=== PATIENT | male | born 1980 | race Caucasian/White ===

== ENCOUNTER 2017-02-04 03:51 | Inpatient (IN) | payer OTHER ==
[2017-02-04] VITALS (7 sets, daily range): BP systolic 127–146; BP diastolic 63–91; PULSE 65–96; TEMP 36.3–37; O2SAT 94–98; Ht 180.3 cm; Wt 119.0 kg
[~2017-02-04] VITALS: Ht 180.3 cm; Wt 119.0 kg
[~2017-02-04 03:51] MED LIST: IBUP-1050 PO; OXYC1TAB3 PO; TAMS0.4C38 PO
[2017-02-04] MEDS ORDERED: LORAZEPAM 2 MG/ML 1 ML VIAL IV STA (04:11)
[2017-02-04] MEDS ORDERED: DILTIAZEM HCL 5 MG/ML 5 ML VIAL ONE (04:11)
[2017-02-04] MEDS ORDERED: ONDANSETRON INJ 2 MG/ML 2 ML VIAL ONE (04:12)
[2017-02-04] MEDS ORDERED: LORAZEPAM 2 MG/ML 1 ML VIAL ONE (04:13)
[2017-02-04 04:16] LABS: BASO % 0.5 %; BASO ABS # 0.04 K/uL (0-0.2); COMPLETE YES; EOS % 4.8 %; HEMATOCRIT 48.2 % (42-52); IG% 0.6 %; LYMPH % 31.3 %; MEAN CELL VOLUME 85.2 fL (80-100); MEAN CORPUSCULAR HEMOGLOBIN 29.2 pg (25-34); MEAN CORPUSCULAR HGB CONC 34.2 g/dl (32-36); MEAN PLATELET VOLUME 8.9 fL (7.4-10.4); MONO % 10.7 %; NEUT % 52.1 %; PLATELET COUNT 325 K/uL (130-400); RED BLOOD COUNT 5.66 M/uL (4.7-6.1); WHITE BLOOD COUNT 8.62 K/uL (4.8-10.8)
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
[2017-02-04] MEDS ORDERED: CETI10TA84 PO (04:32)
[2017-02-04 04:44] LABS: ALT/SGPT 50 U/L (12-78); AST/SGOT 26 U/L (15-37); BLOOD UREA NITROGEN 15 mg/dl (7-18); BUN/CREATININE RATIO 13.8 (10-20); CALCIUM 9.1 mg/dl (8.5-10.1); CARBON DIOXIDE 26 mmol/L (21-32); CHLORIDE 108 mmol/L (98-107); GLUCOSE 101 mg/dl (70-99); POTASSIUM 3.6 mmol/L (3.5-5.1); SODIUM 144 mmol/L (136-145)
[2017-02-04 04:54] LABS: ALB/GLOB RATIO 1.2 (0.9-2); ALKALINE PHOSPHATASE 68 U/L (45-117); CKMB/CK RATIO 0.5 (0-3.0); PARTIAL THROMBOPLASTIN RATIO 1.3; PROTHROMBIN TIME (PATIENT) 10.2 SECONDS (9.0-12.0)
[2017-02-04] MEDS ORDERED: HEPARIN 25000 UNIT/500 ML D5W ONE (05:31)
[2017-02-04] MEDS ORDERED: HEPARIN SOD 5000 UNIT/0.5 ML CARP ONE (05:31)
[2017-02-04] MEDS ORDERED: DILTIAZEM HCL 5 MG/ML 5 ML VIAL IV STA (06:24)
[2017-02-04] MEDS ORDERED: SODIUM CHLORIDE 0.9% 1000ML 1,000 ML IV SCH (06:25)
[2017-02-04] MEDS ORDERED: NITROGLYCERIN 0.4 MG SL PER TAB CHARGE SL PRN (06:30)
[2017-02-04] MEDS ORDERED: POLYETHYLENE (MIRALAX) 17 GM PACK PO PRN (06:30)
[2017-02-04] MEDS ORDERED: ONDANSETRON INJ 2 MG/ML 2 ML VIAL IV PRN (06:30)
[2017-02-04] MEDS ORDERED: POTASSIUM CHLORIDE 10 MEQ TABCR PO STA (06:34)
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
[2017-02-04 06:58] LABS: MAGNESIUM 2.1 mg/dl (1.8-2.4); PHOSPHORUS 1.9 mg/dl (2.5-4.9)
--- NOTE | 2017-02-04 07:14 | DIAGNOSTIC IMAGING REPORT ---
CHEST ONE VIEW PORTABLE CLINICAL HISTORY: a-fib/sob COMPARISON STUDY: 08/22/2015 FINDINGS: The heart remains enlarged. There is no failure. There is no focal pulmonary consolidation. There are no pleural effusions.[ IMPRESSION: Mild cardiomegaly. No evidence of focal pulmonary consolidation Electronically signed by: Juan Carlos Mcfarlane M.D. 02/04/2017 7:13 AM Dictated Date/Time: 02/04/2017 7:12 AM
[2017-02-04] MEDS ORDERED: HEPARIN 25,000 UNIT/500ML D5W 500 ML IV PRN ×2 (08:00→10:00)
[2017-02-04] MEDS ORDERED: HEPARIN IV BOLUS 7,000 UNIT in SYRINGE 0 ML IV SCH (08:00)
[2017-02-04] MEDS ORDERED: NURSING VERBAL MED ORDER ONE (09:45)
[2017-02-04] MEDS ORDERED: METOPROLOL SUCC 50MG EXT REL TAB PO STA (10:08)
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
--- NOTE | 2017-02-04 11:02 | Cardiology Consultation ---
Cardiology Consultation Date of Consultation: Feb 04, 2017. Reason for Consultation: Chest Pain, Palpitation Pt evaluation today including: conversation w/ patient, conversation w/ family , physical exam, chart review, lab review, review of studies, review of inpatient medication list History of Present Illness This is 36 yo previously healthy male presenting with Hx of Chest Pain and Palpitation. Around 1 AM this morning , Patient reports he awoke with intermittent sharp 8/10 Chest pain radiating to his Left arm and the left side of his neck. Chest pain was associated with palpitation and was come and go last a few minutes at a time. Patient denies any alleviating or aggravating factors. He did not take any medication to relieve his symptoms. Patient also reports subsequent development progressive dyspnea, presyncope, nausea, diaphoresis. He denies syncope, orthopnea, PND, calf tenderness, claudication. He subsequently contacted his brother who works as a fresh work inspector who advised him he should go to the Emergency Dept. Patent drive himself to hospital. Patient has never experienced chest pain such as this before, but did have palpitation within the last 2 mos after which he was seen by his PCP, Dr. Green.He reports he got an ECG at the time and was told it was normal and sent home. In the ED , patient had EKG consistent with Atrial Fibrillation with RVR with a rate of 169. He was placed on a Cardizem drip and started on Heparin. Initial troponin, POC troponin was negative, CK was 312. CXR showed mild cardiomegaly. He was also found to have an elevated TSH although his T3, T4 levels were wnl. Patient has no known hx of CAD, HTN, Hyperlipidemia, DM, Cardiomyopathy. He is a former smoker, and currently chews tobacco and rarely drinks alcohol. He denies recreational drug use. Patient does report hx of snoring and possible hx of Sleep Apnea although he apparently had 2 sleep studies one at an outside facility in which he was told he did have did not have Sleep Apnea and a subsequent sleep study within the [facility] which he reports confirmed a Sleep Apnea diagnosis. He has not used a CPAP regularly since his diagnosis because he feels he cannot tolerate it. Currently patient reports his chest pain has resolved although he still has palpitation, occasional dizziness and SOB. Past Medical/Surgical History Past Medical Hx: Kidney Stones Pat Surgical Hx: [place] teeth Extraction Family History No pertinent family history GM and GF : CAD s/p stenting M: Hyperthyroidism Social History Smoking Status: Former Smoker History of Alcohol Use: Yes (once a month) chewing tobacco x 10 yrs Review of Systems Constitutional: + sweats, + fatigue, No fever, No chills, No weakness Respiratory: + shortness of breath, No cough, No sputum Cardiac: + chest pain, + palpitations, No orthopnea, No PND, No edema, No claudication Abdomen: + nausea, No pain, No vomiting Male : No dysuria, No urinary frequency, No hematuria Neurologic: No weakness, No numbness/tingling Endo: + fatigue, + problem reported (cold intolerance x months long) Skin: No rash, No itch Allergies Coded Allergies: Morphine (Verified Allergy, Mild, altered mental status, 02/04/17) Medications Current Inpatient Medications Medications (Trade) Dose Ordered Sig/Laverne Route Start Time Stop Time Status Last Admin Dose Admin Sodium Chloride 1,000 ml @ 100 mls/hr Q10H IV 02/04/17 06:25 03/06/17 06:24 Acetaminophen (Tylenol Tab) 650 mg Q4H PRN PO 02/04/17 06:30 03/06/17 06:29 Ondansetron HCl (Zofran Inj) 4 mg Q6H PRN IV 02/04/17 06:30 03/06/17 06:29 Nitroglycerin (Nitrostat Tab) 0.4 mg UD PRN SL 02/04/17 06:30 03/06/17 06:29 Polyethylene (Miralax Powder Packet) 17 gm DAILY PRN PO 02/04/17 06:30 03/06/17 06:29 Heparin Sodium/ Dextrose 500 ml @ 33 mls/hr [id number] PRN IV 02/04/17 10:00 03/06/17 09:59 Metoprolol Succinate (Toprol Xl Tab) 50 mg NOW STAT PO 02/04/17 10:08 02/04/17 10:09 UNV Physical Exam Vital Signs Past 12 Hours Date Time Temp Pulse Resp B/P (MAP) Pulse Ox O2 Delivery O2 Flow Rate FiO2 02/04/17 07:48 98 Room Air 02/04/17 07:30 36.3 91 20 143/91 02/04/17 06:55 96 02/04/17 06:29 135 20 117/96 99 Nasal Cannula 2.0 02/04/17 05:29 119 20 121/94 98 Nasal Cannula 2.0 02/04/17 04:22 96 18 123/89 98 Nasal Cannula 2.0 02/04/17 04:13 83 02/04/17 04:10 119 02/04/17 04:02 171 02/04/17 03:55 161 27 148/121 94 Room Air Constitutional: General Apperance: heathly-appearing, obese (BMI: 36) Level of Distress: mild distress Head: normocephalic Eyes: Pupils: PERRLA EOM: EOMI ENMT: hearing grossly normal Neck: supple, trachea midline, no masses Lungs: Respiratory effort: no dyspnea, good air movement Auscultation: breath sounds normal, no wheezing, no rales/crackles, no rhonchi Cardiovascular: Heart Auscultation: no murmurs, no rubs, no gallops, irregular rate rhythm Abdomen: Bowel Sounds: normal Inspection & Palpation: soft, non-distended, no tenderness, guarding & rebound, no masses Liver: non-tender, no hepatomegaly Extremities: no cyanosis, no edema, no clubbing Neurologic: Cranial Nerves: grossly intact Sensation: grossly intact Data Laboratory Results: Last 24 Hours Test 02/04/17 04:00 02/04/17 04:05 02/04/17 08:25 White Blood Count 8.62 K/uL Red Blood Count 5.66 M/uL Hemoglobin 16.5 g/dL Hematocrit 48.2 % Mean Corpuscular Volume 85.2 fL Mean Corpuscular Hemoglobin 29.2 pg Mean Corpuscular Hemoglobin Concent 34.2 g/dl Platelet Count 325 K/uL Mean Platelet Volume 8.9 fL Neutrophils (%) (Auto) 52.1 % Lymphocytes (%) (Auto) 31.3 % Monocytes (%) (Auto) 10.7 % Eosinophils (%) (Auto) 4.8 % Basophils (%) (Auto) 0.5 % Neutrophils # (Auto) 4.50 K/uL Lymphocytes # (Auto) 2.70 K/uL Monocytes # (Auto) 0.92 K/uL Eosinophils # (Auto) 0.41 K/uL Basophils # (Auto) 0.04 K/uL RDW Standard Deviation 39.4 fL RDW Coefficient of Variation 12.7 % Immature Granulocyte % (Auto) 0.6 % Immature Granulocyte # (Auto) 0.05 K/uL Prothrombin Time 10.2 SECONDS Prothromb Time International Ratio 1.0 Activated Partial Thromboplast Time 32.5 SECONDS Partial Thromboplastin Ratio 1.3 D-Dimer < 190 ug/L FEU Sodium Level 144 mmol/L Potassium Level 3.6 mmol/L Chloride Level 108 mmol/L Carbon Dioxide Level 26 mmol/L Anion Gap 10.0 mmol/L Blood Urea Nitrogen 15 mg/dl Creatinine 1.10 mg/dl Est Creatinine Clear Calc Drug Dose 120.7 ml/min Estimated GFR () 98.9 Estimated GFR (Non- 85.3 BUN/Creatinine Ratio 13.8 Random Glucose 101 mg/dl Calcium Level 9.1 mg/dl Phosphorus Level 1.9 mg/dl Magnesium Level 2.1 mg/dl Total Bilirubin 0.4 mg/dl Aspartate Amino Transf (AST/SGOT) 26 U/L Alanine Aminotransferase (ALT/SGPT) 50 U/L Alkaline Phosphatase 68 U/L Total Creatine Kinase 312 U/L Creatine Kinase MB 1.7 ng/ml Creatine Kinase MB Ratio 0.5 Troponin I < 0.015 ng/ml Pro-B-Type Natriuretic Peptide 144 pg/ml Total Protein 7.9 gm/dl Albumin 4.3 gm/dl Globulin 3.6 gm/dl Albumin/Globulin Ratio 1.2 Thyroid Stimulating Hormone (TSH) 10.100 uIu/ml Free Thyroxine 0.87 ng/dl Free Triiodothyronine 3.88 pg/ml Bedside Troponin I 0.000 ng/ml Imaging: EKG: Telemetry reviewed: Assessment & Plan This is a previously Healthy 36 yo M presenting with Chest pain, palpitation with associated presyncope, diaphoresis, nausea, EKG confirming Atrial Fibrillation with RVR s/p Cardizem drip in ED, with negative troponin, elevated currently afebrile, stable on a Heparin drip for anticoagulation. ChadsVasc score of 0. Etiology of his Atrial Fibrillation is unclear at this point. Certainly if patient has confirmed history of sleep apnea, that could certainly be a contributor. While Hypothyroidism can be a factor, given, that his thyroid hormone levels are wnl despite the elevated TSH, it is unclear how significant this finding may be. Anatomical Heart abnormality have yet to be ruled out as well. While EKG, and cardiazc enzymes have not shown evidence of ACS as of yet, patient will need outpatient Stress test to rule out exertional angina. New onset Atrial Fibrillation with RVR - Give 50 mg dose of Metoprolol - Continue Heparin drip - Follow up Echo report - Consider antiarrhythmic trial of Corvert if no abnormalities found on Echo - If patient does not convert to sinus rhythm either spontaneously or with Corvert, will consider electrical cardioversion tmr - Patient will need Stress Test outpatient following discharge - Will likely need anticoagulation with Eliquis on discharge for at least a month Thank you for allowing us to participate in this patient's care. Sid Espino, PGY1
--- NOTE | 2017-02-04 11:16 | Cardiology Consultation ---
Cardiology Consultation Date of Consultation: Feb 04, 2017. Requesting Physician: Dr Johnson Reason for Consultation: Atrial fibrillation Pt evaluation today including: conversation w/ patient, conversation w/ family , physical exam, chart review, lab review, review of studies, review of inpatient medication list History of Present Illness This is a 36-year-old gentleman with a history of obesity and sleep apnea who presents with chest discomfort and rapid atrial fibrillation. He had a prior episode of chest discomfort and palpitations several months ago, evidently had an electrocardiogram done which did not show any abnormality but he is unclear as to the duration of that episode and it was not as severe as the current one. He is confident that he felt well yesterday, he woke up at around 1 AM this morning with chest discomfort radiating to his left arm and left neck. This discomfort occurred at rest and was associated with palpitations. When he stood up he felt quite lightheaded and nauseous and had to sit back down. He therefore came to the emergency room when this did not resolve. In the emergency room at about 3 AM he was noted to be in atrial fibrillation with a rapid ventricular response. He was treated with intravenous heparin and intravenous Cardizem. The chest discomfort resolved fairly quickly, he is not clear exactly when that occurred but it occurred while he was in the emergency room. He has had no further chest discomfort. He has been evaluated for sleep apnea both here and elsewhere, he was supposed to wear mask but has difficulty with it. He does not drink alcohol, he does not use illicit drugs. Other than the episode occurring several months ago he does not recall ever having these symptoms before. He notes no change in his exercise ability. Past Medical/Surgical History (1) Head injury (2) Finger fracture (3) Ribs, multiple fractures (4) Left varicocele Family History No pertinent family history Social History Smoking Status: Former Smoker History of Alcohol Use: Yes (once a month) Review of Systems Constitutional: No fever, No weight loss, No weakness Respiratory: + see HPI, + shortness of breath, No cough, No sputum Cardiac: + see HPI, + chest pain, + palpitations, No orthopnea, No PND, No edema, No claudication Abdomen: No pain, No nausea, No vomiting, No diarrhea, No GI bleeding Male : No urinary frequency, No nocturia more than once/night, No slowing stream, No sexual dysfunction Neurologic: No paralysis, No weakness, No numbness/tingling, No balance problems Heme: No abnormal bleeding/bruising, No clotting problems Endo: No fatigue Skin: No problem reported All Other Systems: Reviewed and Negative Allergies Coded Allergies: Morphine (Verified Allergy, Mild, altered mental status, 02/04/17) Medications Current Inpatient Medications Medications (Trade) Dose Ordered Sig/Laverne Route Start Time Stop Time Status Last Admin Dose Admin Sodium Chloride 1,000 ml @ 100 mls/hr Q10H IV 02/04/17 06:25 03/06/17 06:24 Acetaminophen (Tylenol Tab) 650 mg Q4H PRN PO 02/04/17 06:30 03/06/17 06:29 Ondansetron HCl (Zofran Inj) 4 mg Q6H PRN IV 02/04/17 06:30 03/06/17 06:29 Nitroglycerin (Nitrostat Tab) 0.4 mg UD PRN SL 02/04/17 06:30 03/06/17 06:29 Polyethylene (Miralax Powder Packet) 17 gm DAILY PRN PO 02/04/17 06:30 03/06/17 06:29 Heparin Sodium/ Dextrose 500 ml @ 33 mls/hr [id number] PRN IV 02/04/17 10:00 03/06/17 09:59 Physical Exam Vital Signs Past 12 Hours Date Time Temp Pulse Resp B/P (MAP) Pulse Ox O2 Delivery O2 Flow Rate FiO2 02/04/17 07:48 98 Room Air 02/04/17 07:30 36.3 91 20 143/91 02/04/17 06:55 96 02/04/17 06:29 135 20 117/96 99 Nasal Cannula 2.0 02/04/17 05:29 119 20 121/94 98 Nasal Cannula 2.0 02/04/17 04:22 96 18 123/89 98 Nasal Cannula 2.0 02/04/17 04:13 83 02/04/17 04:10 119 02/04/17 04:02 171 02/04/17 03:55 161 27 148/121 94 Room Air Constitutional: General Apperance: heathly-appearing Level of Distress: NAD Psychiatric: Mental Status: active & alert Head: normocephalic Eyes: EOM: EOMI ENMT: normal ENT inspection, hearing grossly normal Neck: supple, no masses Lungs: Respiratory effort: no dyspnea, good air movement Auscultation: breath sounds normal, no wheezing Cardiovascular: Heart Auscultation: no murmurs, no rubs, no gallops, irregular rate rhythm Peripheral Pulses: Bruits: none appreciated Abdomen: Bowel Sounds: normal Inspection & Palpation: soft, no tenderness, guarding & rebound, no masses Musculoskeletal: normal strength (5/5 throughout) Extremities: no edema Neurologic: Cranial Nerves: grossly intact Sensation: grossly intact Data Laboratory Results: Last 24 Hours Test 02/04/17 04:00 02/04/17 04:05 02/04/17 08:25 White Blood Count 8.62 K/uL Red Blood Count 5.66 M/uL Hemoglobin 16.5 g/dL Hematocrit 48.2 % Mean Corpuscular Volume 85.2 fL Mean Corpuscular Hemoglobin 29.2 pg Mean Corpuscular Hemoglobin Concent 34.2 g/dl Platelet Count 325 K/uL Mean Platelet Volume 8.9 fL Neutrophils (%) (Auto) 52.1 % Lymphocytes (%) (Auto) 31.3 % Monocytes (%) (Auto) 10.7 % Eosinophils (%) (Auto) 4.8 % Basophils (%) (Auto) 0.5 % Neutrophils # (Auto) 4.50 K/uL Lymphocytes # (Auto) 2.70 K/uL Monocytes # (Auto) 0.92 K/uL Eosinophils # (Auto) 0.41 K/uL Basophils # (Auto) 0.04 K/uL RDW Standard Deviation 39.4 fL RDW Coefficient of Variation 12.7 % Immature Granulocyte % (Auto) 0.6 % Immature Granulocyte # (Auto) 0.05 K/uL Prothrombin Time 10.2 SECONDS Prothromb Time International Ratio 1.0 Activated Partial Thromboplast Time 32.5 SECONDS Partial Thromboplastin Ratio 1.3 D-Dimer < 190 ug/L FEU Sodium Level 144 mmol/L Potassium Level 3.6 mmol/L Chloride Level 108 mmol/L Carbon Dioxide Level 26 mmol/L Anion Gap 10.0 mmol/L Blood Urea Nitrogen 15 mg/dl Creatinine 1.10 mg/dl Est Creatinine Clear Calc Drug Dose 120.7 ml/min Estimated GFR () 98.9 Estimated GFR (Non- 85.3 BUN/Creatinine Ratio 13.8 Random Glucose 101 mg/dl Calcium Level 9.1 mg/dl Phosphorus Level 1.9 mg/dl Magnesium Level 2.1 mg/dl Total Bilirubin 0.4 mg/dl Aspartate Amino Transf (AST/SGOT) 26 U/L Alanine Aminotransferase (ALT/SGPT) 50 U/L Alkaline Phosphatase 68 U/L Total Creatine Kinase 312 U/L Creatine Kinase MB 1.7 ng/ml Creatine Kinase MB Ratio 0.5 Troponin I < 0.015 ng/ml Pro-B-Type Natriuretic Peptide 144 pg/ml Total Protein 7.9 gm/dl Albumin 4.3 gm/dl Globulin 3.6 gm/dl Albumin/Globulin Ratio 1.2 Thyroid Stimulating Hormone (TSH) 10.100 uIu/ml Free Thyroxine 0.87 ng/dl Free Triiodothyronine 3.88 pg/ml Bedside Troponin I 0.000 ng/ml Imaging: Echo pending EKG: Atrial fibrillation with no acute changes Telemetry reviewed: Atrial fibrillation with a reasonably well-controlled rate at rest, rapid on arrival and with activity Assessment & Plan #1. Atrial fibrillation: He is quite confident that his atrial fibrillation started this morning and remains present. He did have an episode several months ago but that felt different to him, being much less severe and he had an evaluation which was negative therefore he has not been in persistent atrial fibrillation. I believe his atrial fibrillation started this morning. He has some risk factors for atrial fibrillation including his weight, his sleep apnea and possibly thyroid disease. An echo is pending to see whether he has structural heart disease. I would evaluate his thyroid disease to see if he needs treatment but that may not be the primary cause as his thyroid hormones are normal although the TSH is elevated. At this point I would continue anticoagulation, with thoughts for converting him back to normal. If his echocardiogram looks good today and I would start Corvert this afternoon, if he remains in atrial fibrillation then we should plan electrical cardioversion performed morning. #2. Sleep apnea: He has a history of sleep apnea but apparently cannot tolerate the mask. Atrial fibrillation is associated with sleep apnea, correction of sleep apnea may or may not help with his atrial fibrillation but it should be treated in any case. Weight loss would be beneficial for this as well. Thank you for allowing me to participate in his care.
[2017-02-04 12:23] LABS: PARTIAL THROMBOPLASTIN RATIO 1.9
[2017-02-04 13:21] LABS: ESTIMATED AVERAGE GLUCOSE 120 mg/dl; HA1C FLAG Normal (Normal)
--- NOTE | 2017-02-04 14:35 | Family Medicine Progress Note ---
Progress Note Date of Service Feb 04, 2017. Subjective Pt evaluation today including: conversation w/ patient, physical exam, chart review, lab review Pain: None PO Intake: Good Voiding: no voiding problems Doing well at this time Did note having lightheadedness and palpitations when ambulating to bathroom; was in Afib at the time Feels much better since converting back to sinus rhythm No other issues currently Additional Comments: A 10 point review of systems was negative unless stated above. Medications Current Inpatient Medications Medications (Trade) Dose Ordered Sig/Laverne Route Start Time Stop Time Status Last Admin Dose Admin Sodium Chloride 1,000 ml @ 100 mls/hr Q10H IV 02/04/17 06:25 03/06/17 06:24 02/04/17 11:45 100 MLS/HR Acetaminophen (Tylenol Tab) 650 mg Q4H PRN PO 02/04/17 06:30 03/06/17 06:29 Ondansetron HCl (Zofran Inj) 4 mg Q6H PRN IV 02/04/17 06:30 03/06/17 06:29 Nitroglycerin (Nitrostat Tab) 0.4 mg UD PRN SL 02/04/17 06:30 03/06/17 06:29 Polyethylene (Miralax Powder Packet) 17 gm DAILY PRN PO 02/04/17 06:30 03/06/17 06:29 Heparin Sodium/ Dextrose 500 ml @ 33 mls/hr [id number] PRN IV 02/04/17 10:00 03/06/17 09:59 Miscellaneous Information (Nursing Heparin Iv Rate Change) 1 ea ONE ONCE N/A 02/04/17 13:45 02/04/17 13:46 UNV Objective Vital Signs Date Time Temp Pulse Resp B/P (MAP) Pulse Ox O2 Delivery O2 Flow Rate FiO2 02/04/17 12:00 36.8 85 20 136/89 (105) 94 Room Air 02/04/17 12:00 Room Air 02/04/17 11:39 37.0 96 20 146/63 (90) 98 02/04/17 07:48 98 Room Air 02/04/17 07:30 36.3 91 20 143/91 02/04/17 06:55 96 02/04/17 06:29 135 20 117/96 99 Nasal Cannula 2.0 02/04/17 05:29 119 20 121/94 98 Nasal Cannula 2.0 02/04/17 04:22 96 18 123/89 98 Nasal Cannula 2.0 02/04/17 04:13 83 02/04/17 04:10 119 02/04/17 04:02 171 02/04/17 03:55 161 27 148/121 94 Room Air Physical Exam General Appearance: WD/WN, no apparent distress Eyes: normal inspection, EOMI ENT: hearing grossly normal, pharynx normal Neck: supple, no adenopathy, no JVD Respiratory/Chest: chest non-tender, normal breath sounds, no respiratory distress Cardiovascular: regular rate, rhythm, no gallop, no murmur Abdomen: normal bowel sounds, non tender, soft Extremities: non-tender, no pedal edema Neurologic/Psychiatric: alert, normal mood/affect, oriented x 3 Skin: normal color, warm/dry, no rash Lymphatic: no adenopathy Laboratory Results Last 24 Hours Test 02/04/17 04:00 02/04/17 04:05 02/04/17 11:45 White Blood Count 8.62 K/uL Red Blood Count 5.66 M/uL Hemoglobin 16.5 g/dL Hematocrit 48.2 % Mean Corpuscular Volume 85.2 fL Mean Corpuscular Hemoglobin 29.2 pg Mean Corpuscular Hemoglobin Concent 34.2 g/dl Platelet Count 325 K/uL Mean Platelet Volume 8.9 fL Neutrophils (%) (Auto) 52.1 % Lymphocytes (%) (Auto) 31.3 % Monocytes (%) (Auto) 10.7 % Eosinophils (%) (Auto) 4.8 % Basophils (%) (Auto) 0.5 % Neutrophils # (Auto) 4.50 K/uL Lymphocytes # (Auto) 2.70 K/uL Monocytes # (Auto) 0.92 K/uL Eosinophils # (Auto) 0.41 K/uL Basophils # (Auto) 0.04 K/uL RDW Standard Deviation 39.4 fL RDW Coefficient of Variation 12.7 % Immature Granulocyte % (Auto) 0.6 % Immature Granulocyte # (Auto) 0.05 K/uL Prothrombin Time 10.2 SECONDS Prothromb Time International Ratio 1.0 Activated Partial Thromboplast Time 32.5 SECONDS 48.5 SECONDS Partial Thromboplastin Ratio 1.3 1.9 D-Dimer < 190 ug/L FEU Sodium Level 144 mmol/L Potassium Level 3.6 mmol/L Chloride Level 108 mmol/L Carbon Dioxide Level 26 mmol/L Anion Gap 10.0 mmol/L Blood Urea Nitrogen 15 mg/dl Creatinine 1.10 mg/dl Est Creatinine Clear Calc Drug Dose 120.7 ml/min Estimated GFR () 98.9 Estimated GFR (Non- 85.3 BUN/Creatinine Ratio 13.8 Random Glucose 101 mg/dl Calcium Level 9.1 mg/dl Phosphorus Level 1.9 mg/dl Magnesium Level 2.1 mg/dl Total Bilirubin 0.4 mg/dl Aspartate Amino Transf (AST/SGOT) 26 U/L Alanine Aminotransferase (ALT/SGPT) 50 U/L Alkaline Phosphatase 68 U/L Total Creatine Kinase 312 U/L Creatine Kinase MB 1.7 ng/ml Creatine Kinase MB Ratio 0.5 Troponin I < 0.015 ng/ml < 0.015 ng/ml Pro-B-Type Natriuretic Peptide 144 pg/ml Total Protein 7.9 gm/dl Albumin 4.3 gm/dl Globulin 3.6 gm/dl Albumin/Globulin Ratio 1.2 Thyroid Stimulating Hormone (TSH) 10.100 uIu/ml Free Thyroxine 0.87 ng/dl Free Triiodothyronine 3.88 pg/ml Bedside Troponin I 0.000 ng/ml Estimated Average Glucose 120 mg/dl Hemoglobin A1c 5.8 % Assessment and Plan 36-year-old male who presents with new diagnosis of Atrial Fibrillation with RVR. In the ED, he was started on Diltiazem presented to the ER with complaints of intermittent left-sided chest pain which woke him up this morning at about 1 AM. Associated with lightheadedness, palpitations, shortness of breath. New-onset atrial fibrillation with RVR - Diltiazem given in the ED; converted to NSR this morning; now rate controlled < 100 - Continue telemetry monitoring - Cardiac enzyme trending q 8 hours until peak - Echocardiogram pending for evaluation of structural heart disease as etiology - Patient has been started on oral Metoprolol - Will discontinue heparin infusion; if patient reverts to afib, will re-start - Patient notes he has been told he has YINA but never sought to treat because he was uncomfortable nighttime CPAP. We have cautioned him that YINA is an emerging risk factor for Afib in relatively young patients and treating it actively at this stage will be appropriate; notes sleep study many years ago; recommend getting referral for re-testing via PCP Subclinical Hypothyroidism: - TSH elevated; normal T3 and T4 levels - Patient does report symptoms including cold intolerance and fatigue - If patient stable with NSR overnight; will plan to start low dose Levothyroxine tomorrow, 25 mcg and titrate up per PCP Titrate up slowly to avoid recurrence of Atrial Fibrillation DVT prophylaxis - SCD - Heparin 5000 TID Code Status - Level I Full Code Disposition: Admitted to telemetry Resident Physician Supervision Note: I was present with PGY2 Dr. Rigoberto Hess during the history and exam. I discussed the case with the resident and agree with the findings and plan as documented in the note. Any exceptions or clarifications are listed here: none. Patient converted back to NSR this AM. Feels MUCH better - denies chest pain or palpitations or SOB. DOES confirm ongoing snoring and apnea. Dx with YINA "years ago" but could not tolerate CPAP. VSS no fever gen - nad neck - no JVD, no thyroidmegaly heart - RRR, s1, s2, no murmur lungs - CTA b/l abd - soft, NT ext - no edema troponins serially negative TSH 10 FT4 low-normal K and Mag normal echo pending A/P: 1. PAF - resolved. Now in NSR. Defer AV lubna agent and/or antiarrhythmic to cardiology. CHADS 0. Defer anticoagulation to cardiology. 2. subclinical hypothyroidism - has symptoms of hypothyroidism; reasonable to treat, but run risk of contributing to heightened risk of recurrent a. fib with overly aggressive replacement. Thus, start LOW dose at 25mcg daily; repeat TSH 6 weeks. 3. YINA - needs repeat sleep study. observe overnight Emigdio Fontenot MD Discharge planning: home
[2017-02-04] MEDS: ACETAMINOPHEN 325 MG TAB PO PRN ×2 (15:27→20:20)
--- NOTE | 2017-02-04 18:16 | ECHOCARDIOGRAM REPORT ---
*NOTICE TO RECEIVING [employer] This information is strictly Confidential and protected under [place] law. [place] law prohibits you from making any further disclosure of this information unless further disclosure is expressly permitted by the written consent of the person to whom it pertains or is authorized by law. A general authorization for the release of medical or other information is not sufficient for this purpose. Hospital accepts no responsibility if the information is made available to any other person, INCLUDING THE PATIENT. Interpretation Summary * Name: BARBIE SAVAGE Study Date: 02/04/2017 11:09 AM BP: 143/91 mmHg * Patient Location: C.2T\S\E217\S\1 HR: 81 * : 1980 (M/d/yyyy) Gender: Male Height: 71 in * Age: 36 yrs Ethnicity: [place] Weight: 262 lb * Ordering Physician: Rigoberto Hess * Referring Physician: Self, Referred * Performed By: Carla Branch [facility] * * Reason For Study: A-FIB * BSA: 2.4 m2 * -- Conclusions -- * 1. Normal LV size. Mild concentric LVH. * 2. Normal LV systolic function. LVEF 55-60 %. No regional wall motion abnormalities. * 3. Normal RV size and function. * 4. No significant valvular pathology. * 5. No prior studies for comparison Procedure Details * A complete two-dimensional transthoracic echocardiogram was performed (2D, M-mode, Doppler and color flow Doppler). Left Ventricle * The left ventricle is grossly normal size. * There is mild concentric left ventricular hypertrophy. * Ejection Fraction = 55-60%. * No regional wall motion abnormalities noted. Right Ventricle * The right ventricle is grossly normal size. * The right ventricular systolic function is normal as assessed by tricuspid annular plane systolic excursion (TAPSE) (normal >1.5 cm). Atria * The left atrial size is normal. * Right atrial size is normal. * No ASD detected; PFO is not assessed. Mitral Valve * The mitral valve is grossly normal. * Mitral stenosis is absent. * There is trace mitral regurgitation. Tricuspid Valve * The tricuspid valve is not well visualized, but is grossly normal. * There is no tricuspid stenosis. * Significant tricuspid regurgitation is absent. Aortic Valve * The aortic valve opens well. * No hemodynamically significant valvular aortic stenosis. * There is no significant aortic regurgitation. Pulmonic Valve * The pulmonary valve is inadequately visualized, but the Doppler data is adequate for interpretation. * There is no pulmonic valvular stenosis. * Trace pulmonic valvular regurgitation. Great Vessels * The aortic root and proximal ascending aorta are normal sized. * No Doppler or imaging evidence of an aortic coarctation. Pericardium/Pleural * There is no pericardial effusion. Great Vessels * Normal inferior vena cava size and collapsability with sniff indicates a normal right atrial pressure of 3 mmHg MMode 2D Measurements and Calculations IVSd 1.4 cm IVSs 1.9 cm LVIDd 3.7 cm LVIDs 2.9 cm LVPWd 1.2 cm LVPWs 1.5 cm IVS/LVPW 1.1 FS 22.0 % EDV(Teich) 59.6 ml ESV(Teich) 32.6 ml EF(Teich) 45.2 % EDV(cubed) 52.3 ml ESV(cubed) 24.8 ml EF(cubed) 52.6 % % IVS thick 41.7 % % LVPW thick 23.3 % LV mass(C)d 169.2 grams LV mass(C)dI 71.5 grams/m\S\2 LV mass(C)s 195.6 grams LV mass(C)sI 82.7 grams/m\S\2 SV(Teich) 27.0 ml SI(Teich) 11.4 ml/m\S\2 SV(cubed) 27.5 ml SI(cubed) 11.6 ml/m\S\2 Ao root diam 3.8 cm Ao root area 11.4 cm\S\2 LA dimension 3.5 cm LA/Ao 0.93 LVOT diam 2.1 cm LVOT area 3.4 cm\S\2 LVAd ap4 35.8 cm\S\2 LVLd ap4 9.3 cm EDV(MOD-sp4) 112.9 ml EDV(sp4-el) 117.7 ml LVAs ap4 24.0 cm\S\2 LVLs ap4 7.7 cm ESV(MOD-sp4) 62.9 ml ESV(sp4-el) 63.5 ml EF(MOD-sp4) 44.3 % EF(sp4-el) 46.1 % LVAd ap2 36.8 cm\S\2 LVLd ap2 9.0 cm EDV(MOD-sp2) 123.8 ml EDV(sp2-el) 128.2 ml LVAs ap2 22.9 cm\S\2 LVLs ap2 7.1 cm ESV(MOD-sp2) 62.1 ml ESV(sp2-el) 62.5 ml EF(MOD-sp2) 49.8 % EF(sp2-el) 51.3 % LVLd %diff -3.23 % EDV(MOD-bp) 120.1 ml LVLs %diff -7.82 % ESV(MOD-bp) 63.2 ml EF(MOD-bp) 47.4 % SV(MOD-sp4) 50.0 ml SI(MOD-sp4) 21.2 ml/m\S\2 SV(MOD-sp2) 61.7 ml SI(MOD-sp2) 26.1 ml/m\S\2 SV(MOD-bp) 56.9 ml SI(MOD-bp) 24.0 ml/m\S\2 SV(sp4-el) 54.2 ml SI(sp4-el) 22.9 ml/m\S\2 SV(sp2-el) 65.7 ml SI(sp2-el) 27.8 ml/m\S\2 Doppler Measurements and Calculations MV E max karly 51.9 cm/sec MV A max karly 39.7 cm/sec MV E/A 1.3 MV P1/2t max karly 58.9 cm/sec MV P1/2t 63.7 msec MVA(P1/2t) 3.5 cm\S\2 MV dec slope 270.6 cm/sec\S\2 MV dec time 0.20 sec Ao V2 max 76.4 cm/sec Ao max PG 2.3 mmHg Ao max PG (full) 0.44 mmHg SANJEEV(V,A) 3.0 cm\S\2 SANJEEV(V,D) 3.0 cm\S\2 LV V1 max PG 1.9 mmHg LV V1 max 68.8 cm/sec
[2017-02-05] VITALS (8 sets, daily range): BP systolic 121–158; BP diastolic 75–88; PULSE 64–73; TEMP 36.6–37.1; O2SAT 96–97
[2017-02-05 04:14] LABS: BASO % 0.7 %; BASO ABS # 0.04 K/uL (0-0.2); COMPLETE YES; EOS % 5.4 %; IG% 0.9 %; LYMPH % 29.4 %; LYMPH ABS # 1.59 K/uL (1.2-3.4); MEAN CELL VOLUME 86.7 fL (80-100); MEAN CORPUSCULAR HEMOGLOBIN 29.2 pg (25-34); MEAN CORPUSCULAR HGB CONC 33.7 g/dl (32-36); MEAN PLATELET VOLUME 8.7 fL (7.4-10.4); MONO % 10.9 %; NEUT % 52.7 %; PLATELET COUNT 257 K/uL (130-400); RED BLOOD COUNT 4.96 M/uL (4.7-6.1)
[2017-02-05 04:24] LABS: PARTIAL THROMBOPLASTIN RATIO 1.1; PROTHROMBIN TIME (PATIENT) 10.2 SECONDS (9.0-12.0)
[2017-02-05 04:40] LABS: ALT/SGPT 44 U/L (12-78); AST/SGOT 18 U/L (15-37); BLOOD UREA NITROGEN 14 mg/dl (7-18); BUN/CREATININE RATIO 15.6 (10-20); CALCIUM 8.1 mg/dl (8.5-10.1); CARBON DIOXIDE 28 mmol/L (21-32); CHLORIDE 107 mmol/L (98-107); CREATININE 0.93 mg/dl (0.60-1.40); GLUCOSE 94 mg/dl (70-99); MAGNESIUM 2.2 mg/dl (1.8-2.4); POTASSIUM 4.3 mmol/L (3.5-5.1); SODIUM 142 mmol/L (136-145)
[2017-02-05 04:47] LABS: ALKALINE PHOSPHATASE 52 U/L (45-117); PHOSPHORUS 3.6 mg/dl (2.5-4.9)
--- NOTE | 2017-02-05 09:23 | Cardiology Follow-Up ---
Subjective Date of Service: Feb 05, 2017. Pt evaluation today including: conversation w/ patient, conversation w/ family , physical exam, lab review, review of studies, review of inpatient medication list History of Present Illness This is a 36-year-old gentleman with a history of obesity and sleep apnea who presents with chest discomfort and rapid atrial fibrillation. He had a prior episode of chest discomfort and palpitations several months ago, evidently had an electrocardiogram done which did not show any abnormality but he is unclear as to the duration of that episode and it was not as severe as the current one. He is confident that he felt well yesterday, he woke up at around 1 AM this morning with chest discomfort radiating to his left arm and left neck. This discomfort occurred at rest and was associated with palpitations. When he stood up he felt quite lightheaded and nauseous and had to sit back down. He therefore came to the emergency room when this did not resolve. In the emergency room at about 3 AM he was noted to be in atrial fibrillation with a rapid ventricular response. He was treated with intravenous heparin and intravenous Cardizem. The chest discomfort resolved fairly quickly, he is not clear exactly when that occurred but it occurred while he was in the emergency room. He has had no further chest discomfort. He has been evaluated for sleep apnea both here and elsewhere, he was supposed to wear mask but has difficulty with it. He does not drink alcohol, he does not use illicit drugs. Other than the episode occurring several months ago he does not recall ever having these symptoms before. He notes no change in his exercise ability. Social History Smoking Status: Former Smoker History of Alcohol Use: Yes (once a month) Review of Systems Respiratory: No cough, No sputum, No shortness of breath Cardiac: + palpitations, No chest pain, No orthopnea, No PND, No edema, No claudication Medications No cardiovascular Objective Vital Signs Past 12 Hours Date Time Temp Pulse Resp B/P (MAP) Pulse Ox O2 Delivery O2 Flow Rate FiO2 02/05/17 07:16 36.6 64 18 128/80 (96) 96 Room Air 02/05/17 04:10 37.1 67 17 127/88 (101) 97 Room Air 02/05/17 04:00 97 Room Air 02/05/17 00:12 36.9 73 17 121/75 (90) 96 Room Air 02/05/17 00:01 96 Room Air Last Recorded Weight-Kilograms: 119.000 Physical Exam Constitutional: General Apperance: heathly-appearing Level of Distress: NAD Lungs: Respiratory effort: no dyspnea, good air movement Auscultation: breath sounds normal, no wheezing Cardiovascular: Heart Auscultation: RRR, no murmurs, no rubs, no gallops Peripheral Pulses: Bruits: none appreciated Extremities: no edema Data Laboratory Results: Last 24 Hours Test 02/04/17 11:45 02/04/17 19:50 02/05/17 04:05 Activated Partial Thromboplast Time 48.5 SECONDS 29.4 SECONDS Partial Thromboplastin Ratio 1.9 1.1 Estimated Average Glucose 120 mg/dl Hemoglobin A1c 5.8 % Troponin I < 0.015 ng/ml < 0.015 ng/ml < 0.015 ng/ml White Blood Count 5.40 K/uL Red Blood Count 4.96 M/uL Hemoglobin 14.5 g/dL Hematocrit 43.0 % Mean Corpuscular Volume 86.7 fL Mean Corpuscular Hemoglobin 29.2 pg Mean Corpuscular Hemoglobin Concent 33.7 g/dl Platelet Count 257 K/uL Mean Platelet Volume 8.7 fL Neutrophils (%) (Auto) 52.7 % Lymphocytes (%) (Auto) 29.4 % Monocytes (%) (Auto) 10.9 % Eosinophils (%) (Auto) 5.4 % Basophils (%) (Auto) 0.7 % Neutrophils # (Auto) 2.84 K/uL Lymphocytes # (Auto) 1.59 K/uL Monocytes # (Auto) 0.59 K/uL Eosinophils # (Auto) 0.29 K/uL Basophils # (Auto) 0.04 K/uL RDW Standard Deviation 41.5 fL RDW Coefficient of Variation 12.9 % Immature Granulocyte % (Auto) 0.9 % Immature Granulocyte # (Auto) 0.05 K/uL Prothrombin Time 10.2 SECONDS Prothromb Time International Ratio 1.0 Sodium Level 142 mmol/L Potassium Level 4.3 mmol/L Chloride Level 107 mmol/L Carbon Dioxide Level 28 mmol/L Anion Gap 7.0 mmol/L Blood Urea Nitrogen 14 mg/dl Creatinine 0.93 mg/dl Est Creatinine Clear Calc Drug Dose 142.7 ml/min Estimated GFR () 121.1 Estimated GFR (Non- 104.5 BUN/Creatinine Ratio 15.6 Random Glucose 94 mg/dl Calcium Level 8.1 mg/dl Phosphorus Level 3.6 mg/dl Magnesium Level 2.2 mg/dl Total Bilirubin 0.4 mg/dl Direct Bilirubin < 0.1 mg/dl Aspartate Amino Transf (AST/SGOT) 18 U/L Alanine Aminotransferase (ALT/SGPT) 44 U/L Alkaline Phosphatase 52 U/L Total Protein 6.8 gm/dl Albumin 3.8 gm/dl Echocardiography: Normal left ventricular size and function, left ventricular hypertrophy. Done during atrial fibrillation. Telemetry reviewed: Atrial fibrillation tell about 1050 yesterday morning, conversion to sinus rhythm at a controlled heart rate thereafter. Assessment and Plan #1. Atrial fibrillation: He is quite confident that his atrial fibrillation started early yesterday morning and it terminated before noon yesterday, therefore it lasted less than 12 hours. I would not anticoagulate over the long run, assuming that his frequency and duration does not change. He was quite symptomatic with it and likely will feel it if it recurs, although on beta- blockade it may be less obvious. In any case his stroke risk is so low that is probably better not to be on an anticoagulant long-term. The cause of the arrhythmia is uncertain, it could be related to sleep apnea, he does possibly have some sort of thyroid condition but there is no structural reason for it from the cardiac standpoint. I would recommend maintaining metoprolol succinate 50 mg daily, especially in view of his left ventricular hypertrophy. #2. Sleep apnea: He has a history of sleep apnea but apparently cannot tolerate the mask. Atrial fibrillation is associated with sleep apnea, correction of sleep apnea may or may not help with his atrial fibrillation but it should be treated in any case. Weight loss would be beneficial for this as well. #3. Chest discomfort: He describes chest pain which occurs with the arrhythmia, he does not have exertional chest discomfort otherwise. Perhaps this is just related to the arrhythmia itself but it could also uncover underlying coronary artery disease, chest pain related to atrial fibrillation and is uncommon. I have him scheduled for stress echo this morning. Thank you for allowing me to participate in his care.
--- NOTE | 2017-02-05 10:05 | EXERCISE STRESS ECHO ---
*NOTICE TO RECEIVING [employer] This information is strictly Confidential and protected under [place] law. [place] law prohibits you from making any further disclosure of this information unless further disclosure is expressly permitted by the written consent of the person to whom it pertains or is authorized by law. A general authorization for the release of medical or other information is not sufficient for this purpose. Hospital accepts no responsibility if the information is made available to any other person, INCLUDING THE PATIENT. Interpretation Summary * Name: BARBIE SAVAGE Study Date: 02/05/2017 08:56 AM BP: 116/77 mmHg * Patient Location: C.2T\S\E217\S\1 HR: 65 * : 1980 (M/d/yyyy) Gender: Male Height: 71 in * Age: 36 yrs Ethnicity: [place] Weight: 262 lb * Ordering Physician: Alvino Marks * Referring Physician: Self, Referred * Performed By: Mely Price RDCS * * Reason For Study: CHEST PAIN, AFIB * BSA: 2.4 m2 * Diagnostic exercise echocardiogram without evidence of inducible ischemia * Hypertensive response to exercise Procedure Details * ECHOEX, CPT #39273 Left Ventricular Findings with Stress * Normal exercise tolerance. No symptoms reported No EKG changes Normal baseline echocardiogram with normal augentation and no evidence of inducible wall motion abnormality. Hypertensive resonse to exercise Stress Parameters * Normal baseline electrocardiogram. * Stress ECG: No ST changes. No arrhythmias. * The stress portion of this study was personally supervised by the undersigned interpreting physician. * Rest heart rate was '65' BPM. * Rest blood pressure was '116/77' * Maximum heart rate achieved was 160 bpm. * Maximum heart rate was 87 % of maximum age-predicted heart rate. * Maximum blood pressure was '214/66' * Total exercise time was '7:25' * Maximum exercise MET level achieved was '10.90' METS * Maximum treadmill speed was '4.20' miles per hour. * Maximum treadmill elevation was '16.00'% grade. * Exercise was terminated due to 'ACHIEVING TARGET HR'
[2017-02-05] MEDS: ACETAMINOPHEN 325 MG TAB PO PRN (10:51)
[2017-02-05] MEDS ORDERED: METOPROLOL SUCC 50MG EXT REL TAB PO STA (12:31)
[2017-02-05] MEDS ORDERED: LEVO25TA5 PO (12:36)
[2017-02-05] MEDS ORDERED: TPRSR50 PO (12:36)
--- NOTE | 2017-02-05 12:55 | Discharge Instructions ---
Discharge Instructions Date of Service Feb 05, 2017. Admission Reason for Admission: Atrial Fibrillation With Rvr Discharge Discharge Diagnosis / Problem: Atrial Fibrillation Discharge Goals Goal(s): Improve disease control, Diagnostic testing, Prevent Disease Progression Activity Recommendations Activity Limitations: resume your previous activity Lifting Limitations: gradually increase as tolerated Exercise/Sports Limitations: gradually increase as tolerated May Resume Sexual Activity: when tolerated Shower/Bathe: no limitations Driving or Machine Use: no limitations . Instructions / Follow-Up Instructions / Follow-Up You have been admitted to the hospital due to an abnormal cardiac rhythm, which is called atrial fibrillation. We treated your atrial fibrillation with IV medications and were able to correct you back into a normal rhythm. You had an ultrasound of the heart ( echocardiogram) to check your heart for any abnormalities, and it was normal. Because you have had chest pain in the past we performed a stress test to check for any heart disease, and it was also negative. There are many things that can cause atrial fibrillation, and we are not sure what exactly caused yours to occur. However, based on your history of sleep apnea, it is possible that this was the cause. Incidentally, you also have been found to be slightly hypothyroid (underactive thyroid), which also may cause atrial fibrillation, though it is more common with overactive thyroid. Because diabetes is a risk factor for heart disease, we checked a blood test called a Hb1Ac. While it was not in the diabetic range, it was elevated, so you should consider having repeat testing with your family physician in the future. Please follow the following instructions when you leave the hospital: 1. Atrial Fibrillation - You have converted back to normal rhythm. In order to maintain this rhythm, you have been placed on metoprolol succinate 50 mg, which you should take every day. This will maintain your heart rate to a goal of less than 100. You should follow up with your ware tester in the next few weeks. We will make the arrangements on your behalf. 2. Hypothyroidism - Since you have been having symptoms of hypothyroidism, including fatigue and cold intolerance, we have placed you on a small dose of thyroid replacement medication, which is called Levothyroxine. You should begin to take this everyday, and you should follow up with your primary care doctor in order to adjust the dosage. Your TSH level should be checked by your family physician in 4-6 weeks to determine how to next adjust your dose. 3. Chest pain - You have been evaluated for your chest pain, and you have not had any more episodes since being in the hospital. Your stress test was negative. This was likely due to your atrial fibrillation. 4. Sleep apnea - You likely have uncontrolled sleep apnea, which can cause a variety of medical problems including atrial fibrillation and high blood pressure. It is important to have this readdressed. We will arrange for you to have a repeat sleep study. Lifestyle changes, such as weight loss, can also assist in treating sleep apnea. If your symptoms fail to improve, acutely worsen, please seek medical attention immediately by either calling your primary care provider or going to your nearest emergency department. If you feel that you are back in atrial fibrillation, you can try check your pulse. If it is irregular, you should notify a provider. Otherwise, please see your primary care provider in 3-5 days to ensure that your symptoms continue to improve. It was a pleasure to be involved in your care and we wish you all the best. Current Hospital Diet Patient's current hospital diet: AHA Diet (Heart Healthy) Discharge Diet Recommended Diet: Regular Diet Pending Studies Studies pending at discharge: yes List of pending studies: Sleep study, will be arranged on your behalf Laboratory Results Hemoglobin A1c Test 02/04/17 11:45 Range/Units Estimated Average Glucose 120 mg/dl Hemoglobin A1c 5.8 H 4.5-5.6 % Medical Emergencies . Who to Call and When: Medical Emergencies: If at any time you feel your situation is an emergency, please call 911 immediately. . Non-Emergent Contact Non-Emergency issues call your: Primary Care Provider, Director [employer] . . "Provider Documentation" section prepared by Rigoberto Hess. Attending Attestation: Discharge care plan d/w PGY2 Dr. Rigoberto Hess on day of discharge. I agree with his discharge instructions as outlined. Emigdio Fontenot MD . VTE Core Measure Inpt VTE Proph given/why not?: Other Anticoagulation (heparin drip)
--- NOTE | 2017-02-05 14:05 | Discharge Summary ---
Discharge Summary Date of Service Feb 05, 2017. (Rigoberto Hess MD) Discharge Summary Admission Date: Feb 04, 2017 at 06:32 Discharge Date: Feb 05, 2017 Discharge Disposition: Home Principal Diagnosis: Atrial Fibrillation with RVR Problems/Secondary Diagnoses: YINA Procedures: Interpretation Summary * Name: BARBIE SAVAGE Study Date: 02/05/2017 08:56 AM BP: 116/77 mmHg * Patient Location: C.2T\S\E217\S\1 HR: 65 * : 1980 (M/d/yyyy) Gender: Male Height: 71 in * Age: 36 yrs Ethnicity: CA Weight: 262 lb * Ordering Physician: Alvino Marks * Referring Physician: Self, Referred * Performed By: Mely Price RDCS * * Reason For Study: CHEST PAIN, AFIB * BSA: 2.4 m2 * Diagnostic exercise echocardiogram without evidence of inducible ischemia * Hypertensive response to exercise Procedure Details * ECHOEX, CPT #59699 Left Ventricular Findings with Stress * Normal exercise tolerance. No symptoms reported No EKG changes Normal baseline echocardiogram with normal augentation and no evidence of inducible wall motion abnormality. Hypertensive resonse to exercise Stress Parameters * Normal baseline electrocardiogram. * Stress ECG: No ST changes. No arrhythmias. * The stress portion of this study was personally supervised by the undersigned interpreting physician. * Rest heart rate was '65' BPM. * Rest blood pressure was '116/77' * Maximum heart rate achieved was 160 bpm. * Maximum heart rate was 87 % of maximum age-predicted heart rate. * Maximum blood pressure was '214/66' * Total exercise time was '7:25' * Maximum exercise MET level achieved was '10.90' METS * Maximum treadmill speed was '4.20' miles per hour. * Maximum treadmill elevation was '16.00'% grade. * Exercise was terminated due to 'ACHIEVING TARGET HR' Interpretation Summary * Name: BARBIE SAVAGE Study Date: 02/04/2017 11:09 AM BP: 143/91 mmHg * Patient Location: C.2T\S\E217\S\1 HR: 81 * : 1980 (//yyyy) Gender: Male Height: 71 in * Age: 36 yrs Ethnicity: CA Weight: 262 lb * Ordering Physician: Rigoberto Hess * Referring Physician: Self, Referred * Performed By: Carla Branch RCS * * Reason For Study: A-FIB * BSA: 2.4 m2 * -- Conclusions -- * 1. Normal LV size. Mild concentric LVH. * 2. Normal LV systolic function. LVEF 55-60 %. No regional wall motion abnormalities. * 3. Normal RV size and function. * 4. No significant valvular pathology. * 5. No prior studies for comparison Procedure Details * A complete two-dimensional transthoracic echocardiogram was performed (2D, M- mode, Doppler and color flow Doppler). Left Ventricle * The left ventricle is grossly normal size. * There is mild concentric left ventricular hypertrophy. * Ejection Fraction = 55-60%. * No regional wall motion abnormalities noted. Right Ventricle * The right ventricle is grossly normal size. * The right ventricular systolic function is normal as assessed by tricuspid annular plane systolic excursion (TAPSE) (normal >1.5 cm). Atria * The left atrial size is normal. * Right atrial size is normal. * No ASD detected; PFO is not assessed. Mitral Valve * The mitral valve is grossly normal. * Mitral stenosis is absent. * There is trace mitral regurgitation. Tricuspid Valve * The tricuspid valve is not well visualized, but is grossly normal. * There is no tricuspid stenosis. * Significant tricuspid regurgitation is absent. Aortic Valve * The aortic valve opens well. * No hemodynamically significant valvular aortic stenosis. * There is no significant aortic regurgitation. Pulmonic Valve * The pulmonary valve is inadequately visualized, but the Doppler data is adequate for interpretation. * There is no pulmonic valvular stenosis. * Trace pulmonic valvular regurgitation. Great Vessels * The aortic root and proximal ascending aorta are normal sized. * No Doppler or imaging evidence of an aortic coarctation. Pericardium/Pleural * There is no pericardial effusion. Great Vessels * Normal inferior vena cava size and collapsability with sniff indicates a normal right atrial pressure of 3 mmHg MMode 2D Measurements and Calculations IVSd 1.4 cm IVSs 1.9 cm LVIDd 3.7 cm LVIDs 2.9 cm LVPWd 1.2 cm LVPWs 1.5 cm IVS/LVPW 1.1 FS 22.0 % EDV(Teich) 59.6 ml ESV(Teich) 32.6 ml EF(Teich) 45.2 % EDV(cubed) 52.3 ml ESV(cubed) 24.8 ml EF(cubed) 52.6 % % IVS thick 41.7 % % LVPW thick 23.3 % LV mass(C)d 169.2 grams LV mass(C)dI 71.5 grams/m\S\2 LV mass(C)s 195.6 grams LV mass(C)sI 82.7 grams/m\S\2 SV(Teich) 27.0 ml SI(Teich) 11.4 ml/m\S\2 SV(cubed) 27.5 ml SI(cubed) 11.6 ml/m\S\2 Ao root diam 3.8 cm Ao root area 11.4 cm\S\2 LA dimension 3.5 cm LA/Ao 0.93 LVOT diam 2.1 cm LVOT area 3.4 cm\S\2 LVAd ap4 35.8 cm\S\2 LVLd ap4 9.3 cm EDV(MOD-sp4) 112.9 ml EDV(sp4-el) 117.7 ml LVAs ap4 24.0 cm\S\2 LVLs ap4 7.7 cm ESV(MOD-sp4) 62.9 ml ESV(sp4-el) 63.5 ml EF(MOD-sp4) 44.3 % EF(sp4-el) 46.1 % LVAd ap2 36.8 cm\S\2 LVLd ap2 9.0 cm EDV(MOD-sp2) 123.8 ml EDV(sp2-el) 128.2 ml LVAs ap2 22.9 cm\S\2 LVLs ap2 7.1 cm ESV(MOD-sp2) 62.1 ml ESV(sp2-el) 62.5 ml EF(MOD-sp2) 49.8 % EF(sp2-el) 51.3 % LVLd %diff -3.23 % EDV(MOD-bp) 120.1 ml LVLs %diff -7.82 % ESV(MOD-bp) 63.2 ml EF(MOD-bp) 47.4 % SV(MOD-sp4) 50.0 ml SI(MOD-sp4) 21.2 ml/m\S\2 SV(MOD-sp2) 61.7 ml SI(MOD-sp2) 26.1 ml/m\S\2 SV(MOD-bp) 56.9 ml SI(MOD-bp) 24.0 ml/m\S\2 SV(sp4-el) 54.2 ml SI(sp4-el) 22.9 ml/m\S\2 SV(sp2-el) 65.7 ml SI(sp2-el) 27.8 ml/m\S\2 Doppler Measurements and Calculations MV E max karly 51.9 cm/sec MV A max karly 39.7 cm/sec MV E/A 1.3 MV P1/2t max karly 58.9 cm/sec MV P1/2t 63.7 msec MVA(P1/2t) 3.5 cm\S\2 MV dec slope 270.6 cm/sec\S\2 MV dec time 0.20 sec Ao V2 max 76.4 cm/sec Ao max PG 2.3 mmHg Ao max PG (full) 0.44 mmHg SANJEEV(V,A) 3.0 cm\S\2 SANJEEV(V,D) 3.0 cm\S\2 LV V1 max PG 1.9 mmHg LV V1 max 68.8 cm/sec (Rigoberto Hess MD) Problems/Secondary Diagnoses: hypothyroidism chest pain - ACS ruled out, negative stress echo (Emigdio Fontenot MD) Medication Reconciliation New Medications: Levothyroxine Sodium (Levothyroxine Sodium) 25 Mcg Tab 1 TAB PO DAILY for 30 Days, #30 TAB 1 Refill Metoprolol Succinate (Metoprolol Succinate ER) 50 Mg Tabcr 50 MG PO QAM for 30 Days, #30 1 Refill Continued Medications: Cetirizine (Zyrtec) 10 Mg Tab 10 MG PO DAILY, TAB Discharge Exam A 10 point review of systems was negative unless stated in the hospital course. Physical Exam: General Appearance: WD/WN, no apparent distress Eyes: normal inspection, EOMI ENT: hearing grossly normal, pharynx normal Neck: supple, no adenopathy, no JVD Respiratory/Chest: lungs clear, no respiratory distress Cardiovascular: regular rate, rhythm, no gallop, no murmur Abdomen / GI: normal bowel sounds, non tender, soft Extremities: no calf tenderness, no pedal edema Neurologic/Psychiatric: alert, normal mood/affect, oriented x 3 Skin: normal color, warm/dry, no rash Lymphatic: no adenopathy (Rigoberto Hess MD) Hospital Course 36-year-old male who presented to the ED with chest pain and palpitations. EKG in the ED revealed Atrial Fibrillation with RVR. His hospital course was as follows New-onset atrial fibrillation with RVR - Based on reported symptoms, has had paroxysmal episodes of chest discomfort and palpitations, presumed to be afib though has never been formally documented - Converted to NSR with 20 mg IV Cardizem - Started on Metoprolol succinate 50 mg PO daily for rate control - CHADS score 0 Started on heparin infusion on admission but this was stopped once he converted to NSR Based on ssx lasting < 12 hours, CHADS 0 and paroxysmal nature of ssx, it was determined that the patient does require systemic anticoagulation - Remained in NSR for remained of hospital course - Discharged on Metoprolol Succinate 5 mg daily; will be seen by cardiology in the outpatient office in 2-4 weeks History of YINA - Patient reports previously that he has been diagnosed with YINA but never used CPAP at nighttime - Educated patient on risks of Afib and cardiopulmonary disease in the setting of uncontrolled YINA - Have made referral to have repeat sleep study done Chest Pain - No acute EKG changes - Serial troponins q 8 hours were negative x 4 - Patient had negative stress echo as noted above Subclinical Hypothyroidism: - TSH elevated; normal T3 and T4 levels - Patient does report symptoms including cold intolerance and fatigue - Patient started on 25 mcg Levothyroxine daily; to be titrated up as tolerated by PCP in 4-6 weeks Patient was discharged in stable condition and advised to follow-up with his PCP in 3-5 days. Total Time Spent: Less than 30 minutes This includes examination of the patient, discharge planning, medication reconciliation, and communication with other providers. (Rigoberto Hess MD) Attending Discharge Note & Attestation: Pt seen/examined, chart reviewed, care plan d/w PGY2 Dr. Rigoberto Hess on day of discharge. I agree w/ the jackson components of his discharge summary. 36yo male with history of YINA who presented with chest discomfort and upon evaluation was found to be in rapid a. fib. Following admission he spontaneously converted to NSR. Work-up for ACS was negative, and stress echocardiogram was negative for wall motion abnormalities/ischemic changes. He was seen in consult by cardiology who recommended beta josué after discharge. Anticoagulation was deferred. Of note - echo showed preserved ejection fraction. Other issues addressed - 1. new onset hypothyroidism - due to having symptoms from such he was started on low dose synthroid. 2. h/o YINA - referral for repeat sleep study was made prior to discharge. Discharge exam - gen - nad neck - large in size, no JVD, no goiter heart - RRR, s1, s2, no murmur lungs - CTA b/l abd - soft, NT ext - no edema Emigdio Fontenot MD Total Time Spent: Greater than 30 minutes (Emigdio Fontenot MD) Discharge Instructions Please refer to the electronic Patient Visit Report (Discharge Instructions) for additional information. (Rigoberto Hess MD) Follow-Up PCP in 3-5 days Cardiology follow-up in 2-4 weeks (Rigoberto Hess MD) Additional Copies To Alvino Marks M.D.; Santiago Green M.D.
== END 2017-02-05 14:05 | disposition home or self-care (01) | DRG 310 ==
LOC: C.EDB 03:52 → C.2T 06:32 → ENRESERV 06:49
PROVIDERS: ADMIT Family Medicine; ATTEND Internal Medicine
DX: I48.0 Paroxysmal atrial fibrillation (principal); G47.33 Obstructive sleep apnea (adult) (pediatric); R07.9 Chest pain, unspecified; E02 Subclinical iodine-deficiency hypothyroidism; E66.9 Obesity, unspecified; Z68.36 Body mass index [BMI] 36.0-36.9, adult; Z91.19 Patient's noncompliance with other medical treatment and regimen; Z72.0 Tobacco use; Z82.49 Family history of ischemic heart disease and other diseases of the circulatory system; Z83.49 Family history of other endocrine, nutritional and metabolic diseases; Z79.899 Other long term (current) drug therapy

== ENCOUNTER → 2017-03-12 | Outpatient (CLI) | payer OTHER ==
[~2017-03-12] MED LIST changes: +CETI10TA84 PO; -IBUP-1050 PO; +LEVO25TA5 PO; -OXYC1TAB3 PO; -TAMS0.4C38 PO; +TPRSR50 PO
[2017-03-12 16:46] LABS: BASO % 0.6 %; BASO ABS # 0.04 K/uL (0-0.2); COMPLETE YES; EOS % 5.1 %; HEMATOCRIT 43.6 % (42-52); IG% 0.3 %; LYMPH % 24.9 %; LYMPH ABS # 1.77 K/uL (1.2-3.4); MEAN CELL VOLUME 87.6 fL (80-100); MEAN CORPUSCULAR HEMOGLOBIN 29.9 pg (25-34); MEAN CORPUSCULAR HGB CONC 34.2 g/dl (32-36); MEAN PLATELET VOLUME 9.2 fL (7.4-10.4); MONO % 9.8 %; NEUT % 59.3 %; PLATELET COUNT 273 K/uL (130-400); RED BLOOD COUNT 4.98 M/uL (4.7-6.1); WHITE BLOOD COUNT 7.12 K/uL (4.8-10.8)
[2017-03-12 16:58] LABS: ALT/SGPT 41 U/L (12-78); AST/SGOT 16 U/L (15-37); BLOOD UREA NITROGEN 12 mg/dl (7-18); BUN/CREATININE RATIO 12.4 (10-20); CALCIUM 9.3 mg/dl (8.5-10.1); CARBON DIOXIDE 25 mmol/L (21-32); CHLORIDE 102 mmol/L (98-107); CHOLESTEROL 182 mg/dl (0-200); CREATININE 0.99 mg/dl (0.60-1.40); GLUCOSE 87 mg/dl (70-99); POTASSIUM 4.1 mmol/L (3.5-5.1); SODIUM 137 mmol/L (136-145); TRIGLYCERIDES 196 mg/dl (0-150); URIC ACID 6.2 mg/dl (2.6-7.2); VERY LOW DENSITY LIPOPROT CALC 39 mg/dl
[2017-03-12 17:07] LABS: ALB/GLOB RATIO 1.3 (0.9-2); ALKALINE PHOSPHATASE 57 U/L (45-117); CHOLESTEROL/HDL RATIO 3.6; HDL CHOLESTEROL 50 mg/dl; LDL CHOLESTEROL CALCULATED 93 mg/dl; TOTAL IRON BINDING CAPACITY 337 mcg/dl (250-450)
[2017-03-12 18:03] LABS: ESTIMATED AVERAGE GLUCOSE 117 mg/dl; HA1C FLAG Normal (Normal)
== END | disposition home or self-care (01) ==
LOC: C.LAB1850 14:59
PROVIDERS: ATTEND Family Medicine
DX: R73.09 Other abnormal glucose (principal); E55.9 Vitamin D deficiency, unspecified; D51.9 Vitamin B12 deficiency anemia, unspecified; E78.9 Disorder of lipoprotein metabolism, unspecified; R53.83 Other fatigue

== ENCOUNTER → 2017-11-19 | Outpatient (CLI) | payer OTHER ==
--- NOTE | 2017-11-19 13:28 | DIAGNOSTIC IMAGING REPORT ---
CHEST 2 VIEWS ROUTINE HISTORY: 37 years-old Male SOB/HYPERTENSION acute shortness of breath with hypertension COMPARISON: Chest radiograph 02/04/2017 TECHNIQUE: PA and lateral views of the chest FINDINGS: Cardiomediastinal and hilar silhouettes are within normal limits. There is no pneumothorax, pleural effusion, focal airspace consolidation or overt pulmonary edema. The bones of the chest appear grossly intact. IMPRESSION: No acute process. The above report was generated using voice recognition software. It may contain grammatical, syntax or spelling errors. Electronically signed by: Roberth Ordoñez M.D. 11/19/2017 1:26 PM Dictated Date/Time: 11/19/2017 1:25 PM
--- NOTE | 2017-11-22 23:43 | PULMONARY FUNCTION TEST ---
Spirometry is within the limits of normal. Repeat study done following bronchodilators showed mild but not significant improvement in function.
== END | disposition home or self-care (01) ==
LOC: C.RC 13:05
PROVIDERS: ATTEND Family Medicine
DX: R06.02 Shortness of breath (principal); I10 Essential (primary) hypertension

== ENCOUNTER → 2017-12-09 | Outpatient (CLI) | payer OTHER ==
--- NOTE | 2017-12-10 05:12 | PAP/PSG TECHNICIAN REPORT ---
[facility] Protective Signal Installer Helper Polysomnogram Report Study name: None Report date: 12/10/2017 Study date: 12/09/2017 Referring Physician: DR TURNER Name: BARBIE SAVAGE Interpreting Physician: Rafael Ugarte D.O. Date of : 1980 Protective Signal Installer Helper: John Pineda RPSGT. Sex: Male Age: 37 StudyType: PSG Weight: Height: 37 years, Height BMI: Medications: BYSTOLIC 5 MG, LEVOTHYROXINE 50 MCG Patient History PATIENT HAS HISTORY OF HYPERTENSION, AFIB, YINA AND DAYTIME SLEEPINESS. HE HAD SLEEP STUDIES DONE IN THE PAST BUT NEVER GO STARTED ON CPAP. IF POSITIVE, HE WANTED TO LOOK INTO SURGERY AN OPTION. HE IS HERE TODAY FOR AN EVALUATION FOR YINA. ESS = 11 RM 5 Parameters Monitored NPSG: E1-M2, E2-M1, Fp1-M2, Fp2-M1, F3-M2, F4-M2, F4-M1, C3-M2, C4-M2, C4-M1, O1-M2, O2-M2, O2-M1, T3-M2, T4-M1, P3-M2, P4-M1, CHIN1, CHIN2, HR, EKG, Legs, PFLOW, SNOR, FLOW, CFLOW, Tidal Volume, THOR, ABDO, SpO2, PLTH, CPRESS, ETCO2 Wave, ETCO2, pH Sleep Architecture Sleep Stages Time at Lights Off 8:39:40 PM STAGES Time (min.) TST (%) Time at Lights On 4:32:10 AM Wake 50.5 -- Total Recording Time (TRT) 472.00 min. N1 31.5 7 Total Sleep Period (TSP) 440.0 min. N2 275.5 65 Total Sleep Time (TST) 421.5min. N3 60.5 14 Awake Time 50.5 min. REM 54.0 13 Wake after Sleep Onset 35.0 min. Sleep Efficiency (SE) 89 % Sleep Onset Latency (INDIA) 16.0 min. Number of Stage 1 Shifts None Awakenings 14 Stage Changes 81 Number of REM periods 4 REM 54.0 13 REM Latency 161.0 min. NREM 367.5 87 Body Position Analysis Supine Right Left Side Prone Vertical Total Sleep Time (min.) 13.6 274.0 135.4 409.45 0.0 10.3 Total Sleep Time (%) 3% 65% 32% 97 0% N/A% Total Sleep Time REM (min.) 0.0 20.0 34.0 None 0.0 0.0 Total Sleep Time NREM (min.) 12.1 254.0 101.4 None 0.0 0.0 Intermittent Wake (min.) 1.5 30.3 8.3 None 0.0 10.3 Total Sleep Period (%) 3% None None None None None Arousals Myoclonus (PLM) * Events Count Index Events Count Index Spontaneous 36 5 Events Awake (PLMW) 44 52.3 Respiratory 8 1.1 Events Asleep w/ Arousal (PLMA) 9 1.3 PLM 9 1 Events Asleep w/o Arousal (PLMS) 50 7.1 Snoring 5 1 Total Asleep 59 8.4 Total 58 8 Total 103 13 Respiratory Analysis * CA OA MA CH H RERA Total Count 0 1 0 0 48 1 49 Index 0.0 0.1 0.0 0 6.8 0 7.1 Mean Duration 0.0 12.4 0.0 0.00 18.0 15.1 17.8 Longest Duration 0.0 12.4 0.0 0.00 0.0 15.1 28.3 Respiratory Event Summary Total Supine ~Supine Right Left Prone REM NREM Apneas Count 1 0 1 1 0 N/A 0 1 Index 0.1 0 0 0.2 0.0 N/A 0 0 Hypopneas (4% Desat) Count 48 5 43 27 16 N/A 24 24 Index 6.8 24.9 6 5.9 7.1 N/A 26.7 3.9 Apneas & All Hypopneas Count 49 5 44 28 16 N/A 24 25 Index 7.0 25 6 6 7 N/A 26.7 4.1 Respiratory Events (Dictating Machine Transcriber+All Hyp+RERA) Count 49 5 45 28 17 N/A 24 25 Index 7.1 25 7 6.1 7.5 N/A 27.8 4.1 Respiratory Related Arousal Count 8 5 5 4 1 N/A 1 7 Index 1.1 15 1 1 0 N/A 1 1 Snoring Analysis Supine Right Left Prone REM NREM Total Snore duration 6.6 min Snores count 39 81 214 N/A 49 285 334 Snore mean duration 1.2 Sec Snores index 194 18 95 N/A 54.4 46.5 47.5 TST with snoring (%) 1.6% Desaturation Event Summary: Minimum %SpO2 Event Count Mean/Min/Max Duration(sec.) Desaturation Index % Time In Bed > 90 46 31.0 / 6.5 / 65.0 6.8 87.4 86 - 90 10 25.8 / 6.5 / 46.6 10.7 12.0 81 - 85 0 N/A 0.0 0.6 76 - 80 0 N/A 0.0 0.0 71 - 75 0 N/A 0.0 0.0 66 - 70 0 N/A 0.0 0.0 61 - 65 0 N/A 0.0 0.0 56 - 60 0 N/A 0.0 0.0 51 - 55 0 N/A 0.0 0.0 < 50 0 N/A 0.0 0.0 Total REM NREM Awake <50% 0.0 min. 0.0 min. 0.0 min. 0.0 min. 51 - 60% 0.0 min. 0.0 min. 0.0 min. 0.0 min. 61 - 70% 0.0 min. 0.0 min. 0.0 min. 0.0 min. 71 - 80% 0.2 min. 0.1 min. 0.1 min. 0.0 min. 81 - 90% 59.0 min. 21.1 min. 35.8 min. 2.1 min. 91 - 100% 408.7 min. 32.9 min. 331.5 min. 44.3 min. Average 92 91 92 93 Minimum SpO2 80 80 80 88 Desaturation Event Index 6.6 26.7 4.1 4.8 # Desat. Events below 89% 25 16 9 N/A Time(%) with Saturation below 89% 3.0 1.8 1.0 0.2 Time(min.) with Saturation below 89% 14.0 8.6 4.6 0.8 Time (mins) REM (mins) NREM (mins) % of TST SpO2 Below 90% 42 22 N20 5.3 SpO2 Below 88% 13 0 0 2 Heart Rate Analysis Min (bpm) Max (bpm) Average (bpm) Awake 54 127 66 NREM 50 89 63 REM 43 86 57 Overall 43 89 62 Supplemental O2 Values Minimum O2 level: None Value Start Time End Time Protective Signal Installer Helper Comments Mr. Savage slept in the right, left and supine positions. No cardiac arrhythmia noted. Leg movements noted. No bruxism noted. Snoring was noted and scored as a 2 on a scale of 1 through 5. (0=no snoring, 5=snoring loud enough to be heard through a closed door or down the cheng way) Mr. Savage awoke to use the restroom 0 times during the night. Mr. Savage stated I did not sleep as well as I do when I am in my own bed. The final report will be interpreted and signed by a sleep physician. The completed physician report will then be placed in the patient medical record. Therapy (cm H2O) 0 TIB (min.) 472.0 TST (min.) 421.5 Sleep Onset (min.) 16.0 REM Onset From Sleep (min.) 161.0 Sleep Efficiency % 89 Wakefulness (%) 11 Wakefulness (min.) 50.5 NREM 1 (%) 7 NREM 1 (min.) 31.5 NREM 2 (%) 65 NREM 2 (min.) 275.5 NREM 3 (%) 14 NREM 3 (min.) 60.5 REM (%) 13 REM (min.) 54.0 # Arousals 58 Arousal Index 8 # Snore 334 Snore Index 47.5 AHI 7.0 AHI Supine 25 AHI Non-Supine 6 NREM AHI 4.1 REM AHI 26.7 RDI 7.1 # Obstructive Apnea 1 # Central Apnea 0 # Mixed Apnea 0 # Hypopneas 48 RERAs 1 Total Respiratory Events 50 Time Below SpO2 89% (min.) 13.2 Mean NREM SpO2 (%) 92 Mean REM SpO2 (%) 91 Mean Sleep SpO2 (%) 92 Min NREM SpO2 (%) 80 Min REM SpO2 (%) 80 Position Supine (min.) 13.6 Position Non-supine (min.) 409.4 LM Index Sleep 8.4 LM Index NREM 8.2 LM Index REM 10.0 Mean Heart Rate (bpm) 62 Min Heart Rate (bpm) 43
--- NOTE | 2017-12-11 21:27 | POLYSOMNOGRAPH REPORT ---
Patient is referred by Dr. Green. CLINICAL DATA: The patient is a 37-year-old male with a history of hypertension and atrial fibrillation. He has daytime sleepiness. The patient has had sleep studies done in the past. Apparently he was told he had sleep apnea. His P[place] sleepiness scale score is 11. This was an in-lab overnight polysomnography. SLEEP ARCHITECTURE: The total sleep period was 440 minutes. The total sleep time was 421.5 minutes. The sleep efficiency was borderline normal at 89%. The sleep latency was 16 minutes. Wake after sleep onset was 35 minutes. The REM latency was prolonged at 161 minutes. There were 3 REM periods during the night. Sleep consisted of stage N1 7%, stage N2 65%, stage N3 14%, stage REM 13%. AROUSAL DATA: The patient had 58 arousals including 36 spontaneous arousals, 8 respiratory arousals, 9 PLM arousals, and 5 snoring arousals. The arousal index was 8. PLM DATA: The patient had 59 periodic limb movements of sleep for a PLM index of 8.4. There were 9 arousals associated with limb movements for a PLM arousal index of 1.3. EKG: The underlying cardiac rhythm was normal sinus. The cardiac rates ranged from 43-89 beats per minute. The average heart rate was 62 beats per minute. No cardiac arrhythmia was noted. RESPIRATORY DATA: The patient had a total of 49 respiratory events including 1 obstructive apnea and 48 hypopneas. Hypopneas were scored according to the 4% desaturation rule. There was 1 RERA. The apnea was 12.4 seconds in length. The mean duration of the hypopneas was 18. The apnea hypopnea index was 7.0 events per hour. This reflects mild sleep apnea. OXIMETRY DATA: The average saturation for the night was 92%. The minimum saturation was 80%. There was a total of 14 minutes with saturations less than 89%. DIRECTOR OF SOCIAL MEDIA MARKETING COMMENTS: The patient slept in the right, left, and supine positions. No cardiac arrhythmia noted. Leg movements noted. No bruxism noted. Snoring was noted and scored as a 2 on a scale of 1 through 5. Mr. Dias awoke to use the restroom zero times during the night. He stated he did not sleep as well as he does in his own bed. IMPRESSION: Mild obstructive sleep apnea. COMMENTS: The patient had a good sleep architecture. The sleep efficiency was borderline normal. He had few arousals. There was a modest number of limb movements with few arousals. He does have mild sleep apnea. There was a history of atrial fibrillation but he was not in atrial fib during this study. He does have symptoms of daytime sleepiness. RECOMMENDATIONS: 1. Consideration is given to a trial of nasal CPAP. This could be accomplished by referring the patient to a sleep lab for a CPAP titration. Alternatively, he could be treated with auto CPAP. 2. If the patient did not wish nasal CPAP therapy, consideration could be given to referral for an oral appliance. 3. An alternative treatment to CPAP or an oral appliance could be referral to an ENT specialist for an evaluation for potential UPPP surgery. 4. Weight loss is advised if the patient has an elevated body mass index. 5. If possible, the patient should avoid sleeping in the supine position. Typically there is more respiratory events while supine than in other positions. 6. The patient should be advised of the appropriate principles of sleep hygiene including having a regular sleep-wake schedule and allowing approximately 7.5-8 hours of sleep per night.
== END | disposition home or self-care (01) ==
LOC: C.NEUR 20:00
PROVIDERS: ATTEND Family Medicine
DX: G47.31 Primary central sleep apnea (principal)

== ENCOUNTER → 2018-04-25 | Day surgery (SDC) | payer OTHER ==
[2018-04-03 15:42] VITALS: Ht 177.8 cm; Wt 118.2 kg
[~2018-04-25] VITALS: Ht 177.8 cm; Wt 118.2 kg
[~2018-04-25] MED LIST changes: +BYS/5 PO; -CETI10TA84 PO; +LACTATED RINGER'S 1000ML 1,000 ML IV SCH; -LEVO25TA5 PO; -TPRSR50 PO
== END | disposition home or self-care (01) ==
LOC: EDSTATUS 07:00 → C.PAT 13:11
DX: J35.01 Chronic tonsillitis (principal)

== ENCOUNTER 2020-06-11 02:40 | Observation (INO) ==
[2020-06-11] MEDS ORDERED: LORazepam 2 MG/4 ML VIAL IV STA (03:00)
[2020-06-11] MEDS ORDERED: dilTIAZem HCl 5 MG/ML 5 ML VIAL IV ONE (03:19)
[2020-06-11] MEDS ORDERED: dilTIAZem HCl 5 MG/ML 5 ML VIAL IV STA (03:23)
--- NOTE | 2020-06-11 03:23 | Emergency Department Note ---
Impression & Plan Atrial fibrillation with rapid ventricular response, Hypothyroidism ED Provider Note NAME: BARBIE SAVAGE AGE: 40 SEX: M ARRIVES VIA: Walk-In INFORMANT: Patient patient's ED PROVIDER(S): Lorraine Bey DO CHIEF COMPLAINT: A. fib PLAN: Disposition: Admitted to the [facility] service Condition: Stable MEDICAL DECISION MAKING: This is a 40-year-old male patient who presents to the emergency department with dizziness, nausea, and sudden onset of atrial fibrillation with rapid ventricul ar response. The patient has a history of A. fib. The patient received IV Ativan for significant anxiety and then received IV Cardizem. This did bring his rate down temporarily but he remained in atrial fibrillation and the rate seem to spike back up. The patient was found to be significantly hypo-thyroid with a TSH greater than 30. I discussed the case with the [facility] hospitalist and they will evaluate for further management. Triage Nursing notes reviewed and agree them. Additional history obtained from patient's who was at the bedside Prior medical records reviewed Vital Signs: reviewed and remarkable for tachycardia Differential diagnosis: Cardiac dysrhythmia, cardiac ischemia, electrolyte abnormality, thyroid dysfunction ER treatment provided: IV Ativan IV Cardizem Diagnostics interpreted by me: ECG: ATRIAL fibrillation with with rapid ventricular response at a rate of 136. There is no significant ST segment elevation or signs of ischemia. There is no ectopy Cardiac Monitoring: Atrial fibrillation at a rate of 109 Laboratory studies: See below Imaging studies: See below HPI: 40/M arrives for evaluation of dizziness and nausea. The patient awoke from sleep feeling nauseated and then dizzy. He could tell that he was having palpitations and that he was in a fast atrial fibrillation. He then began to feel very anxious. ROS: See above HPI for pertinent positives & negatives. A total of 10 systems reviewed and were otherwise negative. PAST MEDICAL HISTORY:Von Willebrand's disease, paroxysmal A. fib; hypothyroidism PAST SURGICAL HISTORY:See Below FAMILY HISTORY:See Below SOCIAL HISTORY:Patient is and lives with his family. He works for [employer] MEDICATIONS:See list ALLERGIES:The list VITALS:See Below PHYSICAL EXAMINATION: HEENT: Head - normocephalic and atraumatic Pupils are equal, round, and reactive to light. Extraocular eye muscles are intact, and sclera are anicteric. Nose - moist nasal mucosa without discharge. Mouth - moist buccal mucosa. Oropharynx is nonerythematous and there is no tonsillar exudate or edema noted. Neck: Supple; no JVD, nuchal rigidity, cervical lymphadenopathy. Heart: Irregularly irregular rhythm with a tachycardic rate there is a normal S1 and S2 with no murmurs, clicks, or gallops appreciated. Lungs: Clear to auscultation bilaterally with no wheezes, rales, or rhonchi. Abdomen: Soft, completely nontender, nondistended, with good bowel sounds. There are no palpable pulsatile masses or hepatosplenomegaly. There is no guarding, rigidity, or rebound noted. Extremities: No evidence of cyanosis, clubbing, or edema. There are easily pa lpable peripheral pulses. Skin: warm and dry with good turgor and no rashes. ED COURSE: Times/Reassessments: 0250: Patient was evaluated in room C7. A complete history and physical was performed. An order was placed for continuous cardiac monito ring. The patient was in atrial fibrillation with a rapid ventricular response at a rate of 109. IV lock was initiated and labs were drawn as above. A twelve-lead EKG was obtained. The patient was given 2 mg of IV Ativan 0320: The patient was given 10 mg of IV Cardizem for persistent A. fib with RVR 0435: The patient is sleeping at this time. Heart rate remains between 113 and 125 in atrial fibrillation Lorraine Bey DO Past Med/Surg History Medical History (Updated 06/11/20 @ 07:37 by Lorraine Bey DO) Anxiety Atrial fibrillation no longer takes medication Chronic tonsillitis Congenital von Willebrand's disease type I Degenerative disc disease Ex-user of moist powdered tobacco Hx of sleep apnea "MILD" YINA "NO LONGER AN ISSUE" S/P TONSILLECTOMY Hypertension Hypothyroidism Kidney stones UPJ (ureteropelvic junction) obstruction 2/2 STONE Von Willebrand disease Surgical History History of cystoscopy STENT PLACEMENT DECEMBER 2018 History of tooth extraction WISDOM TEETH Hx of tonsillectomy 09/12/18= GRADE VIEW 2, MAC 4 AT [facility] Family History (Updated 09/28/19 @ 07:27 by Aury Rodriguez) Family/Other Coronary heart disease Mother Hyperthyroidism Social History Smoking Status: Former smoker Tobacco Type: Cigarettes Cigarettes Per Day: 0; Second Hand Exposure: No; Hx Alcohol Use: No Hx Substance Use: No Preferred Language: Faroese Communication Ability: Effective Cadd Technician Required: No Beliefs That Will Affect Care: None Current Living Situation: Spouse Current Living Situation Comment: Lives with and 2 kids Feels Safe at Home: Yes Assistive Devices: None Allergies Allergies Allergy/AdvReac Type Severity Reaction Status Date / Time house dust mite Allergy Intermediate Congested Verified 06/11/20 03:02 pollen extracts Allergy Intermediate Congested Verified 06/11/20 03:02 ragweed pollen Allergy Intermediate Congested Verified 06/11/20 03:02 tree and shrub pollen Allergy Intermediate Congested Verified 06/11/20 03:02 cat dander Allergy Mild Sneezing Verified 06/11/20 03:02 morphine AdvReac Intermediate Hallucinati Verified 06/11/20 03:02 ng Home Meds Home Medications Medication Instructions Recorded Confirmed ascorbic acid (vitamin C) [Vitamin 1 g PO DAILY 06/11/20 06/11/20 C] cholecalciferol (vitamin D3) 10 mcg PO DAILY 06/11/20 06/11/20 [Vitamin D3] levothyroxine 50 mcg PO DAILY 06/11/20 06/11/20 [id number] K1 1 tab PO DAILY 06/11/20 06/11/20 [Centrum Chewables] Results & Data (ED) Vital Signs Vital Signs - 24 hr 06/11/20 02:45 06/11/20 02:48 06/11/20 02:49 Temperature 36.8 C Temperature Source Oral Pulse Rate 115 H 135 H 122 H Pulse Rate [Right Finger] Pulse Rate from SpO2 Sensor 82 Pulse Rhythm Regular Pulse Strength Normal Respiratory Rate 24 11 L 27 H Respiratory Effort / Characteristics Non-Labored Spontaneous Respiratory Depth Normal Respiratory Pattern Regular Blood Pressure 109/85 109/85 Blood Pressure [Right Arm] Blood Pressure Mean 93 90 Blood Pressure Mean [Right Arm] Blood Pressure Position Lying Pulse Oximetry 100 100 Oxygen Delivery Method Room Air Sepsis Recent Fever Within 48 Hours No Sepsis New/Unexplained Change in Mental Status No Sepsis Action Taken by Nursing Physician Notified 06/11/20 03:00 06/11/20 03:07 06/11/20 03:08 Temperature Temperature Source Pulse Rate 102 H 105 H Pulse Rate [Right Finger] 98 H Pulse Rate from SpO2 Sensor 92 H Pulse Rhythm Pulse Strength Respiratory Rate 16 19 Respiratory Effort / Characteristics Respiratory Depth Respiratory Pattern Blood Pressure 130/95 Blood Pressure [Right Arm] 130/95 Blood Pressure Mean 115 Blood Pressure Mean [Right Arm] 106 Blood Pressure Position Pulse Oximetry 98 98 Oxygen Delivery Method Room Air Sepsis Recent Fever Within 48 Hours Sepsis New/Unexplained Change in Mental Status Sepsis Action Taken by Nursing 06/11/20 03:20 06/11/20 03:23 06/11/20 03:30 Temperature Temperature Source Pulse Rate 133 H 91 H Pulse Rate [Right Finger] 158 H 99 H Pulse Rate from SpO2 Sensor 90 84 Pulse Rhythm Pulse Strength Respiratory Rate 10 L 13 Respiratory Effort / Characteristics Respiratory Depth Respiratory Pattern Blood Pressure 129/82 137/81 Blood Pressure [Right Arm] 137/81 Blood Pressure Mean 91 91 Blood Pressure Mean [Right Arm] 99 Blood Pressure Position Pulse Oximetry 98 96 Oxygen Delivery Method Sepsis Recent Fever Within 48 Hours Sepsis New/Unexplained Change in Mental Status Sepsis Action Taken by Nursing 06/11/20 03:40 06/11/20 03:50 06/11/20 04:00 Temperature Temperature Source Pulse Rate 109 H 120 H 116 H Pulse Rate [Right Finger] Pulse Rate from SpO2 Sensor 85 91 H 87 Pulse Rhythm Pulse Strength Respiratory Rate 19 16 17 Respiratory Effort / Characteristics Respiratory Depth Respiratory Pattern Blood Pressure 117/89 136/89 126/86 Blood Pressure [Right Arm] Blood Pressure Mean 109 107 90 Blood Pressure Mean [Right Arm] Blood Pressure Position Pulse Oximetry 97 96 96 Oxygen Delivery Method Sepsis Recent Fever Within 48 Hours Sepsis New/Unexplained Change in Mental Status Sepsis Action Taken by Nursing 06/11/20 04:10 06/11/20 04:18 06/11/20 04:20 Temperature Temperature Source Pulse Rate 109 H 103 H 98 H Pulse Rate [Right Finger] Pulse Rate from SpO2 Sensor 83 82 81 Pulse Rhythm Pulse Strength Respiratory Rate 18 16 17 Respiratory Effort / Characteristics Respiratory Depth Respiratory Pattern Blood Pressure 113/86 113/86 86/61 L Blood Pressure [Right Arm] Blood Pressure Mean 105 105 69 Blood Pressure Mean [Right Arm] Blood Pressure Position Pulse Oximetry 98 97 97 Oxygen Delivery Method Sepsis Recent Fever Within 48 Hours Sepsis New/Unexplained Change in Mental Status Sepsis Action Taken by Nursing 06/11/20 04:30 06/11/20 04:40 06/11/20 05:00 Temperature Temperature Source Pulse Rate 105 H 111 H 125 H Pulse Rate [Right Finger] 109 H Pulse Rate from SpO2 Sensor 74 87 85 Pulse Rhythm Pulse Strength Respiratory Rate 18 15 13 Respiratory Effort / Characteristics Respiratory Depth Respiratory Pattern Blood Pressure 92/60 L 87/63 L 102/75 Blood Pressure [Right Arm] 92/60 L Blood Pressure Mean 70 68 86 Blood Pressure Mean [Right Arm] 70 Blood Pressure Position Pulse Oximetry 97 97 97 Oxygen Delivery Method Room Air Sepsis Recent Fever Within 48 Hours Sepsis New/Unexplained Change in Mental Status Sepsis Action Taken by Nursing 06/11/20 05:30 06/11/20 06:00 06/11/20 06:01 Temperature Temperature Source Pulse Rate 117 H 90 99 H Pulse Rate [Right Finger] 120 H Pulse Rate from SpO2 Sensor 78 83 95 H Pulse Rhythm Pulse Strength Respiratory Rate 13 13 16 Respiratory Effort / Characteristics Respiratory Depth Respiratory Pattern Blood Pressure 104/69 98/79 L Blood Pressure [Right Arm] 104/69 Blood Pressure Mean 82 83 Blood Pressure Mean [Right Arm] 80 Blood Pressure Position Pulse Oximetry 98 Oxygen Delivery Method Sepsis Recent Fever Within 48 Hours Sepsis New/Unexplained Change in Mental Status Sepsis Action Taken by Nursing 06/11/20 06:30 06/11/20 07:00 Temperature Temperature Source Pulse Rate 101 H 90 Pulse Rate [Right Finger] Pulse Rate from SpO2 Sensor 90 81 Pulse Rhythm Pulse Strength Respiratory Rate 12 13 Respiratory Effort / Characteristics Respiratory Depth Respiratory Pattern Blood Pressure 107/88 102/89 Blood Pressure [Right Arm] Blood Pressure Mean 97 94 Blood Pressure Mean [Right Arm] Blood Pressure Position Pulse Oximetry 98 98 Oxygen Delivery Method Sepsis Recent Fever Within 48 Hours Sepsis New/Unexplained Change in Mental Status Sepsis Action Taken by Nursing Laboratory Data Result diagrams: 06/11/20 03:44 06/11/20 03:44 Lab Results 06/11/20 06/11/20 Range/Units 03:44 03:44 WBC 7.04 (4.8-10.8) K/uL RBC 5.04 (4.7-6.1) M/uL Hgb 15.4 (14.0-18.0) g/dL Hct 44.3 (42-52) % MCV 87.9 (80-100) fL MCH 30.6 (25-34) pg MCHC 34.8 (32-36) g/dL RDW Std Deviation 41.6 (36.4-46.3) fL RDW Coeff of Gonzalez 13.0 (11.5-14.5) % Plt Count 270 (130-400) K/uL MPV 8.9 (7.4-10.4) fL Immature Gran % (Auto) 0.4 % Neut % (Auto) 56.3 % Lymph % (Auto) 28.6 % Glasscock % (Auto) 8.5 % Eos % (Auto) 5.5 % Baso % (Auto) 0.7 % Neut # (Auto) 3.96 (1.4-6.5) K/uL Lymph # (Auto) 2.01 (1.2-3.4) K/uL Glasscock # (Auto) 0.60 H (0.11-0.59) K/uL Eos # (Auto) 0.39 (0-0.5) K/uL Baso # (Auto) 0.05 (0-0.2) K/uL Immature Gran # (Auto) 0.03 H (0.00-0.02) K/uL Sodium 141 (136-145) mmol/L Potassium 3.5 (3.5-5.1) mmol/L Chloride 108 H (98-107) mmol/L Carbon Dioxide 27 (21-32) mmol/L Anion Gap 6.0 (3-11) BUN 15 (7-18) mg/dl Creatinine 1.11 (0.6-1.4) mg/dl Est Cr Clr Drug Dosing 111.7 ml/min Est GFR ( Amer) 95.1 Est GFR (Non-Af Amer) 82.0 BUN/Creatinine Ratio 13.2 (10-20) Glucose 108 H (70-99) mg/dl Calcium 8.8 (8.5-10.1) mg/dl Magnesium 2.1 (1.8-2.4) mg/dl Total Bilirubin 0.4 (0.2-1) mg/dl AST 23 (15-37) U/L ALT 42 (12-78) U/L Alkaline Phosphatase 75 (45-117) U/L Total Protein 7.5 (6.4-8.2) gm/dl Albumin 4.1 (3.4-5.0) gm/dl Globulin 3.4 (2.5-4.0) gm/dl Albumin/Globulin Ratio 1.2 (0.9-2) TSH 30.700 H (0.300-4.500) uIu/ml Free T4 1.05 (0.8-1.6) ng/dl Administered Medications Potassium Chloride (K Dimitrios / Wtr) 10 meq in 100 mls @ 100 mls/hr IV Q1H PRAVEENA Stop: 06/11/20 08:34 Last Admin: 06/11/20 06:35 Dose: 100 mls/hr Documented by: [id number] Infusion: 06/11/20 06:35 Dose: 100 mls/hr Documented by: [id number] Admin: 06/11/20 05:51 Dose: 100 mls/hr Documented by: [id number] Discontinued Medications Diltiazem HCl (Diltiazem Hcl 5 Mg/Ml 5 Ml Vial) Confirm Administered Dose 25 mg IV .STK-MED ONE Stop: 06/11/20 03:20 Last Admin: 06/11/20 03:25 Dose: Not Given Documented by: [id number] Diltiazem HCl (Diltiazem Hcl 5 Mg/Ml 5 Ml Vial) 10 mg IV NOW STA Stop: 06/11/20 03:24 Last Admin: 06/11/20 03:24 Dose: 10 mg Documented by: [id number] Cosigned by: [id number] Lorazepam (Ativan) 2 mg in 4 mls @ 4 mls/min IV NOW STA Stop: 06/11/20 03:01 Last Admin: 06/11/20 03:09 Dose: 4 mls/min Documented by: [id number] Sodium Chloride (Nss 1000ml) 1,000 mls @ 999 mls/hr IV .Q1H1M ONE Stop: 06/11/20 05:34 Last Infusion: 06/11/20 05:47 Dose: 0 mls/hr Documented by: [id number] Admin: 06/11/20 04:45 Dose: 999 mls/hr Documented by: [id number] Potassium Chloride (Potassium Chloride 10 Meq / 100ml Wtr) Confirm Administered Dose 10 meq IV .STK-MED ONE Stop: 06/11/20 05:39 Last Admin: 06/11/20 05:52 Dose: Not Given Documented by: [id number] Discharge Plan Visit Data Chief Complaint: Arrhythmia/Palpitations Stated Complaint: AFIB ED Provider: Lorraine Bey Discharge Problem: Atrial fibrillation with rapid ventricular response, Hypothyroidism Patient Disposition: Admitted As Inpatient Forms Stand Alone Forms: [facility] Prescriptions Prescriptions: No Action ascorbic acid (vitamin C) [Vitamin C] 1,000 mg Tablet 1 g PO DAILY RF: 0 levothyroxine 50 mcg tablet 50 mcg PO DAILY RF: 0 cholecalciferol (vitamin D3) [Vitamin D3] 10 mcg (400 unit) Tablet 10 mcg PO DAILY RF: 0 Centrum Chewables 8 mg-400 mcg- 10 mcg Tablet,Chewable 1 tab PO DAILY RF: 0 Referrals Referrals: Santiago Green MD [Primary Care Provider] - Discharge Problem: Hypothyroidism Qualifiers: Hypothyroidism type: unspecified Qualified Code(s): E03.9 - Hypothyroidism, unspecified
[2020-06-11 03:53] LABS: Basophils # (auto) 0.05 K/uL (0-0.2); Basophils % (auto) 0.7 %; Eosinophils # (auto) 0.39 K/uL (0-0.5); Eosinophils % (auto) 5.5 %; Hematocrit (blood only) 44.3 % (42-52); Hemoglobin 15.4 g/dL (14.0-18.0); Immature Granulocytes # (auto) 0.03 K/uL (0.00-0.02); Immature Granulocytes % (auto) 0.4 %; Lymphocytes # (auto) 2.01 K/uL (1.2-3.4); Lymphocytes % (auto) 28.6 %; Mean Corpuscular Hemoglobin 30.6 pg (25-34); Mean Corpuscular Hgb Conc 34.8 g/dL (32-36); Mean Corpuscular Volume 87.9 fL (80-100); Mean Platelet Volume 8.9 fL (7.4-10.4); Monocytes % (auto) 8.5 %; Neutrophils # (auto) 3.96 K/uL (1.4-6.5); Neutrophils % (auto) 56.3 %; Platelet Count 270 K/uL (130-400); RDW Standard Deviation 41.6 fL (36.4-46.3); Red Blood Count 5.04 M/uL (4.7-6.1); White Blood Count 7.04 K/uL (4.8-10.8)
[2020-06-11 04:27] LABS: Albumin Globulin Ratio 1.2 (0.9-2); Albumin Level 4.1 gm/dl (3.4-5.0); BUN Creatinine Ratio 13.2 (10-20); Bilirubin,Total 0.4 mg/dl (0.2-1); Calcium 8.8 mg/dl (8.5-10.1); Creatinine Clr Calc Pharmacy 111.7 ml/min; Est GFR (African American) 95.1; Globulin 3.4 gm/dl (2.5-4.0); Magnesium 2.1 mg/dl (1.8-2.4); Potassium 3.5 mmol/L (3.5-5.1); Thyroid Stimulating Hormone 30.7 uIu/ml (0.300-4.500); Total Protein 7.5 gm/dl (6.4-8.2)
[2020-06-11] MEDS ORDERED: SODIUM CHLORIDE 0.9% 1000ML 1,000 ML IV ONE (04:34)
[2020-06-11 04:44] LABS: T4 Free Thyroxine 1.05 ng/dl (0.8-1.6)
[2020-06-11] MEDS: POTASSIUM CHLORIDE 10 MEQ / 100ML WTR IV ONE ×2 (05:46→05:52)
[2020-06-11] MEDS: POTASSIUM CHLORIDE / WTR 10 MEQ/100 ML PLCT IV SCH ×3 (05:51→07:38)
--- NOTE | 2020-06-11 06:07 | History & Physical Report ---
Date of Service June 11, 2020 Assessment & Plan (1) Atrial fibrillation with RVR: Patient has been seen by cardiology , most recently on 10/28/2019. He was felt to not need anticoagulation due to a [id number] score of 0. He was started on metoprolol succinate 50 mg daily on 02/04/2017, but which was later changed to Bystolic 5 mg due to side effects from metoprolol. He was later increased to Bystolic 10 mg daily on 03/12/2017. When he was seen in the office on 10/28/2019, he was no longer on any treatment. As noted above, he did receive Cardizem 10 mg IV push in the ED tonight, which did lower his heart rate down to the 100s-110s, but also lowered his systolic blood pressure to 92. Patient did respond with 1 L of normal saline back to a systolic of 110. Bystolic is not on formulary in hospital. We will start Cardizem 30 mg p.o. 4 times daily with hold parameters. Consult Dr. Marks. Present on Admission?: Yes (2) Congenital von Willebrand's disease type I: Patient is known to use DDAVP to help protect from bleeding episodes pre- surgical procedures, he was admitted last year with an episode of hyponatremia due to excess use of DDAVP. Present on Admission?: Yes (3) Anxiety: Patient is sedated status post administration of lorazepam 2 mg IV, due to panic attack upon arrival to the ED. Present on Admission?: Yes (4) Hypothyroidism: Per outpatient notes, patient has had volatility in his thyroid laborato evelin and treatment. Unclear if he is presently taking his levothyroxine dosing of 50 mcg daily. Will resume once he is more awake. Of note, he did have a thyroid ultrasound performed on 10/26/2019 which showed a diffusely heterogeneous thyroid echotexture without evidence of a focal mass. Present on Admission?: Yes History of Present Illness Chief Complaint: The patient presents to the emergency department with dizziness, nausea and sudden onset of recurrent symptoms similar to previous episodes of atrial fib with RVR Primary Care Provider: Santiago Green MD The patient is a 40-year-old male with a past medical history including atrial fibrillation with RVR, congenital von Willebrand's disease type I, hypothyroidism, left UPJ obstruction due to ureteral stone, prolonged PTT, multiple rib fractures, hyponatremia secondary to DDAVP use, and anxiety with panic attacks. The patient presented with symptoms as noted above, and was in addition very anxious, which required 2 mg of Ativan IV from the emergency department. Patient was asleep/sedated during my assessment, but as noted, the patient was very anxious and required sedation for control. He was found to be in atrial fibrillation with RVR, with rate improvement with 10 mg IV Cardizem. His potassium was found to be 3.5, which is low for him. The patient has been intolerant of metoprolol tartrate or succinate in the past, but had done well with Bystolic 5 and then 10 mg titrating dose. He has not been on any treatment at all for the entirety of 2019. He has followed with Dr. Marks in the outpatient office, who encouraged the patient to get his hypothyroidism under control, which apparently has been fluctuant, before attempting to further control his atrial fibrillation. Allergies Allergy/AdvReac Type Severity Reaction Status Date / Time house dust mite Allergy Intermediate Congested Verified 06/11/20 03:02 pollen extracts Allergy Intermediate Congested Verified 06/11/20 03:02 ragweed pollen Allergy Intermediate Congested Verified 06/11/20 03:02 tree and shrub pollen Allergy Intermediate Congested Verified 06/11/20 03:02 cat dander Allergy Mild Sneezing Verified 06/11/20 03:02 morphine AdvReac Intermediate Hallucinati Verified 06/11/20 03:02 ng Home Medications Home Medications Medication Instructions Recorded Confirmed Type ascorbic acid (vitamin C) [Vitamin 1 g PO DAILY 06/11/20 06/11/20 History C] cholecalciferol (vitamin D3) 10 mcg PO DAILY 06/11/20 06/11/20 History [Vitamin D3] levothyroxine 50 mcg PO DAILY 06/11/20 06/11/20 History lwqpecfr-uqc-pfpm-folic-vit K1 1 tab PO DAILY 06/11/20 06/11/20 History [Centrum Chewables] Past Med/Surg History Medical History (Updated 10/13/19 @ 00:03 by Background Pao) Anxiety Atrial fibrillation no longer takes medication Chronic tonsillitis Congenital von Willebrand's disease type I Degenerative disc disease Ex-user of moist powdered tobacco Hx of sleep apnea "MILD" YINA "NO LONGER AN ISSUE" S/P TONSILLECTOMY Hypertension Hypothyroidism Kidney stones UPJ (ureteropelvic junction) obstruction 2/2 STONE Von Willebrand disease Surgical History History of cystoscopy STENT PLACEMENT DECEMBER 2018 History of tooth extraction WISDOM TEETH Hx of tonsillectomy 09/12/18= GRADE VIEW 2, MAC 4 AT [facility] Family History (Updated 09/28/19 @ 07:27 by Aury Rodriguez) Family/Other Coronary heart disease Mother Hyperthyroidism Social History Smoking Status: Former smoker Tobacco Type: Cigarettes Cigarettes Per Day: 0; Second Hand Exposure: No; Hx Alcohol Use: No Hx Substance Use: No Preferred Language: Mohawk Communication Ability: Effective Clinical Therapist Required: No Beliefs That Will Affect Care: None Current Living Situation: Spouse Current Living Situation Comment: Lives with and 2 kids Feels Safe at Home: Yes Assistive Devices: None Review of Systems Review of Systems: Review of systems is not obtainable due to present sedated status. Physical Exam Physical Exam: The patient is sedated, well developed and well nourished, normocephalic and atraumatic, lying in bed and in no acute distress. HEENT--PERRL, EOMI, mucous membranes and oropharynx dry. Neck--supple. No JVD. No bruits. Thyroid normal, trachea midline, no adenopathy. Heart--normal S1 and S2. No murmurs, rubs or gallops. Lungs--clear bilaterally, no respiratory distress, no accessory muscle use. Abdomen--normal bowel sounds and soft. Nontender. Nondistended. Obese. Extremities--no cyanosis or clubbing. No edema. Dermatologic--normal skin turgor, normal color, no abnormal lymph nodes, no rash. Neurologic--limited exam due to sedation Rheumatologic--limited exam due to sedation Psychiatric--sedated. Results & Data Results & Data ([facility]) Vital Signs (Past 12 Hours) Vital Signs Temp Pulse Pulse Resp BP BP Pulse Ox 06/11/20 04:30 109 H 16 92/60 L 97 06/11/20 03:30 99 H 20 137/81 96 06/11/20 03:20 158 H 06/11/20 03:08 98 H 26 H 130/95 98 06/11/20 03:07 98 06/11/20 02:45 98.2 F 115 H 24 109/85 100 Laboratory Results Laboratory Results WBC 7.04 K/uL (4.8-10.8) 06/11/20 03:44 RBC 5.04 M/uL (4.7-6.1) 06/11/20 03:44 Hgb 15.4 g/dL (14.0-18.0) 06/11/20 03:44 Hct 44.3 % (42-52) 06/11/20 03:44 MCV 87.9 fL (80-100) 06/11/20 03:44 MCH 30.6 pg (25-34) 06/11/20 03:44 MCHC 34.8 g/dL (32-36) 06/11/20 03:44 RDW Std Deviation 41.6 fL (36.4-46.3) 06/11/20 03:44 RDW Coeff of Gonzalez 13.0 % (11.5-14.5) 06/11/20 03:44 Plt Count 270 K/uL (130-400) 06/11/20 03:44 MPV 8.9 fL (7.4-10.4) 06/11/20 03:44 Immature Gran % (Auto) 0.4 % 06/11/20 03:44 Neut % (Auto) 56.3 % 06/11/20 03:44 Lymph % (Auto) 28.6 % 06/11/20 03:44 Gilmer % (Auto) 8.5 % 06/11/20 03:44 Eos % (Auto) 5.5 % 06/11/20 03:44 Baso % (Auto) 0.7 % 06/11/20 03:44 Neut # (Auto) 3.96 K/uL (1.4-6.5) 06/11/20 03:44 Lymph # (Auto) 2.01 K/uL (1.2-3.4) 06/11/20 03:44 Gilmer # (Auto) 0.60 K/uL (0.11-0.59) H 06/11/20 03:44 Eos # (Auto) 0.39 K/uL (0-0.5) 06/11/20 03:44 Baso # (Auto) 0.05 K/uL (0-0.2) 06/11/20 03:44 Immature Gran # (Auto) 0.03 K/uL (0.00-0.02) H 06/11/20 03:44 Sodium 141 mmol/L (136-145) 06/11/20 03:44 Potassium 3.5 mmol/L (3.5-5.1) 06/11/20 03:44 Chloride 108 mmol/L (98-107) H 06/11/20 03:44 Carbon Dioxide 27 mmol/L (21-32) 06/11/20 03:44 Anion Gap 6.0 (3-11) 06/11/20 03:44 BUN 15 mg/dl (7-18) 06/11/20 03:44 Creatinine 1.11 mg/dl (0.6-1.4) 06/11/20 03:44 Est Cr Clr Drug Dosing 111.7 ml/min 06/11/20 03:44 Est GFR ( Amer) 95.1 06/11/20 03:44 Est GFR (Non-Af Amer) 82.0 06/11/20 03:44 BUN/Creatinine Ratio 13.2 (-20) 06/11/20 03:44 Glucose 108 mg/dl (70-99) H 06/11/20 03:44 Calcium 8.8 mg/dl (8.5-10.1) 06/11/20 03:44 Magnesium 2.1 mg/dl (1.8-2.4) 06/11/20 03:44 Total Bilirubin 0.4 mg/dl (0.2-1) 06/11/20 03:44 AST 23 U/L (15-37) 06/11/20 03:44 ALT 42 U/L (12-78) 06/11/20 03:44 Alkaline Phosphatase 75 U/L (45-117) 06/11/20 03:44 Total Protein 7.5 gm/dl (6.4-8.2) 06/11/20 03:44 Albumin 4.1 gm/dl (3.4-5.0) 06/11/20 03:44 Globulin 3.4 gm/dl (2.5-4.0) 06/11/20 03:44 Albumin/Globulin Ratio 1.2 (0.9-2) 06/11/20 03:44 TSH 30.700 uIu/ml (0.300-4.500) H 06/11/20 03:44 Free T4 1.05 ng/dl (0.8-1.6) 06/11/20 03:44 Code Status & VTE Plan Code Status Full code VTE Prophylaxis Plan VTE Prophylaxis will be ordered: Yes PG Care Time/CCT Total # of Minutes Spent Total Time Spent with Patient: Total time spent is greater than 50% in coordination of care (as documented) at patient's floor/unit and/or counseling patient: Coding Level of Care Code 25569 OBS Care - Level 3 Diagnoses Atrial fibrillation with RVR I48.91 Congenital von Willebrand's disease type I D68.0 Anxiety F41.9 Hypothyroidism E03.9
--- NOTE | 2020-06-11 07:32 | Hospitalist Progress Note ---
Date of Service June 11, 2020 Assessment & Plan (1) Atrial fibrillation with RVR: Patient has been seen by cardiology , most recently on 10/28/2019. He was felt to not need anticoagulation due to a [id number] score of 0. He was started on metoprolol succinate 50 mg daily on 02/04/2017, but which was later changed to Bystolic 5 mg due to side effects from metoprolol. He was later increased to Bystolic 10 mg daily on 03/12/2017. When he was seen in the office on 10/28/2019, he was no longer on any treatment. As noted above, he did receive Cardizem 10 mg IV push in the ED tonight, which did lower his heart rate down to the 100s-110s, but also lowered his systolic blood pressure to 92. Patient did respond with 1 L of normal saline back to a systolic of 110. Bystolic is not on formulary in hospital. We will start Cardizem 30 mg p.o. 4 times daily with hold parameters. Consult Dr. Marks. (2) Congenital von Willebrand's disease type I: Patient is known to use DDAVP to help protect from bleeding episodes pre- surgical procedures, he was admitted last year with an episode of hyponatremia due to excess use of DDAVP. (3) Anxiety: Patient is sedated status post administration of lorazepam 2 mg IV, due to panic attack upon arrival to the ED. (4) Hypothyroidism: Per outpatient notes, patient has had volatility in his thyroid laboratories and treatment. Unclear if he is presently taking his levothyroxine dosing of 50 mcg daily. Will resume once he is more awake. Of note, he did have a thyroid ultrasound performed on 10/26/2019 which showed a diffusely heterogeneous thyroid echotexture without evidence of a focal mass. Results & Data Results & Data ([facility]) Vital Signs (Past 12 Hours) Vital Signs Temp Pulse Pulse Resp BP BP Pulse Ox 06/11/20 07:00 90 13 102/89 98 06/11/20 06:30 101 H 12 107/88 98 06/11/20 06:01 99 H 16 98/79 L 06/11/20 06:00 90 13 06/11/20 05:30 117 H 120 H 13 104/69 104/69 98 06/11/20 05:00 125 H 13 102/75 97 06/11/20 04:40 111 H 15 87/63 L 97 06/11/20 04:30 105 H 109 H 18 92/60 L 92/60 L 97 06/11/20 04:20 98 H 17 86/61 L 97 06/11/20 04:18 103 H 16 113/86 97 06/11/20 04:10 109 H 18 113/86 98 06/11/20 04:00 116 H 17 126/86 96 06/11/20 03:50 120 H 16 136/89 96 06/11/20 03:40 109 H 19 117/89 97 06/11/20 03:30 91 H 99 H 13 137/81 137/81 96 06/11/20 03:23 133 H 10 L 129/82 98 06/11/20 03:20 158 H 06/11/20 03:08 105 H 98 H 19 130/95 130/95 98 06/11/20 03:07 98 06/11/20 03:00 102 H 16 06/11/20 02:49 122 H 27 H 109/85 100 06/11/20 02:48 135 H 11 L 06/11/20 02:45 98.2 F 115 H 24 109/85 100 PG Care Time/CCT Total # of Minutes Spent Total Time Spent with Patient: Total time spent is greater than 50% in coordination of care (as documented) at patient's floor/unit and/or counseling patient: Coding Diagnoses Atrial fibrillation with RVR I48.91 Congenital von Willebrand's disease type I D68.0 Anxiety F41.9 Hypothyroidism E03.9
[2020-06-11] MEDS ORDERED: ONDANSETRON INJ 2 MG/ML 2 ML VIAL IV PRN (08:32)
[2020-06-11] MEDS ORDERED: ACETAMINOPHEN 325 MG TAB PO PRN (08:32)
[2020-06-11] MEDS ORDERED: ALUMINUM/MAGNESIUM SUSP 30 ML UDC PO PRN (08:32)
[2020-06-11] MEDS ORDERED: MAGNESIUM HYDROXIDE SUSP 30 ML UDC PO PRN (08:32)
[2020-06-11] MEDS ORDERED: LEVOTHYROXINE SODIUM 50 MCG TABLET PO SCH (09:00)
[2020-06-11] MEDS ORDERED: MULTIVITAMIN TAB PO SCH (09:00)
[2020-06-11] MEDS ORDERED: CHOLECALCIFEROL (VITAMIN D) 400 UNITS TABLET PO SCH (09:00)
[2020-06-11] MEDS ORDERED: dilTIAZem HCL 30 MG TAB PO SCH (09:00)
[2020-06-11] MEDS ORDERED: ASCORBIC ACID 500 MG TAB PO SCH (09:00)
[2020-06-11] MEDS ORDERED: NSS + 20MEQ KCL 20 MEQ/1,000 ML BAG IV SCH (09:30)
--- NOTE | 2020-06-11 12:13 | Electrocardiogram Report ---
Test Reason : Blood Pressure : / mmHG Vent. Rate : 136 BPM Atrial Rate : 159 BPM P-R Int : 000 ms QRS Dur : 088 ms QT Int : 288 ms P-R-T Axes : 000 052 022 degrees QTc Int : 433 ms Atrial fibrillation with rapid ventricular response Abnormal ECG When compared with ECG of 28-SEP-2019 09:26, Atrial fibrillation has replaced Sinus rhythm Vent. rate has increased BY 73 BPM Confirmed by Alan Montelongo ([id number]) on 06/11/2020 12:13:29 PM Referred By: REFERRED SELF Confirmed By:Alan Montelongo
[2020-06-11] MEDS ORDERED: METOPROLOL TARTRATE 1 MG/ML VIAL IV ONE (12:15)
[2020-06-11] MEDS ORDERED: BISOPROLOL FUMARATE 5 MG TAB PO SCH (12:15)
--- NOTE | 2020-06-11 13:47 | Cardiology Consultation ---
Date of Consultation June 11, 2020 Assessment & Plan (1) Atrial fibrillation with rapid ventricular response: -ventricular response improved on oral diltiazem. -would add a beta-josué to his regimen. -if heart rate improves later today, could consider hospital discharge. History of Present Illness Attending Physician: Edwardo Carvajal MD History of Present Illness Mr. Dias is a 40-year-old male admitted earlier today with atrial fibrillation rapid ventricular response. This consultation was ordered to assistance cardiac management. Of note, the patient typically follows with Dr. Marks in the outpatient setting. The patient when it is in his usual state of health until early this morning. The patient awoke from sleep with significant palpitations, dizziness, and nausea. The patient knew that he had gone into atrial fibrillation and proceeded to the emergency room for further care. On arrival here, he was found to be in atrial fibrillation with rapid ventricular response. He was given intravenous Cardizem and his heart rate improved. Hospitalization was recommended. The patient has had numerous episodes of atrial fibrillation. He was previously on Bystolic with good control of his paroxysms. He eventually discontinue that medication as he had very infrequent episodes of his atrial dysrhythmia. Currently, patient is resting comfortably in bed noting only mild palpitations. Past medical and surgical history 1. Paroxysmal atrial fibrillation 2. Von Willebrand's disease, type 1 3. Hypothyroidism 4. Obesity 5. Obstructive sleep apnea 6. 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 No tobacco alcohol Family history Noncontributory Review of systems A 10 review of systems was undertaken and negative except for described above. Allergies Allergy/AdvReac Type Severity Reaction Status Date / Time house dust mite Allergy Intermediate Congested Verified 06/11/20 03:02 pollen extracts Allergy Intermediate Congested Verified 06/11/20 03:02 ragweed pollen Allergy Intermediate Congested Verified 06/11/20 03:02 tree and shrub pollen Allergy Intermediate Congested Verified 06/11/20 03:02 cat dander Allergy Mild Sneezing Verified 06/11/20 03:02 morphine AdvReac Intermediate Hallucinati Verified 06/11/20 03:02 ng Home Medications Home Medications Medication Instructions Recorded Confirmed Type ascorbic acid (vitamin C) [Vitamin 1 g PO DAILY 06/11/20 06/11/20 History C] cholecalciferol (vitamin D3) 10 mcg PO DAILY 06/11/20 06/11/20 History [Vitamin D3] levothyroxine 50 mcg PO DAILY 06/11/20 06/11/20 History ukcxzler-zsf-abqg-folic-vit K1 1 tab PO DAILY 06/11/20 06/11/20 History [Centrum Chewables] Patient History Medical History (Updated 06/11/20 @ 07:37 by Lorraine Bey DO) Anxiety Atrial fibrillation no longer takes medication Chronic tonsillitis Congenital von Willebrand's disease type I Degenerative disc disease Ex-user of moist powdered tobacco Hx of sleep apnea "MILD" YINA "NO LONGER AN ISSUE" S/P TONSILLECTOMY Hypertension Hypothyroidism Kidney stones UPJ (ureteropelvic junction) obstruction 2/2 STONE Von Willebrand disease Surgical History History of cystoscopy STENT PLACEMENT DECEMBER 2018 History of tooth extraction WISDOM TEETH Hx of tonsillectomy 09/12/18= GRADE VIEW 2, MAC 4 AT [facility] Family History (Updated 09/28/19 @ 07:27 by Aury Rodriguez) Family/Other Coronary heart disease Mother Hyperthyroidism Social History Smoking Status: Never smoker Tobacco Type: Cigarettes Cigarettes Per Day: 0; Second Hand Exposure: No; Hx Alcohol Use: No Hx Substance Use: No Preferred Language: Macanese Communication Ability: Effective Solar Sales Associate Required: No Beliefs That Will Affect Care: None Current Living Situation: Spouse and Family Current Living Situation Comment: Lives with and 2 kids Feels Safe at Home: Yes Assistive Devices: None Physical Exam Physical Exam: In general this is an obese white male in no acute distress. HEENT exam is negative. Neck is supple with full carotid upstrokes. There are no carotid bruits. Jugular venous pressure is flat at 90. There is no thyromegaly. Cardiovascular exam reveals an irregularly regular rhythm with distant heart sounds. No obvious murmurs. Lungs are clear without rales, rh onchi, or wheezes. Abdomen is soft and nontender without bruits. Extremities reveal intact radial artery and posterior tibial pulses bilaterally. There is no peripheral edema. Results & Data ([facility]) Vital Signs (Past 12 Hours) Vital Signs Temp Pulse Pulse Resp BP BP Pulse Ox 06/11/20 12:11 37.0 C 89 18 118/69 98 06/11/20 08:32 36.5 C 96 H 16 126/82 96 06/11/20 07:39 100 H 14 95/64 L 97 06/11/20 07:00 90 13 102/89 98 06/11/20 06:30 101 H 12 107/88 98 06/11/20 06:01 99 H 16 98/79 L 06/11/20 06:00 90 13 06/11/20 05:30 117 H 120 H 13 104/69 104/69 98 06/11/20 05:00 125 H 13 102/75 97 06/11/20 04:40 111 H 15 87/63 L 97 06/11/20 04:30 105 H 109 H 18 92/60 L 92/60 L 97 06/11/20 04:20 98 H 17 86/61 L 97 06/11/20 04:18 103 H 16 113/86 97 06/11/20 04:10 109 H 18 113/86 98 06/11/20 04:00 116 H 17 126/86 96 06/11/20 03:50 120 H 16 136/89 96 06/11/20 03:40 109 H 19 117/89 97 06/11/20 03:30 91 H 99 H 13 137/81 137/81 96 06/11/20 03:23 133 H 10 L 129/82 98 06/11/20 03:20 158 H 06/11/20 03:08 105 H 98 H 19 130/95 130/95 98 06/11/20 03:07 98 06/11/20 03:00 102 H 16 06/11/20 02:49 122 H 27 H 109/85 100 06/11/20 02:48 135 H 11 L 06/11/20 02:45 36.8 C 115 H 24 109/85 100 Laboratory Results CBC notes hemoglobin of 15.4, hematocrit 44.3, white count 7.0, platelet count [id number]. Electrolytes show sodium of 141, potassium 3.5, chloride 108, bicarb 27, BUN 15, creatinine 1.1, and glucose of 108. TSH level is elevated 30.7. Diagnostic Findings EKG in pvc monitor note atrial fibrillation and rapid ventricular response. PG Care Time/CCT Total # of Minutes Spent Total Time Spent with Patient: Total time spent is greater than 50% in coord ination of care (as documented) at patient's floor/unit and/or counseling patient: Coding Level of Care Code 46169 Office/OBS Consult Lvl 4 Diagnoses Atrial fibrillation with rapid ventricular response I48.91
--- NOTE | 2020-06-20 20:51 | Discharge Summary ---
Date of Service June 20, 2020 Admission HPI Per Admitting Provider The patient is a 40-year-old male with a past medical history including atrial fibrillation with RVR, congenital von Willebrand's disease type I, hypothyroidism, left UPJ obstruction due to ureteral stone, prolonged PTT, multiple rib fractures, hyponatremia secondary to DDAVP use, and anxiety with panic attacks. The patient presented with symptoms as noted above, and was in addition very anxious, which required 2 mg of Ativan IV from the emergency department. Patient was asleep/sedated during my assessment, but as noted, the patient was very anxious and required sedation for control. He was found to be in atrial fibrillation with RVR, with rate improvement with 10 mg IV Cardizem. His potassium was found to be 3.5, which is low for him. The patient has been intolerant of metoprolol tartrate or succinate in the past, but had done well with Bystolic 5 and then 10 mg titrating dose. He has not been on any treatment at all for the entirety of 2019. He has followed with Dr. Marks in the outpatient office, who encouraged the patient to get his hypothyroidism under control, which apparently has been fluctuant, before attempting to further control his atrial fibrillation. Principal Diagnosis atrial fibrillation rvr Discharge Exam The patient appeared well Vital signs as documented. Lungs are clear to auscultation and appear unlabored Cardiac exam, irregular but rate controlled Abdominal exam reveals normal bowel sounds, soft non tender, no masses Extremities are nonedematous and both pedal pulses are normal. Neurologic exam is alert and oriented, no focal loss of strength or sensation Skin is without bruises or rashes Psychologically is without concerns for anxiety or depression. Discharge Data Allergies Allergy/AdvReac Type Severity Reaction Status Date / Time house dust mite Allergy Intermediate Congested Verified 06/11/20 03:02 pollen extracts Allergy Intermediate Congested Verified 06/11/20 03:02 ragweed pollen Allergy Intermediate Congested Verified 06/11/20 03:02 tree and shrub pollen Allergy Intermediate Congested Verified 06/11/20 03:02 cat dander Allergy Mild Sneezing Verified 06/11/20 03:02 morphine AdvReac Intermediate Hallucinati Verified 06/11/20 03:02 ng Consultations 06/11/20 04:38 ED Decision to Admit Stat 06/11/20 08:32 Consult Cardiology Routine Consult Case Management - Discharge Planning Routine Hospital Course (1) Atrial fibrillation with RVR: Patient has been seen by cardiology , most recently on 10/28/2019. He was felt to not need anticoagulation due to a [id number] score of 0. He was started on metoprolol succinate 50 mg daily on 02/04/2017, but which was later changed to Bystolic 5 mg due to side effects from metoprolol. He was later increased to Bystolic 10 mg daily on 03/12/2017. When he was seen in the office on 10/28/2019, he was no longer on any treatment. As noted above, he did receive Cardizem 10 mg IV push in the ED tonight, which did lower his heart rate down to the 100s-110s, but also lowered his systolic blood pressure to 92. Patient did respond with 1 L of normal saline back to a systolic of 110. Patient was seen in consult by Dr. Montelongo who recommended reinstitution of his Bystolic we did have 5 mg tablets he was given that in the morning his blood pressure remained stable as able ambulate his heart rate remained below 110 he is able to tolerate this and was recommended to reinstitute his Bystolic therapy at home as an outpatient and follow-up with Dr. Todd (2) Congenital von Willebrand's disease type I: Patient is known to use DDAVP to help protect from bleeding episodes pre- surgical procedures, he was admitted last year with an episode of hyponatremia due to excess use of DDAVP. (3) Anxiety: Patient was sedated status post administration of lorazepam 2 mg IV, due to panic attack upon arrival to the ED. however in the morning he was clear and felt stable for discharge (4) Hypothyroidism: Per outpatient notes, patient has had volatility in his thyroid laboratories and treatment. Unclear if he is presently taking his levothyroxine dosing of 50 mcg daily. Of note, he did have a thyroid ultrasound performed on 10/26/2019 which showed a diffusely heterogeneous thyroid echotexture without evidence of a focal mass. Patient was recommended to resume his thyroid medication to follow-up with his outpatient provider for serial thyroid testing to assure appropriate supplementation Total Time Total Time Spent Total Time Spent (In Minutes): It required greater than 30 minutes to prepare this patient for discharge Discharge Plan Discharge Items Patient Disposition: Home - Self-Care Reason For Visit: AFIB W/RVR Discharge Diagnosis: atrial fibrillaiton Activity: Resume your previous activity Non-emergency contact: Primary Care Provider and Systems Eng Call non-emergency contact if: you have any medication questions and your symptoms worsen Follow-up/Referrals: Philip Fritz MD [Physician] - Santiago Green MD [Primary Care Provider] - Diet: Regular and Other - See Diet Comment Diet Comment: low caffiene and avoid alcohol Addtl Attending Provider Instructions: You have been diagnosed with skin with your atrial fibrillation. It did respond favorably to use of bisoprolol. Will prescribe bisoprolol at 5 mg a day recommending follow-up with Dr. Todd your family doctor as an outpatient we recommend that you avoid caffeine and other stimulant-containing drinks and also avoid alcohol. Since it is Saturday the offices are closed please discuss with your family doctor about a referral to endocrinology for further treatment of your thyroid Pending Studies at Discharge: No Stand-Alone Forms: My [facility] Mobile System 7, Smoking Cessation Medications and DC Order Prescriptions: New bisoprolol fumarate 5 mg Tablet 5 mg PO DAILY Qty: 30 RF: 5 Continued ascorbic acid (vitamin C) [Vitamin C] 1,000 mg Tablet 1 g PO DAILY RF: 0 levothyroxine 50 mcg tablet 50 mcg PO DAILY RF: 0 cholecalciferol (vitamin D3) [Vitamin D3] 10 mcg (400 unit) Tablet 10 mcg PO DAILY RF: 0 Centrum Chewables 8 mg-400 mcg- 10 mcg Tablet,Chewable 1 tab PO DAILY RF: 0 Discharge Orders: Discharge Order (Routine); Ordered 06/11/20 Ordered By: Edwardo Carvajal Admission Data Admit Date/Time: 06/11/20 05:43 Attending Provider: Edwardo Carvajal Admit Provider: Ridge Srivastava Primary Care Provider: Santiago Green Other Providers: Ridge Srivastava ; Alvino Marks Other Interventions: Discharge Summary Assessment (RN) Last Done: 06/11/20 16:16 Coding Level of Care Code D/C Day Management >30 mins Diagnoses Atrial fibrillation with RVR I48.91 Congenital von Willebrand's disease type I D68.0 Anxiety F41.9 Hypothyroidism E03.9
== END 2020-06-11 16:45 | disposition home or self-care (01) ==
LOC: 2S 02:40 → ED 02:40 → SUATTDRO 05:43 → 2S 08:10

== ENCOUNTER 2022-06-24 11:55 | Observation (INO) ==
[2022-06-24] MEDS ORDERED: SODIUM CHLORIDE 0.9% 500 ML IV STA (12:12)
--- NOTE | 2022-06-24 12:27 | CT Scan Report ---
CT SCAN OF THE BRAIN WITHOUT IV CONTRAST CLINICAL HISTORY: Strokelike symptoms. COMPARISON STUDY: CT of the brain dated 09/13/2018. TECHNIQUE: Unenhanced axial CT scan of the brain is performed from the vertex to the skull base. A d ose lowering technique was utilized adhering to the principles of ALARA. CT DOSE: 691.05 mGy.cm FINDINGS: Brain parenchyma: The brain parenchyma is normal in appearance. There is no hemorrhage, mass effect, or evidence of acute territorial ischemia by CT criteria. Shea-white matter differentiation is preser diana. No extra-axial fluid collection is seen. Ventricles, sulci, cisterns: Normal in configuration. Intracranial vasculature: The visualized intracranial vasculature at the skull base is normal in appe arance. Calvarium: Unremarkable. Sinuses and mastoids: There is mild mucosal thickening within the maxillary antra. The remaining para nasal sinuses are clear. The mastoid air cells are well pneumatized. Orbits: The bony orbits are grossly intact. IMPRESSION: There is no hemorrhage, mass effect, or evidence of acute territorial ischemia by CT breann hendrix. ACT 112: Negative or not required by law. Electronically signed by: Bacilio Thomas M.D. 06/24/2022 12:26 PM
[2022-06-24 12:44] LABS: Basophils # (auto) 0.08 K/uL (0-0.2); Basophils % (auto) 0.9 %; Eosinophils # (auto) 0.42 K/uL (0-0.50); Eosinophils % (auto) 4.7 %; Hematocrit (blood only) 44.8 % (40.1-51.0); Hemoglobin 15.6 g/dl (14.0-18.0); Immature Granulocytes # (auto) 0.04 K/uL (0.00-0.02); Immature Granulocytes % (auto) 0.4 %; Lymphocytes # (auto) 2.81 K/uL (1.2-3.4); Lymphocytes % (auto) 31.3 %; Mean Corpuscular Hemoglobin 30.3 pg (25.0-34.0); Mean Corpuscular Hgb Conc 34.8 g/dL (32.0-36.0); Mean Platelet Volume 8.8 fL (9.4-12.4); Monocytes # (auto) 0.63 K/uL (0.24-0.82); Neutrophils # (auto) 5.01 K/uL (1.4-6.5); Neutrophils % (auto) 55.7 %; Platelet Count 287 K/uL (130-400); RDW Coefficient of Variation 12.6 % (11.5-14.5); RDW Standard Deviation 39.7 fL (36.4-46.3); Red Blood Count 5.15 M/uL (4.63-6.08); White Blood Count 8.99 K/ul (4.8-10.8)
[2022-06-24 12:47] LABS: iSTAT Creatinine 1.1 mg/dl (0.6-1.3); iSTAT Hemoglobin 15.3 g/dl (14.0-18.0); iSTAT Ionized Calcium 1.13 mmol/l (1.12-1.32); iSTAT Potassium 3.5 mmol/L (3.3-5.0)
[2022-06-24 12:53] LABS: D Dimer < 190 ug/L FEU (0-500); Partial Thromboplastin Ratio 1.2; Partial Thromboplastin Time 32.9 Seconds (21.0-31.0); Prothrombin Time 10.5 Seconds (9.0-12.0)
[2022-06-24 13:08] LABS: Troponin I High Sensitivity 3.1 pg/ml (0-20)
[2022-06-24] MEDS ORDERED: OPTIRAY 320 500ml IV ONE (13:08)
--- NOTE | 2022-06-24 13:13 | XRay Report ---
SINGLE VIEW CHEST CLINICAL HISTORY: Atypical chest pain FINDINGS: An AP, portable, upright chest radiograph is compared to chest x-ray and chest CT dated 08/04/2020. The cardiomediastinal silhouette is unremarkable. The lungs and pleural spaces are clear noti ng mild bibasilar atelectasis. No pneumothorax is seen. The bony thorax is grossly intact. IMPRESSION: No active disease in the chest. ACT 112: Negative or not required by law. Electronically signed by: Bacilio Thomas M.D. 06/24/2022 1:11 PM
[2022-06-24 13:14] LABS: Albumin Globulin Ratio 1.4 (0.9-2); Albumin Level 4.8 gm/dl (3.4-5.0); BUN Creatinine Ratio 11.5 (10-20); Bilirubin,Total 0.5 mg/dl (0.2-1.0); Calcium 9.7 mg/dl (8.5-10.1); Creatinine Clr Calc Pharmacy 108.2 ml/min; Est GFR (African American) 91.8 ml/min; Est GFR (Non-African American) 79.2 ml/min; Globulin 3.4 gm/dl (2.5-4.0); Potassium 3.8 mmol/L (3.5-5.1); Total Protein 8.2 gm/dl (6.0-8.3)
--- NOTE | 2022-06-24 13:25 | CT Scan Report ---
CT ANGIOGRAM OF THE BRAIN; CT ANGIOGRAM OF THE NECK CLINICAL HISTORY: Strokelike symptoms. COMPARISON STUDY: Unenhanced CT of the brain performed earlier the same day 06/24/2022. Thyroid ultr asound dated 08/11/2020. TECHNIQUE: Following the IV administration of 120 of Optiray 320, CT angiogram of the head and neck w as performed from the aortic arch to the vertex. Images are reviewed in the axial, sagittal, and melvin nal planes. 3-D MIPS images are created and assessed. IV contrast was administered without complicati on. All measurements were calculated based on NASCET criteria. A dose lowering technique was utilize d adhering to the principles of ALARA. CT DOSE: 687.41 mGy.cm FINDINGS: Brain parenchyma: The brain parenchyma is normal in appearance. There is no evidence of hemorrhage, m ass effect, or acute territorial ischemia noting angiographic phase technique. There is no evidence o f enhancing mass lesion on the angiogram phase images. The ventricles, sulci, and cisterns are normal in configuration. Shea-white matter differentiation is preserved. No extra-axial fluid collection is seen. Thoracic aorta: Visualized portions of the thoracic aorta are normal in caliber. The aortic arch demo nstrates standard 3-vessel anatomy. Right carotid arterial system: The right common carotid artery is widely patent, as are the right int ernal and external carotid arteries. Left carotid arterial system: The left common carotid artery is widely patent, as are the left materials intern al and external carotid arteries. Vertebral arteries: The vertebral arteries are widely patent bilaterally and codominant. Subclavian arteries: Widely patent bilaterally. Intracranial vasculature: The internal carotid arteries are patent at the skull base, as are the ante rior and middle cerebral arteries bilaterally. The vertebrobasilar system and posterior cerebral maynor evelin are widely patent. The vertebral arteries are codominant. There is origin of the right pos terior cerebral artery. There is no aneurysm, high-grade stenosis, or focal vessel cut off seen throu ghout the intracranial circulation. Jugular veins: Patent bilaterally. Dural sinuses: Patent. Lung apices: Partially visualized upper lobe lung parenchyma appears clear. Soft tissues: The visualized pharyngeal soft tissues are normal in appearance noting angiographic pha se technique. The oropharyngeal airway appears widely patent. The thyroid gland is heterogeneous. A 1 2 mm low-attenuation nodule is seen in the left lobe. The salivary glands are normal in appearance. N o cervical lymphadenopathy is seen. Skeletal structures: The calvarium appears intact. The cervical spine is within normal limits. Orbits: The bony orbits are intact. Orbital contents are normal as visualized. Sinuses and mastoids: There is mild mucosal thickening within the maxillary antra. The remaining para nasal sinuses are clear. The mastoid air cells are well pneumatized. IMPRESSION: 1. There is no evidence of hemorrhage, mass effect, or acute territorial ischemia noting angiographic phase technique. 2. Unremarkable CT angiogram of the brain. 3. Unremarkable CT angiogram of the neck. 4. There is a 12 mm low-attenuation nodule in the left lobe of the thyroid. This was not clearly seen on the 08/11/2020 thyroid ultrasound, and a nonemergent/outpatient repeat thyroid ultrasound is suzanne mmended in follow-up. ACT 112: Negative or not required by law. Electronically signed by: Bacilio Thomas M.D. 06/24/2022 1:22 PM
--- NOTE | 2022-06-24 13:36 | History & Physical Report ---
Date of Service June 24, 2022 Assessment & Plan (1) Paresthesia: Plan: Patient presents with left upper and lower extremity paresthesias that came on acutely. Also with pain down the left arm that correlates with frequent PVCs on telemetry monitoring. Stroke alert was called in the ER-initial labs normal. CT head, CTA head and neck all negative. Chest x-ray negative. No headache and no history of complex migraine. Also with intermittent left eye blurry vision for 24 hours. Needs work-up for stroke but this does seem atypical. Telestroke neuro consult did not feel this was consistent with stroke and recommended YANELIS and ESR and work-up for demyelinating issues. Also has known Suellen's thyroiditis and has been off of thyroid replacement for almost 2 years He does have paroxysmal atrial fibrillation but reports he always knows exactly when he goes into A. fib and has not had any for 2 years. He is in a sinus rhythm here on monitor. If stroke ruled out, will check MRI cervical spine. Also consider complex migraine? -Bring in on observation to PCU for telemetry monitoring -Stroke order set utilized-neuro checks, PT/OT evaluations, and neurology consult requested -Check hemoglobin A1c and lipid panel in the morning-start high intensity atorv astatin but can be discontinued if stroke and TIA ruled out -Checked MRI brain with and without contrast-he requests Ativan prior to MRI-MRI brain negative for stroke or tumor -Check Lyme titer -TSH checked and is elevated at 8.7 with low free T4-see below for treatment of this -Blood pressures are typically well controlled, but he does have symptomatic PVCs-see below for treatment with beta-josué -Check echocardiogram with bubble study -Start aspirin 81 Mg p.o. once daily-discussed with on-call hematology on the phone and after review, stated okay with von Willebrand's disease to take a baby aspirin a day. If stroke ruled out and not felt to be TIA, would recommend discontinuing aspirin due to increased bleeding risk with von Willebrand's disease (2) Blurry vision: Plan: As above Stroke work-up Could be secondary to complex migraine? Appreciate any further neurology input Would recommend ophthalmology follow-up after discharge (3) Hypothyroidism: Plan: Has known Suellen's thyroiditis with positive TPO antibodies and previous thyroid ultrasounds showing heterogenous appearing thyroid CTA neck today also shows a 12 mm left lobe thyroid nodule which will require repeat thyroid ultrasound as an outpatient He has been off of all Synthroid for almost 2 years as he does not like taking medications -He is willing to restart name brand Synthroid only as he had side effect issues with generic levothyroxine-start Synthroid 25 mcg once daily-this is not available at our pharmacy-have called into his outpatient pharmacy -Recommend outpatient follow-up again with [facility] endocrinology as he did before -Will need repeat TFTs in 6 weeks (4) Frequent PVCs: Plan: Patient knows exactly when he is in bigeminy which was witnessed several times during his admission. This is also causing him more anxiety and also he gets a sensation of shooting pain down the left arm every time he has PVCs He previously was on Bystolic but stopped it in the past as he believes he was told that he did not need it anymore. Due to symptomatic PVCs, recommend restarting on a beta-josué. He has not tolerated metoprolol in the past. Bystolic is not available on formulary here. -Checking echocardiogram as above -He is willing to start carvedilol 3.125 Mg p.o. twice daily to see if he can tolerate this and to see if it suppresses some of his PVCs -Monitor on telemetry -Consider long-term cardiac event monitoring after discharge to evaluate the degree of burden of PVCs (5) Paroxysmal atrial fibrillation: Plan: With a history of such in the past. [id number] score remains 0 but screening for diabetes as above Is not currently on anticoagulation and is currently in a sinus rhythm here. He reports he knows exactly when he is in atrial fibrillation as he can sense it and also checks his pulse and feels that it is irregular. He does not think he has been in A. fib in a couple of years -Monitor on telemetry -Especially in the setting of von Willebrand's and with a [id number] score of 0, would not start anticoagulation -Starting carvedilol for frequent PVCs which would also help with rate control if he were to go into A. fib (6) Congenital von Willebrand's disease type I: Plan: Noted. Does take DDAVP nasal spray prior to any surgical procedures No current bleeding issues (7) YINA (obstructive sleep apnea): Plan: Diagnosed with mild YINA in the past but had tonsillectomy for this and wears a dental device at nighttime for snoring (8) Anxiety: Plan: Admits to significant anxiety over many years. Reports he was on Wellbutrin at some point and possibly another medication that he cannot recall the name of. He is fearful of side effects of medications as he tends to be sensitive to medications. Did discuss the possibility as an outpatient of starting a different SSRI at a low dose to see if this helps his generalized anxiety (9) Thyroid nodule: Plan: As noted above Needs outpatient thyroid ultrasound (10) History of diverticulitis: Plan: Recurrent at least twice in the last year for which he took antibiotics, however continues to have at least once weekly left lower quadrant sharp pains that last several minutes after eating certain foods. Followed with GI and had colonoscopy recently that showed multiple diverticula but no other abnormalities. Also saw general surgery and is to follow closely with them in case of need for partial colectomy in the future No acute issues at this time Is to follow a high-fiber diet Plan DVT prophylaxis-SCDs Disposition-bring in on observation to telemetry unit. Expect discharge to home on 06/25 if all issues are improving History of Present Illness Chief Complaint: Left sided numbness,left eye blurry vision Primary Care Provider: Santiago Green MD This patient is a 42-year-old male with a history of Suellen's thyroiditis, recurrent diverticulitis, paroxysmal atrial fibrillation not on anticoagulation, congenital von Willebrand's disease, who presents to the ER at 1310 with acute onset of left upper and lower extremity numbness and a sensation of coldness which started at 4 AM today as well as left eye blurry vision that came on yesterday and then went away and returned this morning. He also has a sensation at times of shortness of breath and chest pains but says that that is chronic. He denies weakness and is able to walk but sometimes feels like his left arm is weaker than usual. He reports he knows exactly every time he goes into atrial fibrillation because he feels a popping sensation in his neck and then feels a wave of fatigue. He has not had any episodes like this in a very long time possibly years, but does report currently feeling sharp shooting pains on the left arm that correlate with every PVC he has on the heart monitor. Denies any headache. A stroke alert was called on arrival. CT noncontrast head was negative, CT angiogram head and neck were negative, chest x-ray negative. CBC and CMP as well as troponin and D-dimer were negative. His ECG showed normal sinus rhythm without ischemia. A telestroke neuro consult was obtained and the neurologist did not think this was consistent with a stroke, and recommended YANELIS and ESR for further work-up as well as a brain MRI with and without contrast. The neurologist did recommend a baby aspirin but was going to consult with hematology at [place] to see if this was contraindicated in the setting of von Willebrand's disease. A routine neurology consultation with local neurologist was also recommended. A TSH was ordered and pending at the time of admission. COVID-19 test was ne gative. He will be admitted for further work-up for left-sided numbness and blurry vision. Allergies Allergy/AdvReac Type Severity Reaction Status Date / Time house dust mite Allergy Intermediate Congested Verified 04/25/22 09:25 pollen extracts Allergy Intermediate Congested Verified 04/25/22 09:25 ragweed pollen Allergy Intermediate Congested Verified 04/25/22 09:25 tree and shrub pollen Allergy Intermediate Congested Verified 04/25/22 09:25 cat dander Allergy Mild Sneezing Verified 04/25/22 09:25 morphine AdvReac Intermediate Hallucinati Verified 04/25/22 09:25 ng Home Medications Medication Instructions Recorded Confirmed Type acetaminophen 500 mg tablet 1,000 mg PO Q6H PRN Pain 06/24/22 06/24/22 History (Tylenol Extra Strength) ascorbic acid (vitamin C) 500 mg 500 mg PO DAILY 06/24/22 06/24/22 History tablet (Vitamin C) multivitamin 1 tab PO DAILY 06/24/22 06/24/22 History Past Med/Surg History Medical History Anxiety Congenital von Willebrand's disease type I Degenerative disc disease Diverticulitis currently Frequent PVCs History of COVID-19 07/2021, test med express because of thanksgiving get together, 2 weeks later, sent to er to see if he had blood clots and instead had a sinus infection.>resolved. Hx of sleep apnea "MILD" YINA "NO LONGER AN ISSUE" S/P TONSILLECTOMY Kidney stones hx YINA (obstructive sleep apnea) Mild Paroxysmal atrial fibrillation Paroxysmal atrial fibrillation with rapid ventricular response "no current medications, was previously medicated for it and then was taken off the meds" Thyroid disease Thyroid nodule Surgical History History of cystoscopy STENT PLACEMENT DECEMBER 2018 History of tooth extraction WISDOM TEETH Hx of colonoscopy Hx of tonsillectomy 09/12/18= GRADE VIEW 2, MAC 4 AT [facility] Hx of vasectomy Family History Family/Other Coronary heart disease Mother Hyperthyroidism Grandfather Heart disease Social History (Updated 06/24/22 @ 19:07 by Judy Carlisle MD) Smoking Status: Never smoker Tobacco Type: Smokeless Tobacco (Dip or Chew) Cigarettes Per Day: 0; Second Hand Exposure: No; Hx Alcohol Use: Yes Hx Substance Use: No Preferred Language: Algerian Communication Ability: Effective Visual Impairment: No Limitations Clinical Neuropsychologist Required: No Beliefs That Will Affect Care: None marital status: Current Living Situation: Spouse and Family Current Living Situation Comment: Lives with and 2 kids current occupational status: employed 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 Has frequent shooting pains down the left upper extremity every time he has PVCs Has chronic infrequent left lower quadrant abdominal pain and is seeing GI and general surgery for this thought to be secondary to smoldering diverticulitis although had normal colonoscopy 6 weeks ago No bleeding in the stool or urine. Did have a bloody nose after COVID nasal swab preoperatively before his colonoscopy Has frequent anxiety Has a history of chronic lower back pain but this has been improved lately Physical Exam Constitutional: WD/WN, vitals as above Eyes: PERRL, conjunctivae normal, anicteric sclerae normal visual leger by confrontation, + anicteric sclerae and normal accommodation; no nystagmus and no photophobia ENMT: external ear and nose normal, oropharynx normal Neck: trachea midline, no thyromegaly Respiratory: normal respiratory effort, lungs clear to auscultation Cardiovascular: RRR, no murmur, no edema Rate/Rhythm: regular rhythm (With occasional ectopy) Chest (Breasts): Chest: normal inspection of chest Gastrointestinal (Abdomen): Inspection/Auscultation: abdomen normal to inspection and normal bowel sounds; abdomen not distended Percussion/Palpation: + abdomen tender (Mild in LLQ without guarding or rebound) and abdomen soft Musculoskeletal: Extremities: extremities normal to inspection; no cyanosis and no clubbing Skin: no rashes, warm and dry Neurologic: PERRL, EOMI, accommodation nl, no face palsy, no dysarthria CN's II-XI intact bilaterally, deep tendon reflexes 2+ bilaterally, moves all extremities and awake; no focal motor deficits (5/5 strength throughout upper and lower extremities bilaterally) and not confused Speech / Cognition: normal speech Motor/Sensory: + sensory deficit (Feels decreased sensation to cold temperature and light touch left leg); no tremor, no fasciculations and no pronator drift Gait: no ataxic gait Coordination: normal [id number] test and normal [id number] test Psychiatric: Orientation: alert, oriented x 3 and cooperative Eye Contact: good eye contact Speech: normal rate/rhythm/volume of speech Affect: + anxious affect Mood: + anxious mood Thought Process: goal directed thought process Lymphatic: no lymphedema Results & Data Results & Data ([facility]) Vital Signs (Past 12 Hours) Vital Signs Temp Pulse Resp BP Pulse Ox O2 Del Method 06/24/22 13:20 70 97 Room Air 06/24/22 13:16 66 97 Room Air 06/24/22 13:15 126/82 Room Air 06/24/22 12:44 Room Air 06/24/22 12:23 Room Air 06/24/22 12:23 36.8 C 78 20 146/96 H 100 Room Air 06/24/22 12:01 36.7 C 79 18 156/91 H 99 Room Air Laboratory Results 06/24/22 06/24/22 06/24/22 Range/Units 12:34 12:30 12:30 WBC (4.8-10.8) K/ul RBC (4.63-6.08) M/uL Hgb (14.0-18.0) g/dl POC Hgb 15.3 (14.0-18.0) g/dl Hct (40.1-51.0) % POC Hct 45 (42-52) % MCV (80.0-100.0) fL MCH (25.0-34.0) pg MCHC (32.0-36.0) g/dL RDW Std Deviation (36.4-46.3) fL RDW Coeff of Gonzalez (11.5-14.5) % Plt Count (130-400) K/uL MPV (9.4-12.4) fL Immature Gran % (Auto) % Neut % (Auto) % Lymph % (Auto) % [place] % (Auto) % Eos % (Auto) % Baso % (Auto) % Neut # (Auto) (1.4-6.5) K/uL Lymph # (Auto) (1.2-3.4) K/uL [place] # (Auto) (0.24-0.82) K/uL Eos # (Auto) (0-0.50) K/uL Baso # (Auto) (0-0.2) K/uL Immature Gran # (Auto) (0.00-0.02) K/uL ESR Pending PT (9.0-12.0) Seconds INR (0.9-1.1) APTT (21.0-31.0) Seconds PTT Ratio D-Dimer (0-500) ug/L FEU POC Sodium 140 (135-144) mmol/L Sodium (136-145) mmol/L POC Potassium 3.5 (3.3-5.0) mmol/L Potassium (3.5-5.1) mmol/L POC Chloride 103 (101-112) mmol/L Chloride (98-107) mmol/L Carbon Dioxide (21-32) mmol/L POC Total CO2 24 (24-31) mmol/L Anion Gap (3-11) POC Anion Gap 18.0 (16-25) mmol/L POC BUN 13 (7-18) mg/dl BUN (6-23) mg/dl Creatinine (0.6-1.4) mg/dl POC Creatinine 1.1 (0.6-1.3) mg/dl Est Cr Clr Drug Dosing ml/min Est GFR ( Amer) ml/min Est GFR (Non-Af Amer) ml/min BUN/Creatinine Ratio (10-20) Glucose (70-99(Fasting)) mg/dl POC Glucose (other) 81 (70-99) mg/dl Calcium (8.5-10.1) mg/dl POC Ioniz Calcium Estela 1.13 (1.12-1.32) mmol/l Total Bilirubin (0.2-1.0) mg/dl AST (13-39) U/L ALT (7-52) U/L Alkaline Phosphatase (34-104) U/L Troponin I High Sens (0-20) pg/ml Total Protein (6.0-8.3) gm/dl Albumin (3.4-5.0) gm/dl Globulin (2.5-4.0) gm/dl Albumin/Globulin Ratio (0.9-2) Lipase (11-82) U/L YANELIS Screen Pending 06/24/22 06/24/22 06/24/22 Range/Units 12:28 12:28 12:28 WBC 8.99 (4.8-10.8) K/ul RBC 5.15 (4.63-6.08) M/uL Hgb 15.6 (14.0-18.0) g/dl POC Hgb (14.0-18.0) g/dl Hct 44.8 (40.1-51.0) % POC Hct (42-52) % MCV 87.0 (80.0-100.0) fL MCH 30.3 (25.0-34.0) pg MCHC 34.8 (32.0-36.0) g/dL RDW Std Deviation 39.7 (36.4-46.3) fL RDW Coeff of Gonzalez 12.6 (11.5-14.5) % Plt Count 287 (130-400) K/uL MPV 8.8 L (9.4-12.4) fL Immature Gran % (Auto) 0.4 % Neut % (Auto) 55.7 % Lymph % (Auto) 31.3 % [place] % (Auto) 7.0 % Eos % (Auto) 4.7 % Baso % (Auto) 0.9 % Neut # (Auto) 5.01 (1.4-6.5) K/uL Lymph # (Auto) 2.81 (1.2-3.4) K/uL [place] # (Auto) 0.63 (0.24-0.82) K/uL Eos # (Auto) 0.42 (0-0.50) K/uL Baso # (Auto) 0.08 (0-0.2) K/uL Immature Gran # (Auto) 0.04 H (0.00-0.02) K/uL ESR PT 10.5 (9.0-12.0) Seconds INR 1.0 (0.9-1.1) APTT 32.9 H (21.0-31.0) Seconds PTT Ratio 1.2 D-Dimer < 190 (0-500) ug/L FEU POC Sodium (135-144) mmol/L Sodium 139 (136-145) mmol/L POC Potassium (3.3-5.0) mmol/L Potassium 3.8 (3.5-5.1) mmol/L POC Chloride (101-112) mmol/L Chloride 104 (98-107) mmol/L Carbon Dioxide 24 (21-32) mmol/L POC Total CO2 (24-31) mmol/L Anion Gap 11 (3-11) POC Anion Gap (16-25) mmol/L POC BUN (7-18) mg/dl BUN 13 (6-23) mg/dl Creatinine 1.13 (0.6-1.4) mg/dl POC Creatinine (0.6-1.3) mg/dl Est Cr Clr Drug Dosing 108.2 ml/min Est GFR ( Amer) 91.8 ml/min Est GFR (Non-Af Amer) 79.2 ml/min BUN/Creatinine Ratio 11.5 (10-20) Glucose 75 (70-99(Fasting)) mg/dl POC Glucose (other) (70-99) mg/dl Calcium 9.7 (8.5-10.1) mg/dl POC Ioniz Calcium Estela (1.12-1.32) mmol/l Total Bilirubin 0.5 (0.2-1.0) mg/dl AST 16 (13-39) U/L ALT 24 (7-52) U/L Alkaline Phosphatase 56 (34-104) U/L Troponin I High Sens 3.1 (0-20) pg/ml Total Protein 8.2 (6.0-8.3) gm/dl Albumin 4.8 (3.4-5.0) gm/dl Globulin 3.4 (2.5-4.0) gm/dl Albumin/Globulin Ratio 1.4 (0.9-2) Lipase 28 (11-82) U/L YANELIS Screen Diagnostic Findings Chest X-Ray 06/24/22 12:12 SINGLE VIEW CHEST CLINICAL HISTORY: Atypical chest pain FINDINGS: An AP, portable, upright chest radiograph is compared to chest x-ray and chest CT dated 08/04/2020. The cardiomediastinal silhouette is unremarkable. The lungs and pleural spaces are clear noting mild bibasilar atelectasis. No pneumothorax is seen. The bony thorax is grossly intact. IMPRESSION: No active disease in the chest. ACT 112: Negative or not required by law. Electronically signed by: Bacilio Thomas M.D. 06/24/2022 1:[address] 06/24/22 12:14 CT SCAN OF THE BRAIN WITHOUT IV CONTRAST CLINICAL HISTORY: Strokelike symptoms. COMPARISON STUDY: CT of the brain dated 09/13/2018. TECHNIQUE: Unenhanced axial CT scan of the brain is performed from the vertex to the skull base. A dose lowering technique was utilized adhering to the principles of ALARA. CT DOSE: 691.05 mGy.cm FINDINGS: Brain parenchyma: The brain parenchyma is normal in appearance. There is no hemorrhage, mass effect, or evidence of acute territorial ischemia by CT criteria. Shea-white matter differentiation is preserved. No extra-axial fluid collection is seen. Ventricles, sulci, cisterns: Normal in configuration. Intracranial vasculature: The visualized intracranial vasculature at the skull base is normal in appearance. Calvarium: Unremarkable. Sinuses and mastoids: There is mild mucosal thickening within the maxillary antra. The remaining paranasal sinuses are clear. The mastoid air cells are well pneumatized. Orbits: The bony orbits are grossly intact. IMPRESSION: There is no hemorrhage, mass effect, or evidence of acute territorial ischemia by CT criteria. ACT 112: Negative or not required by law. Electronically signed by: Bacilio Thomas M.D. 06/24/2022 12:26 PM Head CTA 06/24/22 12:34 CT ANGIOGRAM OF THE BRAIN; CT ANGIOGRAM OF THE NECK CLINICAL HISTORY: Strokelike symptoms. COMPARISON STUDY: Unenhanced CT of the brain performed earlier the same day 06/24/2022. Thyroid ultrasound dated 08/11/2020. TECHNIQUE: Following the IV administration of 120 of Optiray 320, CT angiogram of the head and neck was performed from the aortic arch to the vertex. Images are reviewed in the axial, sagittal, and coronal planes. 3-D MIPS images are created and assessed. IV contrast was administered without complication. All measurements were calculated based on NASCET criteria. A dose lowering technique was utilized adhering to the principles of ALARA. CT DOSE: 687.41 mGy.cm FINDINGS: Brain parenchyma: The brain parenchyma is normal in appearance. There is no evidence of hemorrhage, mass effect, or acute territorial ischemia noting angiographic phase technique. There is no evidence of enhancing mass lesion on the angiogram phase images. The ventricles, sulci, and cisterns are normal in configuration. Shea-white matter differentiation is preserved. No extra-axial fluid collection is seen. Thoracic aorta: Visualized portions of the thoracic aorta are normal in caliber. The aortic arch demonstrates standard 3-vessel anatomy. Right carotid arterial system: The right common carotid artery is widely patent, as are the right internal and external carotid arteries. Left carotid arterial system: The left common carotid artery is widely patent, as are the left internal and external carotid arteries. Vertebral arteries: The vertebral arteries are widely patent bilaterally and codominant. Subclavian arteries: Widely patent bilaterally. Intracranial vasculature: The internal carotid arteries are patent at the skull base, as are the anterior and middle cerebral arteries bilaterally. The vertebrobasilar system and posterior cerebral arteries are widely patent. The vertebral arteries are codominant. There is origin of the right posterior cerebral artery. There is no aneurysm, high-grade stenosis, or focal vessel cut off seen throughout the intracranial circulation. Jugular veins: Patent bilaterally. Dural sinuses: Patent. Lung apices: Partially visualized upper lobe lung parenchyma appears clear. Soft tissues: The visualized pharyngeal soft tissues are normal in appearance noting angiographic phase technique. The oropharyngeal airway appears widely patent. The thyroid gland is heterogeneous. A 12 mm low-attenuation nodule is seen in the left lobe. The salivary glands are normal in appearance. No cervical lymphadenopathy is seen. Skeletal structures: The calvarium appears intact. The cervical spine is within normal limits. Orbits: The bony orbits are intact. Orbital contents are normal as visualized. Sinuses and mastoids: There is mild mucosal thickening within the maxillary antra. The remaining paranasal sinuses are clear. The mastoid air cells are well pneumatized. IMPRESSION: 1. There is no evidence of hemorrhage, mass effect, or acute territorial ischemia noting angiographic phase technique. 2. Unremarkable CT angiogram of the brain. 3. Unremarkable CT angiogram of the neck. 4. There is a 12 mm low-attenuation nodule in the left lobe of the thyroid. This was not clearly seen on the 08/11/2020 thyroid ultrasound, and a nonemergent/outpatient repeat thyroid ultrasound is recommended in follow-up. ACT 112: Negative or not required by law. Electronically signed by: Bacilio Thomas M.D. 06/24/2022 1:22 PM Neck CTA 06/24/22 12:34 CT ANGIOGRAM OF THE BRAIN; CT ANGIOGRAM OF THE NECK CLINICAL HISTORY: Strokelike symptoms. COMPARISON STUDY: Unenhanced CT of the brain performed earlier the same day 06/24/2022. Thyroid ultrasound dated 08/11/2020. TECHNIQUE: Following the IV administration of 120 of Optiray 320, CT angiogram of the head and neck was performed from the aortic arch to the vertex. Images are reviewed in the axial, sagittal, and coronal planes. 3-D MIPS images are created and assessed. IV contrast was administered without complication. All measurements were calculated based on NASCET criteria. A dose lowering technique was utilized adhering to the principles of ALARA. CT DOSE: 687.41 mGy.cm FINDINGS: Brain parenchyma: The brain parenchyma is normal in appearance. There is no evidence of hemorrhage, mass effect, or acute territorial ischemia noting angiographic phase technique. There is no evidence of enhancing mass lesion on the angiogram phase images. The ventricles, sulci, and cisterns are normal in configuration. Shea-white matter differentiation is preserved. No extra-axial fluid collection is seen. Thoracic aorta: Visualized portions of the thoracic aorta are normal in caliber. The aortic arch demonstrates standard 3-vessel anatomy. Right carotid arterial system: The right common carotid artery is widely patent, as are the right internal and external carotid arteries. Left carotid arterial system: The left common carotid artery is widely patent, as are the left internal and external carotid arteries. Vertebral arteries: The vertebral arteries are widely patent bilaterally and codominant. Subclavian arteries: Widely patent bilaterally. Intracranial vasculature: The internal carotid arteries are patent at the skull base, as are the anterior and middle cerebral arteries bilaterally. The vertebrobasilar system and posterior cerebral arteries are widely patent. The vertebral arteries are codominant. There is origin of the right posterior cerebral artery. There is no aneurysm, high-grade stenosis, or focal vessel cut off seen throughout the intracranial circulation. Jugular veins: Patent bilaterally. Dural sinuses: Patent. Lung apices: Partially visualized upper lobe lung parenchyma appears clear. Soft tissues: The visualized pharyngeal soft tissues are normal in appearance noting angiographic phase technique. The oropharyngeal airway appears widely patent. The thyroid gland is heterogeneous. A 12 mm low-attenuation nodule is seen in the left lobe. The salivary glands are normal in appearance. No cervical lymphadenopathy is seen. Skeletal structures: The calvarium appears intact. The cervical spine is within normal limits. Orbits: The bony orbits are intact. Orbital contents are normal as visualized. Sinuses and mastoids: There is mild mucosal thickening within the maxillary antra. The remaining paranasal sinuses are clear. The mastoid air cells are well pneumatized. IMPRESSION: 1. There is no evidence of hemorrhage, mass effect, or acute territorial ischemia noting angiographic phase technique. 2. Unremarkable CT angiogram of the brain. 3. Unremarkable CT angiogram of the neck. 4. There is a 12 mm low-attenuation nodule in the left lobe of the thyroid. This was not clearly seen on the 08/11/2020 thyroid ultrasound, and a nonemergent/outpatient repeat thyroid ultrasound is recommended in follow-up. ACT 112: Negative or not required by law. Electronically signed by: Bacilio Thomas M.D. 06/24/2022 1:22 PM ECG Additional Comments: ECG on 06/24/2022 at 1226 with sinus rhythm with occasional PVCs, otherwise normal Code Status & VTE Plan Code Status Full code VTE Prophylaxis Plan VTE Prophylaxis will be ordered: Yes PG Care Time/CCT Total # of Minutes Spent Total Time Spent with Patient: Total time spent is greater than 50% in coordination of care (as documented) at patient's floor/unit and/or counseling patient: Coding Level of Care Code INT OBSERVATION CARE 70M LVL 3 Diagnoses Paresthesia R20.2 Blurry vision H53.8 Hypothyroidism E03.9 Frequent PVCs I49.3 Paroxysmal atrial fibrillation I48.0 Congenital von Willebrand's disease type I D68.0 YINA (obstructive sleep apnea) G47.33 Anxiety F41.9 Thyroid nodule E04.1 History of diverticulitis Z87.19
[2022-06-24] MEDS ORDERED: ASPIRIN 81 MG ECTAB PO STA (14:27)
[2022-06-24] MEDS ORDERED: LORazepam 1 MG/1 ML SYR IV STA (14:27)
--- NOTE | 2022-06-24 14:33 | Emergency Department Note ---
History of Present Illness General Chief complaint: Stroke/CVA Symptoms Stated complaint: TROUBLE BREATHING,CHEST PAIN,NUMBNESS IN ARMS Time Seen by Provider: 06/24/22 12:11 History of Present Illness Maximum Pain Intensity: 2 42-year-old male presents to the ED with a chief complaint of left arm numbness and some cloudiness in his left eye. The patient states that his cloudiness in the left eye started around 4 AM today. He states that he might of had it yesterday at some time as well. The patient also reports that his arm feels cold at times. He had a little short of breath earlier today as well. He states that he occasionally gets dizzy and nauseated. The patient presented through triage and was made a stroke alert because of his paresthesias in the left arm. He was evaluated in room B1. The patient does have a history of paroxysmal A. fib. He states that he has not been in A. 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 Soledad Raza for least 2 years. He also has a history of hypothyroidism and von Willebrand's disease for which he does not take any medications currently. He sees a PCP on an occasional basis. No other complaints. Home Medications Medication Instructions Recorded Confirmed Type No Known Home Medications 04/24/22 04/24/22 History Allergies Allergy/AdvReac Type Severity Reaction Status Date / Time house dust mite Allergy Intermediate Congested Verified 04/25/22 09:25 pollen extracts Allergy Intermediate Congested Verified 04/25/22 09:25 ragweed pollen Allergy Intermediate Congested Verified 04/25/22 09:25 tree and shrub pollen Allergy Intermediate Congested Verified 04/25/22 09:25 cat dander Allergy Mild Sneezing Verified 04/25/22 09:25 morphine AdvReac Intermediate Hallucinati Verified 04/25/22 09:25 ng Past Med/Surg History Medical History Anxiety Congenital von Willebrand's disease type I Degenerative disc disease Diverticulitis currently History of COVID-19 07/2021, test med [facility] because of thanksgiving get together, 2 weeks later, sent to er to see if he had blood clots and instead had a sinus infection.>resolved. Hx of sleep apnea "MILD" YINA "NO LONGER AN ISSUE" S/P TONSILLECTOMY Kidney stones hx YINA (obstructive sleep apnea) Mild Paroxysmal atrial fibrillation Paroxysmal atrial fibrillation with rapid ventricular response "no current medications, was previously medicated for it and then was taken off the meds" Thyroid disease Thyroid nodule Surgical History History of cystoscopy STENT PLACEMENT DECEMBER 2018 History of tooth extraction WISDOM TEETH Hx of colonoscopy Hx of tonsillectomy 09/12/18= GRADE VIEW 2, MAC 4 AT [facility] Hx of vasectomy Family History Family/Other Coronary heart disease Mother Hyperthyroidism Grandfather Heart disease Social History Smoking Status: Never smoker Tobacco Type: Cigarettes and Smokeless Tobacco (Dip or Chew) Cigarettes Per Day: 0; Second Hand Exposure: No; Hx Alcohol Use: Yes Hx Substance Use: No Preferred Language: Maltese Communication Ability: Effective Visual Impairment: No Limitations Gold Leaf Roller Required: No Beliefs That Will Affect Care: None marital status: Current Living Situation: Spouse and Family Current Living Situation Comment: Lives with and 2 kids current occupational status: employed 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 How many Children do You have: 3 Feels Safe at Home: Yes Assistive Devices: None Review of Systems A total of 10 systems reviewed and were otherwise negative Physical Exam Vital Signs Vital Signs - 24 hr 06/24/22 12:01 06/24/22 12:23 06/24/22 12:23 Temperature 36.7 C 36.8 C Temperature Source Oral Oral Pulse Rate 79 78 Pulse Rate from SpO2 Sensor Pulse Rhythm Regular Pulse Strength Normal Respiratory Rate 18 20 Respiratory Effort / Characteristics Non-Labored Spontaneous Non-Labored Spontaneous Respiratory Depth Normal Normal Respiratory Pattern Regular Regular Blood Pressure 156/91 H 146/96 H Blood Pressure Mean 112 112 Blood Pressure Position Sitting Lying Pulse Oximetry 99 100 Oxygen Delivery Method Room Air Room Air Room Air Sepsis Recent Fever Within 48 Hours No No Sepsis New/Unexplained Change in Mental Status No No Sepsis Action Taken by Nursing No Action Required No Action Required 06/24/22 12:44 06/24/22 13:15 06/24/22 13:16 Temperature Temperature Source Pulse Rate 66 Pulse Rate from SpO2 Sensor 67 Pulse Rhythm Pulse Strength Respiratory Rate Respiratory Effort / Characteristics Respiratory Depth Respiratory Pattern Blood Pressure 126/82 Blood Pressure Mean 96 Blood Pressure Position Pulse Oximetry 97 Oxygen Delivery Method Room Air Room Air Room Air Sepsis Recent Fever Within 48 Hours Sepsis New/Unexplained Change in Mental Status Sepsis Action Taken by Nursing 06/24/22 13:20 Temperature Temperature Source Pulse Rate 70 Pulse Rate from SpO2 Sensor 70 Pulse Rhythm Pulse Strength Respiratory Rate Respiratory Effort / Characteristics Respiratory Depth Respiratory Pattern Blood Pressure Blood Pressure Mean Blood Pressure Position Pulse Oximetry 97 Oxygen Delivery Method Room Air Sepsis Recent Fever Within 48 Hours Sepsis New/Unexplained Change in Mental Status Sepsis Action Taken by Nursing CONSTITUTIONAL/VITAL SIGNS: Reviewed / noted above. GENERAL: Non-toxic in appearance. INTEGUMENTARY: Warm, dry, and [place]. HEAD: Normocephalic. EYES: without scleral icterus or trauma. ENT/OROPHARYNX: clear and moist. LYMPHADENOPATHY/NECK: Is supple without lymphadenopathy or meningismus. RESPIRATORY: Clear to auscultation bilaterally. No increased work of breathing. CARDIOVASCULAR: Regular rate and rhythm. GI/ABDOMEN: Soft and nontender. No organomegaly or pulsatile mass. EXTREMITIES: Warm and well perfused. BACK: No CVA tenderness. NEUROLOGICAL: Intact without gross focal deficits. The patient has some decreased subjective sensation to the left arm and left leg compared to the right but otherwise no other abnormal findings. Cranial nerves are intact. No pronator drift. Normal strength in the extremities. PSYCHIATRIC: normal affect. MUSCULOSKELETAL: Normally developed with good muscle tone. TRIAGE NURSING DOCUMENTATION REVIEWED. Course Administered Medications Discontinued Medications Sodium Chloride (Nss) 500 mls @ 999 mls/hr IV .Q31M STA Stop: 06/24/22 12:42 Last Infusion: 06/24/22 13:22 Dose: 0 mls/hr Documented By: Admin: 06/24/22 12:51 Dose: 999 mls/hr Documented By: AIMEE Ioversol (Optiray 320 500ml) 120 ml IV ONCE ONE Stop: 06/24/22 13:09 Last Admin: 06/24/22 13:09 Dose: 120 ml Documented By: JULIEN Medical Decision Making Differential Diagnosis Differential includes acute coronary syndrome, myocardial infarction, CVA, TIA, anemia, infection, pneumonia, UTI, pyelonephritis, poor nutrition, dehydration, electrolyte disturbance,hypoglycemia. Medical Records Attestation: I reviewed the patient's medical records. Home Medications Current Medication List: was personally reviewed by me Laboratory Data Attestation: I reviewed the patient's lab results. Result diagrams: 06/24/22 12:28 06/24/22 12:28 Lab Results 06/24/22 06/24/22 06/24/22 Range/Units 12:28 12: 12:28 WBC 8.99 (4.8-10.8) K/ul RBC 5.15 (4.63-6.08) M/uL Hgb 15.6 (14.0-18.0) g/dl POC Hgb (14.0-18.0) g/dl Hct 44.8 (40.1-51.0) % POC Hct (42-52) % MCV 87.0 (80.0-100.0) fL MCH 30.3 (25.0-34.0) pg MCHC 34.8 (32.0-36.0) g/dL RDW Std Deviation 39.7 (36.4-46.3) fL RDW Coeff of Gonzalez 12.6 (11.5-14.5) % Plt Count 287 (130-400) K/uL MPV 8.8 L (9.4-12.4) fL Immature Gran % (Auto) 0.4 % Neut % (Auto) 55.7 % Lymph % (Auto) 31.3 % [place] % (Auto) 7.0 % Eos % (Auto) 4.7 % Baso % (Auto) 0.9 % Neut # (Auto) 5.01 (1.4-6.5) K/uL Lymph # (Auto) 2.81 (1.2-3.4) K/uL [place] # (Auto) 0.63 (0.24-0.82) K/uL Eos # (Auto) 0.42 (0-0.50) K/uL Baso # (Auto) 0.08 (0-0.2) K/uL Immature Gran # (Auto) 0.04 H (0.00-0.02) K/uL ESR (0-15) mm/hr PT 10.5 (9.0-12.0) Seconds INR 1.0 (0.9-1.1) APTT 32.9 H (21.0-31.0) Seconds PTT Ratio 1.2 D-Dimer < 190 (0-500) ug/L FEU POC Sodium (135-144) mmol/L Sodium 139 (136-145) mmol/L POC Potassium (3.3-5.0) mmol/L Potassium 3.8 (3.5-5.1) mmol/L POC Chloride (101-112) mmol/L Chloride 104 (98-107) mmol/L Carbon Dioxide 24 (21-32) mmol/L POC Total CO2 (24-31) mmol/L Anion Gap 11 (3-11) POC Anion Gap (16-25) mmol/L POC BUN (7-18) mg/dl BUN 13 (6-23) mg/dl Creatinine 1.13 (0.6-1.4) mg/dl POC Creatinine (0.6-1.3) mg/dl Est Cr Clr Drug Dosing 108.2 ml/min Est GFR ( Amer) 91.8 ml/min Est GFR (Non-Af Amer) 79.2 ml/min BUN/Creatinine Ratio 11.5 (10-20) Glucose 75 (70-99(Fasting)) mg/dl POC Glucose (other) (70-99) mg/dl Calcium 9.7 (8.5-10.1) mg/dl POC Ioniz Calcium Estela (1.12-1.32) mmol/l Total Bilirubin 0.5 (0.2-1.0) mg/dl AST 16 (13-39) U/L ALT 24 (7-52) U/L Alkaline Phosphatase 56 (34-104) U/L Troponin I High Sens 3.1 (0-20) pg/ml Total Protein 8.2 (6.0-8.3) gm/dl Albumin 4.8 (3.4-5.0) gm/dl Globulin 3.4 (2.5-4.0) gm/dl Albumin/Globulin Ratio 1.4 (0.9-2) Lipase 28 (11-82) U/L 06/24/22 06/24/22 Range/Units 12:30 12:34 WBC (4.8-10.8) K/ul RBC (4.63-6.08) M/uL Hgb (14.0-18.0) g/dl POC Hgb 15.3 (14.0-18.0) g/dl Hct (40.1-51.0) % POC Hct 45 (42-52) % MCV (80.0-100.0) fL MCH (25.0-34.0) pg MCHC (32.0-36.0) g/dL RDW Std Deviation (36.4-46.3) fL RDW Coeff of Gonzalez (11.5-14.5) % Plt Count (130-400) K/uL MPV (9.4-12.4) fL Immature Gran % (Auto) % Neut % (Auto) % Lymph % (Auto) % [place] % (Auto) % Eos % (Auto) % Baso % (Auto) % Neut # (Auto) (1.4-6.5) K/uL Lymph # (Auto) (1.2-3.4) K/uL [place] # (Auto) (0.24-0.82) K/uL Eos # (Auto) (0-0.50) K/uL Baso # (Auto) (0-0.2) K/uL Immature Gran # (Auto) (0.00-0.02) K/uL ESR 14 (0-15) mm/hr PT (9.0-12.0) Seconds INR (0.9-1.1) APTT (21.0-31.0) Seconds PTT Ratio D-Dimer (0-500) ug/L FEU POC Sodium 140 (135-144) mmol/L Sodium (136-145) mmol/L POC Potassium 3.5 (3.3-5.0) mmol/L Potassium (3.5-5.1) mmol/L POC Chloride 103 (101-112) mmol/L Chloride (98-107) mmol/L Carbon Dioxide (21-32) mmol/L POC Total CO2 24 (24-31) mmol/L Anion Gap (3-11) POC Anion Gap 18.0 (16-25) mmol/L POC BUN 13 (7-18) mg/dl BUN (6-23) mg/dl Creatinine (0.6-1.4) mg/dl POC Creatinine 1.1 (0.6-1.3) mg/dl Est Cr Clr Drug Dosing ml/min Est GFR ( Amer) ml/min Est GFR (Non-Af Amer) ml/min BUN/Creatinine Ratio (10-20) Glucose (70-99(Fasting)) mg/dl POC Glucose (other) 81 (70-99) mg/dl Calcium (8.5-10.1) mg/dl POC Ioniz Calcium Estela 1.13 (1.12-1.32) mmol/l Total Bilirubin (0.2-1.0) mg/dl AST (13-39) U/L ALT (7-52) U/L Alkaline Phosphatase (34-104) U/L Troponin I High Sens (0-20) pg/ml Total Protein (6.0-8.3) gm/dl Albumin (3.4-5.0) gm/dl Globulin (2.5-4.0) gm/dl Albumin/Globulin Ratio (0.9-2) Lipase (11-82) U/L Imaging Data Radiologist's Impression: Chest X-Ray 06/24/22 12:12 SINGLE VIEW CHEST CLINICAL HISTORY: Atypical chest pain FINDINGS: An AP, portable, upright chest radiograph is compared to chest x-ray and chest CT dated 08/04/2020. The cardiomediastinal silhouette is unremarkable. The lungs and pleural spaces are clear noting mild bibasilar atelectasis. No pneumothorax is seen. The bony thorax is grossly intact. IMPRESSION: No active disease in the chest. ACT 112: Negative or not required by law. Electronically signed by: Bacilio Thomas M.D. 06/24/2022 1:[address] 06/24/22 12:14 CT SCAN OF THE BRAIN WITHOUT IV CONTRAST CLINICAL HISTORY: Strokelike symptoms. COMPARISON STUDY: CT of the brain dated 09/13/2018. TECHNIQUE: Unenhanced axial CT scan of the brain is performed from the vertex to the skull base. A dose lowering technique was utilized adhering to the principles of ALARA. CT DOSE: 691.05 mGy.cm FINDINGS: Brain parenchyma: The brain parenchyma is normal in appearance. There is no hemorrhage, mass effect, or evidence of acute territorial ischemia by CT criteria. Shea-white matter differentiation is preserved. No extra-axial fluid collection is seen. Ventricles, sulci, cisterns: Normal in configuration. Intracranial vasculature: The visualized intracranial vasculature at the skull base is normal in appearance. Calvarium: Unremarkable. Sinuses and mastoids: There is mild mucosal thickening within the maxillary antra. The remaining paranasal sinuses are clear. The mastoid air cells are well pneumatized. Orbits: The bony orbits are grossly intact. IMPRESSION: There is no hemorrhage, mass effect, or evidence of acute territorial ischemia by CT criteria. ACT 112: Negative or not required by law. Electronically signed by: Bacilio Thomas M.D. 06/24/2022 12:26 PM Head CTA 06/24/22 12:34 CT ANGIOGRAM OF THE BRAIN; CT ANGIOGRAM OF THE NECK CLINICAL HISTORY: Strokelike symptoms. COMPARISON STUDY: Unenhanced CT of the brain performed earlier the same day 06/24/2022. Thyroid ultrasound dated 08/11/2020. TECHNIQUE: Following the IV administration of 120 of Optiray 320, CT angiogram of the head and neck was performed from the aortic arch to the vertex. Images are reviewed in the axial, sagittal, and coronal planes. 3-D MIPS images are created and assessed. IV contrast was administered without complication. All measurements were calculated based on NASCET criteria. A dose lowering technique was utilized adhering to the principles of ALARA. CT DOSE: 687.41 mGy.cm FINDINGS: Brain parenchyma: The brain parenchyma is normal in appearance. There is no evidence of hemorrhage, mass effect, or acute territorial ischemia noting angiographic phase technique. There is no evidence of enhancing mass lesion on the angiogram phase images. The ventricles, sulci, and cisterns are normal in configuration. Shea-white matter differentiation is preserved. No extra-axial fluid collection is seen. Thoracic aorta: Visualized portions of the thoracic aorta are normal in caliber. The aortic arch demonstrates standard 3-vessel anatomy. Right carotid arterial system: The right common carotid artery is widely patent, as are the right internal and external carotid arteries. Left carotid arterial system: The left common carotid artery is widely patent, as are the left internal and external carotid arteries. Vertebral arteries: The vertebral arteries are widely patent bilaterally and codominant. Subclavian arteries: Widely patent bilaterally. Intracranial vasculature: The internal carotid arteries are patent at the skull base, as are the anterior and middle cerebral arteries bilaterally. The vertebrobasilar system and posterior cerebral arteries are widely patent. The vertebral arteries are codominant. There is origin of the right posterior cerebral artery. There is no aneurysm, high-grade stenosis, or focal vessel cut off seen throughout the intracranial circulation. Jugular veins: Patent bilaterally. Dural sinuses: Patent. Lung apices: Partially visualized upper lobe lung parenchyma appears clear. Soft tissues: The visualized pharyngeal soft tissues are normal in appearance noting angiographic phase technique. The oropharyngeal airway appears widely patent. The thyroid gland is heterogeneous. A 12 mm low-attenuation nodule is seen in the left lobe. The salivary glands are normal in appearance. No cervical lymphadenopathy is seen. Skeletal structures: The calvarium appears intact. The cervical spine is within normal limits. Orbits: The bony orbits are intact. Orbital contents are normal as visualized. Sinuses and mastoids: There is mild mucosal thickening within the maxillary antra. The remaining paranasal sinuses are clear. The mastoid air cells are well pneumatized. IMPRESSION: 1. There is no evidence of hemorrhage, mass effect, or acute territorial ischemia noting angiographic phase technique. 2. Unremarkable CT angiogram of the brain. 3. Unremarkable CT angiogram of the neck. 4. There is a 12 mm low-attenuation nodule in the left lobe of the thyroid. This was not clearly seen on the 08/11/2020 thyroid ultrasound, and a nonemergent/outpatient repeat thyroid ultrasound is recommended in follow-up. ACT 112: Negative or not required by law. Electronically signed by: Bacilio Thomas M.D. 06/24/2022 1:22 PM Neck CTA 06/24/22 12:34 CT ANGIOGRAM OF THE BRAIN; CT ANGIOGRAM OF THE NECK CLINICAL HISTORY: Strokelike symptoms. COMPARISON STUDY: Unenhanced CT of the brain performed earlier the same day 06/24/2022. Thyroid ultrasound dated 08/11/2020. TECHNIQUE: Following the IV administration of 120 of Optiray 320, CT angiogram of the head and neck was performed from the aortic arch to the vertex. Images are reviewed in the axial, sagittal, and coronal planes. 3-D MIPS images are created and assessed. IV contrast was administered without complication. All measurements were calculated based on NASCET criteria. A dose lowering technique was utilized adhering to the principles of ALARA. CT DOSE: 687.41 mGy.cm FINDINGS: Brain parenchyma: The brain parenchyma is normal in appearance. There is no evidence of hemorrhage, mass effect, or acute territorial ischemia noting a ngiographic phase technique. There is no evidence of enhancing mass lesion on the angiogram phase images. The ventricles, sulci, and cisterns are normal in configuration. Shea-white matter differentiation is preserved. No extra-axial fluid collection is seen. Thoracic aorta: Visualized portions of the thoracic aorta are normal in caliber. The aortic arch demonstrates standard 3-vessel anatomy. Right carotid arterial system: The right common carotid artery is widely patent, as are the right internal and external carotid arteries. Left carotid arterial system: The left common carotid artery is widely patent, as are the left internal and external carotid arteries. Vertebral arteries: The vertebral arteries are widely patent bilaterally and codominant. Subclavian arteries: Widely patent bilaterally. Intracranial vasculature: The internal carotid arteries are patent at the skull base, as are the anterior and middle cerebral arteries bilaterally. The vertebrobasilar system and posterior cerebral arteries are widely patent. The vertebral arteries are codominant. There is origin of the right posterior cerebral artery. There is no aneurysm, high-grade stenosis, or focal vessel cut off seen throughout the intracranial circulation. Jugular veins: Patent bilaterally. Dural sinuses: Patent. Lung apices: Partially visualized upper lobe lung parenchyma appears clear. Soft tissues: The visualized pharyngeal soft tissues are normal in appearance noting angiographic phase technique. The oropharyngeal airway appears widely patent. The thyroid gland is heterogeneous. A 12 mm low-attenuation nodule is seen in the left lobe. The salivary glands are normal in appearance. No cervical lymphadenopathy is seen. Skeletal structures: The calvarium appears intact. The cervical spine is within normal limits. Orbits: The bony orbits are intact. Orbital contents are normal as visualized. Sinuses and mastoids: There is mild mucosal thickening within the maxillary antra. The remaining paranasal sinuses are clear. The mastoid air cells are well pneumatized. IMPRESSION: 1. There is no evidence of hemorrhage, mass effect, or acute territorial ischemia noting angiographic phase technique. 2. Unremarkable CT angiogram of the brain. 3. Unremarkable CT angiogram of the neck. 4. There is a 12 mm low-attenuation nodule in the left lobe of the thyroid. This was not clearly seen on the 08/11/2020 thyroid ultrasound, and a nonemergent/outpatient repeat thyroid ultrasound is recommended in follow-up. ACT 112: Negative or not required by law. Electronically signed by: Bacilio Thomas M.D. 06/24/2022 1:22 PM ECG Data Attestation: I personally reviewed and interpreted this ECG as follows: Additional Comments: Twelve-lead EKG: Per my interpretation shows a sinus rhythm at a rate of 80 with a PVC. No ST elevation. Normal QTC. MDM Narrative 42-year-old male presents with some paresthesias in his left upper extremity with some subjective sensory decrease in the left arm and left leg. He also reports history of paroxysmal A. fib for which she does not take medication. He also has a history of hypothyroidism and hypertension for which she also does not take medication. He only sees his doctor on an occasional basis. The patient was told the results of the test. He was made a stroke alert. I did speak with stroke neurology. They recommended a baby aspirin daily otherwise MRI, sed rate and YANELIS. Also recommended local neurology follow-up and evaluation tomorrow. The patient be seen by the hospitalist for further inpatient evaluation and care. Impression & Plan Arm paresthesia, left, Change in vision Discharge Plan Visit Data Chief Complaint: Stroke/CVA Symptoms Stated Complaint: TROUBLE BREATHING,CHEST PAIN,NUMBNESS IN ARMS ED Provider: Ubaldo Antonio Discharge Problem: Arm paresthesia, left, Change in vision Patient Disposition: Being Evaluated by Hospitalist Forms Stand Alone Forms: My [facility] [employer] Prescriptions Prescriptions: No Action No Known Home Medications Referrals Referrals: Santiago Green MD [Primary Care Provider] -
[2022-06-24 14:36] LABS: Thyroid Stimulating Hormone 8.729 uIu/ml (0.300-4.500)
[2022-06-24 16:27] LABS: T4 Free Thyroxine 0.49 ng/dl (0.61-1.60)
[2022-06-24] MEDS ORDERED: GADOBUTROL 30ML VIAL IV ONE (16:35)
--- NOTE | 2022-06-24 16:49 | Magnetic Resonance Report ---
MRI OF THE BRAIN COMBO CLINICAL HISTORY: Strokelike symptoms. Left-sided paresthesias. COMPARISON STUDY: CT of the brain dated 06/24/2022. TECHNIQUE: MRI of the brain was performed utilizing various T1 and T2-weighted sequences in the axial , sagittal, and coronal planes. Contrast-enhanced sequences were acquired following the administratio n of 11.5 cc of Gadavist. FINDINGS: Brain parenchyma: The brain parenchyma is normal in appearance. There is no hemorrhage or mass effect . There is no restricted diffusion to suggest acute ischemia. No enhancing mass lesion is identified on the postcontrast images. Shea-white matter differentiation is preserved. No extra-axial fluid sierra ection is seen. The cerebellar tonsils are normal in configuration. Ventricles, sulci, and cisterns: Normal in configuration. Pituitary and sella: Unremarkable. Intracranial vasculature: Normal flow voids are maintained at the skull base. Orbits: The bony orbits are grossly intact. Orbital contents are normal in appearance. Sinuses and mastoids: There is mild mucosal thickening within the maxillary antra. The remaining para nasal sinuses and the mastoid air cells are clear. Calvarium: Unremarkable. Cervical cord: Partially visualized cervical spinal cord is normal in morphology and signal intensity . IMPRESSION: No acute intracranial abnormality. ACT 112: Negative or not required by law. Electronically signed by: Bacilio Thomas M.D. 06/24/2022 4:47 PM
[2022-06-24] MEDS ORDERED: PHARMACIST DISCHARGE MED REC CONSULT PRN (18:44)
[2022-06-24] MEDS ORDERED: ACETAMINOPHEN 325 MG TAB PO PRN (18:44)
[2022-06-24] MEDS ORDERED: carvediloL 3.125 MG TAB PO ONE (18:44)
[2022-06-24] MEDS ORDERED: ONDANSETRON INJ 2 MG/ML 2 ML VIAL IV PRN (18:44)
--- NOTE | 2022-06-24 19:13 | Magnetic Resonance Report ---
MRI OF THE CERVICAL SPINE COMBO CLINICAL HISTORY: Left-sided paresthesias. COMPARISON STUDY: CT angiogram of the neck performed the same day 06/24/2022. TECHNIQUE: MRI of the cervical spine is performed utilizing various T1 and T2-weighted sequences in t he axial and sagittal planes. Contrast-enhanced sequences were acquired following the IV administrati on of 11.5 cc of Gadavist. FINDINGS: Cervical spine: Vertebral body height and alignment are maintained throughout the cervical spine. Nor mal marrow signal intensity is maintained throughout the visualized bony structures. There is straigh tening of cervical lordosis. The atlantodens articulation is maintained. Small anterior osteophytes a re seen throughout. The spinous processes appear intact. No destructive bony lesion is seen. Intervertebral discs: There is mild degenerative disc desiccation. The disc spaces are preserved. Spinal cord: The cervical cord is normal in morphology and signal intensity. No abnormal postcontrast enhancement is identified. C2-C3: Unremarkable. C3-C4: Unremarkable. C4-C5: Unremarkable. C5-C6: There is minimal posterior disc bulge. The central canal and neural foramina are patent. C6-C7: There is posterior disc protrusion eccentric to the right. This effaces the ventral subarachno id space. There is no significant acquired compromise of the central canal. The neural foramina are p atent. C7-T1: Unremarkable. T1-T2: Unremarkable. Soft tissues: The prevertebral and paraspinous soft tissues are normal as imaged. Brain parenchyma: The visualized brain parenchyma at the skull base is normal in appearance. Mild muc osal thickening is noted in the maxillary antra. IMPRESSION: 1. The cervical cord is normal in morphology and signal intensity with no abnormal postcontrast enhan cement identified. 2. Moderate degenerative disc disease in the lower cervical region as above. There is no significant compromise of the central canal or high-grade neural foraminal stenosis. See discussion for detailed level by level analysis. 3. No destructive bony process is identified. Dictated: 06/24/2022 4:56 PM Transcribed: 06/24/2022 5:18 PM [facility] [id number] [email or web address] Electronically signed by: Bacilio Thomas M.D. 06/24/2022 7:11 PM
[2022-06-24 21:41] LABS: Lyme Ab IgG w/WB Rflx Negative (Negative); Lyme Ab IgM w/WB Rflx Negative (Negative)
[2022-06-25 07:33] LABS: Basophils # (auto) 0.04 K/uL (0-0.2); Basophils % (auto) 0.5 %; Eosinophils # (auto) 0.31 K/uL (0-0.50); Eosinophils % (auto) 3.7 %; Hematocrit (blood only) 41.1 % (40.1-51.0); Hemoglobin 14.2 g/dl (14.0-18.0); Immature Granulocytes # (auto) 0.03 K/uL (0.00-0.02); Immature Granulocytes % (auto) 0.4 %; Lymphocytes # (auto) 1.72 K/uL (1.2-3.4); Lymphocytes % (auto) 20.3 %; Mean Corpuscular Hemoglobin 30.3 pg (25.0-34.0); Mean Corpuscular Hgb Conc 34.5 g/dL (32.0-36.0); Mean Corpuscular Volume 87.6 fL (80.0-100.0); Mean Platelet Volume 8.8 fL (9.4-12.4); Monocytes # (auto) 0.65 K/uL (0.24-0.82); Monocytes % (auto) 7.7 %; Neutrophils # (auto) 5.73 K/uL (1.4-6.5); Neutrophils % (auto) 67.4 %; Platelet Count 240 K/uL (130-400); RDW Coefficient of Variation 12.8 % (11.5-14.5); RDW Standard Deviation 40.8 fL (36.4-46.3); Red Blood Count 4.69 M/uL (4.63-6.08); White Blood Count 8.48 K/ul (4.8-10.8)
[2022-06-25 08:00] LABS: BUN Creatinine Ratio 15.1 (10-20); Calcium 8.9 mg/dl (8.5-10.1); Chol HDL Ratio 4.7 (0-5); Creatinine Clr Calc Pharmacy 128.3 ml/min; Est GFR (African American) 123.1 ml/min; Est GFR (Non-African American) 106.2 ml/min; Potassium 3.9 mmol/L (3.5-5.1)
[2022-06-25] MEDS ORDERED: ASPIRIN 81 MG ECTAB PO SCH (09:00)
[2022-06-25] MEDS: ATORVASTATIN 40 MG TAB PO SCH ×2 (09:37→15:21)
[2022-06-25] MEDS: carvediloL 3.125 MG TAB PO SCH ×2 (09:38→15:21)
--- NOTE | 2022-06-25 10:13 | XCELERA ---
[id number] \\[id number]
--- NOTE | 2022-06-25 12:41 | Neurology Consultation ---
Date of Consultation June 25, 2022 Assessment & Plan (1) Complicated migraine: Impression: The patient had left visual field blurriness, cloudiness, with wavy lines, then began experiencing left arm paresthesia/numbness, with later onset left leg paresthesia and numbness yesterday morning. Symptoms have been resolved even though the patient still has mild to moderate unilateral headache, nausea, some dizziness, and left arm numbness with paresthesia. Imaging studies did not show acute/chronic cerebrovascular accident or demyelinating disorder. Based on prolonged neurological symptoms with negative MRI studies, cerebrovascular accident or TIA is unlikely. Even though the patient has no established diagnosis of migraines, but he describes occasional headaches, with light sensitivity and nausea, suggestive of migraine headaches. The current event can be due to complicated/complex migraine based on ruling out other neurological potential disorders. The patient does not get frequent headaches. Plan/recommendations: The patient is not a candidate for triptans because of complicated migraine. There is no indication for preventive treatment based on occasional symptoms. He will use Excedrin Migraine 2 to 3 tablets in the early-phase of similar symptoms for abortive treatment.. However, if he experiences any new neurological symptoms, then he will return back to emergency department as he has high risk for cerebrovascular accident. There is no indication for antiplatelet or anticoagulation treatment at this time because of the patient's history of von Willebrand disorder, which will increase hemorrhagic complications. The patient is neurologically stable to discharge home. We do recommend medical excuse from work for 3 days. The patient should be followed by neurology clinic. I will contact with [facility] neurology clinic, to set up a follow-up appointment. (2) Arm paresthesia, left: Impression: Based on history, the likely explanation of the left arm paresthesia is complicated migraine. However, carpal tunnel syndrome might be exacerbated after carrying heavy objects as the patient did couple days ago. Plan/recommendations: Follow-up with neurology clinic. (3) Change in vision: Impression: As seen above. (4) YINA (obstructive sleep apnea): (5) Paroxysmal atrial fibrillation: Impression: The patient has long history of paroxysmal atrial fibrillation but he does not feel that he has had any fibrillation for last few years. Plan and recommendations: Cardiology evaluation and recommendations. (6) Congenital von Willebrand's disease type I: Impression: The patient has hemorrhagic diathesis based on having hereditary von Willebrand disease. Hematology recommended stopping antiplatelet treatment after ruling out TIA/CVA. Plan and recommendations: At this time, we do not have radiologic evidence of a TIA/CVA. Presentation is not typical for such symptoms either. We can stop the aspirin. Plan Thank you for the consultation. History of Present Illness Reason for Consultation: Left arm and leg paresthesia with visual disturbance and headache Requesting Physician: Judy Carlisle MD Attending Physician: Lon Block History of Present Illness The patient is a 42-year-old very pleasant gentleman, who presented to the emergency department with complaints of left arm and leg numbness with paresthesia. He also mentioned left eye visual disturbance. Apparently, the day before yesterday evening, he noticed wavy lines, cloudiness in left visual f ield vs left eye. When he woke up yesterday around 4 AM, he noticed that left arm was tingly, numb, and feeling cold. He was also feeling some dizziness. He presented emergency department around noontime, and while he was in the emergency department, he noticed the same tingling sensation and numbness involving the left leg. The patient described some palpitations. Apparently, he has history of paroxysmal atrial fibrillation, but he has not had any fibrillation for last 2 years as he reported. EKG showed frequent PVCs. Even though the patient did not report headache initially, but apparently, he has been having mild to moderate, mostly left-sided headache since yesterday morning. He denies having diagnosis of migraine, but apparently, has been having occasional headaches, which might cause nausea and light sensitivity. He has not had any visual aura or additional associated neurological symptoms with headache attacks before. Last Saturday, the patient carried heavy objects in her house. Other than that, he denies any unusual physical activity or stressors. He denies having sleep deprivation or any other job-related changes. With his headache, he also noticed some nausea since yesterday. His visual symptoms were resolved yesterday, and he has left leg numbness improved back to normal around midnight. His left arm numbness and cold feeling has been improved significantly, but he still has decreased sensation of the left arm with some tingly sensation. The patient has von Willebrand type I disease, which increases risk of bleeding. After having neurological symptoms, the case discussed with hematology, and the patient was started on aspirin. He has not been on anticoagulation for paroxysmal atrial fibrillation because of low [id number] score. The patient was seen by cardiology and they recommended starting on beta-josué because of frequent PVCs. In emergency department, the patient had a head CT, CT angiogram of head and neck, which were all unremarkable. The patient was admitted to hospital for stroke work-up, and brain MRI was done, which did not show any acute or chronic pathology including cerebrovascular accidents. The case was discussed with teleneurology and they recommended additional cervical spine MRI with and without contrast to rule out demyelinating disorder. This study was completed today, which did not show any cord compression, myelopathy, demyelinating plaques, or significant neuroforaminal narrowings. Echocardiogram was unremarkable. I have reviewed the patient's chart including imaging studies and visualized th em personally. I have discussed the case with the patient and the patient's and I have answered their questions in detail. Allergies Allergy/AdvReac Type Severity Reaction Status Date / Time house dust mite Allergy Intermediate Congested Verified 04/25/22 09:25 pollen extracts Allergy Intermediate Congested Verified 04/25/22 09:25 ragweed pollen Allergy Intermediate Congested Verified 04/25/22 09:25 tree and shrub pollen Allergy Intermediate Congested Verified 04/25/22 09:25 cat dander Allergy Mild Sneezing Verified 04/25/22 09:25 morphine AdvReac Intermediate Hallucinati Verified 04/25/22 09:25 ng Home Medications Medication Instructions Recorded Confirmed Type Synthroid 25 mcg tablet 25 mcg PO DAILY #30 tabs 06/24/22 Rx (levothyroxine) acetaminophen 500 mg tablet 1,000 mg PO Q6H PRN Pain 06/24/22 06/24/22 History (Tylenol Extra Strength) ascorbic acid (vitamin C) 500 mg 500 mg PO DAILY 06/24/22 06/24/22 History tablet (Vitamin C) multivitamin 1 tab PO DAILY 06/24/22 06/24/22 History Patient History Medical History Anxiety Congenital von Willebrand's disease type I Degenerative disc disease Diverticulitis currently Frequent PVCs History of COVID-19 07/2021, test med [facility] because of thanksgiving get together, 2 weeks later, sent to er to see if he had blood clots and instead had a sinus infection.>resolved. Hx of sleep apnea "MILD" YINA "NO LONGER AN ISSUE" S/P TONSILLECTOMY Kidney stones hx YINA (obstructive sleep apnea) Mild Paroxysmal atrial fibrillation Paroxysmal atrial fibrillation with rapid ventricular response "no current medications, was previously medicated for it and then was taken off the meds" Thyroid disease Thyroid nodule Surgical History History of cystoscopy STENT PLACEMENT DECEMBER 2018 History of tooth extraction WISDOM TEETH Hx of colonoscopy Hx of tonsillectomy 09/12/18= GRADE VIEW 2, MAC 4 AT [facility] Hx of vasectomy Family History Family/Other Coronary heart disease Mother Hyperthyroidism Grandfather Heart disease Social History Smoking Status: Never smoker Tobacco Type: Smokeless Tobacco (Dip or Chew) Cigarettes Per Day: 0; Second Hand Exposure: No; Hx Alcohol Use: Yes Hx Substance Use: No Preferred Language: Croatian Communication Ability: Effective Visual Impairment: No Limitations 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 Thread Required: No Beliefs That Will Affect Care: None marital status: Current Living Situation: Spouse and Family Current Living Situation Comment: Lives with and 2 kids current occupational status: employed 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 HENT: Normal exam with inspection. CV: Hearth rhythm is regular. Neck: Supple, no carotid bruits. Lungs: Non-labored and comfortable breathing. Abdomen: Soft, non-tender, non-distended. Skin: No rash or ecchymosis. Extremities: No edema or cyanosis NEUROLOGICAL EXAMINATION: Mental Status: Alert and oriented to place, person and time. Cranial Nerves: II-XII are intact. No nystagmus. Funduscopy: Normal looking optic discs. Motor: 5/5 in all extremities without asymmetry. Tone: Normal without spasticity or rigidity. Sensory: Intact to all sensory modalities except decreased temperature, light touch and pinprick sensation in left arm more so distally. DTRs: 2+ all. No Babinski Coordination: No dysmetria with FTN testing. Speech: Fluent. Comprehension is intact. Gait: Normal. No ataxia or abnormal walking pattern. Musculoskeletal: Normal muscle bulk, no atrophy. Results & Data ([facility]) Vital Signs (Past 12 Hours) Vital Signs Temp Pulse Resp BP Pulse Ox Pulse Ox O2 Del Method 06/25/22 11:40 96 06/25/22 07:41 36.9 C 70 18 115/80 94 Room Air 06/25/22 03:04 37.0 C 72 16 120/76 98 Room Air O2 Flow Rate 06/25/22 11:40 0 06/25/22 07:41 06/25/22 03:04 Laboratory Results Laboratory Results - last 24 hr 06/24/22 06/24/22 06/24/22 12:28 12:28 12:28 WBC RBC Hgb Hct MCV MCH MCHC RDW Std Deviation RDW Coeff of Gonzalez Plt Count MPV Immature Gran % (Auto) Neut % (Auto) Lymph % (Auto) Placer % (Auto) Eos % (Auto) Baso % (Auto) Neut # (Auto) Lymph # (Auto) Placer # (Auto) Eos # (Auto) Baso # (Auto) Immature Gran # (Auto) ESR PT 10.5 INR 1.0 APTT 32.9 H PTT Ratio 1.2 D-Dimer < 190 Sodium 139 Potassium 3.8 Chloride 104 Carbon Dioxide 24 Anion Gap 11 BUN 13 Creatinine 1.13 Est Cr Clr Drug Dosing 108.2 Est GFR ( Amer) 91.8 Est GFR (Non-Af Amer) 79.2 BUN/Creatinine Ratio 11.5 Glucose 75 Estimat Average Glucose Hemoglobin A1c Calcium 9.7 Total Bilirubin 0.5 AST 16 ALT 24 Alkaline Phosphatase 56 Troponin I High Sens 3.1 Total Protein 8.2 Albumin 4.8 Globulin 3.4 Albumin/Globulin Ratio 1.4 Triglycerides Cholesterol LDL Cholesterol, Calc VLDL Cholesterol, Calc HDL Cholesterol Cholesterol/HDL Ratio Lipase 28 TSH 8.729 H Free T4 0.49 L YANELIS Screen Lyme Disease IgG Ab Lyme Disease IgM Ab SARS-CoV-2, RNA, NAAT 06/24/22 06/24/22 06/24/22 12:30 12:30 12:30 WBC RBC Hgb Hct MCV MCH MCHC RDW Std Deviation RDW Coeff of Gonzalez Plt Count MPV Immature Gran % (Auto) Neut % (Auto) Lymph % (Auto) Placer % (Auto) Eos % (Auto) Baso % (Auto) Neut # (Auto) Lymph # (Auto) Placer # (Auto) Eos # (Auto) Baso # (Auto) Immature Gran # (Auto) ESR 14 PT INR APTT PTT Ratio D-Dimer Sodium Potassium Chloride Carbon Dioxide Anion Gap BUN Creatinine Est Cr Clr Drug Dosing Est GFR ( Amer) Est GFR (Non-Af Amer) BUN/Creatinine Ratio Glucose Estimat Average Glucose Hemoglobin A1c Calcium Total Bilirubin AST ALT Alkaline Phosphatase Troponin I High Sens Total Protein Albumin Globulin Albumin/Globulin Ratio Triglycerides Cholesterol LDL Cholesterol, Calc VLDL Cholesterol, Calc HDL Cholesterol Cholesterol/HDL Ratio Lipase TSH Free T4 YANELIS Screen Pending Lyme Disease IgG Ab Negative Lyme Disease IgM Ab Negative SARS-CoV-2, RNA, NAAT 06/24/22 06/24/22 06/25/22 15:31 19:07 06:43 WBC 8.48 RBC 4.69 Hgb 14.2 Hct 41.1 MCV 87.6 MCH 30.3 MCHC 34.5 RDW Std Deviation 40.8 RDW Coeff of Gonzalez 12.8 Plt Count 240 MPV 8.8 L Immature Gran % (Auto) 0.4 Neut % (Auto) 67.4 Lymph % (Auto) 20.3 Placer % (Auto) 7.7 Eos % (Auto) 3.7 Baso % (Auto) 0.5 Neut # (Auto) 5.73 Lymph # (Auto) 1.72 Placer # (Auto) 0.65 Eos # (Auto) 0.31 Baso # (Auto) 0.04 Immature Gran # (Auto) 0.03 H ESR PT INR APTT PTT Ratio D-Dimer Sodium Potassium Chloride Carbon Dioxide Anion Gap BUN Creatinine Est Cr Clr Drug Dosing Est GFR ( Amer) Est GFR (Non-Af Amer) BUN/Creatinine Ratio Glucose Estimat Average Glucose Hemoglobin A1c Calcium Total Bilirubin AST ALT Alkaline Phosphatase Troponin I High Sens 4.3 Total Protein Albumin Globulin Albumin/Globulin Ratio Triglycerides Cholesterol LDL Cholesterol, Calc VLDL Cholesterol, Calc HDL Cholesterol Cholesterol/HDL Ratio Lipase TSH Free T4 YANELIS Screen Lyme Disease IgG Ab Lyme Disease IgM Ab SARS-CoV-2, RNA, NAAT NEGATIVE 06/25/22 06/25/22 06:43 06:43 WBC RBC Hgb Hct MCV MCH MCHC RDW Std Deviation RDW Coeff of Gonzalez Plt Count MPV Immature Gran % (Auto) Neut % (Auto) Lymph % (Auto) Placer % (Auto) Eos % (Auto) Baso % (Auto) Neut # (Auto) Lymph # (Auto) Placer # (Auto) Eos # (Auto) Baso # (Auto) Immature Gran # (Auto) ESR PT INR APTT PTT Ratio D-Dimer Sodium 137 Potassium 3.9 Chloride 105 Carbon Dioxide 24 Anion Gap 8 BUN 13 Creatinine 0.86 Est Cr Clr Drug Dosing 128.3 Est GFR ( Amer) 123.1 Est GFR (Non-Af Amer) 106.2 BUN/Creatinine Ratio 15.1 Glucose 90 Estimat Average Glucose 114 Hemoglobin A1c 5.6 Calcium 8.9 Total Bilirubin AST ALT Alkaline Phosphatase Troponin I High Sens Total Protein Albumin Globulin Albumin/Globulin Ratio Triglycerides 254 H Cholesterol 168 LDL Cholesterol, Calc 81 VLDL Cholesterol, Calc 51 H HDL Cholesterol 36 Cholesterol/HDL Ratio 4.7 Lipase TSH Free T4 YANELIS Screen Lyme Disease IgG Ab Lyme Disease IgM Ab SARS-CoV-2, RNA, NAAT Diagnostic Findings Chest X-Ray 06/24/22 12:12 SINGLE VIEW CHEST CLINICAL HISTORY: Atypical chest pain FINDINGS: An AP, portable, upright chest radiograph is compared to chest x-ray and chest CT dated 08/04/2020. The cardiomediastinal silhouette is unremarkable. The lungs and pleural spaces are clear noting mild bibasilar atelectasis. No pneumothorax is seen. The bony thorax is grossly intact. IMPRESSION: No active disease in the chest. ACT 112: Negative or not required by law. Electronically signed by: Bacilio Thomas M.D. 06/24/2022 1:[address] 06/24/22 12:14 CT SCAN OF THE BRAIN WITHOUT IV CONTRAST CLINICAL HISTORY: Strokelike symptoms. COMPARISON STUDY: CT of the brain dated 09/13/2018. TECHNIQUE: Unenhanced axial CT scan of the brain is performed from the vertex to the skull base. A dose lowering technique was utilized adhering to the principles of ALARA. CT DOSE: 691.05 mGy.cm FINDINGS: Brain parenchyma: The brain parenchyma is normal in appearance. There is no hemorrhage, mass effect, or evidence of acute territorial ischemia by CT criteria. Shea-white matter differentiation is preserved. No extra-axial fluid collection is seen. Ventricles, sulci, cisterns: Normal in configuration. Intracranial vasculature: The visualized intracranial vasculature at the skull base is normal in appearance. Calvarium: Unremarkable. Sinuses and mastoids: There is mild mucosal thickening within the maxillary antra. The remaining paranasal sinuses are clear. The mastoid air cells are well pneumatized. Orbits: The bony orbits are grossly intact. IMPRESSION: There is no hemorrhage, mass effect, or evidence of acute territorial ischemia by CT criteria. ACT 112: Negative or not required by law. Electronically signed by: Bacilio Thomas M.D. 06/24/2022 12:26 PM Head CTA 06/24/22 12:34 CT ANGIOGRAM OF THE BRAIN; CT ANGIOGRAM OF THE NECK CLINICAL HISTORY: Strokelike symptoms. COMPARISON STUDY: Unenhanced CT of the brain performed earlier the same day 06/24/2022. Thyroid ultrasound dated 08/11/2020. TECHNIQUE: Following the IV administration of 120 of Optiray 320, CT angiogram of the head and neck was performed from the aortic arch to the vertex. Images are reviewed in the axial, sagittal, and coronal planes. 3-D MIPS images are c reated and assessed. IV contrast was administered without complication. All measurements were calculated based on NASCET criteria. A dose lowering technique was utilized adhering to the principles of ALARA. CT DOSE: 687.41 mGy.cm FINDINGS: Brain parenchyma: The brain parenchyma is normal in appearance. There is no evidence of hemorrhage, mass effect, or acute territorial ischemia noting ang iographic phase technique. There is no evidence of enhancing mass lesion on the angiogram phase images. The ventricles, sulci, and cisterns are normal in configuration. Shea-white matter differentiation is preserved. No extra-axial fluid collection is seen. Thoracic aorta: Visualized portions of the thoracic aorta are normal in caliber. The aortic arch demonstrates standard 3-vessel anatomy. Right carotid arterial system: The right common carotid artery is widely patent, as are the right internal and external carotid arteries. Left carotid arterial system: The left common carotid artery is widely patent, as are the left internal and external carotid arteries. Vertebral arteries: The vertebral arteries are widely patent bilaterally and codominant. Subclavian arteries: Widely patent bilaterally. Intracranial vasculature: The internal carotid arteries are patent at the skull base, as are the anterior and middle cerebral arteries bilaterally. The vertebrobasilar system and posterior cerebral arteries are widely patent. The vertebral arteries are codominant. There is origin of the right posterior cerebral artery. There is no aneurysm, high-grade stenosis, or focal vessel cut off seen throughout the intracranial circulation. Jugular veins: Patent bilaterally. Dural sinuses: Patent. Lung apices: Partially visualized upper lobe lung parenchyma appears clear. Soft tissues: The visualized pharyngeal soft tissues are normal in appearance noting angiographic phase technique. The oropharyngeal airway appears widely patent. The thyroid gland is heterogeneous. A 12 mm low-attenuation nodule is seen in the left lobe. The salivary glands are normal in appearance. No cervical lymphadenopathy is seen. Skeletal structures: The calvarium appears intact. The cervical spine is within normal limits. Orbits: The bony orbits are intact. Orbital contents are normal as visualized. Sinuses and mastoids: There is mild mucosal thickening within the maxillary antra. The remaining paranasal sinuses are clear. The mastoid air cells are well pneumatized. IMPRESSION: 1. There is no evidence of hemorrhage, mass effect, or acute territorial ischemia noting angiographic phase technique. 2. Unremarkable CT angiogram of the brain. 3. Unremarkable CT angiogram of the neck. 4. There is a 12 mm low-attenuation nodule in the left lobe of the thyroid. This was not clearly seen on the 08/11/2020 thyroid ultrasound, and a nonemergent/outpatient repeat thyroid ultrasound is recommended in follow-up. ACT 112: Negative or not required by law. Electronically signed by: Bacilio Thomas M.D. 06/24/2022 1:22 PM Neck CTA 06/24/22 12:34 CT ANGIOGRAM OF THE BRAIN; CT ANGIOGRAM OF THE NECK CLINICAL HISTORY: Strokelike symptoms. COMPARISON STUDY: Unenhanced CT of the brain performed earlier the same day 06/24/2022. Thyroid ultrasound dated 08/11/2020. TECHNIQUE: Following the IV administration of 120 of Optiray 320, CT angiogram of the head and neck was performed from the aortic arch to the vertex. Images are reviewed in the axial, sagittal, and coronal planes. 3-D MIPS images are created and assessed. IV contrast was administered without complication. All measurements were calculated based on NASCET criteria. A dose lowering technique was utilized adhering to the principles of ALARA. CT DOSE: 687.41 mGy.cm FINDINGS: Brain parenchyma: The brain parenchyma is normal in appearance. There is no evidence of hemorrhage, mass effect, or acute territorial ischemia noting angiographic phase technique. There is no evidence of enhancing mass lesion on the angiogram phase images. The ventricles, sulci, and cisterns are normal in configuration. Shea-white matter differentiation is preserved. No extra-axial fluid collection is seen. Thoracic aorta: Visualized portions of the thoracic aorta are normal in caliber. The aortic arch demonstrates standard 3-vessel anatomy. Right carotid arterial system: The right common carotid artery is widely patent, as are the right internal and external carotid arteries. Left carotid arterial system: The left common carotid artery is widely patent, as are the left internal and external carotid arteries. Vertebral arteries: The vertebral arteries are widely patent bilaterally and codominant. Subclavian arteries: Widely patent bilaterally. Intracranial vasculature: The internal carotid arteries are patent at the skull base, as are the anterior and middle cerebral arteries bilaterally. The vertebrobasilar system and posterior cerebral arteries are widely patent. The vertebral arteries are codominant. There is origin of the right posterior cerebral artery. There is no aneurysm, high-grade stenosis, or focal vessel cut off seen throughout the intracranial circulation. Jugular veins: Patent bilaterally. Dural sinuses: Patent. Lung apices: Partially visualized upper lobe lung parenchyma appears clear. Soft tissues: The visualized pharyngeal soft tissues are normal in appearance noting angiographic phase technique. The oropharyngeal airway appears widely patent. The thyroid gland is heterogeneous. A 12 mm low-attenuation nodule is seen in the left lobe. The salivary glands are normal in appearance. No cervical lymphadenopathy is seen. Skeletal structures: The calvarium appears intact. The cervical spine is within normal limits. Orbits: The bony orbits are intact. Orbital contents are normal as visualized. Sinuses and mastoids: There is mild mucosal thickening within the maxillary antra. The remaining paranasal sinuses are clear. The mastoid air cells are well pneumatized. IMPRESSION: 1. There is no evidence of hemorrhage, mass effect, or acute territorial ischemia noting angiographic phase technique. 2. Unremarkable CT angiogram of the brain. 3. Unremarkable CT angiogram of the neck. 4. There is a 12 mm low-attenuation nodule in the left lobe of the thyroid. This was not clearly seen on the 08/11/2020 thyroid ultrasound, and a nonemergent/outpatient repeat thyroid ultrasound is recommended in follow-up. ACT 112: Negative or not required by law. Electronically signed by: Bacilio Thomas M.D. 06/24/2022 1:22 PM Brain MRI 06/24/22 14:22 MRI OF THE BRAIN COMBO CLINICAL HISTORY: Strokelike symptoms. Left-sided paresthesias. COMPARISON STUDY: CT of the brain dated 06/24/2022. TECHNIQUE: MRI of the brain was performed utilizing various T1 and T2-weighted sequences in the axial, sagittal, and coronal planes. Contrast-enhanced sequences were acquired following the administration of 11.5 cc of Gadavist. FINDINGS: Brain parenchyma: The brain parenchyma is normal in appearance. There is no hemorrhage or mass effect. There is no restricted diffusion to suggest acute ischemia. No enhancing mass lesion is identified on the postcontrast images. Shea-white matter differentiation is preserved. No extra-axial fluid collection is seen. The cerebellar tonsils are normal in configuration. Ventricles, sulci, and cisterns: Normal in configuration. Pituitary and sella: Unremarkable. Intracranial vasculature: Normal flow voids are maintained at the skull base. Orbits: The bony orbits are grossly intact. Orbital contents are normal in appearance. Sinuses and mastoids: There is mild mucosal thickening within the maxillary antra. The remaining paranasal sinuses and the mastoid air cells are clear. Calvarium: Unremarkable. Cervical cord: Partially visualized cervical spinal cord is normal in morphology and signal intensity. IMPRESSION: No acute intracranial abnormality. ACT 112: Negative or not required by law. Electronically signed by: Bacilio Thomas M.D. 06/24/2022 4:47 PM Cervical Spine MRI 06/24/22 14:27 MRI OF THE CERVICAL SPINE COMBO CLINICAL HISTORY: Left-sided paresthesias. COMPARISON STUDY: CT angiogram of the neck performed the same day 06/24/2022. TECHNIQUE: MRI of the cervical spine is performed utilizing various T1 and T2- weighted sequences in the axial and sagittal planes. Contrast-enhanced sequences were acquired following the IV administration of 11.5 cc of Gadavist. FINDINGS: Cervical spine: Vertebral body height and alignment are maintained throughout the cervical spine. Normal marrow signal intensity is maintained throughout the visualized bony structures. There is straightening of cervical lordosis. The atlantodens articulation is maintained. Small anterior osteophytes are seen throughout. The spinous processes appear intact. No destructive bony lesion is seen. Intervertebral discs: There is mild degenerative disc desiccation. The disc spaces are preserved. Spinal cord: The cervical cord is normal in morphology and signal intensity. No abnormal postcontrast enhancement is identified. C2-C3: Unremarkable. C3-C4: Unremarkable. C4-C5: Unremarkable. C5-C6: There is minimal posterior disc bulge. The central canal and neural foramina are patent. C6-C7: There is posterior disc protrusion eccentric to the right. This effaces the ventral subarachnoid space. There is no significant acquired compromise of the central canal. The neural foramina are patent. C7-T1: Unremarkable. T1-T2: Unremarkable. Soft tissues: The prevertebral and paraspinous soft tissues are normal as imaged. Brain parenchyma: The visualized brain parenchyma at the skull base is normal in appearance. Mild mucosal thickening is noted in the maxillary antra. IMPRESSION: 1. The cervical cord is normal in morphology and signal intensity with no abnormal postcontrast enhancement identified. 2. Moderate degenerative disc disease in the lower cervical region as above. There is no significant compromise of the central canal or high-grade neural foraminal stenosis. See discussion for detailed level by level analysis. 3. No destructive bony process is identified. Dictated: 06/24/2022 4:56 PM Transcribed: 06/24/2022 5:18 PM Afia [id number] RICKY_[email or web address] Electronically signed by: Bacilio Thomas M.D. 06/24/2022 7:11 PM
[2022-06-25 12:52] LABS: Estimated Average Glucose 114 mg/dl; Hemoglobin A1C 5.6 % (4.5-5.6)
[2022-06-25] MEDS ORDERED: STROKE PATIENT DISCHARGE STA (13:57)
--- NOTE | 2022-06-25 22:29 | Electrocardiogram Report ---
Test Reason : Blood Pressure : / mmHG Vent. Rate : 081 BPM Atrial Rate : 081 BPM P-R Int : 154 ms QRS Dur : 096 ms QT Int : 374 ms P-R-T Axes : 057 019 024 degrees QTc Int : 434 ms Poor data quality, interpretation may be adversely affected Sinus rhythm with occasional Premature ventricular complexes Otherwise normal ECG When compared with ECG of 04-AUG-2021 16:28, Premature ventricular complexes are now Present Confirmed by Jason Chung ([id number]) on 06/25/2022 10:29:29 PM Referred By: Confirmed By:Jason Chung
[2022-06-26 13:02] LABS: Anti Nuclear Antibody Screen NEGATIVE (NEGATIVE)
--- NOTE | 2022-07-02 14:00 | Discharge Summary ---
Date of Service June 25, 2022 Admission HPI Per Admitting Provider This patient is a 42-year-old male with a history of Suellen's thyroiditis, recurrent diverticulitis, paroxysmal atrial fibrillation not on anticoagulation, congenital von Willebrand's disease, who presents to the ER at 1310 with acute onset of left upper and lower extremity numbness and a sensation of coldness which started at 4 AM today as well as left eye blurry vision that came on yesterday and then went away and returned this morning. He also has a sensation at times of shortness of breath and chest pains but says that that is chronic. He denies weakness and is able to walk but sometimes feels like his left arm is weaker than usual. He reports he knows exactly every time he goes into atrial fibrillation because he feels a popping sensation in his neck and then feels a wave of fatigue. He has not had any episodes like this in a very long time possibly years, but does report currently feeling sharp shooting pains on the left arm that correlate with every PVC he has on the heart monitor. Denies any headache. A stroke alert was called on arrival. CT noncontrast head was negative, CT angiogram head and neck were negative, chest x-ray negative. CBC and CMP as well as troponin and D-dimer were negative. His ECG showed normal sinus rhythm without ischemia. A telestroke neuro consult was obtained and the neurologist did not think this was consistent with a stroke, and recommended YANELIS and ESR for further work-up as well as a brain MRI with and without contrast. The neurologist did recommend a baby aspirin but was going to consult with hematology at [place] to see if this was contraindicated in the setting of von Willebrand's disease. A routine neurology consultation with local neurologist was also recommended. A TSH was ordered and pending at the time of admission. COVID-19 test was negative. He will be admitted for further work-up for left-sided numbness and blurry vision. Principal Diagnosis complex migraine Discharge Exam Constitutional: WD/WN, vitals as above Eyes: PERRL, conjunctivae normal, anicteric sclerae normal visual leger by confrontation, + anicteric sclerae and normal accommodation; no nystagmus and no photophobia ENMT: external ear and nose normal, oropharynx normal Neck: trachea midline, no thyromegaly Respiratory: normal respiratory effort, lungs clear to auscultation Cardiovascular: RRR, no murmur, no edema Rate/Rhythm: regular rhythm (With occasional ectopy) Chest (Breasts): Chest: normal inspection of chest Gastrointestinal (Abdomen): Inspection/Auscultation: abdomen normal to inspection and normal bowel sounds; abdomen not distended Percussion/Palpation: + abdomen tender (Mild in LLQ without guarding or rebound) and abdomen soft Musculoskeletal: Extremities: extremities normal to inspection; no cyanosis and no clubbing Skin: no rashes, warm and dry Neurologic: PERRL, EOMI, accommodation nl, no face palsy, no dysarthria CN's II-XI intact bilaterally, deep tendon reflexes 2+ bilaterally, moves all extremities and awake; no focal motor deficits (5/5 strength throughout upper and lower extremities bilaterally) and not confused Speech / Cognition: normal speech Motor/Sensory: + sensory deficit (Feels decreased sensation to cold temperature and light touch left leg); no tremor, no fasciculations and no pronator drift Gait: no ataxic gait Coordination: normal [id number] test and normal cbmo-xn-ubna test Psychiatric: Orientation: alert, oriented x 3 and cooperative Eye Contact: good eye contact Speech: normal rate/rhythm/volume of speech Affect: + anxious affect Mood: + anxious mood Thought Process: goal directed thought process Lymphatic: no lymphedema Discharge Data Allergies Allergy/AdvReac Type Severity Reaction Status Date / Time house dust mite Allergy Intermediate Congested Verified 04/25/22 09:25 pollen extracts Allergy Intermediate Congested Verified 04/25/22 09:25 ragweed pollen Allergy Intermediate Congested Verified 04/25/22 09:25 tree and shrub pollen Allergy Intermediate Congested Verified 04/25/22 09:25 cat dander Allergy Mild Sneezing Verified 04/25/22 09:25 morphine AdvReac Intermediate Hallucinati Verified 04/25/22 09:25 ng Consultations 06/24/22 18:44 Consult Neurology Routine Ordered Studies 06/24/22 12:14 CT head/brain wo con Stat 06/24/22 12:34 CT angio head w con Stat CT angio neck with con Stat 06/24/22 14:22 MRI Brain [MR brain wo/w con] Stat 06/24/22 14:27 MRI Cervical [MR cervical spine wo/w con] Stat Hospital Course (1) Paresthesia: Patient presents with left upper and lower extremity paresthesias that came on acutely. Also with pain down the left arm that correlates with frequent PVCs on telemetry monitoring. Stroke alert was called in the ER-initial labs normal. CT head, CTA head and neck all negative. Chest x-ray negative. No headache and no history of complex migraine. Also with intermittent left eye blurry vision for 24 hours. Needs work-up for stroke but this does seem atypical. Telestroke neuro consult did not feel this was consistent with stroke and recommended YANELIS and ESR and work-up for demyelinating issues. Also has known Suellen's thyroiditis and has been off of thyroid replacement for almost 2 years He does have paroxysmal atrial fibrillation but reports he always knows exactly when he goes into A. fib and has not had any for 2 years. He is in a sinus rhythm here on monitor. If stroke ruled out, will check MRI cervical spine. Also consider complex migraine? -Bring in on observation to PCU for telemetry monitoring -Stroke order set utilized-neuro checks, PT/OT evaluations, and neurology consult requested -Check hemoglobin A1c and lipid panel in the morning-start high intensity atorvastatin but can be discontinued if stroke and TIA ruled out -Checked MRI brain with and without contrast-he requests Ativan prior to MRI-MRI brain negative for stroke or tumor -Check Lyme titer -TSH checked and is elevated at 8.7 with low free T4-see below for treatment of this -Blood pressures are typically well controlled, but he does have symptomatic PVCs-see below for treatment with beta-josué -Check echocardiogram with bubble study -Start aspirin 81 Mg p.o. once daily-discussed with on-call hematology on the phone and after review, stated okay with von Willebrand's disease to take a baby aspirin a day. If stroke ruled out and not felt to be TIA, would recommend discontinuing aspirin due to increased bleeding risk with von Willebrand's disease At discharge: Appreciate input from Neurology Plan/recommendations: The patient is not a candidate for triptans because of complicated migraine. There is no indication for preventive treatment based on occasional symptoms. He will use Excedrin Migraine 2 to 3 tablets in the early-phase of similar symptoms for abortive treatment.. However, if he experiences any new neurological symptoms, then he will return back to emergency department as he has high risk for cerebrovascular accident. There is no indication for antiplatelet or anticoagulation treatment at this time because of the patient's history of von Willebrand disorder, which will increase hemorrhagic complications. The patient is neurologically stable to discharge home. We do recommend medical excuse from work for 3 days. The patient should be followed by neurology clinic. I will contact with [facility] neurology clinic, to set up a follow-up appointment. (2) Blurry vision: As above Stroke work-up Could be secondary to complex migraine? Appreciate any further neurology input Would recommend ophthalmology follow-up after discharge. Patient will see opthalmologist this week, trying to see day after discharge. (3) Hypothyroidism: Has known Suellen's thyroiditis with positive TPO antibodies and previous thyroid ultrasounds showing heterogenous appearing thyroid CTA neck today also shows a 12 mm left lobe thyroid nodule which will require repeat thyroid ultrasound as an outpatient He has been off of all Synthroid for almost 2 years as he does not like taking medications -He is willing to restart name brand Synthroid only as he had side effect issues with generic levothyroxine-start Synthroid 25 mcg once daily-this is not available at our pharmacy-have called into his outpatient pharmacy -Recommend outpatient follow-up again with [facility] endocrinology as he did before -Will need repeat TFTs in 6 weeks (4) Frequent PVCs: Patient knows exactly when he is in bigeminy which was witnessed several times during his admission. This is also causing him more anxiety and also he gets a sensation of shooting pain down the left arm every time he has PVCs He previously was on Bystolic but stopped it in the past as he believes he was t old that he did not need it anymore. Due to symptomatic PVCs, recommend restarting on a beta-josué. He has not tolerated metoprolol in the past. Bystolic is not available on formulary here. -Checking echocardiogram as above -He is willing to start carvedilol 3.125 Mg p.o. twice daily to see if he can tolerate this and to see if it suppresses some of his PVCs -Monitor on telemetry -Consider long-term cardiac event monitoring after discharge to evaluate the degree of burden of PVCs, will defer to PCP (5) Paroxysmal atrial fibrillation: With a history of such in the past. [id number] score remains 0 but screening for diabetes as above Is not currently on anticoagulation and is currently in a sinus rhythm here. He reports he knows exactly when he is in atrial fibrillation as he can sense it and also checks his pulse and feels that it is irregular. He does not think he has been in A. fib in a couple of years -Monitor on telemetry -Especially in the setting of von Willebrand's and with a [id number] score of 0, would not start anticoagulation -Starting carvedilol for frequent PVCs which would also help with rate control if he were to go into A. fib (6) Congenital von Willebrand's disease type I: Noted. Does take DDAVP nasal spray prior to any surgical procedures No current bleeding issues (7) YINA (obstructive sleep apnea): Diagnosed with mild YINA in the past but had tonsillectomy for this and wears a dental device at nighttime for snoring (8) Anxiety: Admits to significant anxiety over many years. Reports he was on Wellbutrin at some point and possibly another medication that he cannot recall the name of. He is fearful of side effects of medications as he tends to be sensitive to medications. Did discuss the possibility as an outpatient of starting a different SSRI at a low dose to see if this helps his generalized anxiety (9) Thyroid nodule: As noted above Needs outpatient thyroid ultrasound (10) History of diverticulitis: Recurrent at least twice in the last year for which he took antibiotics, however continues to have at least once weekly left lower quadrant sharp pains that last several minutes after eating certain foods. Followed with GI and had colonoscopy recently that showed multiple diverticula but no other abnormalities. Also saw general surgery and is to follow closely with them in case of need for partial colectomy in the future No acute issues at this time Is to follow a high-fiber diet Plan DVT prophylaxis-SCDs Total Time Total Time Spent Total Time Spent (In Minutes): 35 Discharge Plan Discharge Items Patient Disposition: Home - Self-Care Reason For Visit: LEFT SIDED PARESTHESIAS, STROKE ALERT Discharge Diagnosis: complicated migraine Activity: Resume your previous activity Non-emergency contact: Primary Care Provider Call non-emergency contact if: you have any medication questions Follow-up/Referrals: Santiago Green MD [Primary Care Provider] - 07/03/22 1:00 pm Diet: Regular and Clear liquid Addtl Attending Provider Instructions: Continue a clear liquid diet for next 3 days. If abdominal pain does not improve or worsen, please come back to the hospital. Recommend followup with your PCP to discuss need for heart monitor, however your heart rate in the hospital was largely normal. Your symptoms appear to be from a complicated migraine. Essentially a migraine that caused your arm symptoms but this is not a stroke. You can use Excedrin Migraine 2 to 3 tablets in the early-phase of similar symptoms for abortive treatment.. However, if he experiences any new neurological symptoms, then he will return back to emergency department as he has high risk for cerebrovascular accident. We do recommend medical excuse from work for 3 days. You should be followed by neurology clinic. We will contact with [facility] neurology clinic, to set up a follow-up appointment. Ok to stop aspirin Addtl [employer] Provider Instructions: You were noted to have a left thyroid lobe nodule measuring [address] scan of the neck. You should follow-up with the transfer engineer as an outpatient after discharge and have a repeat thyroid ultrasound performed. Pending Studies at Discharge: No Stand-Alone Forms: [employer], Work/School Release, Smoking Cessation Medications and DC Order Prescriptions: New levothyroxine [Synthroid] 25 mcg tablet 25 mcg PO DAILY Qty: 30 0RF Continued multivitamin Tablet 1 tab PO DAILY acetaminophen [Tylenol Extra Strength] 500 mg Tablet 1,000 mg PO Q6H PRN (Reason: Pain) ascorbic acid (vitamin C) [Vitamin C] 500 mg Tablet 500 mg PO DAILY Discharge Orders: Discharge Order (Routine); Ordered 06/25/22 Ordered By: Lon Block Admission Data Admit Date/Time: 06/24/22 14:45 Attending Provider: Lon Block Admit Provider: Judy Carlisle Primary Care Provider: Santiago Green Other Providers: Leonardo Dalton Other Interventions: Discharge Summary Assessment (RN) Last Done: 06/25/22 16:13 Coding Level of Care Code 06009 OBS Care - Discharge Diagnoses Paresthesia R20.2 Blurry vision H53.8 Hypothyroidism E03.9 Frequent PVCs I49.3 Paroxysmal atrial fibrillation I48.0 Congenital von Willebrand's disease type I D68.0 YINA (obstructive sleep apnea) G47.33 Anxiety F41.9 Thyroid nodule E04.1 History of diverticulitis Z87.19
== END 2022-06-25 17:22 | disposition home or self-care (01) ==
LOC: ED 11:55 → 2E 11:55 → SUATTDRO 14:45 → 2E 17:34
DX: E06.3 Autoimmune thyroiditis; D68.01 Von Willebrand disease, type 1; Z86.16 Personal history of COVID-19; G43.109 Migraine with aura, not intractable, without status migrainosus; I48.0 Paroxysmal atrial fibrillation

== ENCOUNTER 2023-04-30 05:11 | Inpatient (IN) ==
--- NOTE | 2023-04-16 14:03 | Anesthesiology Consultation ---
Date of Service April 16, 2023 Assessment & Plan (1) Encounter for pre-operative examination: 04/22/[address] Holland the cleaning maid this morning on the telephone. Prior to the procedure due to type I von Willebrand's disease the patient will receive Humate-P 6000 units (this is 100% supplementation of typical factor for this patient. His typical von Willebrand's antigen is 34% and factor VIII Activity is 43%) over 90 to 120 minutes intravenously with a stat PTT 30 to 45 minutes after the infusion is complete. As long as the PTT is less than 30 seconds will proceed with the surgery. In addition to the PTT being drawn stat labs for factor VIII activity and von Willebrand antigen levels will be electromechanical equipment assembler to [facility] [employer] to guide postoperative Humate-P infusions. According to Dr. Holland surgery does not need to wait until these lab values from [facility] are received. Will coordinate with [facility] to allow for enough time for both factor infusions and stat lab work prior to the start time of his case. - PCP visit (01/16/23): "Hypogonadism in male.. I recommended that he start DHEA topically. Specifically bio labs 50 mg daily. I am puzzled by his very low level of testosterone and wonder if he might have pituitary difficulties.. Needle exposure.. labs ordered- counselling done.. Fatigue.. I am wondering about the possibility of him having a partial hypopituitarism. I have requested that he talk this over with his pipeline inspector and she could suggest laboratory testing that could be done. I will order cortisol level.. Thyroid nodule.. He is scheduled for a repeat ultrasound of the thyroid and follow-up by endocrinology.. Ureterolithiasis.. His most recent stone passed spontaneously-he is followed on a regular basis by urology.. Paroxysmal atrial fibrillation with rapid ventricular response.. this has not been active.. YINA.. This seems to be stable at this point.. He had a needle stick while cleaning a [employer] office. He went to [facility] er and labs were drawn. His first set of labs were negative for hepatitis B or C and HIV. He would like to have a repeat set of labs" > labs done 01/18/23 with cortisol level WNL and non-reactive/negative hepatitis/HIV testing. - Hx anesthesia/surgery complications: Noted on 12/15/18 anesthesia consult "Per review of chart, after patient's tonsillectomy 09/2018, patient was admitted to [facility] d/t dizziness; found to be hyponatremic- this was felt 2/2 increased ADH secretion in the setting of desmopressin and post op pain. Sodium normalized with fluid restriction and was also WNL on 12/12/18 preop labs." - General surgery visit (03/13/23): "His most recent CT images and results were personally viewed and interpreted by myself.. He had very mild inflammation at the time however he has had smoldering symptoms over the last 7 or 8 months.. I do think proceeding with a sigmoid resection would be the best course of action in this young healthy patient as I think he will just continue to have smoldering symptoms and recurrent attacks.. His colonoscopy from April 2022 was reviewed, no need for repeat colonoscopy prior to surgery.. We will plan on a laparoscopic sigmoid colectomy, possible open.. He will need to be seen by hematology for his von Willebrand disease with recommendations prior to surgery .. I am going to place him on Augmentin for 30 days until we are able to sc hedule his colectomy" - von Willebrand's disease type I: Multiple discussions between hematology/surgeon/MTU to figure out coordinating preop management. Received heme/onc note (04/19/23) with most up to date perioperative instructions (see note for full details): "I just want to set on a plan for HumateP infusions for Mr. Dias as we approach the time of his abdominal surgery on April 30 to assure that we have plenty of time to coordinate and confirm that we have all necessary preparations in place to proceed smoothly pre and postoperatively. He will need a dose of HumateP preoperatively of 6000 units intravenously. This will need to be given 90-120 minutes preoperatively and labs drawn 30 to 45 minutes after the dose to include a stat PTT to be run in our lab as well as both factor VIII activity level and von Willebrand antigen levels that will need to be electromechanical equipment assembler to [facility] and run stat there for sameday turnaround. Will need to confirm that the PTT is less than 30 seconds to be able to proceed with surgery that day. We anticipate every 8 hour doses for the first 24 hours and then every 12 hours doses thereafter. Provisional doses will be 3000 units but those will be adjusted based on peal and trough control levels. I await confirmation of the cut off time for the carrier but we anticipate drawing levels for the first 3 successive mornings and then potentially every other morning thereafter. HumateP infusions we will have to continue for 7 days postoperatively and with the upcoming holiday weekend that will essentially be all inpatient. To assure success: 1. Dr. Sullivan, there are some logistic issues that we will need to continue to coordinate between scheduling the surgery, MTU availability, and the preoperative area. MTU would not be able to give the first dose until 7 AM or later which may not be enough lead time for the current surgeries controlled start time. There continue to be discussions between the MTU and preop as to where the dose can be given but this may require some flexibility in terms of scheduling of surgery. I will ask that you in those 2 areas speak directly to make sure that we have an appropriate arrangement 2. Dr. Nixank you and your staff as I know you are already working on assuring the availability of the electromechanical equipment assembler and the turnaround for the labs to be done at [facility]. I do not anticipate that we will need frequent testing over the holiday weekend but.. Will be important to note that this is in place as well if needed 3. Inpatient pharmacy: As above, we will need a good number of doses through the week and into the holiday weekend. Please let me know if there are are going to be any issues with dosing availability. The orders for the initial dose have been delivered to the MTU who will share that with the preop as appropriate. Those orders specify the initial dose, the lab draws, and the parameters for proceeding based on the PTT results I am having surgery myself on May 02 and will be unavailable that in the following day for back available electronically for the rest of the holiday weekend. I will be prepping Dr. Vallejo about the situation will be covering for me but by the time we reach my absence, I hope we will have a wellestablished dosing regimen If you have any concerns whatsoever about our findings, suggested plan, or any additional issues regarding this patient and his or her care now or in the future please do not hesitate to contact us at [phone]" - Per Viktoria at surgeon's office, CCP advised surgeon to move case later to allow for preop Humate-P administration (scheduled as last case, 1000). Per MTU, current plan is for preop Humate-P to be given in [facility] (orders from Dr. Holland received). Chart Review Chart Review: Patient NOT seen in Pre Admission Testing History Surgery Operation Date: 04/30/23 10:00 Proposed Procedures p Laparoscopic Sigmoid Colectomy Possible [place] - Manohar Sulliavn, Height/Weight Height: 5 ft 10 in Weight: 112.491 kg Allergies Allergy/AdvReac Type Severity Reaction Status Date / Time cat dander Allergy Intermediate Sneezing Verified 04/16/23 13:28 house dust mite Allergy Intermediate Congested Verified 04/16/23 13:28 pollen extracts Allergy Intermediate Congested Verified 04/16/23 13:28 ragweed pollen Allergy Intermediate Congested Verified 04/16/23 13:28 tree and shrub pollen Allergy Intermediate Congested Verified 04/16/23 13:28 morphine AdvReac Intermediate Hallucinati Verified 04/16/23 13:58 ons Medications Home Medications Medication Instructions Recorded Confirmed Last Taken acetaminophen 500 mg tablet 1,000 mg PO Q6H PRN Pain 06/24/22 04/16/23 Unknown (Tylenol Extra Strength) ascorbic acid (vitamin C) 500 mg 500 mg PO QAM 06/24/22 04/16/23 10/23/22 tablet (Vitamin C) multivitamin 1 tab PO QAM 06/24/22 04/16/23 10/23/22 lorazepam 0.5 mg tablet (Ativan) 0.5 mg PO DAILY PRN anxiety #20 07/03/22 04/16/23 Unknown tabs Synthroid 75 mcg tablet 75 mcg PO DAILY #90 tabs 01/25/23 04/16/23 Unknown (levothyroxine) amoxicillin 875 mg-potassium 1 tab PO BID #60 tabs 03/13/23 04/16/23 Unknown clavulanate 125 mg tablet Past Medical History Medical History Anxiety Congenital von Willebrand's disease type I Follows w/ Dr Holland, had visit 04/16/23 states was told will need factor V prior to procedure Degenerative disc disease Diverticular disease Environmental and seasonal allergies History of COVID-19 07/2021- 2 weeks later had ER visit to r/o blood clots, dx sinus infection per patient, symptoms resolved History of diverticulitis Hx of migraines Hx of sleep apnea "Mild" YINA "no longer issue" s/p tonsillectomy Hypothyroidism Kidney stones Hx Paroxysmal atrial fibrillation 2016, Possibly r/t thyroid condition per cardio records, previous medications discontinued [facility] [place]- "His [id number] score is 0 so anticoagulation is not necessary, especially since this is paroxysmal." Thyroid nodule Past Family History Family History Family/Other Coronary heart disease Mother Hyperthyroidism Ovarian cancer Grandfather Heart disease Uncle Myocardial infarction Denies family history of Prostate cancer Breast cancer Lung cancer Colorectal cancer Past Surgical History Surgical History History of cystoscopy + stent (2018) History of tooth extraction WTE Hx of colonoscopy Hx of tonsillectomy Tonsillectomy (09/12/18, [facility]) Hx of vasectomy Social History Smoking Status: Never smoker tobacco type: smokeless tobacco Do You Dip or Chew Tobacco: No (quit) Hx Alcohol Use: No alcohol intake frequency: holidays/special occasions only Hx Substance Use: No substance use type: does not use Lab Results Anesthesia Preop Results Results Anesthesia Widget: WBC 5.49 K/ul (4.8-10.8) 04/02/23 Hgb 15.1 g/dl (14.0-18.0) 04/02/23 Hct 43.7 % (42.0-52.0) 04/02/23 Plt 278 K/uL (130-400) 04/02/23 Na 136 mmol/L (136-145) 04/02/23 K 4.1 mmol/L (3.5-5.1) 04/02/23 Cl 103 mmol/L (98-107) 04/02/23 CO2 24 mmol/L (21-32) 04/02/23 BUN 11 mg/dl (6-23) 04/02/23 Creat 0.82 mg/dl (0.6-1.4) 04/02/23 Glucose Level 91 mg/dl (70-99(Fasting)) 04/02/23 PTT 37.2 Seconds (21.0-31.0) H 04/02/23 Testing Electrocardiogram Date: 06/24/22 SR with occasional PVCs at 81bpm. "Otherwise normal ECG"/poor data quality. Chest X-Ray Date: 06/24/22 Findings: + NAD Echocardiogram Date: 06/25/22 EF 55-60%. No regional wall motion abnormality. Mild concentric LVH. No significant valvular disease. No visualized right to left anterior atrial shunt following agitated saline administration. Normal estimated RVSP. No significant change compared to prior study 02/04/2017 per report.
[2023-04-30] MEDS ORDERED: LR 15ML/HR IV SCH (06:00)
[2023-04-30] MEDS ORDERED: ERTAPENEM SODIUM 1,000 MG in SYRINGE 0 ML IV SCH (06:00)
[2023-04-30] MEDS ORDERED: [UNRECOGNIZED DRUG - MIXTURE] IV SCH (06:00)
[2023-04-30] MEDS ORDERED: LACTATED RINGER'S 1,000 ML IV SCH (06:00)
--- NOTE | 2023-04-30 07:01 | History & Physical Report ---
Date of Service April 30, 2023 Assessment & Plan (1) Diverticulitis: Plan: Proceed with laparoscopic sigmoid resection, possible open History of Present Illness Primary Care Provider: Santiago Green MD This is a 42-year-old male presents today for a laparoscopic possible open sigmoid resection. No new medications or allergies. He was seen by heme-onc for his von Willebrand's disease and has already gotten his infusion this morning and his labs are pending. Allergies Allergy/AdvReac Type Severity Reaction Status Date / Time cat dander Allergy Intermediate Sneezing Verified 04/30/23 05:47 house dust mite Allergy Intermediate Congested Verified 04/30/23 05:47 pollen extracts Allergy Intermediate Congested Verified 04/30/23 05:47 ragweed pollen Allergy Intermediate Congested Verified 04/30/23 05:47 tree and shrub pollen Allergy Intermediate Congested Verified 04/30/23 05:47 morphine AdvReac Intermediate Hallucinati Verified 04/30/23 05:47 ons Home Medications Medication Instructions Recorded Confirmed Type acetaminophen 500 mg tablet 1,000 mg PO Q6H PRN Pain 06/24/22 04/30/23 History (Tylenol Extra Strength) ascorbic acid (vitamin C) 500 mg 500 mg PO QAM 06/24/22 04/30/23 History tablet (Vitamin C) multivitamin 1 tab PO QAM 06/24/22 04/30/23 History lorazepam 0.5 mg tablet (Ativan) 0.5 mg PO DAILY PRN anxiety #20 07/03/22 04/30/23 Rx tabs Synthroid 75 mcg tablet 75 mcg PO DAILY #90 tabs 01/25/23 04/30/23 Rx (levothyroxine) amoxicillin 875 mg-potassium 1 tab PO BID #60 tabs 03/13/23 04/30/23 Rx clavulanate 125 mg tablet Past Med/Surg History Medical History Anxiety Congenital von Willebrand's disease type I Follows w/ Dr Holland, had visit 04/16/23 states was told will need factor V prior to procedure Degenerative disc disease Diverticular disease Environmental and seasonal allergies History of COVID-19 07/2021- 2 weeks later had ER visit to r/o blood clots, dx sinus infection per patient, symptoms resolved History of diverticulitis Hx of migraines Hx of sleep apnea "Mild" YINA "no longer issue" s/p tonsillectomy Hypothyroidism Kidney stones Hx Paroxysmal atrial fibrillation 2017, Possibly r/t thyroid condition per cardio records, previous medications [place] [facility]- "His [id number] score is 0 so anticoagulation is not necessary, especially since this is paroxysmal." Thyroid nodule Surgical History History of cystoscopy + stent (2018) History of tooth extraction WTE Hx of colonoscopy Hx of tonsillectomy Tonsillectomy (09/12/18, [facility]) Hx of vasectomy Family History Family/Other Coronary heart disease Mother Hyperthyroidism Ovarian cancer Grandfather Heart disease Uncle Myocardial infarction Denies family history of Prostate cancer Breast cancer Lung cancer Colorectal cancer Social History Smoking Status: Never smoker Tobacco Type: Smokeless Tobacco (Dip or Chew) Second Hand Exposure: No; Do You Dip or Chew Tobacco: No (quit); Tobacco Cessation Education Requested by Patient: No Hx Alcohol Use: No Hx Substance Use: No Preferred Language: Pakistani Communication Ability: Effective Visual Impairment: No Limitations Clerical Office Required: No Beliefs That Will Affect Care: None marital status: Current Living Situation: Spouse and Family Current Living Situation Comment: Lives with and 2 kids current occupational status: employed 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 How many Children do You have: 3 Other Information That Helps Us Care for You: No Feels Safe at Home: Yes Safety Concerns: Feels Safe At This Time caffeine: Yes (1 soda per day) Dental Care, Regularly: Yes Physical Activity Frequency: Does not Exercise Seatbelt Use: always Sunscreen Use: Yes Assistive Devices: Glasses Physical Exam Constitutional: WD/WN, vitals as above Eyes: PERRL, conjunctivae normal, anicteric sclerae ENMT: external ear and nose normal, oropharynx normal Neck: trachea midline, no thyromegaly Respiratory: normal respiratory effort, lungs clear to auscultation Cardiovascular: RRR, no murmur, no edema Gastrointestinal (Abdomen): Inspection/Auscultation: abdomen normal to inspection; abdomen not distended Percussion/Palpation: abdomen soft; abdomen nontender, no guarding, abdomen not rigid and no hernia Musculoskeletal: no cyanosis or clubbing, extremities motor strength 5/5 Skin: no rashes, warm and dry Neurologic: PERRL, EOMI, accommodation nl, no face palsy, no dysarthria Psychiatric: A+Ox3, euthymic affect Results & Data Results & Data Vital Signs (Past 12 Hours) Vital Signs Temp Pulse Resp BP Pulse Ox O2 Del Method 04/30/23 05:50 36.5 C 75 18 155/94 H 96 Room Air PG Care Time/CCT Total # of Minutes Spent Total Time Spent with Patient: Total time spent is greater than 50% in coordination of care (as documented) at patient's floor/unit and/or counseling patient: Coding Level of Care Code None Diagnoses Diverticulitis K57.92
[2023-04-30] MEDS ORDERED: ONDANSETRON INJ 2 MG/ML 2 ML VIAL IV PRN ×2 (08:41→16:24)
[2023-04-30] MEDS ORDERED: ePHEDrine sulfate 50 MG/ML AMP IV PRN (08:41)
[2023-04-30] MEDS ORDERED: PROMETHAZINE HCL 6.25 MG in SODIUM CHLORIDE 0.9% 50 ML IV PRN (08:41)
[2023-04-30] MEDS ORDERED: ATROPINE SULFATE 0.1 MG/ML 10ML SYR IV PRN (08:41)
[2023-04-30] MEDS ORDERED: fentaNYL citrate PF 100 MCG/2 ML VIAL ONE (08:50)
[2023-04-30] MEDS ORDERED: MIDAZOLAM HCL 1 MG/ML 2ML VIAL ONE (08:50)
[2023-04-30] MEDS ORDERED: KETAMINE 50 MG/5 ML SYRINGE ONE (08:51)
[2023-04-30 09:17] LABS: Partial Thromboplastin Ratio 1.2; Partial Thromboplastin Time 33.9 Seconds (21.0-31.0)
[2023-04-30] MEDS ORDERED: BUPIVACAINE/EPINEPHRINE 0.25% 1:200,000 30 ML VIAL ONE (10:14)
[2023-04-30] MEDS ORDERED: GLYCOPYRROLATE 0.2 MG/ML VIAL ONE (11:02)
[2023-04-30] MEDS ORDERED: LIDOCAINE 2% 2 ML VIAL/AMP(20MG/ML) INFIL ONE (11:02)
[2023-04-30] MEDS ORDERED: ROCURONIUM BROMIDE 10 MG/ML 5 ML VIAL IV ONE (11:02)
[2023-04-30] MEDS ORDERED: PROPOFOL IV EMULSION 10 MG/ML 20 ML VIAL IV ONE (11:02)
[2023-04-30] MEDS ORDERED: DEXAMETHASONE SOD INJ 4 MG/ML VIAL ONE (11:02)
[2023-04-30] MEDS ORDERED: ePHEDrine sulfate 50 MG/ML AMP ONE (11:06)
[2023-04-30] MEDS ORDERED: HYDROmorphone INJ 2 MG/ML SYR/VIAL ONE (11:35)
[2023-04-30] MEDS ORDERED: ONDANSETRON INJ 2 MG/ML 2 ML VIAL ONE (13:28)
[2023-04-30] MEDS ORDERED: SUGAMMADEX SODIUM 200 MG/2 ML VIAL IV ONE (13:29)
--- NOTE | 2023-04-30 13:37 | Post Operative Brief Note ---
PG Immediate Post Op with CF Date of Surgery April 30, 2023 Pre & Post Diagnosis Operation Date: 04/30/23 09:40 Pre-Op Diagnosis: Diverticulitis, Von Willebrand's Disease Post-Op Diagnosis: Diverticulitis, Von Willebrand's Disease I identified the patient and participated in the time-out.: Yes Procedure Operation Date: 04/30/23 09:40 Actual Procedures p Laparoscopic Sigmoid Colectomy(Not Applicable) - Manohar Sullivan DO Surgeon Manohar Sullivan DO Paving Block Cutter Parviz Bach DO Estimated Blood Loss 50 Findings Consistent with Post-Op Diagnosis Specimens Specimen Description: A: Sigmoid Colon Drains Jenkins Catheter and John Paul-Willis Drain Anesthesia Type General Complications none Disposition Disposition: Recovery Room
[2023-04-30] MEDS ORDERED: [UNRECOGNIZED DRUG - MIXTURE] IV SCH ×2 (14:00→22:00)
[2023-04-30] MEDS ORDERED: FACTOR 8/HUMATE-P/ADVATE ONE (14:00)
--- NOTE | 2023-04-30 14:01 | Operative Report ---
PG Post Operative Report Pre & Post Diagnosis Operation Date: 04/30/23 09:40 Pre-Op Diagnosis: Diverticulitis, Von Willebrand's Disease Post-Op Diagnosis: Diverticulitis, Von Willebrand's Disease I identified the patient and participated in the time-out.: Yes Procedure Operation Date: 04/30/23 09:40 Actual Procedures p Laparoscopic Sigmoid Colectomy(Not Applicable) - Manohar Sullivan DO Surgeon Manohar Sullivan DO Appliance Worker Parviz Bach DO Estimated Blood Loss 50 Findings Consistent with Post-Op Diagnosis Phlegmon of the sigmoid colon adhered to the lateral peritoneal sidewall at the pelvic brim Specimens Sigmoid colon to pathology Drains 19 Arabic Manohar drain in the pelvis Anesthesia Type General Complications none Disposition Disposition: Recovery Room Indications 42-year-old male with recurrent bouts of sigmoid diverticulitis Description of Procedure The patient was brought to the OR and placed in the supine position and SCD's placed. At this time he underwent general endotracheal anesthesia without incident. At this time a Jenkins catheter was placed under sterile conditions. His abdomen was prepped and draped in the usual sterile fashion. He was given appropriate pre-operative antibiotics. A timeout was called, the procedure was verified as Laparoscopic sigmoidectomy, possible open. Surgical, anesthesia and nursing teams agreed and the procedure was begun. After injection of 0.25% Marcaine with epinephrine, a supraumbilical incision was made using a #11 blade scalpel and carried down to the fascia with a hemostat. The abdomen was then elevated with towel clamps and entered using the Veress needle confirming position using the saline drop test. Pneumoperitoneum was established and 12mm trocar was placed. Laparoscope was introduced. No injury was seen from our entrance to the abdomen. At this time a 12 mm port was placed in the right lower quadrant and a 5 mm port in the right upper abdomen as well as a 5 mm port in the left lower quadrant.. The patient was placed in Trendelenburg and rotated to the right. This time the sigmoid colon was visualized and was freed up laterally along the white line of Toldt using combination of sharp and blunt dissection as well as the harmonic scalpel. There was phlegmon of the sigmoid colon that was tightly adhered to the peritoneum at the pelvic brim. Again this was carefully dissected out taking care not to injure the ureter. We then freed up the descending colon along the white line of Toldt for mobilization in preparation for anastomosis. At this time we created a window in the distal sigmoid mesocolon at the sacral promontory and fired a 60 mm purple load Endo NETTIE stapler across healthy colon. Another fire was needed to completely transect the colon. The mesentery was then taken using the same incision back to healthy-appearing descending colon. At this time the left lower quadrant incision was extended at the skin level and down to the fascia and to the proximal end of the specimen of sigmoid colon was brought out through the incision. Then our healthy area of proximal descending colon a bowel clamp was placed and the colon was transected using Calero scissors. The specimen was passed off as sigmoid colon. At this time the bowel clamp was released and the full-thickness colon was grasped using Allis clamps. A 2-0 silk purse-string suture was then placed and the EEA anvil was placed into the descending colon. This was a 25 mm EEA anvil. The suture was then tied down around the anvil. At this time the colon was placed back in the abdomen and the left lower quadrant incision was closed using a 1 PDS suture in a running fashion at the fascial level. At this time the abdomen was then reinflated and the camera was introduced. The grants assistant then placed the 25 mm EEA into the distal rectum and the anvil was able to be placed onto the spike. The EEA stapler was then closed slowly and the stapler was fired. There was no tension on the anastomosis. Upon inspecting the donuts after the EEA was removed one of the donuts did appear incomplete. At this time a leak test was performed and there was some bubbling noted. At this time we are able to visualize a small hole in the posterior portion of the circular anastomosis. This was oversewed using 2-0 Polysorb in interrupted fashion. A leak test was then performed and no leak was noted. Omentum was placed over top of the anastomosis. A 19 Fr Manohar drain was introduced into the pelvis and brought out through the right lower quadrant abdominal incision. This was sutured in place using 2-0 nylon suture. At this time the pelvis was irrigated until clear. Hemostasis was achieved and was complete. Ports were removed under direct visualization and no bleeding was noted. The abdomen was desufflated. The supraumbilical incision was then closed the fascial level using an 0 Vicryl [id number] suture. The larger left lower quadrant incision was closed in layers using 3-0 Vicryl in the subcutaneous tissue and deep dermal layer and a 4-0 Monocryl was used in the skin in a running subcuticular fashion in all incisions. Sterile dressings were applied. The patient was then awakened from anesthesia having remained stable throughout the entire case and transported to PACU. All needle and sponge counts were correct x 2. I attest to the content of the Intraoperative Record and any orders documented therein. Any exceptions are noted below.
[2023-04-30] MEDS: HYDROmorphone INJ 1 MG/ML SYRINGE IV PRN ×12 (14:05→15:30)
[2023-04-30 14:49] LABS: Hematocrit (blood only) 41.3 % (42.0-52.0); Mean Corpuscular Hemoglobin 29.5 pg (25.0-34.0); Mean Corpuscular Hgb Conc 33.9 g/dL (32.0-36.0); Mean Corpuscular Volume 86.9 fL (80.0-100.0); Platelet Count 266 K/uL (130-400); RDW Coefficient of Variation 12.6 % (11.5-14.5); RDW Standard Deviation 40.1 fL (36.4-46.3); Red Blood Count 4.75 M/uL (4.70-6.10); White Blood Count 12.71 K/ul (4.8-10.8)
--- NOTE | 2023-04-30 15:06 | Anesthesiology Progress Note ---
Date of Service April 30, 2023 Anesthesia Post Procedure Vital Signs Vital Signs: Temp Pulse Pulse Resp BP Pulse Ox O2 Del Method 04/30/23 15:00 71 12 132/97 95 Nasal Cannula 04/30/23 14:50 36.6 C 80 12 128/85 95 Nasal Cannula 04/30/23 14:40 70 12 137/84 95 Nasal Cannula 04/30/23 14:30 79 12 131/88 95 Nasal Cannula 04/30/23 14:20 62 12 119/81 95 Nasal Cannula 04/30/23 14:10 73 14 129/81 95 Nasal Cannula 04/30/23 14:00 78 13 136/76 95 Nasal Cannula 04/30/23 13:53 36.7 C 78 23 130/76 95 Nasal Cannula 04/30/23 05:50 36.5 C 75 18 155/94 H 96 Room Air O2 Flow Rate 04/30/23 15:00 2 04/30/23 14:50 2 04/30/23 14:40 2 04/30/23 14:30 2 04/30/23 14:20 2 04/30/23 14:10 3 04/30/23 14:00 3 04/30/23 13:53 3 04/30/23 05:50 Pain Intensity Left Lower Abdomen: Pain Intensity: 5 Transfer of Care Handoff Completed per policy Notes Mental Status: alert / awake / arousable Patient Amnestic to Procedure: Yes Nausea / Vomiting: adequately controlled Pain: adequately controlled Airway Patency, RR, SpO2: stable & adequate BP & HR: stable & adequate Hydration State: stable & adequate Anesthetic Complications: no major complications apparent
[2023-04-30 15:23] LABS: INR 1.1 (0.9-1.1); Partial Thromboplastin Time 28.3 Seconds (21.0-31.0); Prothrombin Time 11.5 Seconds (9.0-12.0)
[2023-04-30 16:12] LABS: Basophils # (auto) 0.04 K/uL (0.00-0.20); Basophils % (auto) 0.3 %; Eosinophils # (auto) 0.03 K/uL (0.00-0.50); Eosinophils % (auto) 0.2 %; Immature Granulocytes # (auto) 0.06 K/uL (0.01-0.20); Immature Granulocytes % (auto) 0.5 %; Lymphocytes # (auto) 0.88 K/uL (1.20-3.40); Lymphocytes % (auto) 6.9 %; Monocytes % (auto) 1.6 %; Neutrophils % (auto) 90.5 %
[2023-04-30] MEDS ORDERED: LORazepam 0.5 MG TAB PO PRN (16:24)
[2023-04-30] MEDS ORDERED: oxyCODONE HCL IR 5 MG TAB (IMMEDIATE RELEASE) PO PRN (16:24)
[2023-04-30] MEDS ORDERED: HYDROmorphone INJ 0.5 MG/0.5 ML SYR IV PRN (16:24)
[2023-04-30] MEDS: LACTATED RINGER'S 1,000 ML IV SCH ×2 (16:32→23:45)
--- NOTE | 2023-04-30 16:47 | Hospitalist Consultation ---
Date of Consultation April 30, 2023 Assessment & Plan (1) Diverticulitis: Now s/p sigmoid colectomy 04/30/[address] Sullivan Post-operative pain control, DVT ppx, and outpatient follow up per primary service (2) Congenital von Willebrand's disease type I: History of, follows with Dr. Holland who is also consulted this admission Hgb 14 pre-op, with ~450cc drainage from REMA drain so far, anticipate reasonable drop in Hgb Received antihemolytic/von Willebrand factors, factor XIII, continue infusions per Hematology Monitor Hgb closely, follow up labwork tomorrow AM, sooner if develops evidence of hemodynamic instability (3) Paroxysmal atrial fibrillation: History of PAF, not on rate or rhythm control agents nor on anticoagulation, no complaints of palpitations at this time ChadsVasc score of 1, would not recommend AC in this patient at this time Monitor vitals, does not need telemetry for now, HR stable in 60s (4) Thyroid disease: Last TSH was 11 in December 2022, with a low normal FT4 Continue levothyroxine 75 mcg daily, repeat TSH with reflex ordered, adjust dosing if necessary (5) Anxiety: Continue home lorazepam History of Present Illness Reason for Consultation: Hx HTN, PAF, vWD; s/p sigmoid colectomy Requesting Physician: Manohar Sullivan DO Attending Physician: Manohar Sullivan DO History of Present Illness 42 yo M PMHx PAF not on chronic AC or rate control agents, hypothyroidism, anxiety, vWD, recurrent diverticulitis admitted for sigmoid colectomy by Dr. Sullivan and Hospitalist service was consulted for concurrent post-operative management of chronic medical conditions and hemodynamic monitoring. Patient is doing well post-op, complaining of pain improved with prn medications. He denies chest pain, SOB, nausea, lightheadedness or dizziness. Per nursing staff he put out about 450cc from his REMA drain since surgery, ongoing monitoring. Allergies Allergy/AdvReac Type Severity Reaction Status Date / Time cat dander Allergy Intermediate Sneezing Verified 04/30/23 05:47 house dust mite Allergy Intermediate Congested Verified 04/30/23 05:47 pollen extracts Allergy Intermediate Congested Verified 04/30/23 05:47 ragweed pollen Allergy Intermediate Congested Verified 04/30/23 05:47 tree and shrub pollen Allergy Intermediate Congested Verified 04/30/23 05:47 morphine AdvReac Intermediate Hallucinati Verified 04/30/23 05:47 ons Home Medications Medication Instructions Recorded Confirmed Type acetaminophen 500 mg tablet 1,000 mg PO Q6H PRN Pain 06/24/22 04/30/23 History (Tylenol Extra Strength) ascorbic acid (vitamin C) 500 mg 500 mg PO QAM 06/24/22 04/30/23 History tablet (Vitamin C) multivitamin 1 tab PO QAM 06/24/22 04/30/23 History lorazepam 0.5 mg tablet (Ativan) 0.5 mg PO DAILY PRN anxiety #20 07/03/22 04/30/23 Rx tabs Synthroid 75 mcg tablet 75 mcg PO DAILY #90 tabs 01/25/23 04/30/23 Rx (levothyroxine) amoxicillin 875 mg-potassium 1 tab PO BID #60 tabs 03/13/23 04/30/23 Rx clavulanate 125 mg tablet Patient History Medical History (Updated 04/30/23 @ 17:13 by Jessica Willard DO) Anxiety Congenital von Willebrand's disease type I Follows w/ Dr Holland, had visit 04/16/23 states was told will need factor V prior to procedure Degenerative disc disease Diverticular disease Environmental and seasonal allergies History of COVID-19 07/2021- 2 weeks later had ER visit to r/o blood clots, dx sinus infection per patient, symptoms resolved History of diverticulitis Hx of migraines Hx of sleep apnea "Mild" YINA "no longer issue" s/p tonsillectomy Hypothyroidism Kidney stones Hx Paroxysmal atrial fibrillation 2016, Possibly r/t thyroid condition per cardio records, previous medications discontinued [facility] cardiology 10/2019- "His [id number] score is 0 so anticoagulation is not necessary, especially since this is paroxysmal." Thyroid nodule Surgical History History of cystoscopy + stent (2018) History of tooth extraction WTE Hx of colonoscopy Hx of tonsillectomy Tonsillectomy (09/12/18, [facility]) Hx of vasectomy Family History Family/Other Coronary heart disease Mother Hyperthyroidism Ovarian cancer Grandfather Heart disease Uncle Myocardial infarction Denies family history of Prostate cancer Breast cancer Lung cancer Colorectal cancer Social History Smoking Status: Never smoker Tobacco Type: Smokeless Tobacco (Dip or Chew) Second Hand Exposure: No; Do You Dip or Chew Tobacco: No (quit); Tobacco Cessation Education Requested by Patient: No Hx Alcohol Use: No Hx Substance Use: No Preferred Language: Mongolian Communication Ability: Effective Visual Impairment: No Limitations Lung Puller Required: No Beliefs That Will Affect Care: None marital status: Current Living Situation: Spouse and Family Current Living Situation Comment: Lives with and 2 kids current occupational status: employed 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 How many Children do You have: 3 Other Information That Helps Us Care for You: No Feels Safe at Home: Yes Safety Concerns: Feels Safe At This Time caffeine: Yes (1 soda per day) Dental Care, Regularly: Yes Physical Activity Frequency: Does not Exercise Seatbelt Use: always Sunscreen Use: Yes Assistive Devices: Glasses Review of Systems Constitutional: no fever and no chills Respiratory: no cough and no dyspnea Cardiovascular: no chest pain and no palpitations Gastrointestinal: + abdominal pain (incisional); no nausea and no vomiting Physical Exam Constitutional: WD/WN, vitals as above Respiratory: normal respiratory effort, lungs clear to auscultation Cardiovascular: RRR, no murmur, no edema Gastrointestinal (Abdomen): normal bowel sounds, abdomen soft, incisions clean with dressings in place, REMA drain with serosanguineous drainage Skin: no rashes, warm and dry Psychiatric: A+Ox3, euthymic affect Results & Data Results & Data Vital Signs (Past 12 Hours) Vital Signs Temp Pulse Pulse Resp BP Pulse Ox O2 Del Method 04/30/23 15:55 36.5 C 64 16 125/88 95 Nasal Cannula 04/30/23 15:40 65 13 122/93 95 Nasal Cannula 04/30/23 15:25 70 12 123/92 95 Nasal Cannula 04/30/23 15:10 88 13 128/89 96 Nasal Cannula 04/30/23 15:00 71 12 132/97 95 Nasal Cannula 04/30/23 14:50 36.6 C 80 12 128/85 95 Nasal Cannula 04/30/23 14:40 70 12 137/84 95 Nasal Cannula 04/30/23 14:30 79 12 131/88 95 Nasal Cannula 04/30/23 14:20 62 12 119/81 95 Nasal Cannula 04/30/23 14:10 73 14 129/81 95 Nasal Cannula 04/30/23 14:00 78 13 136/76 95 Nasal Cannula 04/30/23 13:53 36.7 C 78 23 130/76 95 Nasal Cannula 04/30/23 05:50 36.5 C 75 18 155/94 H 96 Room Air O2 Flow Rate 04/30/23 15:55 2 04/30/23 15:40 2 04/30/23 15:25 2 04/30/23 15:10 2 04/30/23 15:00 2 04/30/23 14:50 2 04/30/23 14:40 2 04/30/23 14:30 2 04/30/23 14:20 2 04/30/23 14:10 3 04/30/23 14:00 3 04/30/23 13:53 3 04/30/23 05:50 PG Care Time/CCT Total # of Minutes Spent Total Time Spent with Patient: Total time spent is greater than 50% in coordination of care (as documented) at patient's floor/unit and/or counseling patient: Coding Level of Care Code 27729 IN/OBS CONSULT LVL 4,60M Diagnoses Diverticulitis K57.92 Congenital von Willebrand's disease type I D68.0 Paroxysmal atrial fibrillation I48.0 Thyroid disease E07.9 Anxiety F41.9
[2023-04-30] MEDS: ACETAMINOPHEN 1,000 MG/100 ML VIAL IV SCH ×2 (16:55→23:45)
[2023-04-30] MEDS: HYDROmorphone INJ 0.5 MG/0.5 ML SYR IV PRN (21:34)
[2023-04-30] MEDS ORDERED: FACTOR 8/HUMATE-P/ADVATE SCH (22:00)
[2023-05-01] MEDS: HYDROmorphone INJ 0.5 MG/0.5 ML SYR IV PRN ×2 (01:50→05:00)
[2023-05-01] MEDS ORDERED: SIMETHICONE 80 MG CHEW PO ONE (04:23)
[2023-05-01] MEDS ORDERED: LEVOTHYROXINE SODIUM 75 MCG TABLET PO SCH (06:30)
[2023-05-01 06:32] LABS: INR 1.1 (0.9-1.1); Partial Thromboplastin Ratio 1.1; Partial Thromboplastin Time 31.4 Seconds (21.0-31.0); Prothrombin Time 11.5 Seconds (9.0-12.0)
[2023-05-01 06:41] LABS: Basophils # (auto) 0.02 K/uL (0.00-0.20); Basophils % (auto) 0.2 %; Eosinophils # (auto) 0.02 K/uL (0.00-0.50); Eosinophils % (auto) 0.2 %; Hematocrit (blood only) 39.8 % (42.0-52.0); Hemoglobin 13.4 g/dl (14.0-18.0); Immature Granulocytes # (auto) 0.04 K/uL (0.01-0.20); Immature Granulocytes % (auto) 0.4 %; Lymphocytes # (auto) 1.67 K/uL (1.20-3.40); Mean Corpuscular Hemoglobin 29.3 pg (25.0-34.0); Mean Corpuscular Hgb Conc 33.7 g/dL (32.0-36.0); Mean Corpuscular Volume 86.9 fL (80.0-100.0); Monocytes # (auto) 1.04 K/uL (0.11-0.59); Monocytes % (auto) 10.6 %; Neutrophils # (auto) 7.05 K/uL (1.40-6.50); Neutrophils % (auto) 71.6 %; Platelet Count 301 K/uL (130-400); RDW Coefficient of Variation 13.1 % (11.5-14.5); RDW Standard Deviation 41.2 fL (36.4-46.3); Red Blood Count 4.58 M/uL (4.70-6.10); White Blood Count 9.84 K/ul (4.8-10.8)
[2023-05-01 06:46] LABS: BUN Creatinine Ratio 14.8 (10-20); Calcium 8.8 mg/dl (8.6-10.3); Creatinine Clr Calc Pharmacy 134.7 ml/min; Est GFR (African American) 121.9 ml/min; Est GFR (Non-African American) 105.2 ml/min; Potassium 3.8 mmol/L (3.5-5.1)
[2023-05-01 07:01] LABS: Thyroid Stimulating Hormone 10.279 uIu/ml (0.300-4.500)
--- NOTE | 2023-05-01 07:31 | Consultation ---
Date of Consultation April 30, 2023 Assessment & Plan (1) Congenital von Willebrand's disease type I: Given that abdominal surgery would be considered "major" surgery and the use of DDAVP would be subject to tachyphylaxis/less predictable response over time, and as well potential imbalances of electrolytes, perioperative management will be far better accomplished with Humate-P infusions. 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 Initial dosing will be at 50 units/kg with subsequent doses at 25 units/kg every 8 hours for the first 24 hours and then every 12 hours thereafter. We have arranged for von Willebrand's factor and factor VIII levels to be checked with 12 to 18-hour turnaround through the [facility]. With the goal to maintain trough levels above 50 units/dL for both factors and peak levels of von Willebrand's factor to be less than 200 units/dL while those for Factor VIII will need to be less than 250 to 300 units/dL I have spoken extensively with the patient who is aware that we cannot absolutely prevent against bleeding even with aggressive factor management. He is also aware that paradoxically he is at risk for thrombosis in the postoperative periods where we are maintaining "normal" levels of factor VIII and von Willebrand's factor and thus will have a program of DVT prophylaxis as part of his current admission. Plan would be to support factors for the next 7 days Plan See details above. Humate-P infusions will start preoperatively and continue for 7 days targeting levels as above. He will need appropriate DVT prophylaxis during this time History of Present Illness Attending Physician: Manohar Sullivan, History of Present Illness Patient with type I von Willebrand's disease admitted for colectomy for recurrent issues of diverticulitis. Longstanding history of von Willebrand's disease with baseline Factor VIII levels 34%, baseline von Willebrand's factor antigen of 23% both rising to normal range with DDAVP stimulation. Patient had normal von Willebrand's multimers at diagnosis. I have asked that my more complete outpatient notes be scanned to [facility] for in-depth context. He is admitted now for elective colectomy because of recurrent colitis and we have been asked to help coordinate appropriate management of his von Willebrand's disease migdalia and postoperatively. He has no major new complains Allergies Allergy/AdvReac Type Severity Reaction Status Date / Time cat dander Allergy Intermediate Sneezing Verified 04/30/23 05:47 house dust mite Allergy Intermediate Congested Verified 04/30/23 05:47 pollen extracts Allergy Intermediate Congested Verified 04/30/23 05:47 ragweed pollen Allergy Intermediate Congested Verified 04/30/23 05:47 tree and shrub pollen Allergy Intermediate Congested Verified 04/30/23 05:47 morphine AdvReac Intermediate Hallucinati Verified 04/30/23 05:47 ons Home Medications Medication Instructions Recorded Confirmed Type acetaminophen 500 mg tablet 1,000 mg PO Q6H PRN Pain 06/24/22 04/30/23 History (Tylenol Extra Strength) ascorbic acid (vitamin C) 500 mg 500 mg PO QAM 06/24/22 04/30/23 History tablet (Vitamin C) multivitamin 1 tab PO QAM 06/24/22 04/30/23 History lorazepam 0.5 mg tablet (Ativan) 0.5 mg PO DAILY PRN anxiety #20 07/03/22 04/30/23 Rx tabs Synthroid 75 mcg tablet 75 mcg PO DAILY #90 tabs 01/25/23 04/30/23 Rx (levothyroxine) amoxicillin 875 mg-potassium 1 tab PO BID #60 tabs 03/13/23 04/30/23 Rx clavulanate 125 mg tablet Patient History Medical History (Updated 04/30/23 @ 17:13 by Jessica Willard DO) Anxiety Congenital von Willebrand's disease type I Follows w/ Dr Holland, had visit 04/16/23 states was told will need factor V prior to procedure Degenerative disc disease Diverticular disease Environmental and seasonal allergies History of COVID-19 07/2021- 2 weeks later had ER visit to r/o blood clots, dx sinus infection per patient, symptoms resolved History of diverticulitis Hx of migraines Hx of sleep apnea "Mild" IYNA "no longer issue" s/p tonsillectomy Hypothyroidism Kidney stones Hx Paroxysmal atrial fibrillation 2016, Possibly r/t thyroid condition per cardio records, previous medications discontinued [facility] cardiology 10/2019- "His [id number] score is 0 so anticoagulation is not necessary, especially since this is paroxysmal." Thyroid nodule Surgical History History of cystoscopy + stent (2019) History of tooth extraction WTE Hx of colonoscopy Hx of tonsillectomy Tonsillectomy (09/12/18, [facility]) Hx of vasectomy Family History Family/Other Coronary heart disease Mother Hyperthyroidism Ovarian cancer Grandfather Heart disease Uncle Myocardial infarction Denies family history of Prostate cancer Breast cancer Lung cancer Colorectal cancer Social History Smoking Status: Never smoker Tobacco Type: Smokeless Tobacco (Dip or Chew) Second Hand Exposure: No; Do You Dip or Chew Tobacco: No (quit); Tobacco Cessation Education Requested by Patient: No Hx Alcohol Use: No Hx Substance Use: No Preferred Language: Panamanian Communication Ability: Effective Visual Impairment: No Limitations Oceanography Professor Required: No Beliefs That Will Affect Care: None marital status: Current Living Situation: Spouse and Family Current Living Situation Comment: Lives with and 2 kids current occupational status: employed 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 How many Children do You have: 3 Other Information That Helps Us Care for You: No Feels Safe at Home: Yes Safety Concerns: Feels Safe At This Time caffeine: Yes (1 soda per day) Dental Care, Regularly: Yes Physical Activity Frequency: Does not Exercise Seatbelt Use: always Sunscreen Use: Yes Assistive Devices: Glasses Physical Exam Physical Exam: Patient's exam was stable with no acute findings and no specific findings of unusual petechiae bruising or epistaxis Results & Data Vital Signs (Past 12 Hours) Vital Signs Temp Pulse Resp BP Pulse Ox O2 Del Method 05/01/23 01:58 37 C 73 20 130/80 95 Room Air 04/30/23 23:00 36.6 C 76 18 125/80 95 Room Air PG Care Time/CCT Total # of Minutes Spent Total Time Spent with Patient: Total time spent is greater than 50% in coordination of care (as documented) at patient's floor/unit and/or counseling patient: Coding Level of Care Code 93456 IN/OBS CONSULT LVL 3,45M Diagnoses Congenital von Willebrand's disease type I D68.0
[2023-05-01 07:35] LABS: T4 Free Thyroxine 0.75 ng/dl (0.61-1.60)
[2023-05-01] MEDS ORDERED: PROMETHAZINE HCL 12.5 MG in SODIUM CHLORIDE 0.9% 50 ML IV PRN (07:55)
--- NOTE | 2023-05-01 08:24 | Hospitalist Progress Note ---
Date of Service May 01, 2023 Assessment & Plan (1) Diverticulitis: Plan: Now s/p sigmoid colectomy 04/30/[address] Sullivan Post-operative pain control, DVT ppx, and outpatient follow up per primary service (2) Congenital von Willebrand's disease type I: Plan: History of, follows with Dr. Holland who is also consulted this admission Hgb 14 pre-op -> 13.4 today, with ~450cc drainage from REMA drain so far, fortunately Hgb relatively stable Received antihemolytic/von Willebrand factors, factor XIII, continue infusions per Hematology to support over 7 days Monitor Hgb closely, follow up labwork tomorrow AM, sooner if develops evidence of hemodynamic instability (3) Paroxysmal atrial fibrillation: Plan: History of PAF, not on rate or rhythm control agents nor on anticoagulation, no complaints of palpitations at this time ChadsVasc score of 1, would not recommend chronic AC in this patient at this time Monitor vitals, does not need telemetry for now, HR stable in 60s (4) Thyroid disease: Plan: Today TSH was 10.279 with FT4 0.75, TSH not at goal for hypothyroidism Continue levothyroxine at increased dose 100 mcg daily, follow up levels in 4-6 weeks Last surveillance thyroid US was in October, consider repeating as he is due for 6 month check (5) Anxiety: Plan: Continue home lorazepam Plan ongoing care by surgery with consults by myself and hematology, will continue to follow alone in his care Admission and Anticipated Discharge Date Admission Date: April 30, 2023 Subjective Overnight with some gas pain, denies nausea, SOB, chest pain. Abdominal pain noted but not worse than post-op yesterday. Physical Exam Constitutional: WD/WN, vitals as above Respiratory: normal respiratory effort, lungs clear to auscultation Cardiovascular: RRR, no murmur, no edema Gastrointestinal (Abdomen): normal bowel sounds Skin: no rashes, warm and dry no significant ecchymosis or petechiae Psychiatric: A+Ox3, euthymic affect Results & Data Results & Data Vital Signs (Past 12 Hours) Vital Signs Temp Pulse Resp BP Pulse Ox O2 Del Method 05/01/23 07:25 36.6 C 65 16 142/85 H 96 Room Air 05/01/23 01:58 37 C 73 20 130/80 95 Room Air 04/30/23 23:00 36.6 C 76 18 125/80 95 Room Air PG Care Time/CCT Total # of Minutes Spent Total Time Spent with Patient: Total time spent is greater than 50% in coordination of care (as documented) at patient's floor/unit and/or counseling patient: Coding Level of Care Code 32164 SUB INP/OBS CARE 3/50MIN Diagnoses Diverticulitis K57.92 Congenital von Willebrand's disease type I D68.0 Paroxysmal atrial fibrillation I48.0 Thyroid disease E07.9 Anxiety F41.9
[2023-05-01] MEDS: ACETAMINOPHEN 1,000 MG/100 ML VIAL IV SCH ×3 (08:49→23:30)
[2023-05-01] MEDS: LACTATED RINGER'S 1,000 ML IV SCH ×2 (08:50→17:25)
[2023-05-01] MEDS: MULTIVITAMIN TAB PO SCH (08:58)
[2023-05-01] MEDS: SIMETHICONE 80 MG CHEW PO PRN ×2 (10:04→15:24)
--- NOTE | 2023-05-01 10:32 | Surgery Progress Note ---
Date of Service May 01, 2023 Assessment & Plan (1) S/P laparoscopic-assisted sigmoidectomy: Plan: POD#1 lap assisted sigmoidectomy WBC 9.8, Hbg 13.4. Vital signs are stable Initially had some nausea, this is improved; + flatus at this point Reports + abdominal discomfort, worse in LLQ as expected. encouraged pain regimen as needed Jenkins catheter removed. REMA drain serosang. Continue on clears for today, unless worsening n/v Encourage pulmonary toilet and ambulation as tolerates Appreciate hematology and medicine assistance with patient Admission and Anticipated Discharge Date Admission Date: April 30, 2023 Supervising Physician Co-Signing Physician Notes I personally saw and evaluated the patient with Willa Wood PA-C and agree with the assessment and plan. 42-year-old male postoperative day 1 laparoscopic sigmoidectomy for diverticulitis Remove Jenkins today Keep on clear liquids Encourage ambulation incentive spirometry We will start DVT prophylaxis with Lovenox tomorrow Oncology and hospitalist consults appreciated He is overall doing well and his vital signs and labs are stable We will await more meaningful return of bowel function before we advance his diet Subjective Patient reported some nausea and trouble passing flatus this AM. Both of which are improved, no further nausea and he reports passing some flatus. He does have some abdominal discomfort. Has been ambulating frequently. Physical Exam Physical Exam: awake/alert Respiratory: normal respiratory effort Gastrointestinal (Abdomen): Inspection/Auscultation: + abdomen distended (mild), + abdominal surgical incision (surgical dressings in place) and + abdominal surgical drain present (REMA drain 40cc over last shift, total 445 since OR) Percussion/Palpation: + abdomen tender (expected migdalia incisional discomfort to palpation, worse in LLQ) and abdomen soft Results & Data Vital Signs (Past 12 Hours) Vital Signs Temp Pulse Resp BP Pulse Ox O2 Del Method 05/01/23 07:25 36.6 C 65 16 142/85 H 96 Room Air 05/01/23 01:58 37 C 73 20 130/80 95 Room Air 04/30/23 23:00 36.6 C 76 18 125/80 95 Room Air PG Care Time/CCT Total # of Minutes Spent Total Time Spent with Patient: Total time spent is greater than 50% in coordination of care (as documented) at patient's floor/unit and/or counseling patient: Coding Level of Care Code 29563 Post Operative Follow-Up Diagnoses S/P laparoscopic-assisted sigmoidectomy Z90.49
[2023-05-01] MEDS ORDERED: [UNRECOGNIZED DRUG - MIXTURE] IV SCH (12:00)
[2023-05-01] MEDS: oxyCODONE HCL IR 5 MG TAB (IMMEDIATE RELEASE) PO PRN (18:13)
--- NOTE | 2023-05-01 22:28 | Hospitalist Progress Note ---
Date of Service May 01, 2023 Assessment & Plan (1) Congenital von Willebrand's disease type I: Plan: Peak values for von Willebrand's antigen and factor VIII level are falling within desired range. There was some inconsistency with the timing of his doses today and thus the lab values that returned may not be completely reliable. Clinically he is quite stable, however, so we will continue with current 25 unit/kg dose every 12 hours. We will arrange for trough levels to be drawn tomorrow morning. Plan Continue current plan of Humate-P 25 units per kilogram every 12 hours to complete 7 days of treatment postoperatively Trough levels to be obtained before the 11 AM dose tomorrow Admission and Anticipated Discharge Date Admission Date: April 30, 2023 Subjective Recovering reasonably well so far. No suggestions of any unusual bleeding or bruising. Physical Exam Physical Exam: Vital signs are stable. He is alert and appropriate, some abdominal tenderness commensurate with his recent surgery but lung, heart, and the rest of his examination seem stable Results & Data Results & Data Vital Signs (Past 12 Hours) Vital Signs Temp Pulse Resp BP BP Pulse Ox O2 Del Method 05/01/23 15:50 36.8 C 67 16 127/80 96 Room Air 05/01/23 11:59 36.7 C 69 14 145/76 H 95 Room Air 05/01/23 11:15 36.6 C 69 16 124/77 95 Room Air PG Care Time/CCT Total # of Minutes Spent Total Time Spent with Patient: Total time spent is greater than 50% in coordination of care (as documented) at patient's floor/unit and/or counseling patient: Coding Level of Care Code 37028 SUB INP/OBS CARE 25MIN Diagnoses Congenital von Willebrand's disease type I D68.0
[2023-05-01] MEDS ORDERED: [UNRECOGNIZED DRUG - MIXTURE] IV SCH (23:00)
[2023-05-02] MEDS: SIMETHICONE 80 MG CHEW PO PRN ×3 (00:18→17:40)
[2023-05-02] MEDS: LEVOTHYROXINE SODIUM 100 MCG TABLET PO SCH (05:40)
--- NOTE | 2023-05-02 05:49 | Hospitalist Progress Note ---
Date of Service May 02, 2023 Assessment & Plan (1) Congenital von Willebrand's disease type I: Plan: as per previous Plan I am away until Saturday, Dr. Vallejo is covering Admission and Anticipated Discharge Date Admission Date: April 30, 2023 Results & Data Results & Data Vital Signs (Past 12 Hours) Vital Signs Temp Pulse Resp BP Pulse Ox O2 Del Method 05/01/23 23:02 36.8 C 74 16 131/87 95 Room Air PG Care Time/CCT Total # of Minutes Spent Total Time Spent with Patient: Total time spent is greater than 50% in coordination of care (as documented) at patient's floor/unit and/or counseling patient: Coding Level of Care Code None Diagnoses Congenital von Willebrand's disease type I D68.0
--- NOTE | 2023-05-02 08:03 | Hospitalist Progress Note ---
Date of Service May 02, 2023 Assessment & Plan (1) Diverticulitis: Plan: Now s/p sigmoid colectomy 04/30/[address] Sullivan Post-operative pain control, DVT ppx, and outpatient follow up per primary service (2) Congenital von Willebrand's disease type I: Plan: History of, follows with Dr. Holland who is also consulted this admission Hgb 14 pre-op -> 13.6 today, fortunately Hgb relatively stable Received antihemolytic/von Willebrand factors, factor XIII, continue infusions per Hematology to support over 7 days Monitor Hgb closely, daily H/H, transfuse if Hgb precipitous drop or <7 (3) Paroxysmal atrial fibrillation: Plan: History of PAF, not on rate or rhythm control agents nor on anticoagulation, no complaints of palpitations at this time ChadsVasc score of 1, would not recommend chronic AC in this patient at this time Monitor vitals, does not need telemetry for now, HR stable in 60s (4) Thyroid disease: Plan: Today TSH was 10.279 with FT4 0.75, TSH not at goal for hypothyroidism Continue levothyroxine at increased dose 100 mcg daily, follow up levels in 4-6 weeks Last surveillance thyroid US was in October, consider repeating as he is due for 6 month check (5) Anxiety: Plan: Continue home lorazepam Plan ongoing care by surgery with consult hematology Hospitalist service will sign off at this time, please re-consult if new p roblems or questions arise Admission and Anticipated Discharge Date Admission Date: April 30, 2023 Subjective Patient without acute events overnight. Some abdominal pain and has not had BM yet but is having flatulence. Denies chest pain, SOB, lightheadedness. Physical Exam Constitutional: WD/WN, vitals as above Respiratory: normal respiratory effort, lungs clear to auscultation Cardiovascular: RRR, no murmur, no edema Gastrointestinal (Abdomen): normal bowel sounds serosanguineous drainage from REMA no surrounding erythema at incision sites in abdomen Skin: no rashes, warm and dry no significant ecchymosis or petechiae Psychiatric: A+Ox3, euthymic affect Results & Data Results & Data Vital Signs (Past 12 Hours) Vital Signs Temp Pulse Pulse Resp BP Pulse Ox O2 Del Method 05/02/23 07:00 36.6 C 76 16 123/80 Room Air 05/01/23 23:02 36.8 C 74 16 131/87 95 Room Air PG Care Time/CCT Total # of Minutes Spent Total Time Spent with Patient: Total time spent is greater than 50% in coordination of care (as documented) at patient's floor/unit and/or counseling patient: Coding Level of Care Code 67459 SUB INP/OBS CARE 235MIN Diagnoses Diverticulitis K57.92 Congenital von Willebrand's disease type I D68.0 Paroxysmal atrial fibrillation I48.0 Thyroid disease E07.9 Anxiety F41.9
--- NOTE | 2023-05-02 09:01 | Surgery Progress Note ---
Date of Service May 02, 2023 Assessment & Plan (1) S/P laparoscopic-assisted sigmoidectomy: Plan: POD 2 Laparoscopic Sigmoid Colectomy Patient states he feels better than yesterday Has been up ambulating in the halls, has made 5 laps so far Reports he feels gas moving in his abdomen, has passed some this AM but not as much as yesterday Tolerating clears denies N/V, fever/ chills Passed a blood clot this AM but otherwise no BM's REMA drain emptied for 100cc of serosanguineous Abdominal incisional areas covered with gauze and tape, C/D/I no s/s of infection noted Labs are still pending this AM , VSS Admission and Anticipated Discharge Date Admission Date: April 30, 2023 Supervising Physician Co-Signing Physician Notes I personally saw and evaluated the patient with Mona BUCK and agree with the assessment and plan. 42-year-old male postoperative day 2 laparoscopic sigmoidectomy for diverti culitis Keep on clear liquids, he is passing some flatus but not regularly Encourage ambulation incentive spirometry Start DVT prophylaxis today, Hgb is stable Oncology and hospitalist consults appreciated He is overall doing well and his vital signs and labs are stable Leave drain in place Subjective POD 2 Laparoscopic Sigmoid Colectomy Patient states he feels better than yesterday Has been up ambulating in the halls, has made 5 laps so far Reports he feels gas moving in his abdomen, has passed some this AM but not as much as yesterday Tolerating clears denies N/V, fever/ chills Passed a blood clot this AM but otherwise no BM's Review of Systems Constitutional: no fever, no chills and no sweats Respiratory: no dyspnea Cardiovascular: no chest pain Gastrointestinal: + abdominal pain and + belching (mildly ); no nausea and no vomiting Physical Exam Physical Exam: alert awake sitting in chair Constitutional: well developed, cooperative and comfortable Respiratory: normal respiratory effort and able to speak in complete sentences; no respiratory distress Cardiovascular: Rate/Rhythm: regular rate Gastrointestinal (Abdomen): Inspection/Auscultation: + abdominal surgical incision and + abdominal surgical drain present Percussion/Palpation: + abdomen tender and abdomen soft Results & Data Vital Signs (Past 12 Hours) Vital Signs Temp Pulse Pulse Resp BP Pulse Ox O2 Del Method 05/02/23 07:00 97.9 F 76 16 123/80 Room Air 05/01/23 23:02 98.2 F 74 16 131/87 95 Room Air PG Care Time/CCT Total # of Minutes Spent Total Time Spent with Patient: Total time spent is greater than 50% in coordination of care (as documented) at patient's floor/unit and/or counseling patient: Coding Level of Care Code 11969 Post Operative Follow-Up Diagnoses S/P laparoscopic-assisted sigmoidectomy Z90.49
[2023-05-02] MEDS: MULTIVITAMIN TAB PO SCH (09:06)
[2023-05-02] MEDS: ACETAMINOPHEN 1,000 MG/100 ML VIAL IV SCH ×3 (09:06→23:37)
[2023-05-02] MEDS: ENOXAPARIN INJ 40 MG/0.4 ML SYR SQ SCH (09:06)
[2023-05-02] MEDS ORDERED: [UNRECOGNIZED DRUG - MIXTURE] IV SCH (11:00)
[2023-05-02 11:09] LABS: Basophils # (auto) 0.04 K/uL (0.00-0.20); Basophils % (auto) 0.6 %; Eosinophils # (auto) 0.15 K/uL (0.00-0.50); Eosinophils % (auto) 2.1 %; Hematocrit (blood only) 40.4 % (42.0-52.0); Hemoglobin 13.6 g/dl (14.0-18.0); Immature Granulocytes # (auto) 0.02 K/uL (0.01-0.20); Immature Granulocytes % (auto) 0.3 %; Lymphocytes # (auto) 1.57 K/uL (1.20-3.40); Lymphocytes % (auto) 22.2 %; Mean Corpuscular Hemoglobin 29.7 pg (25.0-34.0); Mean Corpuscular Hgb Conc 33.7 g/dL (32.0-36.0); Mean Corpuscular Volume 88.2 fL (80.0-100.0); Mean Platelet Volume 8.8 fL (9.4-12.4); Monocytes # (auto) 0.62 K/uL (0.11-0.59); Monocytes % (auto) 8.8 %; Neutrophils # (auto) 4.68 K/uL (1.40-6.50); Platelet Count 261 K/uL (130-400); RDW Coefficient of Variation 12.9 % (11.5-14.5); RDW Standard Deviation 41.6 fL (36.4-46.3); Red Blood Count 4.58 M/uL (4.70-6.10); White Blood Count 7.08 K/ul (4.8-10.8)
[2023-05-02] MEDS: oxyCODONE HCL IR 5 MG TAB (IMMEDIATE RELEASE) PO PRN (11:19)
[2023-05-02 11:24] LABS: BUN Creatinine Ratio 12.8 (10-20); Calcium 8.8 mg/dl (8.6-10.3); Creatinine Clr Calc Pharmacy 137.9 ml/min; Est GFR (African American) 123.1 ml/min; Est GFR (Non-African American) 106.2 ml/min; Potassium 3.8 mmol/L (3.5-5.1)
[2023-05-02] MEDS ORDERED: POTASSIUM CHLORIDE CRTAB 20 MEQ TABCR PO STA (11:46)
[2023-05-02] MEDS: [UNRECOGNIZED DRUG - MIXTURE] IV SCH (22:49)
[2023-05-03] MEDS: LEVOTHYROXINE SODIUM 100 MCG TABLET PO SCH (05:45)
[2023-05-03 06:38] LABS: Basophils # (auto) 0.05 K/uL (0.00-0.20); Basophils % (auto) 0.8 %; Eosinophils # (auto) 0.19 K/uL (0.00-0.50); Eosinophils % (auto) 3.1 %; Hematocrit (blood only) 39.3 % (42.0-52.0); Hemoglobin 13.3 g/dl (14.0-18.0); Immature Granulocytes # (auto) 0.02 K/uL (0.01-0.20); Immature Granulocytes % (auto) 0.3 %; Lymphocytes # (auto) 1.65 K/uL (1.20-3.40); Lymphocytes % (auto) 27.1 %; Mean Corpuscular Hemoglobin 29.6 pg (25.0-34.0); Mean Corpuscular Hgb Conc 33.8 g/dL (32.0-36.0); Mean Corpuscular Volume 87.3 fL (80.0-100.0); Mean Platelet Volume 8.7 fL (9.4-12.4); Monocytes # (auto) 0.69 K/uL (0.11-0.59); Monocytes % (auto) 11.3 %; Neutrophils # (auto) 3.48 K/uL (1.40-6.50); Neutrophils % (auto) 57.4 %; Platelet Count 251 K/uL (130-400); RDW Coefficient of Variation 12.6 % (11.5-14.5); RDW Standard Deviation 40.2 fL (36.4-46.3); White Blood Count 6.08 K/ul (4.8-10.8)
[2023-05-03 06:59] LABS: BUN Creatinine Ratio 13.3 (10-20); Calcium 8.7 mg/dl (8.6-10.3); Creatinine Clr Calc Pharmacy 158.1 ml/min; Est GFR (African American) 130.2 ml/min; Est GFR (Non-African American) 112.4 ml/min; Potassium 3.8 mmol/L (3.5-5.1)
--- NOTE | 2023-05-03 07:56 | Surgery Progress Note ---
Date of Service May 03, 2023 Assessment & Plan (1) S/P laparoscopic-assisted sigmoidectomy: Plan: POD#3 lap sigmoidectomy WBC 6, Hbg 13, Cr 0.7. Vital signs are stable Pt is overall feeling well. no nausea/vomiting. pain controlled tolerating clears. + flatus. Will advance to fulls today and see how he fairs REMA drain remains serosang. Appreciate hematology recs for h/o VWD Continue ambulation/pulmonary toilet Admission and Anticipated Discharge Date Admission Date: April 30, 2023 Supervising Physician Co-Signing Physician Notes I personally saw and evaluated the patient with Mona BUCK and agree with the assessment and plan. 42-year-old male postoperative day 3 laparoscopic sigmoidectomy for diverticulitis Advance to fulls, passing flatus Encourage ambulation/IS Oncology and hospitalist consults appreciated He is overall doing well and his vital signs and labs are stable Leave drain in place If he is stable over the weekend he can be discharged if this works with hematology and their plan for his Humate P infusions Subjective Patient is doing well. Tolerating clears, no nausea/vomiting. Reports passing flatus and feels things rumbling in his abdomen. Pain controlled, mostly using tylenol. ambulating frequently. had a coughing episode last night and felt like he popped his incision, but it feels better now Physical Exam Physical Exam: awake/alert, no distress Respiratory: normal respiratory effort Gastrointestinal (Abdomen): Inspection/Auscultation: + abdominal surgical incision (c/d/i) and + abdominal surgical drain present (serosang - 150cc); abdomen not distended Percussion/Palpation: + abdomen tender (expected migdalia incisional discomfort) and abdomen soft Results & Data Vital Signs (Past 12 Hours) Vital Signs Temp Pulse Resp BP Pulse Ox O2 Del Method 05/03/23 07:16 36.7 C 57 L 16 116/76 96 Room Air 05/02/23 20:43 36.8 C 67 18 127/74 96 Room Air PG Care Time/CCT Total # of Minutes Spent Total Time Spent with Patient: Total time spent is greater than 50% in coordination of care (as documented) at patient's floor/unit and/or counseling patient: Coding Level of Care Code 04728 Post Operative Follow-Up Diagnoses S/P laparoscopic-assisted sigmoidectomy Z90.49
[2023-05-03] MEDS: ACETAMINOPHEN 1,000 MG/100 ML VIAL IV SCH (08:19)
[2023-05-03] MEDS: ENOXAPARIN INJ 40 MG/0.4 ML SYR SQ SCH (08:20)
[2023-05-03] MEDS: MULTIVITAMIN TAB PO SCH (08:20)
[2023-05-03] MEDS ORDERED: POTASSIUM CHLORIDE CRTAB 20 MEQ TABCR PO STA (08:43)
[2023-05-03] MEDS: [UNRECOGNIZED DRUG - MIXTURE] IV SCH (12:10)
[2023-05-03] MEDS: ACETAMINOPHEN 325 MG TAB PO PRN ×2 (16:20→21:41)
[2023-05-03] MEDS ORDERED: HYDROmorphone INJ 0.5 MG/0.5 ML SYR IV STA (22:03)
--- NOTE | 2023-05-03 22:30 | Communication Note ---
Date of Service: May 03, 2023 9:50pm received notification patient has new onset b/l flank pain 10/[address] due to pain. Noted recent history sigmoidectomy POD 3, hx. von Willebrand disease, hx kidney stones. Patient states he had a laproscopic sigmoidectomy 3 days ago had ongoing abd pain since then gradually improving, resumed liquid diet today for lunch and dinner tolerated both well. Pain began 20min ago felt similar but worse than previous kidney stones, also felt some pain in testicles with urination. He denies headache dizziness weakness, does state his hands feel cold. Patient recently took tylenol has been avoiding opioids didn't like how they made him feel. On exam HR 70's good capillary refill warm extremities, pain on palpation to LLQ around laproscopy incision, bandages clean dry drain intact. Ordered CT A/P with contrast, CBC CMP. Patient declined dilaudid, understands to use it if pain continues. No signs of bleeding on infection on CBC, Hbg 13.5 unchanged, CMP unremarkable, CT A/P per my read no bleeding, 2 nephrolithiasis noted in left kidney no hydronephrosis noted. Patient was given dilaudid, sleeping comfortably, nurses updated.
[2023-05-03 22:56] LABS: Hematocrit (blood only) 38.8 % (42.0-52.0); Hemoglobin 13.5 g/dl (14.0-18.0); Mean Corpuscular Hemoglobin 29.9 pg (25.0-34.0); Mean Corpuscular Hgb Conc 34.8 g/dL (32.0-36.0); Mean Corpuscular Volume 85.8 fL (80.0-100.0); Mean Platelet Volume 8.8 fL (9.4-12.4); Platelet Count 282 K/uL (130-400); RDW Coefficient of Variation 12.6 % (11.5-14.5); RDW Standard Deviation 39.2 fL (36.4-46.3); Red Blood Count 4.52 M/uL (4.70-6.10); White Blood Count 5.58 K/ul (4.8-10.8)
[2023-05-03] MEDS ORDERED: [UNRECOGNIZED DRUG - MIXTURE] IV SCH (23:00)
[2023-05-03 23:14] LABS: Albumin Globulin Ratio 1.9 (0.9-2); Albumin Level 4.2 gm/dl (3.4-5.0); BUN Creatinine Ratio 12.8 (10-20); Bilirubin,Total 0.6 mg/dl (0.2-1.0); Calcium 9.1 mg/dl (8.6-10.3); Creatinine Clr Calc Pharmacy 152.1 ml/min; Est GFR (African American) 128.1 ml/min; Est GFR (Non-African American) 110.6 ml/min; Globulin 2.2 gm/dl (2.5-4.0); Potassium 3.6 mmol/L (3.5-5.1); Total Protein 6.4 gm/dl (6.0-8.3)
[2023-05-03] MEDS ORDERED: OPTIRAY 320 100ml IV ONE (23:59)
[2023-05-04] MEDS: HYDROmorphone INJ 0.5 MG/0.5 ML SYR IV PRN ×2 (00:17→22:44)
--- NOTE | 2023-05-04 02:07 | CT Scan Report ---
Exam(s): CT ABDOMEN + PELVIS With Contrast IV Amt: 92 ml opti 320 EXAM: CT Abdomen and Pelvis With Intravenous Contrast CLINICAL HISTORY: Reason for exam: new b/l flank pain recent surgery hx VW, kidney st. TECHNIQUE: Axial computed tomography images of the abdomen and pelvis with intravenous contrast. CTDI is 28.14 mGy and DLP is 1612.4 mGy-cm. Automated exposure control was utilized for the study. A dose lowering technique was utilized adhering to the principles of ALARA. CONTRAST: Patient received 92 ml opti 320 of IV contrast COMPARISON: CT abdomen and pelvis 02/20/23 FINDINGS: Lung bases: Subsegmental atelectasis of the bilateral lung bases. ABDOMEN: Liver: Hepatomegaly. Gallbladder and bile ducts: Unremarkable. No calcified stones. No ductal dilation. Pancreas: Unremarkable. No mass. No ductal dilation. Spleen: Unremarkable. No splenomegaly. Adrenals: Unremarkable. No mass. Kidneys and ureters: Symmetric renal enhancement. No hydronephrosis. At least 3 nonobstructing left kidney stones, the largest 4 mm. Stomach and bowel: No bowel obstruction. Postoperative changes of the sigmoid colon. Wall thickening in the proximal to mid sigmoid colon with migdalia-colonic fat stranding. PELVIS: Appendix: Normal appendix. Bladder: Focus of intraluminal gas in the bladder compatible with recent instrumentation. No bladder wall thickening. Reproductive: Normal prostate. ABDOMEN and PELVIS: Intraperitoneal space: Unremarkable. No free air. No significant fluid collection. Bones/joints: No acute fracture or dislocation. Soft tissues: Scattered foci of subcutaneous gas within the abdominal wall, likely resolving postoperative change. Vasculature: Unremarkable. No aortic aneurysm. Lymph nodes: Unremarkable. No adenopathy. Tubes, lines and devices: Peritoneal dialysis catheter with tip in the right pelvis. IMPRESSION: 1. Wall thickening in the proximal to mid sigmoid colon with migdalia- colonic fat stranding. This occurs adjacent to a surgical anastomosis within the sigmoid colon. Findings could represent normal postoperative change versus segmental colitis. There is no evidence of bowel perforation or free air. 2. Multiple nonobstructing left kidney stones. No hydronephrosis. Electronically signed by: Awais Mcdonald M.D. 05/04/23 02:06 AM
[2023-05-04] MEDS ORDERED: SODIUM CHLORIDE 0.9% 1,000 ML IV SCH (02:30)
[2023-05-04] MEDS: KETOROLAC TROMETHAMINE 15 MG/ML VIAL IV PRN ×2 (02:59→12:05)
[2023-05-04] MEDS: LEVOTHYROXINE SODIUM 100 MCG TABLET PO SCH (05:52)
[2023-05-04] MEDS: ACETAMINOPHEN 325 MG TAB PO PRN (05:52)
--- NOTE | 2023-05-04 06:08 | Surgery Progress Note ---
Date of Service May 04, 2023 Assessment & Plan (1) S/P laparoscopic-assisted sigmoidectomy: Plan: Status post sigmoidectomy on 04/30/2023 (postop day #4) Continue current diet which is full liquids. Would consider advancing diet once patient has further improvement of bowel function Continue REMA drain to bulb suction Continue analgesics Continue antiemetics Encourage ambulation Due to flank pain noted last evening the hospitalist ordered a CT scan of the abdomen and pelvis.This showed nonobstructing left-sided kidney stone with no hydronephrosis. There is no evidence of bowel perforation or free air. Due to von Willebrand's disease patient is receiving Infusion of antihemophilic/von Willebrand factor as directed by hematology/oncology Check a.m. labs when available Lovenox is in place for DVT prevention Admission and Anticipated Discharge Date Admission Date: April 30, 2023 Supervising Physician Co-Signing Physician Notes I have seen and examined this patient along with the PA this am. I agree with the above documentation. The patient is progressing well. He has remained HD stable, afebrile, without leukocytosis with an appropriate abdominal examination. Incisions are clean and dry without signs of infection. H/H is stable. Chemistry looks good this am as well. Will continue full liquids today and likely advance his diet tomorrow if he continues this way today. Subjective Patient is currently resting comfortably in bed. He denies any nausea or vomiting. He notes he has been passing small amounts of flatus and feels as though he will have a bowel movement in the near future. He says he has been ambulating in the hallway. Last evening patient said he developed bilateral flank pain. He does report a history of kidney stones in the past and notes that this is similar to what he experienced at that time. He notes that this pain has since resolved and he is urinating without difficulty. When he urinates he denies any dysuria or hematuria Physical Exam Gastrointestinal (Abdomen): Abdomen is soft and nondistended. Incisions are clean, dry, intact. Patient has appropriate pain over her surgical incisions. Bowel sounds are present. At the time of my exam this morning he did not have any CVA tenderness with percussion bilaterally. REMA drain is in place draining serous fluid and is drained 90 cc over the past 24 hours. Results & Data Vital Signs (Past 12 Hours) Vital Signs Temp Pulse Resp BP Pulse Ox O2 Del Method 05/03/23 21:40 Room Air 05/04/23 00:29 36.4 C L 68 18 147/92 H 97 Room Air PG Care Time/CCT Total # of Minutes Spent Total Time Spent with Patient: Total time spent is greater than 50% in coordination of care (as documented) at patient's floor/unit and/or counseling patient: Coding Level of Care Code 69556 Post Operative Follow-Up Diagnoses S/P laparoscopic-assisted sigmoidectomy Z90.49
[2023-05-04 06:31] LABS: Basophils # (auto) 0.05 K/uL (0.00-0.20); Basophils % (auto) 0.9 %; Eosinophils # (auto) 0.21 K/uL (0.00-0.50); Eosinophils % (auto) 3.8 %; Hematocrit (blood only) 38.7 % (42.0-52.0); Hemoglobin 13.4 g/dl (14.0-18.0); Immature Granulocytes # (auto) 0.02 K/uL (0.01-0.20); Immature Granulocytes % (auto) 0.4 %; Lymphocytes # (auto) 1.62 K/uL (1.20-3.40); Mean Corpuscular Hgb Conc 34.6 g/dL (32.0-36.0); Mean Corpuscular Volume 86.6 fL (80.0-100.0); Mean Platelet Volume 8.9 fL (9.4-12.4); Monocytes # (auto) 0.54 K/uL (0.11-0.59); Monocytes % (auto) 9.7 %; Neutrophils # (auto) 3.15 K/uL (1.40-6.50); Neutrophils % (auto) 56.2 %; Platelet Count 264 K/uL (130-400); RDW Coefficient of Variation 12.4 % (11.5-14.5); RDW Standard Deviation 39.5 fL (36.4-46.3); Red Blood Count 4.47 M/uL (4.70-6.10); White Blood Count 5.59 K/ul (4.8-10.8)
[2023-05-04 06:52] LABS: Est GFR (African American) 121.1 ml/min; Potassium 3.9 mmol/L (3.5-5.1)
[2023-05-04 06:53] LABS: BUN Creatinine Ratio 11.4 (10-20); Calcium 8.9 mg/dl (8.6-10.3); Creatinine Clr Calc Pharmacy 133.4 ml/min; Est GFR (Non-African American) 104.5 ml/min
[2023-05-04] MEDS: MULTIVITAMIN TAB PO SCH (08:43)
[2023-05-04] MEDS: ENOXAPARIN INJ 40 MG/0.4 ML SYR SQ SCH (08:44)
[2023-05-04] MEDS ORDERED: [UNRECOGNIZED DRUG - MIXTURE] IV SCH (11:00)
[2023-05-04] MEDS: [UNRECOGNIZED DRUG - MIXTURE] IV SCH ×2 (11:17→22:44)
--- NOTE | 2023-05-04 13:33 | Hospitalist Progress Note ---
Date of Service May 04, 2023 Assessment & Plan (1) Congenital von Willebrand's disease type I: Plan: Doing well with no signs of new hemorrhage or other hemostasis issues. Plan Current levels are slightly above target, will decrease the dose of his Humate-P to just 20 units/kg continuing on a every 12 hour schedule. Given the turnaround time we will not be able to effectively get new results in a timely fashion for further dose changes but he is so stable he should do well with simply that change. Would give the last dose of enoxaparin as the a.m. dose on Saturday, May 05 so long as he is ambulating well and not felt to be at significant risk for DVT ongoing Could anticipate discharging him after his 11 AM Humate-P dose on SaturdayMay 06 Admission and Anticipated Discharge Date Admission Date: April 30, 2023 Subjective This follow-up is completed electronically only based on review of the medical record. Patient is apparently doing well. Physical Exam Physical Exam: Vital signs are stable and described examination is stable Results & Data Results & Data Vital Signs (Past 12 Hours) Vital Signs Temp Pulse Resp BP Pulse Ox O2 Del Method 05/04/23 07:40 36.5 C 56 L 18 133/91 98 Room Air PG Care Time/CCT Total # of Minutes Spent Total Time Spent with Patient: Total time spent is greater than 50% in coordination of care (as documented) at patient's floor/unit and/or counseling patient: Coding Level of Care Code None Diagnoses Congenital von Willebrand's disease type I D68.0
[2023-05-05] MEDS: LEVOTHYROXINE SODIUM 100 MCG TABLET PO SCH (05:32)
--- NOTE | 2023-05-05 05:40 | Surgery Progress Note ---
Date of Service May 05, 2023 Assessment & Plan (1) S/P laparoscopic-assisted sigmoidectomy: Plan: Status post sigmoidectomy on 04/30/2023 (postop day #5) Continue diet as tolerated Continue REMA drain to bulb suction Continue analgesics Continue antiemetics Encourage ambulation Due to von Willebrand's disease patient is receiving Infusion of antihemophilic/von Willebrand factor as directed by hematology/oncologythey feel patient should remain hospitalized until 05/06/2023 with potential discharge after his morning infusion of this medication on that date Check a.m. labs when available Lovenox is in place for DVT prevention Admission and Anticipated Discharge Date Admission Date: April 30, 2023 Supervising Physician Co-Signing Physician Notes I have seen and examined this patient this am. He continues without leukocytosis, fevers, N/V, has tolerated a low fiber diet and has no abdominal complaints. He continues to pass gas and have bowel movements. REMA drainage remains sero-sanguinous. He is scheduled to have infusion of additional factors tomorrow and will stay until that is completed. If he continues to do well with his diet, he will be discharged with the REMA drain tomorrow and follow up with Dr. Sullivan. Subjective Patient is resting comfortably in bed. He notes he had his diet advanced to solid food yesterday which he tolerated without worsening abdominal pain or nausea or vomiting. He did note some minor flank pain but was not as severe as the previous evening and is currently resolved. He does report having several bowel movements over the past 24 hours. He denies any fevers, shakes, or chills. He continues to ambulate in the hallway. Physical Exam Gastrointestinal (Abdomen): Bowel sounds are present. Abdomen is soft and nondistended. It is nonrigid. Surgical incisions are clean, dry, intact. Patient has appropriate tenderness with palpation over surgical incisions. REMA drain is in place draining ser osanguineous fluid approximately 70 cc were recorded over the past 24 hours. Results & Data Vital Signs (Past 12 Hours) Vital Signs Temp Pulse Resp BP Pulse Ox O2 Del Method 05/04/23 22:45 Room Air 05/04/23 23:02 36.6 C 72 16 133/78 98 Room Air PG Care Time/CCT Total # of Minutes Spent Total Time Spent with Patient: Total time spent is greater than 50% in coordination of care (as documented) at patient's floor/unit and/or counseling patient: Coding Level of Care Code None Diagnoses S/P laparoscopic-assisted sigmoidectomy Z90.49
[2023-05-05 07:15] LABS: Basophils # (auto) 0.05 K/uL (0.00-0.20); Basophils % (auto) 0.7 %; Eosinophils # (auto) 0.27 K/uL (0.00-0.50); Eosinophils % (auto) 3.7 %; Hematocrit (blood only) 37.9 % (42.0-52.0); Immature Granulocytes # (auto) 0.03 K/uL (0.01-0.20); Immature Granulocytes % (auto) 0.4 %; Lymphocytes # (auto) 1.41 K/uL (1.20-3.40); Lymphocytes % (auto) 19.1 %; Mean Corpuscular Hemoglobin 29.5 pg (25.0-34.0); Mean Corpuscular Hgb Conc 34.3 g/dL (32.0-36.0); Mean Corpuscular Volume 85.9 fL (80.0-100.0); Mean Platelet Volume 8.9 fL (9.4-12.4); Monocytes # (auto) 0.55 K/uL (0.11-0.59); Monocytes % (auto) 7.4 %; Neutrophils # (auto) 5.08 K/uL (1.40-6.50); Neutrophils % (auto) 68.7 %; Platelet Count 255 K/uL (130-400); RDW Coefficient of Variation 12.5 % (11.5-14.5); RDW Standard Deviation 39.3 fL (36.4-46.3); Red Blood Count 4.41 M/uL (4.70-6.10); White Blood Count 7.39 K/ul (4.8-10.8)
[2023-05-05] MEDS: KETOROLAC TROMETHAMINE 15 MG/ML VIAL IV PRN ×2 (07:15→17:23)
[2023-05-05 08:29] LABS: BUN Creatinine Ratio 14.6 (10-20); Calcium 8.7 mg/dl (8.6-10.3); Creatinine Clr Calc Pharmacy 143.2 ml/min; Est GFR (African American) 124.6 ml/min; Est GFR (Non-African American) 107.5 ml/min
[2023-05-05] MEDS: MULTIVITAMIN TAB PO SCH (09:00)
[2023-05-05] MEDS: ENOXAPARIN INJ 40 MG/0.4 ML SYR SQ SCH (09:00)
[2023-05-05] MEDS ORDERED: [UNRECOGNIZED DRUG - MIXTURE] IV SCH (11:00)
[2023-05-05] MEDS: [UNRECOGNIZED DRUG - MIXTURE] IV SCH ×2 (11:26→23:07)
[2023-05-05] MEDS: HYDROmorphone INJ 0.5 MG/0.5 ML SYR IV PRN (23:07)
[2023-05-06] MEDS: KETOROLAC TROMETHAMINE 15 MG/ML VIAL IV PRN (04:17)
[2023-05-06] MEDS: LEVOTHYROXINE SODIUM 100 MCG TABLET PO SCH (06:14)
[2023-05-06 06:29] LABS: BUN Creatinine Ratio 14.7 (10-20); Calcium 8.6 mg/dl (8.6-10.3); Creatinine Clr Calc Pharmacy 115.1 ml/min; Est GFR (African American) 103.1 ml/min; Potassium 4.1 mmol/L (3.5-5.1)
[2023-05-06 06:39] LABS: Hematocrit (blood only) 36.3 % (42.0-52.0); Hemoglobin 12.3 g/dl (14.0-18.0); Mean Corpuscular Hemoglobin 29.4 pg (25.0-34.0); Mean Corpuscular Hgb Conc 33.9 g/dL (32.0-36.0); Mean Corpuscular Volume 86.8 fL (80.0-100.0); Mean Platelet Volume 9.1 fL (9.4-12.4); Platelet Count 254 K/uL (130-400); RDW Coefficient of Variation 12.6 % (11.5-14.5); RDW Standard Deviation 40.2 fL (36.4-46.3); Red Blood Count 4.18 M/uL (4.70-6.10); White Blood Count 5.63 K/ul (4.8-10.8)
[2023-05-06 07:03] LABS: Basophils # (auto) 0.03 K/uL (0.00-0.20); Basophils % (auto) 0.5 %; Eosinophils # (auto) 0.25 K/uL (0.00-0.50); Eosinophils % (auto) 4.4 %; Immature Granulocytes # (auto) 0.03 K/uL (0.01-0.20); Immature Granulocytes % (auto) 0.5 %; Lymphocytes # (auto) 1.77 K/uL (1.20-3.40); Lymphocytes % (auto) 31.4 %; Monocytes % (auto) 10.7 %; Neutrophils # (auto) 2.95 K/uL (1.40-6.50); Neutrophils % (auto) 52.5 %; RBC Morphology Unremarkable
[2023-05-06] MEDS: MULTIVITAMIN TAB PO SCH (08:22)
[2023-05-06] MEDS: ENOXAPARIN INJ 40 MG/0.4 ML SYR SQ SCH (08:38)
[2023-05-06] MEDS: oxyCODONE HCL IR 5 MG TAB (IMMEDIATE RELEASE) PO PRN (10:34)
[2023-05-06] MEDS: [UNRECOGNIZED DRUG - MIXTURE] IV SCH (11:02)
--- NOTE | 2023-05-06 12:45 | Surgery Progress Note ---
I have seen and examined this patient with the surgical PA and I agree with the plan Date of Service May 06, 2023 Assessment & Plan (1) S/P laparoscopic-assisted sigmoidectomy: Plan: s/p lap sigmoid colectomy WBC 5.6, Hbg 12. Vitals are stable and patient is afebrile He is tolerating a low fiber diet, no n/v. + bowel function Some expected migdalia incisional discomfort, mainly of LLQ REMA drain serosang, will leave in place to go home with given higher output Will ask pt to f/u in clinic with Dr. Sullivan within 1 week Discussed w/ heme, may leave after humate dose today Dispo instructions reviewed Admission and Anticipated Discharge Date Admission Date: April 30, 2023 Subjective Patient feeling pretty well. Has some LLQ incisional discomfort, but otherwise doing well. Tolerating low fiber without any nausea/vomiting. Reports +gas/BMs Physical Exam Physical Exam: awake/alert, no distress Respiratory: normal respiratory effort Gastrointestinal (Abdomen): Inspection/Auscultation: + abdominal surgical incision (c/d/i) and + abdominal surgical drain present (serousang (110cc last documented)); abdomen not distended Percussion/Palpation: + abdomen tender (some LLQ migdalia incisional discomfort) and abdomen soft Results & Data Vital Signs (Past 12 Hours) Vital Signs Temp Pulse Resp BP Pulse Ox O2 Del Method 05/06/23 07:35 36.6 C 57 L 16 132/88 96 Room Air PG Care Time/CCT Total # of Minutes Spent Total Time Spent with Patient: Total time spent is greater than 50% in coordination of care (as documented) at patient's floor/unit and/or counseling patient: Coding Level of Care Code 91672 Post Operative Follow-Up Diagnoses S/P laparoscopic-assisted sigmoidectomy Z90.49
--- NOTE | 2023-05-07 15:14 | Discharge Summary ---
Date of Service May 06, 2023 Admission HPI Per Admitting Provider This is a 42-year-old male presents today for a laparoscopic possible open sigmoid resection. No new medications or allergies. He was seen by heme-onc for his von Willebrand's disease and has already gotten his infusion this morning and his labs are pending. Principal Diagnosis s/p laparoscopic assisted sigmoidectomy Discharge Exam awake/alert, no distress Respiratory normal respiratory effort Gastrointestinal (Abdomen) Inspection/Auscultation: + abdominal surgical incision (c/d/i) and + abdominal surgical drain present (serousang (110cc last documented)); abdomen not distended Percussion/Palpation: + abdomen tender (some LLQ migdalia incisional discomfort) and abdomen soft Discharge Data Allergies Allergy/AdvReac Type Severity Reaction Status Date / Time cat dander Allergy Intermediate Sneezing Verified 04/30/23 05:47 house dust mite Allergy Intermediate Congested Verified 04/30/23 05:47 pollen extracts Allergy Intermediate Congested Verified 04/30/23 05:47 ragweed pollen Allergy Intermediate Congested Verified 04/30/23 05:47 tree and shrub pollen Allergy Intermediate Congested Verified 04/30/23 05:47 morphine AdvReac Intermediate Hallucinati Verified 04/30/23 05:47 ons Consultations 04/30/23 16:24 Consult Hematology Routine Consult Hospitalist Routine Procedures Performed Operation Date: 04/30/23 09:40 Actual Procedures p Laparoscopic Sigmoid Colectomy(Not Applicable) - Manohar Sullivan, DO Ordered Studies 05/03/23 22:09 CT Abd and Pelvis [CT abd pelvis IV con only] Urgent Hospital Course (1) S/P laparoscopic-assisted sigmoidectomy: This is a 43yM who presented to the [facility] on 04/30/23 for an elective lap assisted sigmoid colectomy with Dr. Sullivan for history of diverticulitis. The patient has a history of von-willenbrand's disease and was followed closely by hematology during his stay. He had lab draws and transfusions of humate-p ordered per [facility] recs requiring him to stay hospitalized until 05/06/23.. The hospitalists also followed the patient for the initial portion of his stay for assistance with medical management. Otherwise post surgical procedure patient continue on 24hour post op abx. His cerda catheter was removed on POD#1 and he was able to void without issues. REMA drain remained in place and remained serosangenous. On POD#2 he was started on DVT prophylaxis in the form of qd lovenox. Activity was encouraged daily. He was allotted a clear liquid diet initially and this was was advanced slowly throughout his stay to fulls then to low fiber as he began to have return of bowel function. Pain remained well controlled on prn medications. Vitals remained stable and patient without an elevated WBC#. Incisions c/d/i without signs of infection. On 05/06/23 the patient was deemed stable for discharge to home. He was tolerating a low fiber diet, passing flatus/BMs, and pain was controlled. He was given education on a low fiber diet and how to care for his REMA drain at home. He was instructed to follow up in the clinic within 1 week for a post op check. Total Time Total Time Spent Total Time Spent (In Minutes): 15 Discharge Plan Discharge Items Patient Disposition: Home - Self-Care Reason For Visit: Diverticulitis, Von Willebrand's Disease Discharge Diagnosis: sigmoid colon resection Activity: Per Instructions section Lifting: No more than 10 pounds Bathing Comment: may shower starting 05/01/23; no soaking in tubs/pools x 2 weeks Exercise/Sports: Wait until after follow-up appointment Driving/Machine Use: no driving while taking any narcotics for pain Non-emergency contact: Surgeon Call non-emergency contact if: you have any medication questions, your symptoms worsen, your pain is unusual for you, you have a fever, your temperature is above 101.5, your wound has increased redness, your wound has increased drainage and your wound pain has increased Follow-up/Referrals: Manohar Sullivan DO [Physician] - (Please call to schedule follow up in clinic within 1 week) Santiago Green MD [Primary Care Provider] - 05/13/23 11:30 am (APPOINTMENT WITH DR FINCH) Diet: Low Fiber Diet Comment: continue a low fiber diet over the next few weeks Addtl Attending Provider Instructions: You may purchase Tylenol and/or Ibuprofen over the counter if needed for additional pain control over the next few days. Take per manufacturers instructions Please care for your surgical drain as you have been instructed prior to discharge. Keep drain to bulb suction. Calculate and log daily output and bring to office. Can keep a dry dressing over drain (gauze/tape) and change daily Continue on a low fiber diet until otherwise instructed by the surgeon Addtl Clinic Licensed Practical Nurse Provider Instructions: Increase levothyroxine dose to 100mcg daily, and follow up levels with family doctor. Pending Studies at Discharge: Yes Studies:: surgical pathology Stand-Alone Forms: My [facility] Medications and DC Order Prescriptions: New levothyroxine [Synthroid] 100 mcg Tablet 100 mcg PO DAILYBB 30 Days Qty: 30 0RF oxycodone 5 mg tablet 5 - 10 mg PO .[id number] PRN (Reason: pain, for initial therapy, max 6 tabs per day) Qty: 10 0RF Continued lorazepam [Ativan] 0.5 mg tablet 0.5 mg PO DAILY PRN (Reason: anxiety) Qty: 20 1RF multivitamin Tablet 1 tab PO QAM acetaminophen [Tylenol Extra Strength] 500 mg Tablet 1,000 mg PO Q6H PRN (Reason: Pain) ascorbic acid (vitamin C) [Vitamin C] 500 mg Tablet 500 mg PO QAM Discontinued levothyroxine [Synthroid] 75 mcg tablet 75 mcg PO DAILY Qty: 90 3RF Rx Instructions: BRAND NECESSARY amoxicillin-pot clavulanate 875-125 mg tablet 1 tab PO BID Qty: 60 0RF Discharge Orders: Discharge Order (Routine); Ordered 05/06/23 Ordered By: Willa Quinn/Other Patient Handouts: Low-Fiber Diet, John Paul Willis Drain Tube Dc, Post Op Drain Emptying Steps Admission Data Admit Date/Time: 04/30/23 13:46 Attending Provider: Manohar Sullivan Admit Provider: Manohar Sullivan Primary Care Provider: Santiago Green Other Providers: Marcelo Holland ; Ridge Srivastava ; Barbara Rodriguez ; Emigdio Fontenot ; Dawood Ghotra ; Edwardo Carvajal ; Jonah Nunez ; Bacilio Good ; Judy Carlisle ; Yulisa Price ; Narayan Mcclendon ; Mely Anderson ; Curtis Deluna ; Reyna Boswell ; Ubaldo Jones ; Joo Charles ; Barbara Farmer ; Zora Singh ; Michele Anna ; Emigdio Márquez ; Ulysses Galindo ; Odette Crabtree ; Matheus Prater ; Sana Davis ; Lon Block ; Jurgen Farr ; Jessica Willard ; Jonathan Pang ; Lambert English ; Ese Govea ; Kristy Fortune ; Dawood Rolon ; Edwardo Santiago Other Interventions: Discharge Summary Assessment (RN) Last Done: 05/06/23 13:04 Coding Level of Care Code 67675 IN/OBS DISCH 30 MIN/LESS Diagnoses S/P laparoscopic-assisted sigmoidectomy Z90.49
--- NOTE | 2023-05-08 02:28 | Discharge Summary ---
Date of Service May 08, 2023 Admission HPI Per Admitting Provider This is a 42-year-old male presents today for a laparoscopic possible open sigmoid resection. No new medications or allergies. He was seen by heme-onc for his von Willebrand's disease and has already gotten his infusion this morning and his labs are pending. Discharge Data Consultations 04/30/23 16:24 Consult Hematology Routine Consult Hospitalist Routine Procedures Performed Operation Date: 04/30/23 09:40 Actual Procedures p Laparoscopic Sigmoid Colectomy(Not Applicable) - Manohar Sullivan, Hospital Course (1) S/P laparoscopic-assisted sigmoidectomy: Date of admission: 04/30/2023 Date of discharge: 05/06/2023 This is a 42-year-old male with a history of diverticulitis. He was seen as an outpatient by Dr. Manohar Sullivan for sigmoid colon resection. On date of admis lesley patient underwent a laparoscopic assisted sigmoid colon resection by Dr. Manohar Sullivan. Following surgery hematology/oncology was consulted secondary to history of von Willebrand's disease. Hematology/oncology recommended patient received von Willebrand factor infusion which she received postoperatively at their discretion. Postoperatively patient initially kept n.p.o. but his diet was advanced in the appropriate fashion as his bowel function returned. During patient's postoperative course he did have an episode of flank pain which is felt to potentially represent kidney stones. He did have a CT scan of the abdomen pelvis that did not demonstrate any evidence of hydronephrosis or hydroureter. This issue resolved without any further sequelae. As noted above his diet was continued to be advanced in the appropriate fashion until he was tolerating solid food. Patient was then cleared by hematology/oncology for discharge home which was performed on 05/07/2023. The patient was provided with appropriate instructions on wound care, diet, and activity. He was told to follow-up with Dr. Sullivan in the office in 1 to 2 weeks. Coding Level of Care Code 95107 IN/OBS DISCH 30 MIN/LESS Diagnoses S/P laparoscopic-assisted sigmoidectomy Z90.49
== END 2023-05-06 13:57 | disposition home or self-care (01) | DRG 330 ==
LOC: ASU 05:11 → 3E 13:46

== ENCOUNTER 2024-02-09 22:57 | Observation (INO) ==
[2024-02-09] MEDS: METOPROLOL TARTRATE 1 MG/ML VIAL IV STA (23:14)
[2024-02-09] MEDS: MAGNESIUM SULFATE 1GM / D5W BAG IV STA (23:20)
[2024-02-09] MEDS: POTASSIUM CHLORIDE / WTR 10 MEQ/100 ML PLCT IV ONE (23:20)
[2024-02-09] MEDS: SODIUM CHLORIDE 0.9% 500 ML IV STA (23:21)
[2024-02-09 23:26] LABS: iSTAT Creatinine 1.1 mg/dl (0.6-1.3); iSTAT Hemoglobin 15.3 g/dl (14.0-18.0); iSTAT Ionized Calcium 1.15 mmol/l (1.12-1.32); iSTAT Potassium 3.3 mmol/L (3.3-5.0)
--- NOTE | 2024-02-09 23:29 | Emergency Department Note ---
Impression & Plan Atrial fibrillation with rapid ventricular response, Acute neck pain, Abnormal EKG, Hypokalemia ED Provider Note NAME: BARBIE SAVAGE AGE: 43 SEX: M : 1980 ARRIVES VIA: Walk-In INFORMANT: Patient, ED PROVIDER(S): Alan Goncalves DO CHIEF COMPLAINT: Palpitations HPI: The patient is a 43-year-old male who presented to the emergency department through triage. The patient was brought directly to resuscitation room because he was having very severe palpitations tachycardia and neck pain. The patient states he had similar episodes in the past with rapid atrial fibrillation. The patient denies having any recent drug or alcohol use. He is not currently on any medications for atrial fibrillation but does have a history of hypothyroidism. He has been compliant with his outpatient medications otherwise. He has been seen in our facility multiple times and no definite cause for his symptoms could be found. The patient describes dizziness. He also describes back pain and neck pain. The patient denies having any recent trauma. ROS: See above HPI for pertinent positives & negatives. A total of 10 systems reviewed and were otherwise negative. PAST MEDICAL HISTORY: See Below PAST SURGICAL HISTORY: See Below FAMILY HISTORY: See Below SOCIAL HISTORY: See Below HOME MEDICATIONS: See Below ALLERGIES: See Below VITALS: See Below PHYSICAL EXAMINATION: GENERAL: The patient is awake and alert. The patient is very anxious appearing. He appears to be uncomfortable. EYES: The conjunctivae are clear. The pupils are round and reactive. EARS, NOSE, MOUTH AND THROAT: The nose is without any evidence of any deformity. NECK: The neck is nontender and supple. RESPIRATORY: Normal respiratory effort is noted there is no evidence of wheezing rhonchi or rales CARDIOVASCULAR: Regular rate and rhythm noted there no murmurs rubs or gallops normal S1 normal S2. GASTROINTESTINAL: The abdomen is soft. Abdomen is nontender. MUSCULOSKELETAL/EXTREMITIES: There is no evidence of gross deformity full range of motion is noted in the hips and shoulders. SKIN: There is no obvious evidence of any rash. There are no petechiae, pallor or cyanosis noted. Pulses are symmetric in both wrist. NEUROLOGIC: Patient is awake alert and oriented x3 MEDICAL DECISION MAKING: The patient is a 43-year-old male who presented to the emergency department through triage for evaluation of palpitations. The patient has a history of paroxysmal atrial fibrillation. He is not on any specific medication for atrial fibrillation other than his thyroid medication. The patient arrived with pulse rate in the 170s. He was very hypertensive and very anxious. He was treated with Lopressor and IV fluids and on reevaluation his pulse and blood pressure were significantly improved. Blood pressures were symmetric in both upper extremities. When his vital signs improved. The patient's condition improved while he was in the emergency department. He was treated with Toradol for his neck pain. I discussed the patient's laboratory and radiographic studies with him. I also [facility] have agreed to evaluate the patient in the emergency department for further management and disposition. Triage Nursing notes reviewed. Prior medical records reviewed Vital Signs: reviewed and remarkable for initial hypertension and tachycardia. Differential diagnosis: Premature contractions, electrolyte abnormality, cardiac dysrhythmia, thyroid dysfunction, pulmonary embolism, infection, gastrointestinal, as well as other pathologies. ER treatment provided: See below Diagnostics interpreted by me: ECG: EKG was obtained in the emergency department. My interpretation is atrial fibrillation with RVR. Frequent PVCs were noted. Diffuse ST depressions were noted. This was compared to a tracing from January 01, 2024. Atrial fibrillation has replaced sinus rhythm compared to the earlier tracing. A second EKG was obtained in the emergency department. My interpretation is atrial fibrillation at 90 bpm. There is no acute ST segment abnormalities noted. There were no PVCs, this was compared to the EKG obtained earlier in the emergency department and there is significant improvement of the ST segment depressions compared to the initial EKG. Cardiac Monitoring: An order was placed for continuous cardiac monitoring. The monitor shows a rate of 92 bpm with atrial fibrillation. Laboratory studies: As stated above and show below. Imaging studies: See below. Radiographic imaging was reviewed by myself Consultation(s): I discussed this case with Dr. Anderson who is on-call for the [facility]. She has agreed to evaluate the patient in the emergency department. ED COURSE: The patient had bilateral pressures obtained. The right arm was 152/119. The left arm was 156/107. Procedures: none Critical Care: I have personally spent greater than 45 minutes of critical care time in the direct management of this patient. This includes bedside care, interpretation of diagnostic studies, and testing, discussion with consultants, patient, and family members, and other required patient management activities. This 45 minutes is in excess of all separately billable procedures. Past Med/Surg History Problem List (Updated 02/10/24 @ 00:33 by Alan Goncalves DO) Hypokalemia (Acute) Abnormal EKG (Acute) Acute neck pain (Acute) Atrial fibrillation with rapid ventricular response (Acute) Lesion of greater occipital nerve Cervical disc disorder at C6-C7 level with myelopathy Dizzy spells Hypothyroidism (Chronic) Lesion of greater occipital nerve B12 deficiency Hypogonadism in male Frequent PVCs Chest pain on exertion Cervical radiculopathy Vitamin D deficiency Eustachian tube dysfunction Sinusitis Atrial fibrillation with rapid ventricular response (Acute) Acute dyspnea (Acute) Kidney stones Hx S/P laparoscopic-assisted sigmoidectomy Paroxysmal atrial fibrillation 2016, Possibly r/t thyroid condition per cardio records, previous medications discontinued [facility] cardiology 10/2019- "His [id number] score is 0 so anticoagulation is not necessary, especially since this is paroxysmal." LLQ abdominal pain Thyroid disease Complicated migraine Diverticulitis Thyroid nodule Fatigue Joint pain Anxiety 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) Follows w/ Dr Holland, had visit 04/16/23 states was told will need factor V prior to procedure Thyroid nodule Medical History Facial numbness Skin lesion of right upper extremity Encounter for pre-operative examination Environmental and seasonal allergies Diverticular disease Hx of migraines History of COVID-19 07/2021- 2 weeks later had ER visit to r/o blood clots, dx sinus infection per patient, symptoms resolved History of diverticulitis Hx of sleep apnea "Mild" YINA "no longer issue" s/p tonsillectomy Degenerative disc disease Surgical History Epidermal cyst (06/21/23) FINAL DIAGNOSIS In office procedure Dr. Sullivan Skin, right upper extremity, "lesion" (excision of right upper extremity skin lesion): - Epidermal cyst. Hx of colonoscopy Hx of vasectomy History of cystoscopy + stent (2019) Hx of tonsillectomy Tonsillectomy (09/12/18, [facility]) History of tooth extraction WTE Family History Family/Other Coronary heart disease Mother Hyperthyroidism Ovarian cancer Grandfather Heart disease Uncle Myocardial infarction Denies family history of Prostate cancer Breast cancer Lung cancer Colorectal cancer Social History Smoking Status: Never smoker Tobacco Type: Smokeless Tobacco (Dip or Chew) Second Hand Exposure: No; Do You Dip or Chew Tobacco: No; Hx Alcohol Use: No Hx Substance Use: No Preferred Language: Haitian Communication Ability: Effective Visual Impairment: No Limitations Sales Engagement Executive Required: No Beliefs That Will Affect Care: None marital status: Current Living Situation: Spouse Current Living Situation Comment: Lives with and 2 kids current occupational status: employed 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 How many Children do You have: 3 Feels Safe at Home: Yes caffeine: Yes (1 soda per day) Dental Care, Regularly: Yes Physical Activity Frequency: Does not Exercise Seatbelt Use: always Sunscreen Use: Yes Assistive Devices: None Allergies Allergies Allergy/AdvReac Type Severity Reaction Status Date / Time cat dander Allergy Intermediate Sneezing Verified 02/09/24 23:31 house dust mite Allergy Intermediate Congested Verified 02/09/24 23:31 pollen extracts Allergy Intermediate Congested Verified 02/09/24 23:31 ragweed pollen Allergy Intermediate Congested Verified 02/09/24 23:31 tree and shrub pollen Allergy Intermediate Congested Verified 02/09/24 23:31 morphine AdvReac Intermediate Hallucinati Verified 02/09/24 23:31 ons Home Meds Home Medications Medication Instructions Recorded Confirmed cholecalciferol (vitamin D3) 125 125 mcg PO DAILY 12/31/23 02/09/24 mcg (5,000 unit) tablet (Vitamin D3) ibuprofen 200 mg tablet (Advil) 400 mg PO Q6H PRN Pain 12/31/23 02/09/24 testosterone 1 pump topical DAILY 12/31/23 02/09/24 Previous Rx's Medication Instructions Recorded Levoxyl 88 mcg tablet 88 mcg PO DAILY #90 tabs 01/14/24 (levothyroxine) Results & Data (ED) Vital Signs Vital Signs - 24 hr 02/09/24 22:58 02/09/24 23:06 02/09/24 23:11 Temperature Temperature Source Pulse Rate 175 H 170 H Pulse Rate [Apical] 163 H Respiratory Rate 22 13 Blood Pressure 165/125 H Blood Pressure [Right Arm] 162/125 H Blood Pressure Mean 138 Blood Pressure Mean [Right Arm] 137 Pulse Oximetry 99 99 Oxygen Delivery Method Room Air Room Air Sepsis Recent Fever Within 48 Hours No Sepsis New/Unexplained Change in Mental Status No Sepsis Action Taken by Nursing No Action Required 02/09/24 23:14 02/09/24 23:30 02/09/24 23:44 Temperature 36.8 C Temperature Source Oral Pulse Rate 122 H Pulse Rate [Apical] 94 H Respiratory Rate 17 Blood Pressure 152/119 H Blood Pressure [Right Arm] 131/98 Blood Pressure Mean Blood Pressure Mean [Right Arm] 109 Pulse Oximetry 98 98 Oxygen Delivery Method Room Air Room Air Sepsis Recent Fever Within 48 Hours Sepsis New/Unexplained Change in Mental Status Sepsis Action Taken by Nursing 02/09/24 23:45 02/10/24 00:00 Temperature Temperature Source Pulse Rate 92 H Pulse Rate [Apical] 92 H Respiratory Rate 16 Blood Pressure 127/98 Blood Pressure [Right Arm] 144/102 H Blood Pressure Mean Blood Pressure Mean [Right Arm] 116 Pulse Oximetry 97 Oxygen Delivery Method Room Air Sepsis Recent Fever Within 48 Hours Sepsis New/Unexplained Change in Mental Status Sepsis Action Taken by Custodial Medications Current Medication List: was personally reviewed by ms Laboratory Data Attestation: I reviewed the patient's lab results. 02/09/24 23:10 02/09/24 23:10 Lab Results 02/09/24 02/09/24 Range/Units 23:10 23:13 WBC 10.18 (4.8-10.8) K/ul RBC 5.14 (4.70-6.10) M/uL Hgb 15.3 (14.0-18.0) g/dl POC Hgb 15.3 (14.0-18.0) g/dl Hct 43.7 (42.0-52.0) % POC Hct 45 (42-52) % MCV 85.0 (80.0-100.0) fL MCH 29.8 (25.0-34.0) pg MCHC 35.0 (32.0-36.0) g/dL RDW Std Deviation 40.1 (36.4-46.3) fL RDW Coeff of Gonzalez 13.0 (11.5-14.5) % Plt Count 288 (130-400) K/uL MPV 9.0 L (9.4-12.4) fL Immature Gran % (Auto) 0.4 % Neut % (Auto) 40.0 % Lymph % (Auto) 46.9 % [place] % (Auto) 8.6 % Eos % (Auto) 3.5 % Baso % (Auto) 0.6 % Neut # (Auto) 4.07 (1.40-6.50) K/uL Lymph # (Auto) 4.77 H (1.20-3.40) K/uL [place] # (Auto) 0.88 H (0.11-0.59) K/uL Eos # (Auto) 0.36 (0.00-0.50) K/uL Baso # (Auto) 0.06 (0.00-0.20) K/uL Immature Gran # (Auto) 0.04 (0.01-0.20) K/uL PT 10.1 (9.0-12.0) Seconds INR 0.9 (0.9-1.1) APTT 32 H (21-31) Seconds PTT Ratio 1.2 POC Sodium 138 (135-144) mmol/L Sodium 136 (136-145) mmol/L POC Potassium 3.3 (3.3-5.0) mmol/L Potassium 3.3 L (3.5-5.1) mmol/L POC Chloride 103 (101-112) mmol/L Chloride 102 (98-107) mmol/L Carbon Dioxide 24 (21-32) mmol/L POC Total CO2 23 L (24-31) mmol/L Anion Gap 10 (3-11) POC Anion Gap 16.0 (16-25) mmol/L POC BUN 18 (7-18) mg/dl BUN 19 (6-23) mg/dl Creatinine 1.08 (0.6-1.4) mg/dl POC Creatinine 1.1 (0.6-1.3) mg/dl Est Cr Clr Drug Dosing Not Reportable Est GFR ( Amer) 96.2 ml/min Est GFR (Non-Af Amer) 83.0 ml/min BUN/Creatinine Ratio 17.6 (10-20) Glucose 103 H (70-99(Fasting)) mg/dl POC Glucose (other) 99 (70-99) mg/dl Calcium 9.4 (8.6-10.3) mg/dl POC Ioniz Calcium Estela 1.15 (1.12-1.32) mmol/l Magnesium 2.1 (1.7-2.4) mg/dl Total Bilirubin 0.4 (0.2-1.0) mg/dl AST 18 (13-39) U/L ALT 24 (7-52) U/L Alkaline Phosphatase 64 (34-104) U/L Troponin I High Sens 4.7 (0-20) pg/ml Total Protein 7.7 (6.0-8.3) gm/dl Albumin 4.8 (3.4-5.0) gm/dl Globulin 2.9 (2.5-4.0) gm/dl Albumin/Globulin Ratio 1.7 (0.9-2) TSH 14.041 H (0.300-4.500) uIu/ml Free T4 0.67 (0.61-1.60) ng/dl Administered Medications Discontinued Medications Sodium Chloride (Nss) 500 mls @ 999 mls/hr IV .Q31M STA Stop: 02/09/24 23:38 Last Infusion: 02/09/24 23:59 Dose: Infused Documented By: Admin: 02/09/24 23:21 Dose: 999 mls/hr Documented By: JONATHON Potassium Chloride (K Dimitrios / Wtr) 10 meq in 100 mls @ 100 mls/hr IV ONE ONE Stop: 02/10/24 00:13 Last Infusion: 02/10/24 00:26 Dose: Infused Documented By: Admin: 02/09/24 23:20 Dose: 100 mls/hr Documented By: JONATHON Ketorolac Tromethamine (Ketorolac Tromethamine 15 Mg/Ml Vial) 10 mg IV NOW ONE Stop: 02/10/24 00:24 Last Admin: 02/10/24 00:26 Dose: 10 mg Documented By: JONATHON Magnesium Sulfate/Dextrose (Magnesium Sulfate 1gm / D5w Bag) 2 gm IV NOW STA Stop: 02/09/24 23:09 Last Admin: 02/09/24 23:20 Dose: 2 gm Documented By: JONATHON Metoprolol Tartrate (Metoprolol Tartrate 1 Mg/Ml Vial) 5 mg IV NOW STA Stop: 02/09/24 23:09 Last Admin: 02/09/24 23:14 Dose: 5 mg Documented By: HERNÁN Imaging Data Attestation: I personally reviewed and interpreted this imaging study as follows: My Impression: 1 view chest x-ray was obtained in the emergency department. My interpretation is no free air or definite infiltrate, final report pending. Discharge Plan Visit Data Chief Complaint: Cardiac Assessment Stated Complaint: AFIB ED Provider: Alan Goncalves Discharge Problem: Atrial fibrillation with rapid ventricular response, Acute neck pain, Abnormal EKG, Hypokalemia Patient Disposition: Being Evaluated by Hospitalist Forms Stand Alone Forms: My [facility] Prescriptions Prescriptions: No Action levothyroxine [Levoxyl] 88 mcg tablet 88 mcg PO DAILY Qty: 90 3RF Rx Instructions: brand only ibuprofen [Advil] 200 mg Tablet 400 mg PO Q6H PRN (Reason: Pain) cholecalciferol (vitamin D3) [Vitamin D3] 125 mcg (5,000 unit) Tablet 125 mcg PO DAILY testosterone 20.25 mg/1.25 gram (1.62 %) gel in metered-dose pump 1 pump topical DAILY Rx Instructions: As of 02/09/24, pt states he hasn't started this yet but wants it to remain on his list. Referrals Referrals: Santiago Green MD [Primary Care Provider] -
[2024-02-09 23:31] LABS: Basophils # (auto) 0.06 K/uL (0.00-0.20); Basophils % (auto) 0.6 %; Eosinophils # (auto) 0.36 K/uL (0.00-0.50); Eosinophils % (auto) 3.5 %; Hematocrit (blood only) 43.7 % (42.0-52.0); Hemoglobin 15.3 g/dl (14.0-18.0); Immature Granulocytes # (auto) 0.04 K/uL (0.01-0.20); Immature Granulocytes % (auto) 0.4 %; Lymphocytes # (auto) 4.77 K/uL (1.20-3.40); Lymphocytes % (auto) 46.9 %; Mean Corpuscular Hemoglobin 29.8 pg (25.0-34.0); Monocytes # (auto) 0.88 K/uL (0.11-0.59); Monocytes % (auto) 8.6 %; Neutrophils # (auto) 4.07 K/uL (1.40-6.50); Platelet Count 288 K/uL (130-400); RDW Standard Deviation 40.1 fL (36.4-46.3); Red Blood Count 5.14 M/uL (4.70-6.10); White Blood Count 10.18 K/ul (4.8-10.8)
[2024-02-09 23:41] LABS: Alanine Aminotransferase 24 U/L (7-52); Albumin Globulin Ratio 1.7 (0.9-2); Albumin Level 4.8 gm/dl (3.4-5.0); Alkaline Phosphatase 64 U/L (34-104); Anion Gap 10 (3-11); Aspartate Aminotransferase 18 U/L (13-39); BUN Creatinine Ratio 17.6 (10-20); Bilirubin,Total 0.4 mg/dl (0.2-1.0); Blood Urea Nitrogen 19 mg/dl (6-23); Calcium 9.4 mg/dl (8.6-10.3); Carbon Dioxide 24 mmol/L (21-32); Chloride 102 mmol/L (98-107); Est GFR (African American) 96.2 ml/min; Globulin 2.9 gm/dl (2.5-4.0); Glucose 103 mg/dl (70-99(Fasting)); Magnesium 2.1 mg/dl (1.7-2.4); Potassium 3.3 mmol/L (3.5-5.1); Sodium 136 mmol/L (136-145); Total Protein 7.7 gm/dl (6.0-8.3)
[2024-02-09 23:47] LABS: Troponin I High Sensitivity 4.7 pg/ml (0-20)
[2024-02-09 23:56] LABS: INR 0.9 (0.9-1.1); Partial Thromboplastin Ratio 1.2; Partial Thromboplastin Time 32 Seconds (21-31); Prothrombin Time 10.1 Seconds (9.0-12.0); Thyroid Stimulating Hormone 14.041 uIu/ml (0.300-4.500)
[2024-02-10] MEDS: KETOROLAC TROMETHAMINE 15 MG/ML VIAL IV ONE (00:26)
[2024-02-10 00:34] LABS: T4 Free Thyroxine 0.67 ng/dl (0.61-1.60)
--- NOTE | 2024-02-10 01:21 | History & Physical Report ---
Date of Service February 10, 2024 Assessment & Plan (1) Acute neck pain: Plan: Patient reports change in HR and near-syncope with manipulation of his right neck - intermittent for several months. He denies trauma. On exam, patient is symptomatic with palpation of right neck, right neck is tender with LAD. ?carotid bulb hypersensitivity ?vagus nerve stimulation possible. Hypokalemia with K=3.3, Mg=2.1 -Check MRI brain -Ibuprofen scheduled q 6 hours -Flexeril PRN -Heat (2) Atrial fibrillation with rapid ventricular response: Plan: Atrial fibrillation with RVR on presentation. HR improved with dose of Metoprolol -Electrolytes repleted -Metoprolol PRN No need for anticoagulation at this time due to paroxysmal AF and low [id number]-[id number] score History of Present Illness Chief Complaint: atrial fibrillation Primary Care Provider: Santiago Green MD Hal Dias is a 43yo male with history of PAF presenting with AF. Patient was in his usual state of health until this evening when he was laying in bed and he coughed and felt pain in his right neck followed by palpitations. Patient has had atrial fibrillation in the past, typically associated with neck pain or manipulation of his neck. He also has frequent dizziness and near- syncope often associated with movement of his neck or with pressure placed on the right side of his neck. Patient reports he cracks his neck and his HR changes. He has swelling and tenderness of the right side of the neck now and feels that he has drainage and fullness in his right ear. He has some shortness of breath with palpitations which has improved with HR control. He denies chest pain, cough. No fevers, chills or body aches. No trauma to the area In the ER patient had elevated HR of 175bpm. He was given Metoprolol 5mg IV x 1 dose with improvement in HR and symptoms ER Course: Toradol Mg Metoprolol Allergies Allergy/AdvReac Type Severity Reaction Status Date / Time cat dander Allergy Intermediate Sneezing Verified 02/09/24 23:31 house dust mite Allergy Intermediate Congested Verified 02/09/24 23:31 pollen extracts Allergy Intermediate Congested Verified 02/09/24 23:31 ragweed pollen Allergy Intermediate Congested Verified 02/09/24 23:31 tree and shrub pollen Allergy Intermediate Congested Verified 02/09/24 23:31 morphine AdvReac Intermediate Hallucinati Verified 02/09/24 23:31 ons Home Medications Medication Instructions Recorded Confirmed Type cholecalciferol (vitamin D3) 125 125 mcg PO DAILY 12/31/23 02/09/24 History mcg (5,000 unit) tablet (Vitamin D3) ibuprofen 200 mg tablet (Advil) 400 mg PO Q6H PRN Pain 12/31/23 02/09/24 History testosterone 1 pump topical DAILY 12/31/23 02/09/24 History Levoxyl 88 mcg tablet 88 mcg PO DAILY #90 tabs 01/14/24 02/09/24 Rx (levothyroxine) Past Med/Surg History Problem List Hypokalemia (Acute) Abnormal EKG (Acute) Acute neck pain (Acute) Atrial fibrillation with rapid ventricular response (Acute) Lesion of greater occipital nerve Cervical disc disorder at C6-C7 level with myelopathy Dizzy spells Hypothyroidism (Chronic) Lesion of greater occipital nerve B12 deficiency Hypogonadism in male Frequent PVCs Chest pain on exertion Cervical radiculopathy Vitamin D deficiency Eustachian tube dysfunction Sinusitis Atrial fibrillation with rapid ventricular response (Acute) Acute dyspnea (Acute) Kidney stones Hx S/P laparoscopic-assisted sigmoidectomy Paroxysmal atrial fibrillation 2016, Possibly r/t thyroid condition per cardio records, previous medications discontinued [facility] [place] cardiology 10/2019- "His [id number] score is 0 so anticoagulation is not necessary, especially since this is paroxysmal." LLQ abdominal pain Thyroid disease Complicated migraine Diverticulitis Thyroid nodule Fatigue Joint pain Anxiety 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) Follows w/ Dr Holland, had visit 04/16/23 states was told will need factor V prior to procedure Thyroid nodule Medical History Facial numbness Skin lesion of right upper extremity Encounter for pre-operative examination Environmental and seasonal allergies Diverticular disease Hx of migraines History of COVID-19 07/2021- 2 weeks later had ER visit to r/o blood clots, dx sinus infection per patient, symptoms resolved History of diverticulitis Hx of sleep apnea "Mild" YINA "no longer issue" s/p tonsillectomy Degenerative disc disease Surgical History Epidermal cyst (06/21/23) FINAL DIAGNOSIS In office procedure Dr. Sullivan Skin, right upper extremity, "lesion" (excision of right upper extremity skin lesion): - Epidermal cyst. Hx of colonoscopy Hx of vasectomy History of cystoscopy + stent (2019) Hx of tonsillectomy Tonsillectomy (09/12/18, [facility]) History of tooth extraction WTE Family History Family/Other Coronary heart disease Mother Hyperthyroidism Ovarian cancer Grandfather Heart disease Uncle Myocardial infarction Denies family history of Prostate cancer Breast cancer Lung cancer Colorectal cancer Social History Smoking Status: Former smoker Tobacco Type: Smokeless Tobacco (Dip or Chew) Second Hand Exposure: No; Do You Dip or Chew Tobacco: No; Hx Alcohol Use: No Hx Substance Use: No Preferred Language: Citizen Of [place] Communication Ability: Effective Visual Impairment: No Limitations Dependency Case Manager Required: No Beliefs That Will Affect Care: None marital status: Current Living Situation: Spouse and Family Current Living Situation Comment: Lives with and 2 kids current occupational status: employed 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 How many Children do You have: 3 Other Information That Helps Us Care for You: No Feels Safe at Home: Yes Safety Concerns: Feels Safe At This Time caffeine: Yes (1 soda per day) Dental Care, Regularly: Yes Physical Activity Frequency: Does not Exercise Seatbelt Use: always Sunscreen Use: Yes Assistive Devices: None Review of Systems Review of Systems: All systems reviewed & are unremarkable except as noted in HPI & below Physical Exam Physical Exam: General: patient anxious in appearance, NAD, non-toxic in appearance, AA&O x 4 Skin: warm, dry, intact, no rashes or lesions HEENT: NC/AT, PERRL, EOMI, anicteric sclera, conjunctiva without injection, external ear normal to inspection and nontender, nares patent, moist mucus membranes, dentition intact, no oropharyngeal lesions, neck supple, trachea midline, no LAD, no thyromegaly, no JVD Tenderness to the right posterior neck with palpable nodes, no carotid bruit. Patient symptomatic with palpation of right carotid - no induced bradycardia with carotid massage but patient reported feeling that he was going to pass out Heart: +S1/S2, regular, tachycardic, no m/r/g Lungs: equal air entry bilaterally, no rales/rhonchi/wheezes Abd: +BS, soft, NT/ND, no masses/organomegaly/ascites Ext: warm, 2+ pulses in UE/LE bilaterally, no clubbing/cyanosis or edema Neuro: nonfocal, patient AA&O x 4, speech intact, no facial droop, moving all extremities on command with equal strength 5/5 Results & Data Results & Data Vital Signs (Past 12 Hours) Vital Signs Temp Pulse Pulse Resp BP BP Pulse Ox 02/10/24 01:00 96 H 14 141/97 H 96 02/10/24 00:30 90 12 128/91 95 02/10/24 00:00 92 H 16 144/102 H 97 02/09/24 23:45 92 H 127/98 02/09/24 23:44 98 02/09/24 23:30 36.8 C 94 H 17 131/98 98 02/09/24 23:14 122 H 152/119 H 02/09/24 23:11 163 H 13 162/125 H 99 02/09/24 23:06 170 H 02/09/24 22:58 175 H 22 165/125 H 99 O2 Del Method 02/10/24 01:00 Room Air 02/10/24 00:30 Room Air 02/10/24 00:00 Room Air 02/09/24 23:45 02/09/24 23:44 Room Air 02/09/24 23:30 Room Air 02/09/24 23:14 02/09/24 23:11 Room Air 02/09/24 23:06 02/09/24 22:58 Room Air Laboratory Results Laboratory Results WBC 10.18 K/ul (4.8-10.8) 02/09/24 23:10 RBC 5.14 M/uL (4.70-6.10) 02/09/24 23:10 Hgb 15.3 g/dl (14.0-18.0) 02/09/24 23:10 POC Hgb 15.3 g/dl (14.0-18.0) 02/09/24 23:13 Hct 43.7 % (42.0-52.0) 02/09/24 23:10 POC Hct 45 % (42-52) 02/09/24 23:13 MCV 85.0 fL (80.0-100.0) 02/09/24 23:10 MCH 29.8 pg (25.0-34.0) 02/09/24 23:10 MCHC 35.0 g/dL (32.0-36.0) 02/09/24 23:10 RDW Std Deviation 40.1 fL (36.4-46.3) 02/09/24 23:10 RDW Coeff of Gonzalez 13.0 % (11.5-14.5) 02/09/24 23:10 Plt Count 288 K/uL (130-400) 02/09/24 23:10 MPV 9.0 fL (9.4-12.4) L 02/09/24 23:10 Immature Gran % (Auto) 0.4 % 02/09/24 23:10 Neut % (Auto) 40.0 % 02/09/24 23:10 Lymph % (Auto) 46.9 % 02/09/24 23:10 [place] % (Auto) 8.6 % 02/09/24 23:10 Eos % (Auto) 3.5 % 02/09/24 23:10 Baso % (Auto) 0.6 % 02/09/24 23:10 Neut # (Auto) 4.07 K/uL (1.40-6.50) 02/09/24 23:10 Lymph # (Auto) 4.77 K/uL (1.20-3.40) H 02/09/24 23:10 [place]rowers # (Auto) 0.88 K/uL (0.11-0.59) H 02/09/24 23:10 Eos # (Auto) 0.36 K/uL (0.00-0.50) 02/09/24 23:10 Baso # (Auto) 0.06 K/uL (0.00-0.20) 02/09/24 23:10 Immature Gran # (Auto) 0.04 K/uL (0.01-0.20) 02/09/24 23:10 PT 10.1 Seconds (9.0-12.0) 02/09/24 23:10 INR 0.9 (0.9-1.1) 02/09/24 23:10 APTT 32 Seconds (21-31) H 02/09/24 23:10 PTT Ratio 1.2 02/09/24 23:10 POC Sodium 138 mmol/L (135-144) 02/09/24 23:13 Sodium 136 mmol/L (136-145) 02/09/24 23:10 POC Potassium 3.3 mmol/L (3.3-5.0) 02/09/24 23:13 Potassium 3.3 mmol/L (3.5-5.1) L 02/09/24 23:10 POC Chloride 103 mmol/L (101-112) 02/09/24 23:13 Chloride 102 mmol/L (98-107) 02/09/24 23:10 Carbon Dioxide 24 mmol/L (21-32) 02/09/24 23:10 POC Total CO2 23 mmol/L (24-31) L 02/09/24 23:13 Anion Gap 10 (3-11) 02/09/24 23:10 POC Anion Gap 16.0 mmol/L (16-25) 02/09/24 23:13 POC BUN 18 mg/dl (7-18) 02/09/24 23:13 BUN 19 mg/dl (6-23) 02/09/24 23:10 Creatinine 1.08 mg/dl (0.6-1.4) 02/09/24 23:10 POC Creatinine 1.1 mg/dl (0.6-1.3) 02/09/24 23:13 Est Cr Clr Drug Dosing Not Reportable 02/09/24 23:10 Est GFR ( Amer) 96.2 ml/min 02/09/24 23:10 Est GFR (Non-Af Amer) 83.0 ml/min 02/09/24 23:10 BUN/Creatinine Ratio 17.6 (10-20) 02/09/24 23:10 Glucose 103 mg/dl (70-99(Fasting)) H 02/09/24 23:10 POC Glucose (other) 99 mg/dl (70-99) 02/09/24 23:13 Calcium 9.4 mg/dl (8.6-10.3) 02/09/24 23:10 POC Ioniz Calcium Estela 1.15 mmol/l (1.12-1.32) 02/09/24 23:13 Magnesium 2.1 mg/dl (1.7-2.4) 02/09/24 23:10 Total Bilirubin 0.4 mg/dl (0.2-1.0) 02/09/24 23:10 AST 18 U/L (13-39) 02/09/24 23:10 ALT 24 U/L (7-52) 02/09/24 23:10 Alkaline Phosphatase 64 U/L (34-104) 02/09/24 23:10 Troponin I High Sens 4.7 pg/ml (0-20) 02/09/24 23:10 Total Protein 7.7 gm/dl (6.0-8.3) 02/09/24 23:10 Albumin 4.8 gm/dl (3.4-5.0) 02/09/24 23:10 Globulin 2.9 gm/dl (2.5-4.0) 02/09/24 23:10 Albumin/Globulin Ratio 1.7 (0.9-2) 02/09/24 23:10 TSH 14.041 uIu/ml (0.300-4.500) H 02/09/24 23:10 Free T4 0.67 ng/dl (0.61-1.60) 02/09/24 23:10 Diagnostic Findings CXR per my interpretation with no obvious infiltrate or edema MRI obtained - read pending ECG Additional Comments: EKG with AF at 90bpm, no ischemic changes Code Status & VTE Plan VTE Prophylaxis Plan VTE Prophylaxis will be ordered: Yes PG Care Time/CCT Total # of Minutes Spent Total Time Spent with Patient: Total time spent is greater than 50% in coordination of care (as documented) at patient's floor/unit and/or counseling patient: Coding Level of Care Code 04361 INT INP/OBS CARE 2/55MIN Diagnoses Acute neck pain M54.2 Atrial fibrillation with rapid ventricular response I48.91
[2024-02-10] MEDS: STAT IV Infusion **Titration per Protocol STA (01:24)
[2024-02-10] MEDS: dilTIAZem HCL 125 MG in DEXTROSE 5% 100 ML IV SCH (01:24)
[2024-02-10] MEDS: LORazepam 1 MG/1 ML SYR ED Inj Use IV STA (01:36)
[2024-02-10] MEDS ORDERED: CYCLOBENZAPRINE HCL 5 MG TAB PO PRN (01:51)
[2024-02-10] MEDS ORDERED: ACETAMINOPHEN 325 MG TAB PO PRN (01:51)
[2024-02-10] MEDS ORDERED: ONDANSETRON INJ 2 MG/ML 2 ML VIAL IV PRN (01:51)
[2024-02-10] MEDS: ENOXAPARIN INJ 40 MG/0.4 ML SYR SQ SCH (02:29)
[2024-02-10] MEDS: GADOBUTROL 65ML VIAL IV ONE (03:25)
[2024-02-10] MEDS: POTASSIUM CHLORIDE CRTAB 20 MEQ TABCR PO STA (04:05)
--- NOTE | 2024-02-10 05:18 | Magnetic Resonance Report ---
Exam(s): MRI C SPINE IV Amt: 11.5ml gadavist EXAM: MR Cervical Spine With Intravenous Contrast CLINICAL HISTORY: Reason for exam: right neck pain and swelling, AF and dizziness. TECHNIQUE: Magnetic resonance images of the cervical spine with intravenous contrast in multiple planes. CONTRAST: Patient received 11.5ml gadavist of IV contrast COMPARISON: Comparison made to prior CT angiogram of the neck from December 31, 2023. FINDINGS: Vertebrae: There are 7 cervical type vertebral bodies with a mild generalized curve to the right and straight and the normal cervical lordosis. There is normal vertebral body height and alignment. The bone marrow signal is heterogeneous with reactive endplate changes. No acute fracture. Spinal cord: There is flattening the ventral cord at C5-6 and C6-7 without evidence of abnormal cord signal. The craniocervical junction is normal without evidence of tearing malformation. No abnormal enhancement. Soft tissues: The cervical flow voids are intact. DISCS/SPINAL CANAL/NEURAL FORAMINA: C2-C3: Unremarkable. No significant disc disease. No stenosis. C3-C4: Unremarkable. No significant disc disease. No stenosis. C4-C5: Unremarkable. No significant disc disease. No stenosis. C5-C6: Moderate disc degeneration with a near disc bulge flattening the ventral cord without evidence of abnormal cord signal and causing mild spinal canal stenosis. C6-C7: Moderate disc degeneration with a central disc extrusion asymmetric to the right measuring 9.3 mm (CC) by 2.3 mm (AP) flattening the ventral cord without onset of abnormal cord signal causing the severe spinal canal stenosis with AP diameter measuring 7.6 mm. C7-T1: Unremarkable. No significant disc disease. No stenosis. IMPRESSION: No evidence of acute cervical spine pathology. Electronically signed by: She Li MD 02/10/24 05:17 AM
[2024-02-10] MEDS: IBUPROFEN 200 MG TAB PO SCH (06:25)
[2024-02-10] MEDS: LEVOTHYROXINE SODIUM 88 MCG TABLET PO SCH (06:26)
--- NOTE | 2024-02-10 06:42 | XRay Report ---
XR chest 1V portable CLINICAL HISTORY: Dysrhythmia COMPARISON STUDY: Chest CT October 06, 2023. Chest radiograph January 01, 2024. FINDINGS: No pneumothorax or pleural effusion is present. There is no consolidation or evidence for p ulmonary edema. Cardiac silhouette is prominent, likely technical. The findings favor a hypoventilato ry study. IMPRESSION: No acute cardiopulmonary findings. ACT 112: Negative or not required by law. Electronically signed by: Ady Gomez M.D. 02/10/2024 6:40 AM
--- NOTE | 2024-02-10 07:05 | Hospitalist Progress Note ---
Date of Service February 10, 2024 Assessment & Plan (1) Atrial fibrillation with rapid ventricular response: (2) Hypothyroidism: (3) Cervical disc disorder at C6-C7 level with myelopathy: (4) S/P laparoscopic-assisted sigmoidectomy: (5) LLQ abdominal pain: (6) Diverticulitis: (7) Acute neck pain: Plan Hal Dias is a 43yo male with PMHx of PAF, PVC's, cervical disc d/o (C6-C7 level), hypothyroidism, hypogonadism, S/P sigmoidectomy, diverticulitis, among other conditions, presenting with AFib exacerbation and right-sided neck pain. 1) Atrial fibrillation with rapid ventricular response: - Atrial fibrillation with RVR on presentation; HR improved with dose of Metopr olol upon admission - Electrolytes repleted; patient continues to be in AFib, but rate-controlled - Metoprolol PRN, 5 mg, IV, q4hrs - Metoprolol, STAT doses as needed for rate control; consider diltiazem drip if not resolving - MOHINDER(2)DS(2)-VASc score of 0 - Cardiology consulted due to unusual presentation, recommendations appreciated 2) Acute neck pain: - Patient reports change in HR and near-syncope with manipulation of his right neck - intermittent for several months. He denies trauma. On exam, patient is symptomatic with palpation of right neck, right neck is tender with LAD. - Diff Dx: carotid bulb hypersensitivity vs. vagus nerve stimulation possible vs. vertebral artery narrowing - Check MRI brain - Ibuprofen scheduled q 6 hours, Flexeril PRN, Heat 3) Hypothyroidism - TSH, 14.04; Free T4, 0.67 - medication last adjusted/increased on 01/14/24 - continue levothyroxine, 88 mcg, PO, daily 4) LLQ abdominal pain - patient w/ Hx of diverticulitis and colectomy (Apr, 2023) - 2-3 wk LLQ pain; WBC, 10.2; no fevers, chills - consider CT-AP if pain worsening or not resolving or if WBC elevates/develops fevers or chills Code status: Full Prophylaxis: No need for anticoagulation at this time due to paroxysmal AF and low XYRWT-0-Dugk score Disposition: Med-Tele FENGI: Regular diet ordered (consider changing if LLQ pain worsens) Admission and Anticipated Discharge Date Admission Date: February 10, 2024 Supervising Physician Co-Signing Physician Notes ATTESTATION I also saw the patient and confirmed jackson portions of the history and exam. I agree with the impression and plan in the resident documentation, and as summarized below. Upon our morning examination, the patient was lying supine in the emergency department bed. He remains in a atrial fibrillation with rates between 80 and 100 at rest, although rate will accelerate with minimal activity. He also notes some left sided abdominal pain. He has had diverticulitis previously, but this seems different to him. EXAM 127/92, 105, 15, 36.8, 96% room air Alert and oriented. No distress appreciated. Heart irregularly irregular, auscultated rate around 100. Lungs are clear throughout, nonlabored respirations. Abdomen with some left mostly left lower abdominal tenderness without rebound or guarding DATA Labs CBC is unremarkable. BMP shows potassium of 3.3, BUN 19, creatinine 1.08 TSH 14.04, free T40.67 IMPRESSION & PLAN Paroxysmal atrial fibrillation with RVR Left-sided abdominal pain Cervical neck pain Hypothyroidism Hypogonadism on testosterone replacement Retry another dose of metoprolol Consult cardiology; ROM hopeful he will convert on his own, could consider pharmaceutical cardioversion Once rhythm and rate controlled, consider imaging of the abdomen Defer changes to his Synthroid at this point; he does follow with endocrinology Additional per resident documentation Ramez Dias is a 43yo male with PMHx of PAF, PVC's, cervical disc d/o (C6-C7 level), hypothyroidism, hypogonadism, S/P sigmoidectomy presenting with AFib exacerbation and right-sided neck pain. Patient was in his usual state of health until day of admission when he was laying in bed and he coughed and felt pain in his right neck followed by palpitations. Patient had similar occurrence on 2018. Last time patient was in AFib was ~ 1 yr ago. Patient has had atrial fibrillation in the past, typically associated with neck pain or manipulation of his neck. He also has frequent dizziness and near-syncope often associated with movement of his neck or with pressure placed on the right side of his neck. Patient reports he cracks his neck and his HR changes. He had swelling and tenderness of the right side of the neck now and feels that he has drainage and fullness in his right ear. He has some shortness of breath with palpitations which has improved with HR control. He denied chest pain, cough, fevers, chills or body aches. No trauma to the area. In the ER patient had elevated HR of 175bpm. He was given Metoprolol 5mg IV x 1 dose with improvement in HR and symptoms, along with Toradol, Mg. Review of Systems Constitutional: no fever and no chills Eyes: not seeing flashes, no spots in vision and no worsening vision Ear, Nose, Mouth, Throat: + dry mouth Respiratory: + dyspnea; no cough and no chest congest ion Cardiovascular: + palpitations and + lightheadedness; no chest pain Gastrointestinal: no abdominal pain, no nausea and no vomiting Neurologic: + dizziness and + headache(s); no falls, no tingling and no numbness Physical Exam Constitutional: WD/WN, vitals as above Neck: + anterior neck swelling (slight swellin g in r. radha-lateral neck) and + neck tender (r. lateral neck) Cardiovascular: Rate/Rhythm: + tachycardic (heart rate 90-140); + abnormal rhythm Gastrointestinal (Abdomen): Percussion/Palpation: + abdomen tender (left- sided, LLQ pain (Hx, Apr 2023, colectomy)) Psychiatric: A+Ox3, euthymic affect Results & Data Results & Data Vital Signs (Past 12 Hours) Vital Signs Temp Pulse Pulse Resp BP BP Pulse Ox 02/10/24 05:03 87 15 135/78 93 02/10/24 04:00 91 H 20 124/86 95 02/10/24 02:30 92 H 23 119/88 90 02/10/24 02:00 93 H 16 124/98 95 02/10/24 01:51 02/10/24 01:00 99 H 20 141/97 H 96 02/10/24 01:00 96 H 14 141/97 H 96 02/10/24 00:30 90 12 128/91 95 02/10/24 00:00 87 15 144/102 H 96 02/10/24 00:00 92 H 16 144/102 H 97 02/09/24 23:45 92 H 127/98 02/09/24 23:44 98 02/09/24 23:30 36.8 C 94 H 17 131/98 98 02/09/24 23:14 122 H 152/119 H 02/09/24 23:11 163 H 13 162/125 H 99 02/09/24 23:06 170 H 02/09/24 22:58 175 H 22 165/125 H 99 Pulse Ox O2 Del Method O2 Del Method 02/10/24 05:03 Room Air 02/10/24 04:00 Room Air 02/10/24 02:30 Room Air 02/10/24 02:00 Room Air 02/10/24 01:51 98 Room Air 02/10/24 01:00 Room Air 02/10/24 01:00 Room Air 02/10/24 00:30 Room Air 02/10/24 00:00 Room Air 02/10/24 00:00 Room Air 02/09/24 23:45 02/09/24 23:44 Room Air 02/09/24 23:30 Room Air 02/09/24 23:14 02/09/24 23:11 Room Air 02/09/24 23:06 02/09/24 22:58 Room Air Resident Activity Tracking Resident Involvement: Resident Care Provided Care Provided: Adult Hospital Medicine (2) Hypothyroidism Hypothyroidism type: acquired Qualified Code(s): E03.9 - Hypothyroidism, unspecified
--- NOTE | 2024-02-10 07:37 | Hospitalist Progress Note ---
Date of Service February 10, 2024 Assessment & Plan (1) Acute neck pain: (2) Atrial fibrillation with rapid ventricular response: Plan Atrial fibrillation with rapid ventricular response -Atrial fibrillation with RVR on presentation. HR improved with dose of Metoprolol in the ED. -Hemodynamically stable -Mild Hypokalemia with K, 3.3 and w/ Mg, 2.1 Negative Troponin. INR 0.9. -[id number]: 0 -He had a negative stress test on 01/03/24. -Remained in A-fib on rounds this a.m. Refractory to IV metoprolol 5 mg x2 doses. -Cardiology consulted: opted for chemical cardioversion: p.o. flecainide 300 mg. Returned to [facility]. Will follow with cardiology outpatient. Neck pain, right sided, acute -Patient reports change in HR and near-syncope with manipulation of his right neck - intermittent for several months. He denies trauma. - History of cervical radiculopathy - Diff Dx: carotid bulb hypersensitivity, vagus nerve stimulation -MRI of Cervical Spine (02/09): -C5-C6: Moderate disc degeneration with a near disc bulge flattening the ventral cord without evidence of abnormal cord signal and causing mild spinal canal stenosis. -C6-C7: Moderate disc degeneration with a central disc extrusion asymmetric to the right measuring 9.3 mm (CC) by 2.3 mm (AP) flattening the ventral cord without onset of abnormal cord signal causing the severe spinal canal stenosis with AP diameter measuring 7.6 mm. - Ibuprofen scheduled q 6 hours, Flexeril PRN, Heat. Will reassess. Left Lower quadrant tenderness, chronic -Patient has a history of diverticulitis, s/p colectomy (04/2023) -Afebrile, no leukocytosis -Abdominal pain is unchanged following cardioversion -Ordered contrast CT abd/pelvis Subclinical hypothyroidism - Levoxyl 88 mcg PO daily -Unlikely to be related to atrial fibrillation with RVR. -His dose was increased to 88mcg by endocrinology on 01/14/24 - Continue Levoxyl 88 mcg PO daily -Follow up as outpatient with endocrinology Idiopathic Hypogonadism, chronic - testosterone topical daily -Not currently using topical testosterone. -Follows with endocrinology. Follow up as outpatient. FEN: Regular Code status: full code DVT ppx: Lovenox 40 mg Held home meds: none Consults: cardiology Dispo: med tele Admission and Anticipated Discharge Date Admission Date: February 10, 2024 Supervising Physician Co-Signing Physician Notes ATTESTATION I also saw the patient and confirmed jackson portions of the history and exam. I agree with the impression and plan in the resident documentation, and as summarized below. Upon our morning examination, the patient was lying supine in the emergency department bed. He remains in a atrial fibrillation with rates between 80 and 100 at rest, although rate will accelerate with minimal activity. He also notes some left sided abdominal pain. He has had diverticulitis previously, but this seems different to him. EXAM 127/92, 105, 15, 36.8, 96% room air Alert and oriented. No distress appreciated. Heart irregularly irregular, auscultated rate around 100. Lungs are clear throughout, nonlabored respirations. Abdomen with some left mostly left lower abdominal tenderness without rebound or guarding DATA Labs CBC is unremarkable. BMP shows potassium of 3.3, BUN 19, creatinine 1.08 TSH 14.04, free T40.67 IMPRESSION & PLAN Paroxysmal atrial fibrillation with RVR Left-sided abdominal pain Cervical neck pain Hypothyroidism Hypogonadism on testosterone replacement Retry another dose of metoprolol Consult cardiology; ROM hopeful he will convert on his own, could consider pharmaceutical cardioversion Once rhythm and rate controlled, consider imaging of the abdomen Defer changes to his Synthroid at this point; he does follow with endocrinology Additional per resident documentation Subjective The patient reports that he can feel when he is in AFIB, as he becomes dizzy. His last episode of atrial fibrillation was within the past year (05/25). He was last seen by cardiology in 2022. He was prescribed diltiazem 30 mg PRN Q6H as needed for AFIB. He didn't require chronic anticoagulation therapy at that time. He notes that his atrial fibrillation has been successfully treated in the past with Cardizem. He had a negative stress test on 01/03/24. He denies a history of stroke, DVT, and PE. He reports that he has never been cardioverted. Review of Systems Review of Systems: See HPI, otherwise negative Physical Exam Physical Exam: Constitutional: well-appearing, no acute distress. HEENT: NCAT, no conjunctival injection CV: Irregular rhythm, no murmur appreciated, extremities well-perfused, 1+ LE non-pitting edema Resp: No increased work of breathing, CTABL, no wheezes/rales/rhonchi appreciated. GI: Nondistended, BS normoactive. MSK: no gross deformities appreciated Skin: warm, dry, no rash appreciated Neuro: alert, oriented, no focal neurologic deficit appreciated Results & Data Results & Data Vital Signs (Past 12 Hours) Vital Signs Temp Pulse Pulse Resp BP BP Pulse Ox 02/10/24 07:14 88 02/10/24 05:03 87 15 135/78 93 02/10/24 04:00 91 H 20 124/86 95 02/10/24 02:30 92 H 23 119/88 90 02/10/24 02:00 93 H 16 124/98 95 02/10/24 01:51 02/10/24 01:00 99 H 20 141/97 H 96 02/10/24 01:00 96 H 14 141/97 H 96 02/10/24 00:30 90 12 128/91 95 02/10/24 00:00 87 15 144/102 H 96 02/10/24 00:00 92 H 16 144/102 H 97 02/09/24 23:45 92 H 127/98 02/09/24 23:44 98 02/09/24 23:30 98.2 F 94 H 17 131/98 98 02/09/24 23:14 122 H 152/119 H 02/09/24 23:11 163 H 13 162/125 H 99 02/09/24 23:06 170 H 02/09/24 22:58 175 H 22 165/125 H 99 Pulse Ox O2 Del Method O2 Del Method 02/10/24 07:14 02/10/24 05:03 Room Air 02/10/24 04:00 Room Air 02/10/24 02:30 Room Air 02/10/24 02:00 Room Air 02/10/24 01:51 98 Room Air 02/10/24 01:00 Room Air 02/10/24 01:00 Room Air 02/10/24 00:30 Room Air 02/10/24 00:00 Room Air 02/10/24 00:00 Room Air 02/09/24 23:45 02/09/24 23:44 Room Air 02/09/24 23:30 Room Air 02/09/24 23:14 02/09/24 23:11 Room Air 02/09/24 23:06 02/09/24 22:58 Room Air Laboratory Results 02/09/24 02/09/24 23:10 23:13 WBC 10.18 RBC 5.14 Hgb 15.3 POC Hgb 15.3 Hct 43.7 POC Hct 45 MCV 85.0 MCH 29.8 MCHC 35.0 RDW Std Deviation 40.1 RDW Coeff of Gonzalez 13.0 Plt Count 288 MPV 9.0 L Immature Gran % (Auto) 0.4 Neut % (Auto) 40.0 Lymph % (Auto) 46.9 [place] % (Auto) 8.6 Eos % (Auto) 3.5 Baso % (Auto) 0.6 Neut # (Auto) 4.07 Lymph # (Auto) 4.77 H [place] # (Auto) 0.88 H Eos # (Auto) 0.36 Baso # (Auto) 0.06 Immature Gran # (Auto) 0.04 PT 10.1 INR 0.9 APTT 32 H PTT Ratio 1.2 POC Sodium 138 Sodium 136 POC Potassium 3.3 Potassium 3.3 L POC Chloride 103 Chloride 102 Carbon Dioxide 24 POC Total CO2 23 L Anion Gap 10 POC Anion Gap 16.0 POC BUN 18 BUN 19 Creatinine 1.08 POC Creatinine 1.1 Est Cr Clr Drug Dosing Not Reportable Est GFR ( Amer) 96.2 Est GFR (Non-Af Amer) 83.0 BUN/Creatinine Ratio 17.6 Glucose 103 H POC Glucose (other) 99 Calcium 9.4 POC Ioniz Calcium Estela 1.15 Magnesium 2.1 Total Bilirubin 0.4 AST 18 ALT 24 Alkaline Phosphatase 64 Troponin I High Sens 4.7 Total Protein 7.7 Albumin 4.8 Globulin 2.9 Albumin/Globulin Ratio 1.7 TSH 14.041 H Free T4 0.67 Diagnostic Findings XR chest 1V portable CLINICAL HISTORY: Dysrhythmia COMPARISON STUDY: Chest CT October 06, 2023. Chest radiograph January 01, 2024. FINDINGS: No pneumothorax or pleural effusion is present. There is no consolidation or evidence for pulmonary edema. Cardiac silhouette is prominent, likely technical. The findings favor a hypoventilatory study. IMPRESSION: No acute cardiopulmonary findings. ACT 112: Negative or not required by law. EXAM: MR Cervical Spine With Intravenous Contrast CLINICAL HISTORY: Reason for exam: right neck pain and swelling, AF and dizziness. TECHNIQUE: Magnetic resonance images of the cervical spine with intravenous contrast in multiple planes. CONTRAST: Patient received 11.5ml gadavist of IV contrast COMPARISON: Comparison made to prior CT angiogram of the neck from December 31, 2023. FINDINGS: Vertebrae: There are 7 cervical type vertebral bodies with a mild generalized curve to the right and straight and the normal cervical lordosis. There is normal vertebral body height and alignment. The bone marrow signal is heterogeneous with reactive endplate changes. No acute fracture. Spinal cord: There is flattening the ventral cord at C5-6 and C6-7 without evidence of abnormal cord signal. The craniocervical junction is normal without evidence of tearing malformation. No abnormal enhancement. Soft tissues: The cervical flow voids are intact. DISCS/SPINAL CANAL/NEURAL FORAMINA: C2-C3: Unremarkable. No significant disc disease. No stenosis. C3-C4: Unremarkable. No significant disc disease. No stenosis. C4-C5: Unremarkable. No significant disc disease. No stenosis. C5-C6: Moderate disc degeneration with a near disc bulge flattening the ventral cord without evidence of abnormal cord signal and causing mild spinal canal stenosis. C6-C7: Moderate disc degeneration with a central disc extrusion asymmetric to the right measuring 9.3 mm (CC) by 2.3 mm (AP) flattening the ventral cord without onset of abnormal cord signal causing the severe spinal canal stenosis with AP diameter measuring 7.6 mm. C7-T1: Unremarkable. No significant disc disease. No stenosis. IMPRESSION: No evidence of acute cervical spine pathology. Medications Administered Current Inpatient Medications Acetaminophen (Acetaminophen 325 Mg Tab) 650 mg PO Q4H PRN PRN Reason: Pain or Fever Stop: 03/11/24 01:50 Cyclobenzaprine HCl (Cyclobenzaprine Hcl 5 Mg Tab) 5 mg PO TID PRN PRN Reason: neck pain Stop: 03/11/24 01:50 Enoxaparin Sodium (Enoxaparin Inj 40 Mg/0.4 Ml Syr) 40 mg SQ PM PRAVEENA Stop: 03/11/24 01:50 Last Admin: 02/10/24 02:29 Dose: Not Given Ibuprofen (Ibuprofen 200 Mg Tab) 400 mg PO Q6H PRAVEENA Stop: 03/11/24 05:59 Last Admin: 02/10/24 12:09 Dose: Not Given Levothyroxine Sodium (Levothyroxine Sodium 88 Mcg Tablet) 88 mcg PO DAILYBB PRAVEENA Stop: 03/11/24 06:29 Last Admin: 02/10/24 06:26 Dose: 88 mcg Metoprolol Tartrate (Metoprolol Tartrate 1 Mg/Ml Vial) 5 mg IV Q4 PRN PRN Reason: tachycardia Stop: 03/11/24 01:50 Last Admin: 02/10/24 09:13 Dose: 5 mg Ondansetron HCl (Ondansetron Inj 2 Mg/Ml 2 Ml Vial) 4 mg IV Q6H PRN PRN Reason: Nausea And Vomiting Stop: 03/11/24 01:50 Resident Supervision Co-Signing Physician Notes I saw this patient on rounds and reviewed the plan with the attending physician and the rest of the team. Plan is as above. Resident Activity Tracking Resident Involvement: Resident Care Provided Care Provided: Adult Hospital Medicine
[2024-02-10] MEDS: METOPROLOL TARTRATE 1 MG/ML VIAL IV PRN (09:13)
[2024-02-10] MEDS: METOPROLOL TARTRATE 1 MG/ML VIAL IV STA (10:05)
--- NOTE | 2024-02-10 10:59 | Electrocardiogram Report ---
Test Reason : Blood Pressure : / mmHG Vent. Rate : 170 BPM Atrial Rate : 178 BPM P-R Int : 000 ms QRS Dur : 090 ms QT Int : 236 ms P-R-T Axes : 000 089 -29 degrees QTc Int : 396 ms Atrial fibrillation with aberrant conduction Abnormal ECG When compared with ECG of 01-JAN-2024 07:47, Atrial fibrillation has replaced sinus rhythm ST now depressed in Inferior leads ST now depressed in Anterolateral leads T wave inversion more evident in Inferior leads Confirmed by Joe Irby ([id number]) on 02/10/2024 10:59:36 AM Referred By: REFERRED SELF Confirmed By:Abraham Irby
--- NOTE | 2024-02-10 11:00 | Electrocardiogram Report ---
Test Reason : Blood Pressure : / mmHG Vent. Rate : 090 BPM Atrial Rate : 000 BPM P-R Int : 000 ms QRS Dur : 092 ms QT Int : 332 ms P-R-T Axes : 000 042 -02 degrees QTc Int : 406 ms Atrial fibrillation Abnormal ECG When compared with ECG of 09-FEB-2024 23:02, (unconfirmed) ST no longer depressed in Anterolateral leads Confirmed by Joe Irby ([id number]) on 02/10/2024 10:59:50 AM Referred By: REFERRED SELF Confirmed By:Abraham Irby
--- NOTE | 2024-02-10 12:17 | Cardiology Consultation ---
Date of Consultation February 10, 2024 Assessment & Plan (1) Atrial fibrillation with rapid ventricular response: Plan 1. Atrial fibrillation: Paroxysmal. Likely vagally mediated based on his description of the initiation. This is also more likely in his demographic. Structurally normal heart. Possible contribution from sleep apnea although he recently underwent tonsillectomy for sleep apnea. Unclear if he still carries this diagnosis. He has significant symptoms associated with atrial fibrillation and associated high heart rates. He will likely convert to sinus rhythm on his own without any specific treatment, but given the symptoms I think we will try chemical card ioversion earlier. I prescribed him 1 dose of flecainide. Structurally normal heart, normal QTC and recently normal stress echocardiogram. I do not believe he requires systemic anticoagulation at this point. Additional measures for prevention of recurrent atrial fibrillation we discussed in the outpatient setting. History of Present Illness Reason for Consultation: Atrial fibrillation Requesting Physician: Mara Attending Physician: Joo Charles, History of Present Illness The patient is a 43-year-old gentleman with a long history of paroxysmal atrial fibrillation who presents to the emergency room with symptoms of palpitations and dizziness. He states that yesterday evening when he coughed forcefully he noticed the beginning of tachycardia and palpitations. He often has some associated dizziness or lightheadedness. Some mild dyspnea. No chest pain. He recognizes symptoms and presented to the emergency room for evaluation. He was discovered to have atrial fibrillation and high heart rate. He also had symptoms of neck discomfort that are fairly chronic in nature. Patient continues to struggle with neck discomfort. He has an evaluation and consultation with orthopedics previously. No therapy was planned. Due to symptoms of exertional dyspnea and mild chest discomfort he did undergo a recent stress echocardiogram which did not demonstrate any evidence of ischemia. The echocardiogram also demonstrated a structurally normal heart without valvular heart disease. 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 He is accustomed to routine activity but does not exercise vigorously. He did not report any additional exertional symptoms. He does feel that episodes of atrial fibrillation can be precipitated by sudden movements of his not per Allergies Allergy/AdvReac Type Severity Reaction Status Date / Time cat dander Allergy Intermediate Sneezing Verified 02/09/24 23:31 house dust mite Allergy Intermediate Congested Verified 02/09/24 23:31 pollen extracts Allergy Intermediate Congested Verified 02/09/24 23:31 ragweed pollen Allergy Intermediate Congested Verified 02/09/24 23:31 tree and shrub pollen Allergy Intermediate Congested Verified 02/09/24 23:31 morphine AdvReac Intermediate Hallucinati Verified 02/09/24 23:31 ons Home Medications Medication Instructions Recorded Confirmed Type cholecalciferol (vitamin D3) 125 125 mcg PO DAILY 12/31/23 02/09/24 History mcg (5,000 unit) tablet (Vitamin D3) ibuprofen 200 mg tablet (Advil) 400 mg PO Q6H PRN Pain 12/31/23 02/09/24 History testosterone 1 pump topical DAILY 12/31/23 02/09/24 History Levoxyl 88 mcg tablet 88 mcg PO DAILY #90 tabs 01/14/24 02/09/24 Rx (levothyroxine) Patient History Medical History Facial numbness Skin lesion of right upper extremity Encounter for pre-operative examination Environmental and seasonal allergies Diverticular disease Hx of migraines History of COVID-19 07/2021- 2 weeks later had ER visit to r/o blood clots, dx sinus infection per patient, symptoms resolved History of diverticulitis Hx of sleep apnea "Mild" YINA "no longer issue" s/p tonsillectomy Degenerative disc disease Surgical History Epidermal cyst (06/21/23) FINAL DIAGNOSIS In office procedure Dr. Sullivan Skin, right upper extremity, "lesion" (excision of right upper extremity skin lesion): - Epidermal cyst. Hx of colonoscopy Hx of vasectomy History of cystoscopy + stent (2018) Hx of tonsillectomy Tonsillectomy (09/12/18, [facility]) History of tooth extraction WTE Family History Family/Other Coronary heart disease Mother Hyperthyroidism Ovarian cancer Grandfather Heart disease Uncle Myocardial infarction Denies family history of Prostate cancer Breast cancer Lung cancer Colorectal cancer Social History Smoking Status: Former smoker Tobacco Type: Smokeless Tobacco (Dip or Chew) Second Hand Exposure: No; Do You Dip or Chew Tobacco: No; Hx Alcohol Use: No Hx Substance Use: No Preferred Language: Mohawk Communication Ability: Effective Visual Impairment: No Limitations Airline Security Representative Required: No Beliefs That Will Affect Care: None marital status: Current Living Situation: Spouse and Family Current Living Situation Comment: Lives with and 2 kids current occupational status: employed 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 Mood and affect appeared normal. He answered all questions appropriately. HEENT: Pupils are equal and reactive to light and accommodation. Extraocular movements are intact. The sclerae are anicteric. Neuro: Cranial nerves intact Lungs: Clear to auscultation bilaterally. He has good air movement without use of accessory muscles. No rales wheezes or rhonchi. Cardiac: Heart demonstrates an irregular rhythm but normal rate. Normal S1 and S2. No murmurs on examination. Pulses: The patient has palpable radial pulses bilaterally that are equal in intensity Extremities: There was no evidence of hypoperfusion. There is no cyanosis or clubbing. There is no edema. Skin: I did not appreciate any rashes on examination today. Results & Data Vital Signs (Past 12 Hours) Vital Signs Pulse Pulse Resp BP BP Pulse Ox Pulse Ox 02/10/24 12:09 87 134/86 02/10/24 11:51 100 H 15 95 02/10/24 11:21 98 H 15 94 02/10/24 11:12 93 H 17 95 02/10/24 11:00 98 H 13 96 02/10/24 10:54 92 H 17 96 02/10/24 10:42 90 16 98 02/10/24 10:30 79 10 L 94 02/10/24 10:27 92 H 12 95 02/10/24 10:15 77 13 95 02/10/24 10:05 116 H 124/102 H 02/10/24 10:03 101 H 9 L 97 02/10/24 09:30 100 H 6 L 95 02/10/24 09:21 76 12 95 02/10/24 08:57 83 13 98 02/10/24 08:42 87 16 95 02/10/24 08:21 95 H 16 96 02/10/24 08:00 107 H 21 97 02/10/24 07:21 87 16 96 02/10/24 07:15 91 H 15 96 02/10/24 07:14 88 02/10/24 07:00 96 H 8 L 96 02/10/24 06:57 89 11 L 96 02/10/24 06:42 79 24 96 02/10/24 06:36 90 18 97 02/10/24 06:18 85 13 97 02/10/24 06:09 80 13 96 02/10/24 05:03 87 15 135/78 93 02/10/24 04:00 91 H 20 124/86 95 02/10/24 02:30 92 H 23 119/88 90 02/10/24 02:00 93 H 16 124/98 95 02/10/24 01:51 98 02/10/24 01:00 99 H 20 141/97 H 96 02/10/24 01:00 96 H 14 141/97 H 96 02/10/24 00:30 90 12 128/91 95 O2 Del Method O2 Del Method 02/10/24 12:09 02/10/24 11:51 02/10/24 11:21 02/10/24 11:12 02/10/24 11:00 02/10/24 10:54 02/10/24 10:42 02/10/24 10:30 02/10/24 10:27 02/10/24 10:15 02/10/24 10:05 02/10/24 10:03 02/10/24 09:30 02/10/24 09:21 02/10/24 08:57 02/10/24 08:42 02/10/24 08:21 02/10/24 08:00 02/10/24 07:21 02/10/24 07:15 02/10/24 07:14 02/10/24 07:00 02/10/24 06:57 02/10/24 06:42 02/10/24 06:36 02/10/24 06:18 02/10/24 06:09 02/10/24 05:03 Room Air 02/10/24 04:00 Room Air 02/10/24 02:30 Room Air 02/10/24 02:00 Room Air 02/10/24 01:51 Room Air 02/10/24 01:00 Room Air 02/10/24 01:00 Room Air 02/10/24 00:30 Room Air Laboratory Results Abnormal Lab Results 02/09/24 02/09/24 23:10 23:13 WBC 10.18 RBC 5.14 Hgb 15.3 POC Hgb 15.3 Hct 43.7 POC Hct 45 MCV 85.0 MCH 29.8 MCHC 35.0 RDW Std Deviation 40.1 RDW Coeff of [place] 13.0 Plt Count 288 MPV 9.0 L Immature Gran % (Auto) 0.4 Neut % (Auto) 40.0 Lymph % (Auto) 46.9 [place] % (Auto) 8.6 Eos % (Auto) 3.5 Baso % (Auto) 0.6 Neut # (Auto) 4.07 Lymph # (Auto) 4.77 H [place] # (Auto) 0.88 H Eos # (Auto) 0.36 Baso # (Auto) 0.06 Immature Gran # (Auto) 0.04 PT 10.1 INR 0.9 APTT 32 H PTT Ratio 1.2 POC Sodium 138 Sodium 136 POC Potassium 3.3 Potassium 3.3 L POC Chloride 103 Chloride 102 Carbon Dioxide 24 POC Total CO2 23 L Anion Gap 10 POC Anion Gap 16.0 POC BUN 18 BUN 19 Creatinine 1.08 POC Creatinine 1.1 Est Cr Clr Drug Dosing Not Reportable Est GFR ( Amer) 96.2 Est GFR (Non-Af Amer) 83.0 BUN/Creatinine Ratio 17.6 Glucose 103 H POC Glucose (other) 99 Calcium 9.4 POC Ioniz Calcium Estela 1.15 Magnesium 2.1 Total Bilirubin 0.4 AST 18 ALT 24 Alkaline Phosphatase 64 Troponin I High Sens 4.7 Total Protein 7.7 Albumin 4.8 Globulin 2.9 Albumin/Globulin Ratio 1.7 TSH 14.041 H Free T4 0.67 Diagnostic Findings Exercise echocardiogram 01/03/2024: Patient exercised for 7 minutes. No evidence of inducible ischemia. Baseline echocardiogram demonstrated an ejection fraction 55-60%. Mild LVH with maximal thickness 1.2 cm. Borderline dilated RV with normal function. No valvular heart disease. ECG Additional Comments: EKG the time admission revealed atrial fibrillation. Normal QTC. Borderline incomplete right bundle-branch block [facility] Time/CCT Total # of Minutes Spent Total Time Spent with Patient: Total time spent is greater than 50% in coordination of care (as documented) at patient's floor/unit and/or counseling patient: Coding Level of Care Code 92904 IN/OBS CONSULT LVL 4,60M Diagnoses Atrial fibrillation with rapid ventricular response I48.91
[2024-02-10] MEDS: FLECAINIDE ACETATE 100 MG TABLET PO ONE (13:08)
[2024-02-10] MEDS: OPTIRAY 320 100ml IV ONE (18:38)
--- NOTE | 2024-02-10 20:45 | CT Scan Report ---
Exam(s): CT ABDOMEN + PELVIS With Contrast Oral - High Density Amt: Barium, IV Amt: 93 cc opti 320 EXAM: CT Abdomen and Pelvis With Intravenous Contrast CLINICAL HISTORY: Left lower quadrant Pain. TECHNIQUE: Axial computed tomography images of the abdomen and pelvis with intravenous contrast. CTDI is 28.14 mGy and DLP is 1563.68 mGy-cm. Automated exposure control was utilized for the study. A dose lowering technique was utilized adhering to the principles of ALARA. CONTRAST: Patient received Barium of Oral - High Density and 93 cc opti 320 of IV contrast COMPARISON: CT abdomen and pelvis 05/03/2023 FINDINGS: Lung bases: Unremarkable. No mass. No consolidation. ABDOMEN: Liver: Unremarkable. No mass. Gallbladder and bile ducts: Unremarkable. No calcified stones. No ductal dilation. Pancreas: Unremarkable. No mass. No ductal dilation. Spleen: Unremarkable. No splenomegaly. Adrenals: Unremarkable. No mass. Kidneys and ureters: Nonobstructing left renal calculi measure up to 6 mm. No hydronephrosis of either kidney. Stomach and bowel: Unremarkable. No obstruction. No mucosal thickening. PELVIS: Appendix: Normal appendix. Bladder: Unremarkable. No mass. Reproductive: Unremarkable as visualized. ABDOMEN and PELVIS: Intraperitoneal space: Unremarkable. No free air. No significant fluid collection. Bones/joints: There are degenerative changes of the spine. No acute fracture. No dislocation. Soft tissues: Small bilateral fat-containing inguinal hernias. Vasculature: Unremarkable. No abdominal aortic aneurysm. Lymph nodes: Unremarkable. No enlarged lymph nodes. IMPRESSION: Nonobstructing left renal calculi measure up to 6 mm. No hydronephrosis of either kidney. Electronically signed by: Radha Lorenzo MD 02/10/24 20:44 PM
--- NOTE | 2024-02-11 06:46 | Hospitalist Progress Note ---
Date of Service February 11, 2024 Assessment & Plan (1) Acute neck pain: (2) Atrial fibrillation with rapid ventricular response: Plan Atrial fibrillation with rapid ventricular response -Atrial fibrillation with RVR on presentation. HR improved with dose of Metoprolol in the ED. -Hemodynamically stable -Mild Hypokalemia with K, 3.3 and w/ Mg, 2.1 Negative Troponin. INR 0.9. -[id number]: 0 -He had a negative stress test on 01/03/24. -Remained in A-fib on rounds this a.m. Refractory to IV metoprolol 5 mg x2 doses. -Cardiology consulted: opted for chemical cardioversion: p.o. flecainide 300 mg. Returned to [facility]. Will follow with cardiology outpatient. Neck pain, right sided, acute -Patient reports change in HR and near-syncope with manipulation of his right neck - intermittent for several months. He denies trauma. - History of cervical radiculopathy - Diff Dx: carotid bulb hypersensitivity, vagus nerve stimulation -MRI of Cervical Spine (02/09): -C5-C6: Moderate disc degeneration with a near disc bulge flattening the ventral cord without evidence of abnormal cord signal and causing mild spinal canal stenosis. -C6-C7: Moderate disc degeneration with a central disc extrusion asymmetric to the right measuring 9.3 mm (CC) by 2.3 mm (AP) flattening the ventral cord without onset of abnormal cord signal causing the severe spinal canal stenosis with AP diameter measuring 7.6 mm. - Ibuprofen scheduled q 6 hours, Flexeril PRN, Heat. Will reassess. Left Lower quadrant tenderness, chronic -Patient has a history of diverticulitis, s/p colectomy (04/2023) also w/ Hx of kidney stones -Afebrile, no leukocytosis -Abdominal pain is unchanged following cardioversion -Ordered CT-AP w/ oral contrast: noted a l. renal calculi measuring up to 6 mm Subclinical hypothyroidism - Levoxyl 88 mcg PO daily -Unlikely to be related to atrial fibrillation with RVR. -His dose was increased to 88mcg by endocrinology on 01/14/24 - Continue Levoxyl 88 mcg PO daily -Follow up as outpatient with endocrinology Idiopathic Hypogonadism, chronic - testosterone topical daily -Not currently using topical testosterone. -Follows with endocrinology. Follow up as outpatient. FEN: Regular Code status: full code DVT ppx: Lovenox 40 mg Held home meds: none Consults: cardiology Dispo: med tele Admission and Anticipated Discharge Date Admission Date: February 10, 2024 Subjective The patient reports that he can feel when he is in AFIB, as he becomes dizzy. His last episode of atrial fibrillation was within the past year (05/25). He was last seen by cardiology in 2022. He was prescribed diltiazem 30 mg PRN Q6H as needed for AFIB. He didn't require chronic anticoagulation therapy at that time. He notes that his atrial fibrillation has been successfully treated in the past with Cardizem. He had a negative stress test on 01/03/24. He denies a history of stroke, DVT, and PE. He reports that he has never been cardioverted. Review of Systems Constitutional: no fever and no chills Eyes: not seeing flashes, no spots in vision and no worsening vision Ear, Nose, Mouth, Throat: + dry mouth Respiratory: + dyspnea; no cough and no chest congest ion Cardiovascular: + palpitations and + lightheadedness; no chest pain Gastrointestinal: no abdominal pain, no nausea and no vomiting Neurologic: + dizziness and + headache(s); no falls, no tingling and no numbness Physical Exam Constitutional: WD/WN, vitals as above Neck: + anterior neck swelling (slight swellin g in r. radha-lateral neck) and + neck tender (r. lateral neck) Cardiovascular: Rate/Rhythm: + tachycardic (heart rate 90-140); + abnormal rhythm Gastrointestinal (Abdomen): Percussion/Palpation: + abdomen tender (left- sided, LLQ pain (Hx, Apr 2023, colectomy)) Psychiatric: A+Ox3, euthymic affect Results & Data Results & Data Vital Signs (Past 12 Hours) Vital Signs Temp Pulse Pulse Resp BP Pulse Ox O2 Del Method 02/11/24 03:21 36.7 C 68 16 134/81 97 Room Air 02/10/24 23:04 72 02/10/24 22:56 36.8 C 77 16 131/88 96 Room Air 02/10/24 19:05 36.3 C L 73 18 143/91 H 96 Room Air
[2024-02-11 07:14] LABS: Calcium 8.7 mg/dl (8.6-10.3); Creatinine Clr Calc Pharmacy 120.6 ml/min; Est GFR (African American) 105.6 ml/min; Est GFR (Non-African American) 91.1 ml/min; Potassium 4.2 mmol/L (3.5-5.1)
--- NOTE | 2024-02-11 07:36 | Hospitalist Progress Note ---
Date of Service February 11, 2024 Assessment & Plan (1) Acute neck pain: (2) Atrial fibrillation with rapid ventricular response: Plan Atrial fibrillation with rapid ventricular response -Atrial fibrillation with RVR on presentation. HR improved with dose of Metoprolol in the ED. -Hemodynamically stable -Mild Hypokalemia with K, 3.3 and w/ Mg, 2.1 Negative Troponin. INR 0.9. -[id number]: 0 (does not see PCP regularly but fasting glucose, 96 --> no diabetes; some hypertensive readings while in hospital probably secondary to pain but pt encouraged to F/U w/ PCP to ensure he doesn't have HTN) -He had a negative stress test on 01/03/24. -Patient's A-fib Refractory to IV metoprolol 5 mg x2 doses yesterday; Flecainide, 300 mg, PO, ONCE given yesterday - Cardiology consulted: opted for chemical cardioversion: p.o. flecainide 300 mg. Returned to [facility]. Will follow with cardiology outpatient. Neck pain, right sided, acute -Patient reports change in HR and near-syncope with manipulation of his right neck - intermittent for several months. He denies trauma. - History of cervical radiculopathy - Diff Dx: carotid bulb hypersensitivity, vagus nerve stimulation -MRI of Cervical Spine (02/09): -C5-C6: Moderate disc degeneration with a near disc bulge flattening the ventral cord without evidence of abnormal cord signal and causing mild spinal canal stenosis. -C6-C7: Moderate disc degeneration with a central disc extrusion asymmetric to the right measuring 9.3 mm (CC) by 2.3 mm (AP) flattening the ventral cord without onset of abnormal cord signal causing the severe spinal canal stenosis with AP diameter measuring 7.6 mm. - Ibuprofen scheduled q 6 hours, Flexeril PRN, Heat. Will reassess. Left Lower quadrant tenderness, chronic -Patient has a history of diverticulitis, s/p colectomy (04/2023) also w/ Hx of kidney stones -Afebrile, no leukocytosis -Abdominal pain is unchanged following cardioversion -Ordered CT-AP w/ oral contrast: noted a l. renal calculi measuring up to 6 mm Subclinical hypothyroidism - Levoxyl 88 mcg PO daily -Unlikely to be related to atrial fibrillation with RVR. -His dose was increased to 88mcg by endocrinology on 01/14/24 - Continue Levoxyl 88 mcg PO daily -Follow up as outpatient with endocrinology Idiopathic Hypogonadism, chronic - testosterone topical daily -Not currently using topical testosterone. -Follows with endocrinology. Follow up as outpatient. FEN: Regular Code status: full code DVT ppx: Lovenox 40 mg Held home meds: none Consults: cardiology Dispo: med tele Admission and Anticipated Discharge Date Admission Date: February 10, 2024 Subjective The patient reports that he can feel when he is in AFIB, as he becomes dizzy. His last episode of atrial fibrillation was within the past year (05/25). He was last seen by cardiology in 2022. He was prescribed diltiazem 30 mg PRN Q6H as needed for AFIB. He didn't require chronic anticoagulation therapy at that time. He notes that his atrial fibrillation has been successfully treated in the past with Cardizem. He had a negative stress test on 01/03/24. He denies a history of stroke, DVT, and PE. He reports that he has never been cardioverted. This morning the patient feels subjectively better, without the same sensation of irregular heart beats, heart racing as the previous day after receiving the flecainide. The patient is still feeling left-sided lower abdominal pain, which he stated felt more like previous diverticulitis episodes or a pulled muscle than a kidney stone (all of which he's had in the past). Patient encouraged to push fluids today to help pass the stone. Review of Systems Constitutional: no fever and no chills Eyes: not seeing flashes, no spots in vision and no worsening vision Ear, Nose, Mouth, Throat: + dry mouth Respiratory: + dyspnea; no cough and no chest congest ion Cardiovascular: + palpitations and + lightheadedness; no chest pain Gastrointestinal: no abdominal pain, no nausea and no vomiting Neurologic: + dizziness and + headache(s); no falls, no tingling and no numbness Physical Exam Constitutional: WD/WN, vitals as above Neck: + anterior neck swelling (slight swellin g in r. radha-lateral neck) and + neck tender (r. lateral neck) Cardiovascular: Rate/Rhythm: + tachycardic (heart rate 90-140); + abnormal rhythm Gastrointestinal (Abdomen): Percussion/Palpation: + abdomen tender (left- sided, LLQ pain (Hx, Apr 2023, colectomy)) Psychiatric: A+Ox3, euthymic affect Results & Data Results & Data Vital Signs (Past 12 Hours) Vital Signs Temp Pulse Pulse Resp BP Pulse Ox O2 Del Method 02/11/24 03:21 36.7 C 68 16 134/81 97 Room Air 02/10/24 23:04 72 02/10/24 22:56 36.8 C 77 16 131/88 96 Room Air
--- NOTE | 2024-02-11 07:44 | Hospitalist Progress Note ---
Date of Service February 11, 2024 Assessment & Plan (1) Acute neck pain: (2) Atrial fibrillation with rapid ventricular response: Plan Atrial fibrillation with rapid ventricular response -Hemodynamically stable, [id number] 0. -Potassium now wnl. -Negative stress test on 01/03/24. -S/p IV metoprolol 5 mg x2 doses, chemical cardioversion (p.o. flecainide 300 mg) * Follow with cardiology outpatient * Ordered home flecininde 200 mg Neck pain, right sided, acute -History of cervical radiculopathy. Patient reports change in HR and near- syncope with manipulation of his right neck - intermittent for several months. He denies trauma. -Diff Dx: carotid bulb hypersensitivity, vagus nerve stimulation -MRI of Cervical Spine (02/09) -C5-C6: Moderate disc degeneration with a near disc bulge flattening the ventral cord without evidence of abnormal cord signal and causing mild spinal canal stenosis. -C6-C7: Moderate disc degeneration with a central disc extrusion asymmetric to the right measuring 9.3 mm (CC) by 2.3 mm (AP) flattening the ventral cord without onset of abnormal cord signal causing the severe spinal canal stenosis with AP diameter measuring 7.6 mm. -s/p (medications/intervention): * Ibuprofen scheduled q 6 hours, Flexeril PRN, Heat. Left Lower quadrant tenderness, chronic -Patient has a history of diverticulitis, s/p colectomy (04/2023). Afebrile, no leukocytosis -Negative CT abd/pelvis * Follow up with GI outpatient Left Renal Calculi -Pt has history of renal calculi, s/p nephrolithotomy. * Ordered home Flomax for patient to use at home * Follow up with urology outpatient Subclinical hypothyroidism - Levoxyl 88 mcg PO daily -Unlikely to be related to atrial fibrillation with RVR. -His dose was increased to 88mcg by endocrinology on 01/14/24 * Continue Levoxyl 88 mcg PO daily * Follow up as outpatient with endocrinology Idiopathic Hypogonadism, chronic - testosterone topical daily -Not currently using topical testosterone. * Follow up as outpatient with endocrinology flecininde 200 mg fu woth ortho FEN: Regular Code status: full code DVT ppx: Lovenox 40 mg Held home meds: none Consults: cardiology Dispo: med tele Admission and Anticipated Discharge Date Admission Date: February 10, 2024 Subjective The patient reports that he can feel when he is in AFIB, as he becomes dizzy. His last episode of atrial fibrillation was within the past year (05/25). He was last seen by cardiology in 2022. He was prescribed diltiazem 30 mg PRN Q6H as needed for AFIB. He didn't require chronic anticoagulation therapy at that time. He notes that his atrial fibrillation has been successfully treated in the past with Cardizem. He had a negative stress test on 01/03/24. He denies a history of stroke, DVT, and PE. He reports that he has never been cardioverted. Patient reports feeling well and no new or increased symptoms. No dizziness, palpitations, or abdomianl pain. He follows with GI and urology. Review of Systems Review of Systems: See HPI, otherwise negative Physical Exam Physical Exam: Constitutional: well-appearing, no acute distress. HEENT: NCAT, no conjunctival injection CV: Regular rhythm, no murmur appreciated, extremities well-perfused, no LE edema Resp: No increased work of breathing, CTABL, no wheezes/rales/rhonchi appreciated. GI: BS normoactive. Mild TTP in LLQ and left flank. MSK: no gross deformities appreciated Skin: warm, dry, no rash appreciated Neuro: alert, oriented, no focal neurologic deficit appreciated Results & Data Results & Data Vital Signs (Past 12 Hours) Vital Signs Temp Pulse Pulse Resp BP Pulse Ox O2 Del Method 02/11/24 03:21 98.1 F 68 16 134/81 97 Room Air 02/10/24 23:04 72 02/10/24 22:56 98.2 F 77 16 131/88 96 Room Air Laboratory Results "BMP wnl" Diagnostic Findings CT Abdomen and Pelvis With Intravenous Contrast CLINICAL HISTORY: Left lower quadrant Pain. TECHNIQUE: Axial computed tomography images of the abdomen and pelvis with intravenous contrast. CTDI is 28.14 mGy and DLP is 1563.68 mGy-cm. Automated exposure control was utilized for the study. A dose lowering technique was utilized adhering to the principles of ALARA. CONTRAST: Patient received Barium of Oral - High Density and 93 cc opti 320 of IV contrast COMPARISON: CT abdomen and pelvis 05/03/2023 FINDINGS: Lung bases: Unremarkable. No mass. No consolidation. ABDOMEN: Liver: Unremarkable. No mass. Gallbladder and bile ducts: Unremarkable. No calcified stones. No ductal dilation. Pancreas: Unremarkable. No mass. No ductal dilation. Spleen: Unremarkable. No splenomegaly. Adrenals: Unremarkable. No mass. Kidneys and ureters: Nonobstructing left renal calculi measure up to 6 mm. No hydronephrosis of either kidney. Stomach and bowel: Unremarkable. No obstruction. No mucosal thickening. PELVIS: Appendix: Normal appendix. Bladder: Unremarkable. No mass. Reproductive: Unremarkable as visualized. ABDOMEN and PELVIS: Intraperitoneal space: Unremarkable. No free air. No significant fluid collection. Bones/joints: There are degenerative changes of the spine. No acute fracture. No dislocation. Soft tissues: Small bilateral fat-containing inguinal hernias. Vasculature: Unremarkable. No abdominal aortic aneurysm. Lymph nodes: Unremarkable. No enlarged lymph nodes. IMPRESSION: Nonobstructing left renal calculi measure up to 6 mm. No hydronephrosis of either kidney.
[2024-02-11] MEDS: TAMSULOSIN HCL 0.4 MG CAP PO ONE (12:07)
--- NOTE | 2024-02-11 12:40 | Electrocardiogram Report ---
Test Reason : Blood Pressure : / mmHG Vent. Rate : 070 BPM Atrial Rate : 070 BPM P-R Int : 188 ms QRS Dur : 098 ms QT Int : 390 ms P-R-T Axes : 052 016 020 degrees QTc Int : 421 ms Normal sinus rhythm Normal ECG When compared with ECG of 10-FEB-2024 00:32, Sinus rhythm has replaced Atrial fibrillation Confirmed by Joe Irby ([id number]) on 02/11/2024 12:39:36 PM Referred By: REFERRED SELF Confirmed By:Abraham Irby
--- NOTE | 2024-02-11 15:44 | Discharge Summary ---
Date of Service February 11, 2024 Admission HPI Per Admitting Provider Hal Dias is a 43yo male with history of PAF presenting with AF. Patient was in his usual state of health until this evening when he was laying in bed and he coughed and felt pain in his right neck followed by palpitations. Patient has had atrial fibrillation in the past, typically associated with neck pain or manipulation of his neck. He also has frequent dizziness and near- syncope often associated with movement of his neck or with pressure placed on the right side of his neck. Patient reports he cracks his neck and his HR changes. He has swelling and tenderness of the right side of the neck now and feels that he has drainage and fullness in his right ear. He has some shortness of breath with palpitations which has improved with HR control. He denies chest pain, cough. No fevers, chills or body aches. No trauma to the area In the ER patient had elevated HR of 175bpm. He was given Metoprolol 5mg IV x 1 dose with improvement in HR and symptoms ER Course: Toradol Mg Metoprolol Admission Exam Per Admitting Provider General: patient anxious in appearance, NAD, non-toxic in appearance, AA&O x 4 Skin: warm, dry, intact, no rashes or lesions HEENT: NC/AT, PERRL, EOMI, anicteric sclera, conjunctiva without injection, external ear normal to inspection and nontender, nares patent, moist mucus membranes, dentition intact, no oropharyngeal lesions, neck supple, trachea midline, no LAD, no thyromegaly, no JVD Tenderness to the right posterior neck with palpable nodes, no carotid bruit. Patient symptomatic with palpation of right carotid - no induced bradycardia with carotid massage but patient reported feeling that he was going to pass out Heart: +S1/S2, regular, tachycardic, no m/r/g Lungs: equal air entry bilaterally, no rales/rhonchi/wheezes Abd: +BS, soft, NT/ND, no masses/organomegaly/ascites Ext: warm, 2+ pulses in UE/LE bilaterally, no clubbing/cyanosis or edema Neuro: nonfocal, patient AA&O x 4, speech intact, no facial droop, moving all extremities on command with equal strength 5/5 Principal Diagnosis Paroxysmal atrial fibrillation Kidney stone Discharge Exam Constitutional WD/WN, vitals as above Neck + neck tender (right radha-lateral neck pain upon palpation) Respiratory normal respiratory effort, lungs clear to auscultation Cardiovascular RRR, no murmur, no edema Extremities: no calf tenderness Gastrointestinal (Abdomen) Inspection/Auscultation: normal bowel sounds Percussion/Palpation: + abdomen tender (LLQ, left-groin pain) and abdomen soft; abdomen not rigid Psychiatric A+Ox3, euthymic affect Genitourinary + CVA tenderness (left-sided) Discharge Data Allergies Allergy/AdvReac Type Severity Reaction Status Date / Time cat dander Allergy Intermediate Sneezing Verified 02/09/24 23:31 house dust mite Allergy Intermediate Congested Verified 02/09/24 23:31 pollen extracts Allergy Intermediate Congested Verified 02/09/24 23:31 ragweed pollen Allergy Intermediate Congested Verified 02/09/24 23:31 tree and shrub pollen Allergy Intermediate Congested Verified 02/09/24 23:31 morphine AdvReac Intermediate Hallucinati Verified 02/09/24 23:31 ons Consultations 02/10/24 00:26 ED Decision to Admit Stat 02/10/24 10:50 Consult Cardiology Routine Ordered Studies 02/10/24 01:51 MRI Cervical [MR cervical spine wo/w con] Routine 02/10/24 15:41 CT Abd and Pelvis [CT abd pelvis oral and IV con] Routine Hospital Course (1) Atrial fibrillation with rapid ventricular response: (2) Kidney stones: (3) Paroxysmal atrial fibrillation: Plan 1) Atrial fibrillation with rapid ventricular response -Atrial fibrillation with RVR on presentation; HR improved with dose of Metoprolol in the ED; hemodynamically stable -Mild Hypokalemia with K, 3.3 and w/ Mg, 2.1 Negative Troponin. INR 0.9. -[id number]: 0 (does not see PCP regularly but fasting glucose, 96 --> no diabetes; some hypertensive readings while in hospital probably secondary to pain but pt encouraged to F/U w/ PCP to ensure he doesn't have HTN) - Pt w/ negative stress test on 01/03/24. - Cardiology consulted: opted for chemical cardioversion: p.o. flecainide 300 mg. Returned to [facility]. Will follow with cardiology outpatient. - Patient's A-fib Refractory to IV metoprolol 5 mg x2 doses yesterday; Flecainide, 300 mg, PO, ONCE given yesterday - Patient prescribed flecainide, 2 x100 mg, PO, PRN (4 100-mg tablets) as outpatient 2) Neck pain, right sided, acute -Patient reported change in HR and near-syncope with manipulation of his right neck - intermittent for several months. - Patient denied trauma to neck; History of cervical radiculopathy - Diff Dx: carotid bulb hypersensitivity, vagus nerve stimulation -MRI of Cervical Spine (02/09): -C5-C6: Moderate disc degeneration with a near disc bulge flattening the ventral cord without evidence of abnormal cord signal and causing mild spinal canal stenosis. -C6-C7: Moderate disc degeneration with a central disc extrusion asymmetric to the right measuring 9.3 mm (CC) by 2.3 mm (AP) flattening the ventral cord without onset of abnormal cord signal causing the severe spinal canal stenosis with AP diameter measuring 7.6 mm. - Patient has appt w/ Dr. Heller as an outpatient in a few weeks 3) Left Lower quadrant tenderness, chronic -Patient has a history of diverticulitis, s/p colectomy (04/2023) also w/ Hx of kidney stones -Afebrile, no leukocytosis -Abdominal pain is unchanged following cardioversion -CT-AP w/ oral contrast: noted a l. renal calculi measuring up to 6 mm - Patient prescribed Tamsulosin, 0.4 mg, daily, for 7 days and encouraged to drink fluids to help expel stone 4) Subclinical hypothyroidism - Levoxyl 88 mcg PO daily -Unlikely to be related to atrial fibrillation with RVR. -His dose was increased to 88mcg by endocrinology on 01/14/24 - Continue Levothyroxine 88 mcg PO daily -Follow up as outpatient with endocrinology 5) Idiopathic Hypogonadism, chronic - testosterone topical daily -Not currently using topical testosterone. -Follows with endocrinology. Follow up as outpatient. Total Time Total Time Spent Total Time Spent (In Minutes): I spent 35 mins in seeing the patient, discussing with office [employer] consultant, and completing documenttion. Discharge Plan Discharge Items Patient Disposition: Home - Self-Care Reason For Visit: ATRIAL FIGRILLATION WITH RVR Discharge Diagnosis: Paroxysmal Atrial Fibrillation Kidney stone Activity: Resume your previous activity Non-emergency contact: Primary Care Provider Call non-emergency contact if: you have any medication questions, your symptoms worsen and your pain is worsening Follow-up/Referrals: Santiago Green MD [Primary Care Provider] - 02/20/24 11:30 am (Hospital follow up scheduled 02/19 at 11:30) Diet: Regular Addtl Attending Provider Instructions: You were admitted to the hospital for [_]. You were treated with [_]. A discharge summary will be sent to your primary care physician to ensure continuity of care. Please bring this discharge summary with you to your next office appointment so that your provider can review it at that time. Follow-up appointments: [ Make a follow-up appointment with your PCP within the next week. It is very important that you follow up with them shortly after discharge from the hospital.] [ We have requested a follow-up appointment with your primary care physician within one week of discharge. Please call their office if you do not hear from them.] [ You have an appointment with _ on _ at _. If you are unable to make this appointment, or have any other questions, their office can be reached at _.] Keep all your follow-up appointments as already scheduled. If you cannot make an appointment, notify your provider. Medications: Your medication list has been reviewed and reconciled upon discharge to ensure accuracy and continuity of care. An updated list of all your medications is included with your hospital discharge paperwork. Please review this list closely, and make note of any changes. We sent a new medication called Tamsulosin to your pharmacy. Take Tamsulosin, 0.4mg/day, for 7 days. We sent a new medication called flecainide to your pharmacy. Take flecainide, 200 mg/ 2 tablets, daily, as needed to stop an acute atrial fibrillation exacerbation. Take your medications as instructed; do not skip a dose of your medicines. Make sure all of your doctors know every medicine you are taking (including yoax-igb-[id number] medicines, vitamins, and supplements). Call your primary care provider before taking any new medicines (including [id number] medicines, vitamins, and supplements), because some of these may interact with your current medications, or may make your symptoms worse. Tell your primary care provider if you cannot afford your medications. CONTACT YOUR PRIMARY CARE PROVIDER if you experience any of the following: atrial fibrillation episode unresponsive to flecainide any further r. or l. sided abdominal pain Difficulty following your treatment plan, or difficulty taking medications CALL 911 OR GO TO THE EMERGENCY DEPARTMENT if you experience any of the following: Sudden, severe abdominal pain or nausea/vomiting Severe chest pain, or chest pain that radiates (moves) to your jaw or arm Sudden, severe shortness of breath or difficulty breathing Thank you for allowing us to participate in your care Pending Studies at Discharge: No Stand-Alone Forms: My [facility], Work/School Release, Smoking Cessation Medications and DC Order Prescriptions: New tamsulosin 0.4 mg capsule 0.4 mg PO DAILY Qty: 7 0RF flecainide 100 mg tablet 200 mg PO ONCE Qty: 4 0RF Continued levothyroxine [Levoxyl] 88 mcg tablet 88 mcg PO DAILY Qty: 90 3RF Rx Instructions: brand only ibuprofen [Advil] 200 mg Tablet 400 mg PO Q6H PRN (Reason: Pain) cholecalciferol (vitamin D3) [Vitamin D3] 125 mcg (5,000 unit) Tablet 125 mcg PO DAILY testosterone 20.25 mg/1.25 gram (1.62 %) gel in metered-dose pump 1 pump topical DAILY Rx Instructions: As of 02/09/24, pt states he hasn't started this yet but wants it to remain on his list. Discharge Orders: Discharge Order (Routine); Ordered 02/11/24 Ordered By: Joe Quinn/Other Patient Handouts: Tamsulosin Oral Capsule, Flecainide Oral Tablet, Understanding Kidney Stones, AFib Admission Data Admit Date/Time: 02/10/24 01:20 Attending Provider: Joo Charles Admit Provider: Mely Anderson Primary Care Provider: Santiago Green. Other Providers: Mely Anderson; Odette Crabtree; Joe Irby. Other Interventions: Discharge Summary Assessment (RN) Last Done: 02/11/24 11:48 Supervising Physician Co-Signing Physician Notes ATTESTATION I also saw the patient and confirmed jackson portions of the history and exam. I agree with the impression and plan in the resident documentation, and as summarized below. He feels quite well this morning. He has remained in normal sinus since converting yesterday. CT shows non obstructing left sided renal stone (6mm), which he has had before. EXAM VS as noted Alert and oriented. No distress appreciated. Heart RRR Lungs are clear throughout, nonlabored respirations. IMPRESSION & PLAN Paroxysmal atrial fibrillation with RVR Left-sided abdominal pain Cervical neck pain Hypothyroidism Hypogonadism Pill in the pocket with flecainide 200 mg; indications, use, and side effects reviewed Outpatient follow up with cardiology Has appointment with Dr. Heller, neurosurgery next week MRI provided to patient on CD to hand carry Add Flomax for stone; follow up with urology if needed TSH elevated. but recent change in Synthroid; recheck and management per endocrinology No work until next Saturday Additional per resident documentation
== END 2024-02-11 12:46 | disposition home or self-care (01) ==
LOC: ED 22:57 → EDINP 02-10 01:20 → SUATTDRO 02-10 01:20 → INTOOBSV 02-10 01:20 → EDINP 02-10 01:52 → 4W 02-10 16:34